=== PATIENT | male | born 1975 | race Caucasian/White ===

== ENCOUNTER 2018-05-25 17:28 | Emergency (ER) | payer OTHER ==
[~2018-05-25] VITALS: Ht 175.3 cm; Wt 77.1 kg
[~2018-05-25 17:28] MED LIST: ARIP10TA2 PO; CEPH500C PO; CLON1TAB3 PO; DESV50TA PO; GABA-486 PO; HYDR-757 PO; IBP800T PO; LURA60TA PO; NAPR-243 PO; PNT40TEC PO; PRD20T PO; PROP20TA5 PO; TRAM50TA2 PO; TRZ100T PO
--- OUTSIDE RECORDS SUMMARY | 2018-05-25 17:43 | XMS REPORT | Continuity of Care Document ---
Author Author [facility] Address Unknown Phone Unavailable Allergies Active Description Code Type Severity Reaction Onset Reported/Identified Relationship to Patient Clinical Status Yes PENICILLIN PENICILLIN Unknown N/A 12/09/2009 Yes codeine [id number] Drug Allergy Mild itches 01/03/2010 Yes Penicillins Drug Allergy N/A N/A 02/20/2013 Medications There is no data. Problems Date Dx Coded Attending Type Code Diagnosis Diagnosed By 01/03/2010 Ot 729.5 01/03/2010 Ot 844.9 01/03/2010 Ot E000.8 01/03/2010 Ot E030 01/03/2010 Ot E928.9 06/21/2012 Ot 305.90 06/21/2012 Ot 562.10 06/21/2012 Ot 789.00 06/21/2012 Ot 790.5 07/16/2012 Ot 356.9 07/16/2012 Ot 724.3 07/16/2012 Ot 724.4 07/16/2012 Ot 729.5 02/20/2013 FAVIOLA HAY DO 729.5 PAIN IN LIMB 02/20/2013 FAVIOLA HAY DO 796.2 ELEVATED BLOOD PRESSURE READING WITHOUT DIAGNOSIS OF HYPERTENSION 02/20/2013 ELBERT ALLEN DDS 729.5 PAIN IN LIMB 02/20/2013 ELBERT ALLEN DDS 796.2 ELEVATED BLOOD PRESSURE READING WITHOUT DIAGNOSIS OF HYPERTENSION 04/28/2013 MOY MACDONALD APRN Ot 300.00 04/28/2013 MOY MACDONALD APRN Ot 729.5 04/28/2013 MOY MACDONALD APRN Ot 786.50 02/07/2014 MOY MACDONALD APRN Ot 724.3 02/07/2014 MOY MACDONALD APRN Ot 729.5 Procedures Code [place] [address] ROUTINE VENIPUNCTURE 02/20/2013 94449 CMP 02/20/2013 73290 VIT B 12 02/20/2013 88971 FOLATE 02/20/2013 30592 [facility] 02/20/2013 96215 [facility] 02/20/2013 Results There is no data. Encounters ACCT No. Visit Date/Time Discharge Status Pt. Type Provider Facility Loc./Unit Complaint [id number] 08/21/2014 14:32:00 08/21/2014 23:59:59 CLS Outpatient ELBERT ALLEN DDS [id number] 02/20/2013 10:41:00 02/20/2013 23:59:59 CLS Outpatient BHARTI HELLER FAVIOLA Vita [id number] 09/15/2014 12:57:00 09/15/2014 15:12:00 DIS Emergency LEX LYNNE MD [facility] ER [id number] 02/07/2014 17:15:00 02/07/2014 17:42:00 DIS Emergency MOY MACDONALD APRN [facility] ER [id number] 04/28/2013 13:33:00 04/28/2013 14:52:00 DIS Emergency MOY MACDONALD PLASMA PROCESSING TECHNICIAN [facility] ER [id number] 02/18/2013 16:06:00 02/18/2013 23:59:59 CLS Outpatient [id number] 09/15/2014 12:57:00 Document Registration [id number] 07/16/2012 18:04:00 Document Registration [id number] 06/21/2012 12:41:00 Document Registration
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
[2018-05-25 19:46] VITALS: BP 180/118
== END 2018-05-25 19:47 | disposition home or self-care (01) ==
LOC: EDUNIT# 17:28 → ER 17:29
DX: S06.0X1A Concussion with loss of consciousness of 30 minutes or less, initial encounter (principal); E78.00 Pure hypercholesterolemia, unspecified; I10 Essential (primary) hypertension; K21.9 Gastro-esophageal reflux disease without esophagitis; F41.9 Anxiety disorder, unspecified; F32.9 Major depressive disorder, single episode, unspecified; R40.2142 Coma scale, eyes open, spontaneous, at arrival to emergency department; R40.2252 Coma scale, best verbal response, oriented, at arrival to emergency department; R40.2362 Coma scale, best motor response, obeys commands, at arrival to emergency department; Z87.19 Personal history of other diseases of the digestive system; Z88.5 Allergy status to narcotic agent; Z88.0 Allergy status to penicillin; Y04.8XXA Assault by other bodily force, initial encounter; Y92.149 Unspecified place in prison as the place of occurrence of the external cause
CPT/HCPCS: 70450; 72125

== ENCOUNTER 2018-11-12 14:56 | Emergency (ER) | payer SELFPAY ==
[~2018-11-12] VITALS: Ht 175.3 cm; Wt 68.0 kg
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
[2018-11-12] MEDS ORDERED: RT-ALBUTEROL/IPRATROPIUM 3 ML (DUONEB) VIAL INH ONE (15:15)
--- NOTE | 2018-11-12 15:16 | ED Respiratory ---
General Stated Complaint: SOA;COUGH Source: patient, other Exam Limitations: no limitations History of Present Illness Date Seen by Provider: November 12, 2018 Time Seen by Provider: 14:56 Initial Comments Patient presents to ER by private conveyance with a significant other chief complaint of last week having some progressively worsening shortness of breath productive cough subjective fevers. He did take one of his mother's breathing treatments yesterday and felt that helped some. He denies a history of COPD smokes about half a pack cigarettes per day. Does not have any known medical history. He does not follow with a doctor. 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 Stated allergy to penicillin. Allergies and Home Medications Allergies Coded Allergies: Codeine (Unverified Allergy, Mild, itches, 01/03/10) Uncoded Allergies: PENICILLIN (Allergy, 12/09/09) Home Medications Aripiprazole 10 Mg Tablet, 10 MG PO HS, (Reported) Cephalexin Monohydrate 500 Mg Capsule, 1 EACH PO TID Prescribed by: LEX LYNNE on 09/15/14 1509 Clonazepam 1 Mg Tablet, 1 EACH PO BID, (Reported) Desvenlafaxine Succinate 50 Mg Tab.sr.24h, 50 MG PO HS, (Reported) Gabapentin 100 Mg Capsule, 100 MG PO BID, (Reported) Lurasidone HCl 60 Mg Tablet, 60 MG PO HS, (Reported) Propranolol Hcl 20 Mg Tablet, 20 MG PO DAILY, (Reported) Trazodone Hcl 100 Mg Tablet, 100 MG PO HS, (Reported) Patient Home Medication List Home Medication List Reviewed: Yes Review of Systems Review of Systems Constitutional: No chills, No diaphoresis EENTM: No ear pain, No eye pain Respiratory: cough, phlegm, short of breath; No wheezing Cardiovascular: No chest pain, No palpitations Gastrointestinal: No abdominal pain, No nausea Genitourinary: No discharge, No dysuria Musculoskeletal: No back pain, No joint pain Skin: No pruritus, No rash Past Odktzmv-Orujwk-Jtawpz Hx Patient Social History Alcohol Use: Occasionally Uses Alcohol Beverage of Choice: Beer (lungs clear today) Recreational Drug Use: Yes Drug of Choice: meth Smoking Status: Current Everyday Smoker Type Used: Cigarettes (half pack per day, rolls his own) Recent Hopitalizations: No Immunizations Up To Date Tetanus Booster (TDap): Less than 5yrs Date of Influenza Vaccine: Mar 25, 2012 Seasonal Allergies Seasonal Allergies: No Past Medical History Surgeries: Yes Gallbladder Respiratory: No Cardiac: Yes High Cholesterol, Hypertension Neurological: No Reproductive Disorders: No Genitourinary: No Gastrointestinal: Yes Gastroesophageal Reflux, Pancreatitis Musculoskeletal: No Endocrine: No HEENT: No Cancer: No Psychosocial: Yes Anxiety, Bipolar Integumentary: No Blood Disorders: No Physical Exam Vital Signs - First Documented 11/12/18 11/12/18 14:59 15:20 Temp 98.0 Pulse 106 Resp 22 B/P (MAP) 171/118 (135) Pulse Ox 97 O2 Delivery Room Air FiO2 21 Capillary Refill : Height: 5'9.00" Weight: 170lbs. oz. 77.490818cc; BMI Method:Stated General Appearance: WD/WN, no apparent distress, other (anxious, twitching) Eyes: Bilateral Eye Normal Inspection, Bilateral Eye PERRL, Bilateral Eye EOMI HEENT: PERRL/EOMI, normal ENT inspection, pharynx normal Neck: full range of motion, normal inspection Respiratory: lungs clear, normal breath sounds, no respiratory distress, no accessory muscle use Cardiovascular: normal peripheral pulses, regular rate, rhythm Gastrointestinal: non tender, soft Extremities: normal inspection, normal capillary refill Neurologic/Psychiatric: alert, oriented x 3, other Skin: normal color, warm/dry Progress/Results/Core Measures Suspected Sepsis SIRS Temperature: Pulse: Respiratory Rate: Laboratory Tests 11/12/18 15:03: White Blood Count 11.0 Blood Pressure / Mean: Laboratory Tests 11/12/18 15:03: Creatinine 1.21, Platelet Count 361, Total Bilirubin 0.5 Results/Orders Lab Results Laboratory Tests Test 11/12/18 15:03 Range/Units White Blood Count 11.0 4.3-11.0 10^3/uL Red Blood Count 5.39 4.35-5.85 10^6/uL Hemoglobin 14.7 13.3-17.7 G/DL Hematocrit 44 40-54 % Mean Corpuscular Volume 81 80-99 FL Mean Corpuscular Hemoglobin 27 25-34 PG Mean Corpuscular Hemoglobin Concent 34 32-36 G/DL Red Cell Distribution Width 14.4 10.0-14.5 % Platelet Count 361 130-400 10^3/uL Mean Platelet Volume 9.6 7.4-10.4 FL Neutrophils (%) (Auto) 63 42-75 % Lymphocytes (%) (Auto) 21 12-44 % Monocytes (%) (Auto) 12 0-12 % Eosinophils (%) (Auto) 4 0-10 % Basophils (%) (Auto) 0 0-10 % Neutrophils # (Auto) 6.9 1.8-7.8 X 10^3 Lymphocytes # (Auto) 2.3 1.0-4.0 X 10^3 Monocytes # (Auto) 1.4 H 0.0-1.0 X 10^3 Eosinophils # (Auto) 0.4 H 0.0-0.3 10^3/uL Basophils # (Auto) 0.0 0.0-0.1 10^3/uL D-Dimer 0.89 H 0.00-0.49 UG/ML Sodium Level 141 135-145 MMOL/L Potassium Level 4.7 3.6-5.0 MMOL/L Chloride Level 108 H 98-107 MMOL/L Carbon Dioxide Level 20 L 21-32 MMOL/L Anion Gap 13 5-14 MMOL/L Blood Urea Nitrogen 24 H 7-18 MG/DL Creatinine 1.21 0.60-1.30 MG/DL Estimat Glomerular Filtration Rate > 60 BUN/Creatinine Ratio 20 Glucose Level 101 70-105 MG/DL Calcium Level 8.9 8.5-10.1 MG/DL Corrected Calcium 9.1 8.5-10.1 MG/DL Total Bilirubin 0.5 0.1-1.0 MG/DL Aspartate Amino Transf (AST/SGOT) 80 H 5-34 U/L Alanine Aminotransferase (ALT/SGPT) 119 H 0-55 U/L Alkaline Phosphatase 106 40-136 U/L C-Reactive Protein High Sensitivity 4.63 H 0.00-0.50 MG/DL Total Protein 6.3 L 6.4-8.2 GM/DL Albumin 3.7 3.2-4.5 GM/DL My Orders Orders - EVEREWA J Chest Pa/Lat (2 View) (11/12/18 15:04) Cbc With Automated Diff (11/12/18 15:04) Comprehensive Metabolic Panel (11/12/18 15:04) Hs C Reactive Protein (11/12/18 15:04) Fibrin Degradation Products (11/12/18 15:04) Ua Culture If Indicated (11/12/18 15:04) Albuterol/Ipra Inhalation Soln (Duoneb I (11/12/18 15:15) Svn Small Volume Nebulizer (11/12/18 15:04) Medications Given in ED Current Medications Medications Dose Ordered Sig/Andra Route Start Time Stop Time Status Last Admin Dose Admin Albuterol/ Ipratropium 3 ml ONCE ONCE INH 11/12/18 15:15 11/12/18 15:16 DC 11/12/18 15:20 3 ML Vital Signs/I&O 11/12/18 11/12/18 14:59 15:20 Temp 98.0 Pulse 106 Resp 22 B/P (MAP) 171/118 (135) Pulse Ox 97 100 O2 Delivery Room Air FiO2 21 Capillary Refill : Progress Note : Time: 15:12 Progress Note Other than his mild tachycardia at 101 the patient has no wheezing or overt evidence of acute respiratory distress. He walked in just fine. He put a cigarette out before he came in to the ER. We'll give him a breathing treatment obtain a chest x-ray since he's having subjective fevers and productive cough and some basic lab. Probably he has bronchitis with a background of COPD. If the breathing treatment helped send subjectively then we can send him home with Proair. The patient is not actually experiencing any chest pain nor has he. Well score 1.5 points for minor tachycardia puts the patient in the low risk category. His tachycardia could also be explained by recent methamphetamine use. Diagnostic Imaging Diagonstic Imaging: Xray Plain Films/CT/US/NM/MRI: chest (2v) Comments No acute cardiopulmonary processes noted on a 2 view chest x-ray. Reviewed: Reviewed by Me Departure Impression Primary Impression: Acute viral bronchitis Disposition: HOME, SELF-CARE Condition: Stable Departure-Patient Inst. Decision time for Depature: 15:56 Referrals: [facility] (PCP/Family) Primary Care Physician Patient Instructions: Acute Bronchitis, Adult (DC), LOCAL PHYSICIAN LIST Add. Discharge Instructions: Follow-up with a primary care doctor. supervisor agency appointments the pro-air and take 2 puffs 3 times a day on a schedule until you're over your bronchitis. You can take another 2 puffs every 4 hours as needed for shortness of breath or coughing fits. Take one capsule of Tessalon Perles every now 6 hours as needed for cough. Drink plenty of fluids to keep your secretions then. Use decongestants and Mucinex as necessary. Bronchitis usually last 2-3 weeks tops. Return to the nearest ER if you have difficulty breathing or significant chest pain. Scripts Benzonatate (Tessalon Perle) 100 Mg Capsule 100 MG PO Q6H PRN for COUGH, #30 CAP 0 Refills Prov: EWA CURTIS 11/12/18 Albuterol Sulfate (PROAIR HFA) 1 Puff Puff 2 PUFF IH Q4H PRN for COUGH, #1 EA 0 Refills 1 PUFF = 90 MCG Prov: EWA CURTIS 11/12/18 Inhaler, Assist Devices (E-Z Spacer) 1 Each Spacer EACH MC for Cough, #1 0 Refills Prov: EWA CURTIS 11/12/18 EWA CURTIS November 12, 2018 15:16
[2018-11-12 15:17] LABS: BASOPHILS % (AUTO) 0 % (0-10); EOSINOPHILS # (AUTO) 0.4 10^3/uL (0.0-0.3); EOSINOPHILS % (AUTO) 4 % (0-10); HEMATOCRIT 44 % (40-54); HEMOGLOBIN 14.7 G/DL (13.3-17.7); LYMPHOCYTES # (AUTO) 2.3 X 10^3 (1.0-4.0); LYMPHOCYTES % (AUTO) 21 % (12-44); MEAN CORPUSCULAR HEMOGLOBIN 27 PG (25-34); MEAN CORPUSCULAR HGB CONC 34 G/DL (32-36); MEAN CORPUSCULAR VOLUME 81 FL (80-99); MEAN PLATELET VOLUME 9.6 FL (7.4-10.4); MONOCYTES # (AUTO) 1.4 X 10^3 (0.0-1.0); MONOCYTES % (AUTO) 12 % (0-12); NEUTROPHILS # (AUTO) 6.9 X 10^3 (1.8-7.8); NEUTROPHILS % (AUTO) 63 % (42-75); PLATELET COUNT 361 10^3/uL (130-400); RED CELL DISTRIBUTION WIDTH 14.4 % (10.0-14.5)
[2018-11-12 15:28] LABS: ALANINE AMINOTRANSFERASE 119 U/L (0-55); ALBUMIN 3.7 GM/DL (3.2-4.5); ALKALINE PHOSPHATASE 106 U/L (40-136); BILIRUBIN,TOTAL 0.5 MG/DL (0.1-1.0); BUN/CREATININE RATIO 20; CALCIUM 8.9 MG/DL (8.5-10.1); CARBON DIOXIDE 20 MMOL/L (21-32); CHLORIDE 108 MMOL/L (98-107); CREATININE SERUM 1.21 MG/DL (0.60-1.30); GFR ESTIMATED > 60; GLUCOSE 101 MG/DL (70-105); POTASSIUM 4.7 MMOL/L (3.6-5.0); SODIUM 141 MMOL/L (135-145); TOTAL PROTEIN 6.3 GM/DL (6.4-8.2)
--- NOTE | 2018-11-12 15:55 | Diagnostic Imaging Report ---
INDICATION: Shortness of breath and cough. TIME OF EXAM: 03:43 p.m. Comparison is made with prior chest from 04/28/2013. Heart size normal. There is patchy airspace infiltrate in the left upper lobe consistent with pneumonia. There is some mild infiltrate in the perihilar regions bilaterally. No effusion or pneumothorax is seen. IMPRESSION: Bilateral perihilar and left upper lobe pneumonia. Dictated by: Dictated on workstation # [id number]
[2018-11-12] MEDS ORDERED: RT-ALBUINH IH (15:59)
[2018-11-12] MEDS ORDERED: INHA1INH59 MC (15:59)
[2018-11-12] MEDS ORDERED: BENZ-13 PO (15:59)
[2018-11-12 16:08] VITALS: BP 171/118
--- NOTE | 2018-11-13 14:20 | NUR ---
CM/SS, respond to consult request from patient's mother, Rajani Tamayo, for Rx assistance. Reviewed patient's visit at ED, history of multiple emergency room visits. He has history of service with [facility] but has not been seen there since 2016. He reportedly had multiple no-show appointments. Patient is unemployed, uninsured, and history of noncompliance. Patient reportedly uses meth and smokes. Approved PALS for inhaler and E-Z Spacer. Patient to private pay for [employer]. Mother was contact, explained to her PALS limits and recommended patient limit smoking and use that money for the Perles. She indicated agreement. Faxed PALS Voucher to [email or web address]. Rajani Tamayo to contact Ricardo to transmit Rx to [facility]. Recommended that patient return to [facility] for walk-in clinic and to remain established to benefit from all their supportive services.
== END 2018-11-12 16:09 | disposition home or self-care (01) ==
LOC: EDUNIT# 14:56 → ER 14:57
DX: J20.9 Acute bronchitis, unspecified (principal); E78.00 Pure hypercholesterolemia, unspecified; I10 Essential (primary) hypertension; K21.9 Gastro-esophageal reflux disease without esophagitis; F41.9 Anxiety disorder, unspecified; F31.9 Bipolar disorder, unspecified; F15.10 Other stimulant abuse, uncomplicated; F17.210 Nicotine dependence, cigarettes, uncomplicated; Z88.5 Allergy status to narcotic agent; Z87.19 Personal history of other diseases of the digestive system; Z88.0 Allergy status to penicillin
CPT/HCPCS: 36415; 71046; 80053; 85025; 85379; 86141; 94640

== ENCOUNTER 2018-11-20 11:08 | Inpatient (IN) | payer OTHER ==
[2018-11-20] VITALS (11 sets, daily range): BP systolic 105–161; BP diastolic 77–121
[~2018-11-20] VITALS: Ht 175.3 cm; Wt 65.9 kg
[~2018-11-20 11:08] MED LIST changes: +BENZ-13 PO; +INHA1INH59 MC; +RT-ALBUINH IH
[2018-11-20 11:24] LABS: BASOPHILS % (AUTO) 0 % (0-10); EOSINOPHILS # (AUTO) 0.3 10^3/uL (0.0-0.3); EOSINOPHILS % (AUTO) 4 % (0-10); HEMATOCRIT 43 % (40-54); HEMOGLOBIN 13.9 G/DL (13.3-17.7); LYMPHOCYTES # (AUTO) 1.6 X 10^3 (1.0-4.0); LYMPHOCYTES % (AUTO) 19 % (12-44); MEAN CORPUSCULAR HEMOGLOBIN 27 PG (25-34); MEAN CORPUSCULAR HGB CONC 33 G/DL (32-36); MEAN CORPUSCULAR VOLUME 81 FL (80-99); MEAN PLATELET VOLUME 9.1 FL (7.4-10.4); MONOCYTES % (AUTO) 12 % (0-12); NEUTROPHILS # (AUTO) 5.5 X 10^3 (1.8-7.8); NEUTROPHILS % (AUTO) 65 % (42-75); PLATELET COUNT 289 10^3/uL (130-400); RED CELL DISTRIBUTION WIDTH 14.8 % (10.0-14.5); WHITE BLOOD COUNT 8.4 10^3/uL (4.3-11.0)
[2018-11-20 11:40] LABS: ALANINE AMINOTRANSFERASE 989 U/L (0-55); ALBUMIN 3.5 GM/DL (3.2-4.5); ALKALINE PHOSPHATASE 142 U/L (40-136); BILIRUBIN,TOTAL 0.8 MG/DL (0.1-1.0); BUN/CREATININE RATIO 20; CALCIUM 8.8 MG/DL (8.5-10.1); CARBON DIOXIDE 25 MMOL/L (21-32); CHLORIDE 107 MMOL/L (98-107); CREATININE SERUM 0.94 MG/DL (0.60-1.30); GFR ESTIMATED > 60; GLUCOSE 93 MG/DL (70-105); POTASSIUM 3.9 MMOL/L (3.6-5.0); SODIUM 140 MMOL/L (135-145); TOTAL PROTEIN 6.3 GM/DL (6.4-8.2)
--- NOTE | 2018-11-20 11:40 | ED Respiratory ---
General Chief Complaint: Respiratory Problems Stated Complaint: SOA;LEG SWELLING Nursing Triage Note: PT CO OF SOA FOR A COUPLE WEEKS, STATES WAS SENT BY [facility] WALK IN, HAD BLOOD DRAWN,PT STATES HAS SWELLING OF LOWER EXT. RATES PAIN 02/01 Source: patient Exam Limitations: no limitations History of Present Illness Date Seen by Provider: November 20, 2018 Time Seen by Provider: 11:16 Initial Comments 43-year-old male who presents to the emergency room with increasing shortness of breath and bilateral leg swelling for the past 2 weeks. He reports that he has been seen in the ED last week and at [facility] today for similar complaints. He reports meth use last week. Timing/Duration: week (2 weeks) Associated Symptoms: shortness of breath Allergies and Home Medications Allergies Coded Allergies: codeine (Unverified Allergy, Mild, itches, 01/03/10) Penicillins (Unverified Allergy, Unknown, 11/20/18) Home Medications Albuterol Sulfate 18 Gm Hfa.aer.ad, 2 PUFF INH Q4H PRN for SHORTNESS OF BREATH, (Reported) Patient Home Medication List Home Medication List Reviewed: Yes Review of Systems Review of Systems Constitutional: see HPI; No chills, No fever Respiratory: see HPI, short of breath Musculoskeletal: see HPI, joint swelling (feet bilat) All Other Systems Reviewed Negative Unless Noted: Yes Past Nlrzfuw-Wbhytm-Fjgevs Hx Past Med/Social Hx: Reviewed Nursing Past Med/Soc Hx Patient Social History Alcohol Use: Denies Use Number of Drinks Today: AA Alcohol Beverage of Choice: Beer Recreational Drug Use: Yes (LAST WEEK) Drug of Choice: meth Smoking Status: Current Everyday Smoker Type Used: Cigarettes Recent Foreign Travel: No Contact w/Someone Who Travel: No Recent Infectious Disease Expo: No Recent Hopitalizations: No Physical Abuse: No Sexual Abuse: No Immunizations Up To Date Tetanus Booster (TDap): Less than 5yrs Date of Influenza Vaccine: Mar 25, 2012 Seasonal Allergies Seasonal Allergies: No Past Medical History Surgeries: Yes Gallbladder Respiratory: No Cardiac: Yes High Cholesterol, Hypertension Neurological: No Reproductive Disorders: No Genitourinary: No Gastrointestinal: Yes Gastroesophageal Reflux, Pancreatitis Musculoskeletal: No Endocrine: No HEENT: No Cancer: No Psychosocial: Yes Anxiety, Bipolar Integumentary: No Blood Disorders: No Family Medical History Reviewed Nursing Family Hx Physical Exam Vital Signs - First Documented 11/20/18 11:10 Temp 97.0 Pulse 100 Resp 20 B/P (MAP) 143/108 (120) Capillary Refill : Less Than 3 Seconds Height: 5'9.00" Weight: 190lbs. oz. 86.936258sn; 23.63 BMI Method:Stated General Appearance: WD/WN, no apparent distress Respiratory: chest non-tender, lungs clear, normal breath sounds, no respiratory distress, no accessory muscle use Cardiovascular: normal peripheral pulses, regular rate, rhythm, no gallop, no JVD, no murmur Gastrointestinal: normal bowel sounds, non tender, soft, no organomegaly, no pulsatile mass Extremities: normal range of motion, non-tender, normal inspection, no calf tenderness, normal capillary refill, pedal edema (pitting bilat) Neurologic/Psychiatric: alert, normal mood/affect, oriented x 3 Skin: normal color, warm/dry Progress/Results/Core Measures Suspected Sepsis Recent Fever Within 48 Hours: No Infection Criteria Present: None New/Unexplained Altered Menta: No Sepsis Screen: No Definite Risk SIRS Temperature:97.0 Pulse: 100 Respiratory Rate: 20 Laboratory Tests 11/20/18 11:15: White Blood Count 8.4 Blood Pressure 143 /108 Mean: 120 Laboratory Tests 11/20/18 11:15: Creatinine 0.94, Platelet Count 289, Total Bilirubin 0.8 Results/Orders Lab Results Laboratory Tests Test 11/20/18 11:15 Range/Units White Blood Count 8.4 4.3-11.0 10^3/uL Red Blood Count 5.23 4.35-5.85 10^6/uL Hemoglobin 13.9 13.3-17.7 G/DL Hematocrit 43 40-54 % Mean Corpuscular Volume 81 80-99 FL Mean Corpuscular Hemoglobin 27 25-34 PG Mean Corpuscular Hemoglobin Concent 33 32-36 G/DL Red Cell Distribution Width 14.8 H 10.0-14.5 % Platelet Count 289 130-400 10^3/uL Mean Platelet Volume 9.1 7.4-10.4 FL Neutrophils (%) (Auto) 65 42-75 % Lymphocytes (%) (Auto) 19 12-44 % Monocytes (%) (Auto) 12 0-12 % Eosinophils (%) (Auto) 4 0-10 % Basophils (%) (Auto) 0 0-10 % Neutrophils # (Auto) 5.5 1.8-7.8 X 10^3 Lymphocytes # (Auto) 1.6 1.0-4.0 X 10^3 Monocytes # (Auto) 1.0 0.0-1.0 X 10^3 Eosinophils # (Auto) 0.3 0.0-0.3 10^3/uL Basophils # (Auto) 0.0 0.0-0.1 10^3/uL Sodium Level 140 135-145 MMOL/L Potassium Level 3.9 3.6-5.0 MMOL/L Chloride Level 107 98-107 MMOL/L Carbon Dioxide Level 25 21-32 MMOL/L Anion Gap 8 5-14 MMOL/L Blood Urea Nitrogen 19 H 7-18 MG/DL Creatinine 0.94 0.60-1.30 MG/DL Estimat Glomerular Filtration Rate > 60 BUN/Creatinine Ratio 20 Glucose Level 93 70-105 MG/DL Calcium Level 8.8 8.5-10.1 MG/DL Corrected Calcium 9.2 8.5-10.1 MG/DL Total Bilirubin 0.8 0.1-1.0 MG/DL Aspartate Amino Transf (AST/SGOT) 285 H 5-34 U/L Alanine Aminotransferase (ALT/SGPT) 989 H 0-55 U/L Alkaline Phosphatase 142 H 40-136 U/L Troponin I 0.060 H <0.028 NG/ML B-Type Natriuretic Peptide 2122.5 H <100.0 PG/ML Total Protein 6.3 L 6.4-8.2 GM/DL Albumin 3.5 3.2-4.5 GM/DL Thyroid Stimulating Hormone (TSH) 4.87 0.35-4.94 UIU/ML Acetaminophen Level < 10 L 10-30 UG/ML Hepatitis A IgM Antibody Non-Reactive Non-Reactive Hepatitis B Surface Antigen Non-Reactive Non-Reactive Hepatitis B Core IgM Antibody Non-Reactive Non-Reactive Hepatitis C Antibody Non-Reactive Non-Reactive My Orders Orders - MEG HASTINGS Cbc With Automated Diff (11/20/18 11:15) Comprehensive Metabolic Panel (11/20/18 11:15) BNP (11/20/18 11:15) Ekg Tracing (11/20/18 11:15) O2 (11/20/18 11:15) Ed Iv/Invasive Line Start (11/20/18 11:15) Monitor-Rhythm Ecg Trace Only (11/20/18 11:15) Chest Pa/Lat (2 View) (11/20/18 11:15) Troponin I (11/20/18 11:15) Furosemide Injection (Lasix Injection) (11/20/18 12:30) Enoxaparin Injection (Lovenox Injection) (11/20/18 12:30) Aspirin Chewable Tablet (Baby Aspirin Ch (11/20/18 12:30) Medications Given in ED Current Medications Medications Dose Ordered Sig/Andra Route Start Time Stop Time Status Last Admin Dose Admin Aspirin 324 mg ONCE ONCE PO 11/20/18 12:30 11/20/18 12:31 DC 11/20/18 12:37 324 MG Enoxaparin Sodium 80 mg ONCE ONCE SC 11/20/18 12:30 11/20/18 12:31 DC 11/20/18 12:37 80 MG Furosemide 40 mg ONCE ONCE IVP 11/20/18 12:30 11/20/18 12:31 DC 11/20/18 12:36 40 MG Vital Signs/I&O 11/20/18 11:10 Temp 97.0 Pulse 100 Resp 20 B/P (MAP) 143/108 (120) Capillary Refill : Less Than 3 Seconds Blood Pressure Mean: 120 ECG Initial ECG Impression Date: November 20, 2018 Initial ECG Impression Time: 11:23 Initial ECG Rate: 97 Initial ECG Rhythm: Normal Sinus Initial ECG Intervals: Normal Initial ECG Impression: Normal Initial ECG Comparisson: Unchanged Diagnostic Imaging Diagonstic Imaging: Xray Plain Films/CT/US/NM/MRI: chest Comments NAME: MILLIE MERAZ [facility] REC#: [id number] PT STATUS: ADM IN : 1975 PHYSICIAN: MEG HASTINGS ADMIT DATE: 11/20/18/ICU Signed Date of Exam: 11/20/18 CHEST PA/LAT (2 VIEW) INDICATION: Shortness of air. Time of exam: 11:30 AM Correlation is made with prior study from 11/12/2018. Heart size is stable. Perihilar regions are unremarkable on today's study. There continues to be an abnormal density in the left upper lobe. No effusion or pneumothorax is seen. IMPRESSION: Left upper lobe density persists. While this could represent pneumonia, other etiologies cannot be excluded. Continued close followup after course of therapy is recommended to confirm clearing. If this does not resolve, CT chest would be recommended for further evaluation. Dictated by: Dictated on workstation # [id number] Dict: 11/20/18 1133 Trans: 11/20/18 1502 Interpreted by: MYRON BEACH MD Electronically signed by: MYRON BEACH MD 11/20/18 1502 Reviewed: Reviewed by Me Departure Communication (Admissions) Time/Spoke to Admitting Phy: 12:30 Dr Cope Time/Spoke to Consulting Phy: 12:35 Dr. Alvarez recommends lasix 40mg IV BID, ASA 325 Daily, Lovenox- Therapeutic dosing. Impression Primary Impression: NSTEMI (non-ST elevated myocardial infarction) Additional Impressions: CHF (congestive heart failure) Elevated liver enzymes Lung density on x-ray Disposition: 01 HOME, SELF-CARE Condition: Stable/Unchanged Admissions Decision to Admit Reason: Admit from ER (General) Decision to Admit/Date: November 20, 2018 Time/Decision to Admit Time: 12:34 Departure-Patient Inst. Referrals: [facility] (PCP/Family) Primary Care Physician MEG HASTINGS November 20, 2018 11:40
[2018-11-20] MEDS ORDERED: FUROSEMIDE 40 MG/4 ML INJ (LASIX) IVP ONE (12:30)
[2018-11-20] MEDS ORDERED: ASPIRIN 81 MG CHEW (CHILDREN'S ASA) PO ONE (12:30)
[2018-11-20] MEDS ORDERED: ENOXAPARIN 80 MG/0.8 ML (LOVENOX) SYR SC ONE (12:30)
--- NOTE | 2018-11-20 13:39 | History & Physicial (CHS) ---
HPI History of Present Illness: Shortness of breath and cough x one to two weeks worsening, swelling in legs for years, worse in last few weeks. He has had chronic problems with leg pain and takes anti-inflammatories frequently, he doesn't think he has taken acetaminophen recently but is not sure what all he has taken. He was seen in the ER about a week ago and given inhalers, but continued to get worse. After the first ER visit, he quit smoking and using methamphetamines because he was trying to make sure he quit anything that might be making him worse. He has anxiety and has taken meds in past, but quit them and has not followed up regularly. Additionally, he does admit being diagnosed with HTN and being on meds in past but has not continued them. He states he drank heavily in the past but recently drinks a glass of wine or similar amount only occasionally. Date seen by provider: November 20, 2018 Time Seen by Provider: 13:35 Attending Physician Laure Cope MD [facility] [place] [place] Consult Date of Admission November 20, 2018 at 12:44 Home Medications Home Medications Reviewed patient Home Medication Reconciliation performed by pharmacy medication reconciliations quality assurance lab technician and/or nursing. Patients Allergies have been reviewed. Allergies Coded Allergies: codeine (Unverified Allergy, Mild, itches, 01/03/10) Uncoded Allergies: PENICILLIN (Allergy, Unknown, 11/20/18) FQM-Tfkhhi-Gnbvmb Hx Patient Social History Alcohol Use: Denies Use Recreational Drug Use: Yes (LAST WEEK) Drug of Choice: meth Smoking Status: Current Everyday Smoker Type Used: Cigarettes Recent Foreign Travel: No Contact w/other who traveled: No Recent Hopitalizations: No Recent Infectious Disease Expo: No Immunizations Up To Date Tetanus Booster (TDap): Less than 5yrs Date of Influenza Vaccine: Mar 25, 2012 Past Medical History PMHx: Anxiety Leg pain PSurgHx: Tympanostomy tubes Cholecystectomy Family Medical History Significant Family History: Heart Disease, COPD Review of Systems ([facility]) Constitutional: No fever EENTM: nose congestion; No throat pain Respiratory: cough, short of breath Cardiovascular: No chest pain Gastrointestinal: abdominal pain (since cholecystectomy); No constipation, No diarrhea, No nausea, No vomiting Genitourinary: No dysuria Musculoskeletal: muscle pain Skin: rash (chronic for years on abdomen and legs) Psychiatric/Neurological: Anxiety, Depressed Reviewed Test Results Reviewed Test Results Lab Laboratory Tests Test 11/20/18 11:15 Range/Units White Blood Count 8.4 4.3-11.0 10^3/uL Red Blood Count 5.23 4.35-5.85 10^6/uL Hemoglobin 13.9 13.3-17.7 G/DL Hematocrit 43 40-54 % Mean Corpuscular Volume 81 80-99 FL Mean Corpuscular Hemoglobin 27 25-34 PG Mean Corpuscular Hemoglobin Concent 33 32-36 G/DL Red Cell Distribution Width 14.8 H 10.0-14.5 % Platelet Count 289 130-400 10^3/uL Mean Platelet Volume 9.1 7.4-10.4 FL Neutrophils (%) (Auto) 65 42-75 % Lymphocytes (%) (Auto) 19 12-44 % Monocytes (%) (Auto) 12 0-12 % Eosinophils (%) (Auto) 4 0-10 % Basophils (%) (Auto) 0 0-10 % Neutrophils # (Auto) 5.5 1.8-7.8 X 10^3 Lymphocytes # (Auto) 1.6 1.0-4.0 X 10^3 Monocytes # (Auto) 1.0 0.0-1.0 X 10^3 Eosinophils # (Auto) 0.3 0.0-0.3 10^3/uL Basophils # (Auto) 0.0 0.0-0.1 10^3/uL Sodium Level 140 135-145 MMOL/L Potassium Level 3.9 3.6-5.0 MMOL/L Chloride Level 107 98-107 MMOL/L Carbon Dioxide Level 25 21-32 MMOL/L Anion Gap 8 5-14 MMOL/L Blood Urea Nitrogen 19 H 7-18 MG/DL Creatinine 0.94 0.60-1.30 MG/DL Estimat Glomerular Filtration Rate > 60 BUN/Creatinine Ratio 20 Glucose Level 93 70-105 MG/DL Calcium Level 8.8 8.5-10.1 MG/DL Corrected Calcium 9.2 8.5-10.1 MG/DL Total Bilirubin 0.8 0.1-1.0 MG/DL Aspartate Amino Transf (AST/SGOT) 285 H 5-34 U/L Alanine Aminotransferase (ALT/SGPT) 989 H 0-55 U/L Alkaline Phosphatase 142 H 40-136 U/L Troponin I 0.060 H <0.028 NG/ML B-Type Natriuretic Peptide 2122.5 H <100.0 PG/ML Total Protein 6.3 L 6.4-8.2 GM/DL Albumin 3.5 3.2-4.5 GM/DL Acetaminophen Level < 10 L 10-30 UG/ML Radiology CXR 11/20: DRAFT IMPRESSION: Left upper lobe density persists. While this could represent pneumonia, other etiologies cannot be excluded. Continued close followup after course of therapy is recommended to confirm clearing. If this does not resolve, CT chest would be recommended for further evaluation. Physical Exam-([facility]) Physical Exam Vital Signs VS - Last 72 Hours, by Label 11/20/18 11/20/18 11:10 13:47 Temp 97.0 Pulse 100 Resp 20 B/P (MAP) 143/108 (120) O2 Delivery Room Air Capillary Refill : Less Than 3 Seconds General Appearance: WD/WN, no apparent distress Respiratory: decreased breath sounds (VANESSA), crackles (bibasilar) Cardiovascular: no murmur, tachycardia Gastrointestinal: normal bowel sounds, soft, tenderness (mild upper abdominal pain); No hepatomegaly Extremities: pedal edema (1+ pitting) Neurologic/Psychiatric: alert, normal mood/affect, other (appears anxious, pacing/standing up frequently) Skin: rash (erythematous/nearly violaceous plaques on abdomen), tattoos/piercings Assessment/Plan Assessment/Plan Admission Status: Inpatient Order (span 2 midnights) Reason for Inpatient Admission: New onset congestive heart failure with hepatitis. (1) CHF (congestive heart failure) Status: Acute Assessment & Plan: Suspect new onset CHF with elevated BNP and peripheral edema along with tachycardia and shortness of breath. Cardiology consulted, appreciate recommendations. Check TSH. Qualifiers: (2) NSTEMI (non-ST elevated myocardial infarction) Status: Acute Assessment & Plan: Elevated troponin concerning for possible NSTEMI, Cardiology consulted, appreciate recommendations. (3) Elevated liver enzymes Status: Acute Assessment & Plan: He reports having heard this in past, but has not followed up. Check hepatitis panel and liver US. (4) Substance abuse Status: Chronic Assessment & Plan: History of methamphetamine use with last use 2 weeks ago, likely contributing to his hypertension and heart failure. (5) Hypertension Status: Chronic Assessment & Plan: Will likely need to restart BP meds. Qualifiers: Qualified Codes: I10 - Essential (primary) hypertension (6) Lung density on x-ray Status: Acute Assessment & Plan: Possible pneumonia, but concerning for mass, will obtain CT chest. Afebrile, no leukocytosis or hypoxia. (7) Leg pain, bilateral Status: Chronic Assessment & Plan: Requesting pain medication- will avoid NSAID due to CHF and apap due to liver dysfunction. He reports benefit with gabapentin in past, will resume. (8) Anxiety Status: Chronic (9) DVT prophylaxis Status: Acute Assessment & Plan: Enoxaparin treatment dose. LAURE COPE MD November 20, 2018 13:39
[2018-11-20] MEDS ORDERED: CATHETER FLUSH 10 ML SYR IV PRN (13:45)
[2018-11-20] MEDS: GABAPENTIN 300 MG (NEURONTIN) CAP PO SCH ×2 (14:11→20:59)
[2018-11-20] MEDS: CATHETER FLUSH 10 ML SYR IV SCH ×2 (14:11→21:00)
[2018-11-20] MEDS ORDERED: ALBU18HF2 INH ×2 (14:46)
--- NOTE | 2018-11-20 15:12 | Diagnostic Imaging Report ---
PROCEDURE: US Hepatic (Liver). TECHNIQUE: Multiple real-time grayscale images were obtained over the right upper quadrant in various projections. INDICATION: Elevated liver function tests. FINDINGS: The liver is normal in size at 17.2 cm. No discrete liver mass is identified. Portal vein is patent and shows normal direction of flow. Gallbladder is surgically absent. No biliary ductal dilatation is identified. Pancreas is unremarkable. Right kidney is without evidence of calculi or hydronephrosis. There is trace ascites noted. There also appears to be a small right-sided effusion. IMPRESSION: 1. Small right-sided pleural effusion. 2. Minimal ascites. No other significant abnormality is detected. Dictated by: Dictated on workstation # [id number]
[2018-11-20] MEDS ORDERED: LIDOCAINE 1% INJ 20 ML 20 ML VIAL ONE (16:12)
[2018-11-20] MEDS ORDERED: HEParin (CATH LAB) 2,000 ML IV ONE (16:12)
--- NOTE | 2018-11-20 16:12 | Cardiac Procedure Note-CS/ASA ---
Pre-Procedure Note Pre-Op Procedure Note H&P Reviewed The H&P was reviewed, patient examined and no changes noted. Date H&P Reviewed: November 20, 2018 Time H&P Reviewed: 16:12 Conscious Sedation Pre-Proced Time 16:12 ASA Score 3 For ASA 3 and 4: Consider anesthesia and medical clearance. Also, for patients with a history of failed moderate sedation consider anesthesia. Airway Lungs Heart ASA score ASA 1: a normal healthy patient ASA 2: a patient with a mild systemic disease (mid diabetes, controlled hypertension, obesity x ASA 3: a patient with a severe systemic disease that limits activity (angina, COPD, prior Myocardial infarction) ASA 4: a patient with an incapacitating disease that is a constant threat to life (CHF, renal failure) ASA 5: a moribund patient not expected to survive 24 hrs. (ruptured aneurysm) ASA 6: a declared brain- patient whose organs are being harvested. For emergent operations, add the letter E after the classification Mallampati Classification Grade 3 Sedation Plan Analgesia, Amnesia, Plan communicated to team members, Discussed options with patient/fam, Discussed risks with patient/fam The patient is an appropriate candidate to undergo the planned procedure, sedation, and anesthesia. The patient immediately re-assessed prior to indication. DARRIN GANDARA MD November 20, 2018 16:12
--- NOTE | 2018-11-20 16:17 | Consultation-Cardiology ---
HPI-Cardiology Cardiology Consultation Date of Consultation 11/20/18 Date of Admission Time Seen by Provider: 16:13 Indication: chest pain and shortness of breath HPI 43 years old gentleman with no known past history, has been having increasing shortness of breath and chest pain described it as dull in nature in the retrosternal area which has been worsening, having worsening pedal edema for the past few days. Came into the emergency room and noted to be in congestive heart failure. He is currently chest pain-free, noted to have elevation troponin level and elevation BNP level. No active pain. No palpitation. No syncope or near syncopal episodes Home Medications & Allergies Allergies: Coded Allergies: codeine (Unverified Allergy, Mild, itches, 01/03/10) Uncoded Allergies: PENICILLIN (Allergy, Unknown, 11/20/18) Home Medication List Reviewed: Yes CHN-Xfdhke-Sotxsr Hx Patient Social History Marital Status: Employed/Student: unemployed Alcohol Use: Denies Use Recreational Drug Use: Yes (LAST WEEK) Drug of Choice: meth Smoking Status: Current Everyday Smoker Type Used: Cigarettes Recent Foreign Travel: No Recent Infectious Disease Expo: No Recent Hopitalizations: No Immunizations Up To Date Tetanus Booster (TDap): Less than 5yrs Date of Influenza Vaccine: Mar 25, 2012 Past Medical History no known past history Family Medical History Significant Family History: Heart Disease, COPD Family History: FH: COPD (chronic obstructive pulmonary disease) 19 FATHER 19 MOTHER FH: coronary artery bypass surgery 19 MOTHER FH: emphysema 19 FATHER FH: heart failure 19 FATHER Seizure disorder G8 SISTER Review of Systems-General Review of Systems Constitutional: no symptoms reported, see HPI; No fever; malaise, weakness EENTM: see HPI, no symptoms reported, nose congestion; No throat pain Respiratory: cough, dyspnea on exertion, short of breath Cardiovascular: No see HPI; chest pain, edema; No Hx of Intervention; palpitations; No syncope, No vascular heart diseas, No other Gastrointestinal: no symptoms reported, see HPI, abdominal pain (since cholecystectomy); No constipation, No diarrhea, No nausea, No vomiting Genitourinary: no symptoms reported, see HPI; No dysuria Musculoskeletal: see HPI, muscle pain Skin: see HPI, rash (chronic for years on abdomen and legs) Psychiatric/Neurological: Anxiety, Depressed Reviewed Test Results Reviewed Test Results Lab Laboratory Tests Test 11/20/18 11:15 Range/Units White Blood Count 8.4 4.3-11.0 10^3/uL Red Blood Count 5.23 4.35-5.85 10^6/uL Hemoglobin 13.9 13.3-17.7 G/DL Hematocrit 43 40-54 % Mean Corpuscular Volume 81 80-99 FL Mean Corpuscular Hemoglobin 27 25-34 PG Mean Corpuscular Hemoglobin Concent 33 32-36 G/DL Red Cell Distribution Width 14.8 H 10.0-14.5 % Platelet Count 289 130-400 10^3/uL Mean Platelet Volume 9.1 7.4-10.4 FL Neutrophils (%) (Auto) 65 42-75 % Lymphocytes (%) (Auto) 19 12-44 % Monocytes (%) (Auto) 12 0-12 % Eosinophils (%) (Auto) 4 0-10 % Basophils (%) (Auto) 0 0-10 % Neutrophils # (Auto) 5.5 1.8-7.8 X 10^3 Lymphocytes # (Auto) 1.6 1.0-4.0 X 10^3 Monocytes # (Auto) 1.0 0.0-1.0 X 10^3 Eosinophils # (Auto) 0.3 0.0-0.3 10^3/uL Basophils # (Auto) 0.0 0.0-0.1 10^3/uL Sodium Level 140 135-145 MMOL/L Potassium Level 3.9 3.6-5.0 MMOL/L Chloride Level 107 98-107 MMOL/L Carbon Dioxide Level 25 21-32 MMOL/L Anion Gap 8 5-14 MMOL/L Blood Urea Nitrogen 19 H 7-18 MG/DL Creatinine 0.94 0.60-1.30 MG/DL Estimat Glomerular Filtration Rate > 60 BUN/Creatinine Ratio 20 Glucose Level 93 70-105 MG/DL Calcium Level 8.8 8.5-10.1 MG/DL Corrected Calcium 9.2 8.5-10.1 MG/DL Total Bilirubin 0.8 0.1-1.0 MG/DL Aspartate Amino Transf (AST/SGOT) 285 H 5-34 U/L Alanine Aminotransferase (ALT/SGPT) 989 H 0-55 U/L Alkaline Phosphatase 142 H 40-136 U/L Troponin I 0.060 H <0.028 NG/ML B-Type Natriuretic Peptide 2122.5 H <100.0 PG/ML Total Protein 6.3 L 6.4-8.2 GM/DL Albumin 3.5 3.2-4.5 GM/DL Thyroid Stimulating Hormone (TSH) 4.87 0.35-4.94 UIU/ML Acetaminophen Level < 10 L 10-30 UG/ML Radiology CXR 11/20: DRAFT IMPRESSION: Left upper lobe density persists. While this could represent pneumonia, other etiologies cannot be excluded. Continued close followup after course of therapy is recommended to confirm clearing. If this does not resolve, CT chest would be recommended for further evaluation. Physical Exam Physical Exam Vital Signs Vital Signs - First Documented 11/20/18 11/20/18 11:10 13:47 Temp 97.0 Pulse 100 Resp 20 B/P (MAP) 143/108 (120) O2 Delivery Room Air Capillary Refill : Less Than 3 Seconds Height, Weight, BMI Height: 5'9.00" Weight: 145lbs. 5.0oz. [id number]; 21.5 BMI Method:Stated General Appearance: No Apparent Distress, WD/WN Eyes: Bilateral Eye Normal Inspection, Bilateral Eye PERRL, Bilateral Eye EOMI HEENT: PERRL/EOMI, TMs Normal, Normal ENT Inspection, Pharynx Normal, Moist Mucous Membranes Neck: Full Range of Motion, Normal Inspection, Non Tender, Supple, Carotid Bruit Respiratory: Chest Non Tender, Normal Breath Sounds, No Accessory Muscle Use, No Respiratory Distress Cardiovascular: Regular Rate, Rhythm, No Edema, No JVD, Normal Peripheral Pulses, Systolic Murmur, Gallop/S3 Gastrointestinal: Normal Bowel Sounds, No Organomegaly, No Pulsatile Mass, Non Tender, Soft Back: Normal Inspection, No CVA Tenderness, No Vertebral Tenderness Extremity: Normal Capillary Refill, Normal Inspection, Normal Range of Motion, Non Tender, No Calf Tenderness, No Pedal Edema Neurologic/Psychiatric: Alert, Oriented x3, No Motor/Sensory Deficits, Normal Mood/Affect Skin: Normal Color, Warm/Dry Lymphatic: No Adenopathy A/P-Cardiology Admission Diagnosis Chest pain Type II myocardial infarction Congestive heart failure, acute left ventricular systolic dysfunction Hypertension Tobaccoism Assessment/Plan Chest pain, type II myocardial infarction with elevation troponin level, could be secondary to heart failure, underlying coronary artery disease cannot be excluded, will need a cardiac catheterization. Cannot tolerate stress test with active elevation in troponin level. Next Congestive heart failure, acute left ventricular systolic dysfunction, I will evaluate echocardiogram, start medical therapy and monitor tolerance and response Hypertension, monitor blood pressure Questionable hyperlipidemia, monitor lipids Tobaccoism, educated on avoiding tobacco product History of methamphetamine use, educated on avoiding illicit drug use Family history of atherosclerosis Clinical Quality Measures DVT/VTE Risk/Contraindication: Risk Factor Score Per Nursin RFS Level Per Nursing on Admit: 4+=Very High DARRIN GANDARA MD November 20, 2018 16:17
[2018-11-20] MEDS ORDERED: MIDAZOLAM 5 MG/5 ML (VERSED) VIAL ONE (16:27)
[2018-11-20] MEDS ORDERED: NS IV 1000 ML 1,000 ML ONE (16:28)
[2018-11-20] MEDS ORDERED: FUROSEMIDE 40 MG/4 ML INJ (LASIX) IV SCH (17:00)
--- NOTE | 2018-11-20 17:10 | Cardiac Cath Report ---
Cardiac Cath Report Physician (s)/Head Bellhop Captain (s) Physician DARRIN GANDARA MD Pre-Procedure Diagnosis Pre-Procedure Diagnosis: congestive heart failure, type II MN Post-Procedure Note Procedure Start Date: November 20, 2018 Name of Procedure: Left heart catheterization Left ventriculogram Aortic arch angiogram Findings/Procedure Note PROCEDURE NOTE: 43 years old gentleman with no significant past medical history admitted with acute congestive heart failure and type II MN, was having chest pain and shortness of breath and peripheral edema, brought to the [facility] And Safety Technician for evaluation for underlying coronary artery disease. After explaining the procedure to the patient, all pros and cons were explained, all questions were answered. The patient signed the consent and then he was placed on the cardiac catheterization laboratory. Groin was prepped SL fashion local anesthesia was used. Sheath placed in the right femoral artery. Angela right and left catheter were used to access the coronary system. Pigtail was used to access the left ventricular cavity. Left ventriculogram was done Aortic arch angiogram was done At the end of the procedure the sheath was removed. Closure device FINDINGS: Hemodynamics LV 119/27, and diastolic pressure of 27 Aorta 123/75 mean of 97 ANATOMY: Left Main is free of obstructive disease Left Anterior Descending has mild disease nonobstructive disease Left Circumflex has mild ostial disease nonobstructive disease Right Coronory Artery has mild disease nonobstructive disease LV Gram is dilated with severe diffuse left ventricular hypokinesia estimated ejection fraction 20 percent Aorta evaluation done with aortic arch angiogram showed normal aortic arch no dissection or aneurysm, normal great vessels of the neck including the innominat e artery, left carotid and left subclavian artery CONCLUSION: 1. Severe nonischemic cardiomyopathy with ejection fraction 20 percent 2. Mild coronary artery disease nonobstructive disease 3. Normal aortic arch and great neck vessels DISCUSSION AND RECOMMENDATION: Initiate aggressive medical therapy for heart failure Anesthesia Type: Conscious Sedation Estimated blood loss (mL): 15 ml Contrast Amount: 58 ml Total Radiation Dose: 281 mGy Post-Procedure Diagnosis Post-operative diagnosis: Congestive heart failure, acute left ventricular systolic dysfunction, nonischemic cardiomyopathy Coronary artery disease Hypertension Shortness of breath DARRIN GANDARA MD November 20, 2018 5:10 pm
[2018-11-20] MEDS ORDERED: PATIENT MAY USE OWN MEDS, ALL PO SCH (17:15)
[2018-11-20] MEDS: NS IV 1000 ML 1,000 ML IV SCH (17:23)
[2018-11-20] MEDS: FUROSEMIDE 40 MG/4 ML INJ (LASIX) IVP SCH (20:59)
[2018-11-20] MEDS: CARVEDILOL 3.125 MG (COREG) TABLET PO SCH (20:59)
[2018-11-20] MEDS: SACUBITRIL/VALSARTAN 24/26 MG (ENTRESTO) TABLET PO SCH (20:59)
[2018-11-20 23:03] LABS: HEPATITIS C ANTIBODY C Non-Reactive (Non-Reactive)
[2018-11-21] VITALS (7 sets, daily range): BP systolic 101–136; BP diastolic 65–102
[2018-11-21] MEDS ORDERED: ENOXAPARIN 100 MG/1 ML (LOVENOX) SYR SC SCH
[2018-11-21] MEDS: NS IV 1000 ML 1,000 ML IV SCH (03:00)
[2018-11-21 04:00] LABS: BASOPHILS # (AUTO) 0.1 10^3/uL (0.0-0.1); BASOPHILS % (AUTO) 1 % (0-10); EOSINOPHILS # (AUTO) 0.5 10^3/uL (0.0-0.3); EOSINOPHILS % (AUTO) 7 % (0-10); HEMATOCRIT 40 % (40-54); HEMOGLOBIN 13.1 G/DL (13.3-17.7); LYMPHOCYTES # (AUTO) 1.5 X 10^3 (1.0-4.0); LYMPHOCYTES % (AUTO) 20 % (12-44); MEAN CORPUSCULAR HEMOGLOBIN 26 PG (25-34); MEAN CORPUSCULAR HGB CONC 33 G/DL (32-36); MEAN CORPUSCULAR VOLUME 81 FL (80-99); MEAN PLATELET VOLUME 9.5 FL (7.4-10.4); MONOCYTES # (AUTO) 0.9 X 10^3 (0.0-1.0); MONOCYTES % (AUTO) 12 % (0-12); NEUTROPHILS # (AUTO) 4.4 X 10^3 (1.8-7.8); NEUTROPHILS % (AUTO) 60 % (42-75); PLATELET COUNT 258 10^3/uL (130-400); RED CELL DISTRIBUTION WIDTH 14.6 % (10.0-14.5); WHITE BLOOD COUNT 7.3 10^3/uL (4.3-11.0)
[2018-11-21 04:18] LABS: ALANINE AMINOTRANSFERASE 710 U/L (0-55); ALKALINE PHOSPHATASE 138 U/L (40-136); BILIRUBIN,TOTAL 0.6 MG/DL (0.1-1.0); BUN/CREATININE RATIO 18; CALCIUM 8.2 MG/DL (8.5-10.1); CARBON DIOXIDE 25 MMOL/L (21-32); CHLORIDE 108 MMOL/L (98-107); CREATININE SERUM 0.84 MG/DL (0.60-1.30); GFR ESTIMATED > 60; GLUCOSE 95 MG/DL (70-105); POTASSIUM 3.6 MMOL/L (3.6-5.0); SODIUM 142 MMOL/L (135-145); TOTAL PROTEIN 5.4 GM/DL (6.4-8.2)
[2018-11-21] MEDS: FUROSEMIDE 40 MG/4 ML INJ (LASIX) IVP SCH (06:54)
[2018-11-21] MEDS: CATHETER FLUSH 10 ML SYR IV SCH (06:55)
--- NOTE | 2018-11-21 07:19 | Cardiology Progress Note ---
Subjective Date Seen by Provider: November 21, 2018 Time Seen by Provider: 07:16 Subjective/Events-last exam patient is laying down in bed, asking to go home, breathing better, feeling better. Review of Systems General: No Chills, No Night Sweats, No Fatigue, No Malaise, No Appetite, No Other HEENT: No Head Aches, No Visual Changes, No Eye Pain, No Ear Pain, No Dysphasia , No Sinus Congestion, No Post Nasal Drip, No Sore Throat, No Other Pulmonary: Dyspnea; No Cough, No Pleuritic Chest Pain, No Other Cardiovascular: No: Chest Pain, Palpitations, Orthopnea, Paroxysmal Noc. Dyspnea, Edema, Lt Headedness, Other Objective-Cardiology Exam Last Set of Vital Signs Vital Signs 11/21/18 04:00 Temp 98.0 Pulse 84 Resp 17 B/P (MAP) 117/89 (98) Pulse Ox 96 O2 Delivery Room Air Capillary Refill : Less Than 3 Seconds I&O Intake and Output 11/21/18 00:00 Intake Total 955 ml Output Total 2725 ml Balance -1770 ml Intake Oral 955 ml Output Urine Total 2725 ml Daily Weight Change No General: Alert, Oriented X3, Cooperative HEENT: Atraumatic, PERRLA Neck: Supple, No JVD, No Thyromegaly Lungs: Normal Air Movement, Other (bilateral rhonchi) Heart: Regular Rate, Normal S1, Normal S2, No Murmurs, Other (S3 present) Abdomen: Normal Bowel Sounds, Soft, No Tenderness, No Hepatosplenomegaly, No Masses Extremities: No Clubbing, No Cyanosis, Normal Pulses, No Tenderness/Swelling, Other (mild edema) Skin: No Rashes, No Breakdown, No Significant Lesion Neuro: Normal Gait, Normal Speech, Strength at 5/5 X4 Ext, Normal Tone, Sensation Intact Psych/Mental Status: Mental Status NL, Mood NL Results Lab Laboratory Tests 11/20/18 11:15 11/21/18 03:05 Laboratory Tests Test 11/20/18 11:15 11/20/18 17:40 11/20/18 23:25 11/21/18 03:05 Range/Units White Blood Count 8.4 7.3 4.3-11.0 10^3/uL Red Blood Count 5.23 4.99 4.35-5.85 10^6/uL Hemoglobin 13.9 13.1 L 13.3-17.7 G/DL Hematocrit 43 40 40-54 % Mean Corpuscular Volume 81 81 80-99 FL Mean Corpuscular Hemoglobin 27 26 25-34 PG Mean Corpuscular Hemoglobin Concent 33 33 32-36 G/DL Red Cell Distribution Width 14.8 H 14.6 H 10.0-14.5 % Platelet Count 289 258 130-400 10^3/uL Mean Platelet Volume 9.1 9.5 7.4-10.4 FL Neutrophils (%) (Auto) 65 60 42-75 % Lymphocytes (%) (Auto) 19 20 12-44 % Monocytes (%) (Auto) 12 12 0-12 % Eosinophils (%) (Auto) 4 7 0-10 % Basophils (%) (Auto) 0 1 0-10 % Neutrophils # (Auto) 5.5 4.4 1.8-7.8 X 10^3 Lymphocytes # (Auto) 1.6 1.5 1.0-4.0 X 10^3 Monocytes # (Auto) 1.0 0.9 0.0-1.0 X 10^3 Eosinophils # (Auto) 0.3 0.5 H 0.0-0.3 10^3/uL Basophils # (Auto) 0.0 0.1 0.0-0.1 10^3/uL Sodium Level 140 142 135-145 MMOL/L Potassium Level 3.9 3.6 3.6-5.0 MMOL/L Chloride Level 107 108 H 98-107 MMOL/L Carbon Dioxide Level 25 25 21-32 MMOL/L Anion Gap 8 9 5-14 MMOL/L Blood Urea Nitrogen 19 H 15 7-18 MG/DL Creatinine 0.94 0.84 0.60-1.30 MG/DL Estimat Glomerular Filtration Rate > 60 > 60 BUN/Creatinine Ratio 20 18 Glucose Level 93 95 70-105 MG/DL Calcium Level 8.8 8.2 L 8.5-10.1 MG/DL Corrected Calcium 9.2 9.0 8.5-10.1 MG/DL Total Bilirubin 0.8 0.6 0.1-1.0 MG/DL Aspartate Amino Transf (AST/SGOT) 285 H 207 H 5-34 U/L Alanine Aminotransferase (ALT/SGPT) 989 H 710 #H 0-55 U/L Alkaline Phosphatase 142 H 138 H 40-136 U/L Troponin I 0.060 H 0.063 H 0.064 H <0.028 NG/ML B-Type Natriuretic Peptide 2122.5 H <100.0 PG/ML Total Protein 6.3 L 5.4 L 6.4-8.2 GM/DL Albumin 3.5 3.0 L 3.2-4.5 GM/DL Thyroid Stimulating Hormone (TSH) 4.87 0.35-4.94 UIU/ML Acetaminophen Level < 10 L 10-30 UG/ML Hepatitis A IgM Antibody Non-Reactive Non-Reactive Hepatitis B Surface Antigen Non-Reactive Non-Reactive Hepatitis B Core IgM Antibody Non-Reactive Non-Reactive Hepatitis C Antibody Non-Reactive Non-Reactive A/P-Cardiology Admission Diagnosis Chest pain Type II myocardial infarction Congestive heart failure, acute left ventricular systolic dysfunction Hypertension Tobaccoism Assessment/Plan Chest pain, type II myocardial infarction with elevation troponin level, cardiac catheterization done yesterday showing mild coronary artery disease nonobstructive disease Congestive heart failure, acute left ventricular systolic dysfunction, nonischemic cardiomyopathy, will maximize medical therapy. Okay for discharge and follow-up as an outpatient. I will evaluate tick borne panel and HIV. Patient is maintained on beta blockers, Aldactone and Entresto Increased risk of sudden due to severe cardiomyopathy, ejection fraction 20 percent, offered him LifeVest. Patient elected not to have it done Acute hepatitis, elevated liver enzymes, could be passive hepatic congestion, I will evaluate hepatitis profile. Hypertension, monitor blood pressure Questionable hyperlipidemia, monitor lipids Tobaccoism, educated on avoiding tobacco product History of methamphetamine use, educated on avoiding illicit drug use Family history of atherosclerosis Okay for discharge and follow-up as an outpatient Clinical Quality Measures DVT/VTE Risk/Contraindication: Risk Factor Score Per Nursin RFS Level Per Nursing on Admit: 4+=Very High DARRIN GANDARA MD November 21, 2018 07:19
[2018-11-21] MEDS ORDERED: FURO-125 PO ×2 (07:21)
[2018-11-21] MEDS ORDERED: ASPI-983 PO ×2 (07:21)
[2018-11-21] MEDS ORDERED: SPIR25TA5 PO ×2 (07:21)
[2018-11-21] MEDS ORDERED: SACU1TAB PO ×2 (07:21)
[2018-11-21] MEDS ORDERED: CARV3.122 PO ×2 (07:21)
--- NOTE | 2018-11-21 07:23 | Discharge Inst-Post CATH ---
Discharge Inst-CATH/EP Post Cardiac Cath/EP D/C Inst Follow Up/Plan Appointment with Dr. Alvarez's office in one to 2 weeks <b>CARDIAC CATH/EP PROCEDURE DISCHARGE INSTRUCTIONS</b> Cardiac Rehab Please be expecting a follow up call from Cardiac Rehab within in one week. ACTIVITY * Go Home directly and rest. * Limit activity of the leg (or wrist if it was used) for 7 days including aerobics, swimming, jogging, bicycling, etc. * Restrict stair-climbing for 7 days if possible, if not, climb up with your non-cath leg, then bring together on the same step. * Avoid lifting, pushing, pulling or excessive movement of the affected extremity for 7 days. * Customary sexual activity may be resumed after 2 days-use caution not to use a position that strains or causes pain to the affected extremity. * No driving for 24 hours. * NO SMOKING. * Avoid straining for bowel movements for 7 days. * Gentle walking on level ground is allowed. * Returning to work will depend on the type of procedure and the results. Your doctor will discuss this with you. CALL YOUR DOCTOR FOR ANY OF THE FOLLOWING: *If bleeding from the puncture site occurs- Apply gentle pressure to site with clean cloth and call your doctor or EMS. * If a knot or lump forms under the skin, increases in size, or causes pain. * If bruising appears to be worsening or moving further down your leg instead of disappearing. * Temperature above 101 F. CARE OF YOUR GROIN INCISION; * Bruising or purple discoloration of the skin near the puncture site is common. * You may shower only, no bathtub bathing for 5 days. Be careful to avoid slipping as your leg may feel stiff. * If a closure device was used on your femoral artery, please see the attached guide regarding care of the device and your leg. * Leave dressing on FOR 24 hours. CARE OF YOUR WRIST INCISION; * Bruising or purple discoloration of the skin near the puncture site is common. * You may shower. * DO NOT submerge wrist. * Leave dressing on FOR 24 hours. DARRIN ALVAREZ MD November 21, 2018 07:22
[2018-11-21] MEDS ORDERED: POTA10TA6 PO ×2 (07:24)
[2018-11-21] MEDS ORDERED: KCL 10 MEQ TAB (MICRO K) PO SCH (07:27)
[2018-11-21] MEDS: SACUBITRIL/VALSARTAN 24/26 MG (ENTRESTO) TABLET PO SCH (07:30)
[2018-11-21] MEDS: GABAPENTIN 300 MG (NEURONTIN) CAP PO SCH (07:30)
[2018-11-21] MEDS: CARVEDILOL 3.125 MG (COREG) TABLET PO SCH (07:30)
[2018-11-21] MEDS ORDERED: ASPIRIN 325 MG (5 GR) TABLET PO SCH (09:00)
[2018-11-21] MEDS ORDERED: ASPIRIN E.C. 81 MG (ECOTRIN) TAB PO SCH (09:00)
[2018-11-21] MEDS ORDERED: SPIRONOLACTONE 25 MG (ALDACTONE) TAB PO SCH (09:00)
--- NOTE | 2018-11-21 09:30 | Discharge Summary ---
Diagnosis/Chief Complaint Date of Admission November 20, 2018 at 12:44 Date of Discharge November 21, 2018 Admission Diagnosis Admission Diagnosis Acute CHF Elevated troponin Substance abuse Hypertension Hepatitis Discharge Diagnosis See problem list Problems/Diagnosis: (1) CHF (congestive heart failure) Assessment & Plan: Suspect new onset CHF with elevated BNP and peripheral edema along with tachycardia and shortness of breath. Cardiology consulted. TSH normal. Cath done and had EF 20% with nonischemic cardiomyopathy. Plan for lifevest if he can get coverage before d/c, otherwise pt did not feel he could afford. Tick borne illness and HIV testing pending at d/c to look for secondary causes in addition to his methamphetamine use. Qualifiers: Qualified Codes: I50.21 - Acute systolic (congestive) heart failure Status: Acute (2) NSTEMI (non-ST elevated myocardial infarction) Assessment & Plan: Elevated troponin concerning for possible NSTEMI, Cardiology consulted, appreciate recommendations. Cath done which showed nonobstructive disease- see above. Status: Acute (3) Elevated liver enzymes Assessment & Plan: He reports having heard this in past, but has not followed up. Hepatitis panel negative, liver ultrasound with minimal ascites but no other abnormalities. Possibly congestive due to acute CHF, will need followed up outpatient. Status: Acute (4) Substance abuse Assessment & Plan: History of methamphetamine use with last use 2 weeks ago, likely contributing to his hypertension and heart failure. Status: Chronic (5) Hypertension Assessment & Plan: Will likely need to restart BP meds. Qualifiers: Qualified Codes: I10 - Essential (primary) hypertension Status: Chronic (6) Lung density on x-ray Assessment & Plan: Possible pneumonia, but concerning for mass. Afebrile, no leukocytosis or hypoxia, was not started on antibiotics. Will need repeat CXR outpatient at least and likely CT for follow up to rule out mass. Status: Acute (7) Leg pain, bilateral Assessment & Plan: Requesting pain medication- will avoid NSAID due to CHF and apap due to liver dysfunction. He reports benefit with gabapentin in past, given during hospital stay. Status: Chronic (8) Anxiety Status: Chronic Chief Complaint/HPI Chief Complaint/HPI Shortness of breath and cough x one to two weeks worsening, swelling in legs for years, worse in last few weeks. He has had chronic problems with leg pain and takes anti-inflammatories frequently, he doesn't think he has taken acetaminophen recently but is not sure what all he has taken. He was seen in the ER about a week ago and given inhalers, but continued to get worse. After the first ER visit, he quit smoking and using methamphetamines because he was trying to make sure he quit anything that might be making him worse. He has anxiety and has taken meds in past, but quit them and has not followed up regularly. Additionally, he does admit being diagnosed with HTN and being on meds in past but has not continued them. He states he drank heavily in the past but recently drinks a glass of wine or similar amount only occasionally. Discharge Summary-Simple/Stand Consultations Discharge Physical Examination Allergies: Coded Allergies: codeine (Unverified Allergy, Mild, itches, 01/03/10) Penicillins (Unverified Allergy, Unknown, 11/20/18) Vitals & I&Os Vital Sign - Last 12Hours Date Time Temp Pulse Resp B/P (MAP) Pulse Ox O2 Delivery O2 Flow Rate FiO2 11/21/18 08:00 132/102 (112) 11/21/18 05:39 84 11/21/18 04:00 98.0 17 96 Room Air Intake and Output 11/21/18 00:00 Intake Total 955 ml Output Total 2725 ml Balance -1770 ml General Appearance: Alert, No Acute Distress Respiratory: Normal Air Movement Cardiovascular: Regular Rate, No Murmurs Abdominal: Normal Bowel Sounds, Soft Extremities: Other (trace edema) Psych/Mental Status: Mental Status NL Hospital Course See final discharge diagnosis. Labs Laboratory Tests Test 11/20/18 11:15 11/20/18 17:40 11/20/18 23:25 11/21/18 03:05 Range/Units White Blood Count 8.4 7.3 4.3-11.0 10^3/uL Red Blood Count 5.23 4.99 4.35-5.85 10^6/uL Hemoglobin 13.9 13.1 L 13.3-17.7 G/DL Hematocrit 43 40 40-54 % Mean Corpuscular Volume 81 81 80-99 FL Mean Corpuscular Hemoglobin 27 26 25-34 PG Mean Corpuscular Hemoglobin Concent 33 33 32-36 G/DL Red Cell Distribution Width 14.8 H 14.6 H 10.0-14.5 % Platelet Count 289 258 130-400 10^3/uL Mean Platelet Volume 9.1 9.5 7.4-10.4 FL Neutrophils (%) (Auto) 65 60 42-75 % Lymphocytes (%) (Auto) 19 20 12-44 % Monocytes (%) (Auto) 12 12 0-12 % Eosinophils (%) (Auto) 4 7 0-10 % Basophils (%) (Auto) 0 1 0-10 % Neutrophils # (Auto) 5.5 4.4 1.8-7.8 X 10^3 Lymphocytes # (Auto) 1.6 1.5 1.0-4.0 X 10^3 Monocytes # (Auto) 1.0 0.9 0.0-1.0 X 10^3 Eosinophils # (Auto) 0.3 0.5 H 0.0-0.3 10^3/uL Basophils # (Auto) 0.0 0.1 0.0-0.1 10^3/uL Sodium Level 140 142 135-145 MMOL/L Potassium Level 3.9 3.6 3.6-5.0 MMOL/L Chloride Level 107 108 H 98-107 MMOL/L Carbon Dioxide Level 25 25 21-32 MMOL/L Anion Gap 8 9 5-14 MMOL/L Blood Urea Nitrogen 19 H 15 7-18 MG/DL Creatinine 0.94 0.84 0.60-1.30 MG/DL Estimat Glomerular Filtration Rate > 60 > 60 BUN/Creatinine Ratio 20 18 Glucose Level 93 95 70-105 MG/DL Calcium Level 8.8 8.2 L 8.5-10.1 MG/DL Corrected Calcium 9.2 9.0 8.5-10.1 MG/DL Total Bilirubin 0.8 0.6 0.1-1.0 MG/DL Aspartate Amino Transf (AST/SGOT) 285 H 207 H 5-34 U/L Alanine Aminotransferase (ALT/SGPT) 989 H 710 #H 0-55 U/L Alkaline Phosphatase 142 H 138 H 40-136 U/L Troponin I 0.060 H 0.063 H 0.064 H <0.028 NG/ML B-Type Natriuretic Peptide 2122.5 H <100.0 PG/ML Total Protein 6.3 L 5.4 L 6.4-8.2 GM/DL Albumin 3.5 3.0 L 3.2-4.5 GM/DL Thyroid Stimulating Hormone (TSH) 4.87 0.35-4.94 UIU/ML Acetaminophen Level < 10 L 10-30 UG/ML Hepatitis A IgM Antibody Non-Reactive Non-Reactive Hepatitis B Surface Antigen Non-Reactive Non-Reactive Hepatitis B Core IgM Antibody Non-Reactive Non-Reactive Hepatitis C Antibody Non-Reactive Non-Reactive Test 11/21/18 07:22 Range/Units Pending Labs HIV, Tick panel Radiology Reviewed CXR 11/20: DRAFT IMPRESSION: Left upper lobe density persists. While this could represent pneumonia, other etiologies cannot be excluded. Continued close followup after course of therapy is recommended to confirm clearing. If this does not resolve, CT chest would be recommended for further evaluation. Discharge Instructions to patient/family Please see electronic discharge instructions given to patient. Discharge Medications Reviewed and agree with Discharge Medication list on patient's Discharge Instruction sheet Clinical Quality Measures DVT/VTE Risk/Contraindication: Risk Factor Score Per Nursin RFS Level Per Nursing on Admit: 4+=Very High Copy Copies To 1: MELBA PADILLA MD, BETHANY N MD November 21, 2018 09:30
--- NOTE | 2018-11-21 09:33 | Discharge Instructions ---
Discharge Inst-[facility] Discharge Medications New, Converted or Re-Newed RX: Call to Patients Pharmacy (Please call meds to [facility] under Dr. Cope so patient can bulk picker there) New Medications: Furosemide (Lasix) 20 Mg Tablet 20 MG PO DAILY, #30 TAB 2 Refills Aspirin (Aspirin EC) 81 Mg Tablet.dr 81 MG PO DAILY, #30 TAB 2 Refills Carvedilol (Carvedilol) 3.125 Mg Tablet 3.125 MG PO BID, #60 TAB 2 Refills Potassium Chloride (Klor-Con 10) 10 Meq Tablet.er 10 MEQ PO DAILY@0700, #30 TAB 3 Refills Sacubitril/Valsartan (Entresto 24 mg-26 mg Tablet) 1 Each Tablet 1 TAB PO BID, #60 TAB 2 Refills Spironolactone (Spironolactone) 25 Mg Tablet 25 MG PO DAILY, #30 TAB 2 Refills Continued Medications: Albuterol Sulfate (Ventolin Hfa) 18 Gm Hfa.aer.ad 2 PUFF INH Q4H PRN for SHORTNESS OF BREATH, INHALER Patient Instructions Goal/Follow Up Appt: Follow up with Dr. Padilla tomorrow November 22 at 120 pm. Patient Instructions: Go to [facility] (pharmacy at [facility]) to bulk picker meds, if you can't afford them, ask to see Dr. Anatoliy Flowers's nurse to try to find other options. Activity & Diet Discharge Diet: Low Sodium Diet Activity as Tolerated: Yes Copy Copies To 1: MELBA PADILLA MD, BETHANY N MD November 21, 2018 09:33
--- NOTE | 2018-11-21 10:02 | NUR ---
CM/SS, respond to consult that physician has requested Life Vest, patient is uninsured, unemployed. Referral completed with [facility] Financial Services to complete [facility] assessment timely as it relates to discharge planning. [facility] will proceed to process a Medicaid Pending vest order if patient is indicated as likely meeting eligibility for [facility]. Await updated information.
[2018-11-21] MEDS ORDERED: ENOXAPARIN 40 MG/0.4 ML (LOVENOX) SYR SQ SCH (12:00)
--- NOTE | 2018-11-21 12:30 | NUR ---
pt refused life vest due to cost stating he will follow up with financial services to obtain disability and then follow through with obtaining a life vest either here or when he returns to [place] with his brother. pt leaves our facility with a stated understanding of the possibility of sudden if not wearing a life vest. states repeatedly that he understands possible outcomes.
--- NOTE | 2018-11-21 12:51 | NUR ---
CM/SS. Financial Services staff visited patient and reported the following: Patient stated that he did not want to complete a Medicaid/Disability application and that he was moving to [place] with his brothers within the next two weeks. He indicated that his brother might be able to pay the fee for the life vest. Approx 2 hours later field underwriter and RN visited with patient. He said that his brother had been on his way here but now was not able to make it, and that they had not discussed the vest or payment. Ski Technician explained that Lillian expected the minimum payment up front before the vest could be ordered and patient then asked to go ahead with his discharge. Unit RN explained that patient could resume primary care and cardiology in [place] as soon as moved and ask for records to be transferred. Additionally, arrangements were made for patient to citrus picker his Rx at [facility] pharmacy. Mother will transport.
[2018-11-22 00:02] LABS: HEPATITIS C ANTIBODY C Non-Reactive (Non-Reactive)
== END 2018-11-21 12:55 | disposition home or self-care (01) | DRG 280 ==
LOC: EDUNIT# 11:08 → ER 11:10 → ICU 12:44
PROVIDERS: ADMIT Family Medicine; ATTEND Family Medicine
PROC: 4A023N7 Measurement of Cardiac Sampling and Pressure, Left Heart, Percutaneous Approach (ICD-10-PCS; principal; 2018-11-20)
PROC: B2111ZZ Fluoroscopy of Multiple Coronary Arteries using Low Osmolar Contrast (ICD-10-PCS; 2018-11-20)
PROC: B2151ZZ Fluoroscopy of Left Heart using Low Osmolar Contrast (ICD-10-PCS; 2018-11-20)
PROC: B3101ZZ Fluoroscopy of Thoracic Aorta using Low Osmolar Contrast (ICD-10-PCS; 2018-11-20)
DX: I11.0 Hypertensive heart disease with heart failure (principal); I50.21 Acute systolic (congestive) heart failure; I21.A1 Myocardial infarction type 2; I42.9 Cardiomyopathy, unspecified; F17.210 Nicotine dependence, cigarettes, uncomplicated; E78.00 Pure hypercholesterolemia, unspecified; I25.10 Atherosclerotic heart disease of native coronary artery without angina pectoris; K21.9 Gastro-esophageal reflux disease without esophagitis; F41.9 Anxiety disorder, unspecified; F31.9 Bipolar disorder, unspecified; F15.10 Other stimulant abuse, uncomplicated; J98.4 Other disorders of lung; R74.8 Abnormal levels of other serum enzymes; Z82.49 Family history of ischemic heart disease and other diseases of the circulatory system
CPT/HCPCS: 36221; 36415; 71046; 76705; 80053; 80074; 80329; 83880; 84443; 84484; 85025; 86618; 86666; 86668; 86703; 86757; 93005; 93041; 93306; 93458; 96372; 96374

== ENCOUNTER 2018-11-21 20:27 | Emergency (ER) | payer OTHER ==
[~2018-11-21] VITALS: Ht 170.2 cm; Wt 77.6 kg
[~2018-11-21 20:27] MED LIST changes: +ALBU18HF2 INH; +ASPI-983 PO; +CARV3.122 PO; +FURO-125 PO; +POTA10TA6 PO; +SACU1TAB PO; +SPIR25TA5 PO
--- NOTE | 2018-11-21 20:32 | NUR ---
pt relates parasthesia to face continues but is less. lungs cta with decreased aeration bases bilaterally. pt had nonspefic abd tenderness with palpation with pt being beligerent. pt also c/o dyspnea with no acute sighns of dyspnea noted. pt instructed npo. tele applied shows st 108.pt has 2 plus edema lower legs bilaterally. pt also relates de does illegal drugs. pt ambulated to room from w/r w/o problems. pt relates he quit alcohol in . parasthesia started 1729 tonoc. done dominick pt at 2040.
--- NOTE | 2018-11-21 20:32 | NUR ---
ER ACUTE PT HERE WITH SEVERAL FAMILY. PT ALERT GCS 15. PT RELATES HE WAS JUST D/CD HOSPITAL HERE TODAY. C/O " STRESS OVER SON". PT BEEN C/O FACIAL PARASTHESIA. PT APPEARS ANXIOUS. PT DENIES CHEST AND ABD PAIN. PT C/O NONSPECIFIC LEG PAIN. PT HAS DRY NONPRODUCTIVE COUGH IN ER AND NO OTHSIGHNS OF DYSPNEA NOTED.
--- NOTE | 2018-11-21 20:38 | NUR ---
PT BECAME VERBALLY BELIGERENT WITH ME AND DR AND OTHER STAFF IN ROOM.
--- NOTE | 2018-11-21 20:40 | NUR ---
TECH DOING EKG.
[2018-11-21 20:53] LABS: BASOPHILS # (AUTO) 0.1 10^3/uL (0.0-0.1); BASOPHILS % (AUTO) 1 % (0-10); EOSINOPHILS # (AUTO) 0.8 10^3/uL (0.0-0.3); EOSINOPHILS % (AUTO) 7 % (0-10); HEMATOCRIT 45 % (40-54); HEMOGLOBIN 14.9 G/DL (13.3-17.7); LYMPHOCYTES # (AUTO) 2.4 X 10^3 (1.0-4.0); LYMPHOCYTES % (AUTO) 21 % (12-44); MEAN CORPUSCULAR HEMOGLOBIN 27 PG (25-34); MEAN CORPUSCULAR HGB CONC 33 G/DL (32-36); MEAN CORPUSCULAR VOLUME 81 FL (80-99); MEAN PLATELET VOLUME 9.1 FL (7.4-10.4); MONOCYTES # (AUTO) 1.6 X 10^3 (0.0-1.0); MONOCYTES % (AUTO) 14 % (0-12); NEUTROPHILS # (AUTO) 6.6 X 10^3 (1.8-7.8); NEUTROPHILS % (AUTO) 58 % (42-75); PLATELET COUNT 358 10^3/uL (130-400); RED CELL DISTRIBUTION WIDTH 14.9 % (10.0-14.5); WHITE BLOOD COUNT 11.5 10^3/uL (4.3-11.0)
--- NOTE | 2018-11-21 21:02 | Diagnostic Imaging Report ---
PROCEDURE: CT head wo r/o stroke. TECHNIQUE: Multiple contiguous axial images were obtained through the brain without the use of intravenous contrast. Auto Exposure Controls were utilized during the CT exam to meet ALARA standards for radiation dose reduction. INDICATION: Paresthesias to the face. COMPARISON: Prior examination from 05/25/2018. FINDINGS: The ventricles and sulci are within normal limits. There is no hydrocephalus or cerebral edema. There is no midline shift or mass effect. There is no intracranial mass, hemorrhage, or extra-axial fluid collection. The visualized paranasal sinuses and mastoid air cells are clear. There are no regional areas of decreased attenuation appreciated to suggest an acute CVA. IMPRESSION: No acute intracranial abnormality. Dictated by: Dictated on workstation # [id number]
--- NOTE | 2018-11-21 21:05 | ED General ---
General Chief Complaint: Neurological Problems Stated Complaint: FACE IS NUMB Nursing Triage Note: pt just d/cd hospital here today. 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 ) History of Present Illness Date Seen by Provider: November 21, 2018 Time Seen by Provider: 20:32 Initial Comments PT ARRIVES VIA POV WITH MULTIPLE FAMILY MEMBERS PT STATES "IT'S MY BLOOD PRESSURE" "I BEEN STRESSED OUT" PT STATES FACE BEGAN TO FEEL NUMB AROUND 1730. HAD JUST EATEN DINNER, AND BEGAN TO HAVE NUMBNESS IN FACE--BEGAN IN RIGHT FOREHEAD AND NOW HIS ENTIRE FACE IS NUMB. NO MOTOR DEFICITS NO NUMBNESS ANYWHERE ELSE NO VISION CHANGES NO SHORTNESS OF BREATH NO CHEST PAIN PT HAS HAD SLIGHT COUGH PT WAS ADMITTED TO HOSPITAL YESTERDAY AND DISMISSED TODAY--FOR NSTEMI, CHF. HAD ELEVATED LFT'S. SUBSTANCE ABUSE--ESPECIALLY METH, HTN, ABNORMAL CXR, CHRONIC LEG PAIN HAD CARDIAC CATH--NO INTERVENTION, MILD NON-OCCLUSIVE DISEASE, EF 20% PLAN WAS FOR PT TO HAVE A LIFE VEST, BUT PT DECLINED Allergies and Home Medications Allergies Coded Allergies: codeine (Unverified Allergy, Mild, itches, 01/03/10) Penicillins (Unverified Allergy, Unknown, 11/20/18) Home Medications Albuterol Sulfate 18 Gm Hfa.aer.ad, 2 PUFF INH Q4H PRN for SHORTNESS OF BREATH, (Reported) Aspirin 81 Mg Tablet.dr, 81 MG PO DAILY Prescribed by: DARRIN GANDARA on 11/21/18720 Carvedilol 3.125 Mg Tablet, 3.125 MG PO BID Prescribed by: DARRIN GANDARA on 11/21/18720 Furosemide 20 Mg Tablet, 20 MG PO DAILY Prescribed by: DARRIN GANDARA on 11/21/18720 Potassium Chloride 10 Meq Tablet.er, 10 MEQ PO DAILY@0700 Prescribed by: DARRIN GANDARA on 11/21/18723 Sacubitril/Valsartan 1 Each Tablet, 1 TAB PO BID Prescribed by: DARRIN GANDARA on 11/21/18720 Spironolactone 25 Mg Tablet, 25 MG PO DAILY Prescribed by: DARRIN GANDARA on 11/21/18 0721 Past Yborlgu-Efdtwj-Ttsuwv Hx Patient Social History Alcohol Use: Past History Alcohol Beverage of Choice: Beer Recreational Drug Use: Yes Drug of Choice: meth Smoking Status: Current Everyday Smoker Type Used: Cigarettes Recent Foreign Travel: No Contact w/Someone Who Travel: No Recent Infectious Disease Expo: No Recent Hopitalizations: No Physical Abuse: No Sexual Abuse: No Immunizations Up To Date Tetanus Booster (TDap): Less than 5yrs Date of Influenza Vaccine: Mar 25, 2012 Seasonal Allergies Seasonal Allergies: No Past Medical History Surgeries: Yes Gallbladder Respiratory: No Cardiac: Yes High Cholesterol, Hypertension Neurological: No Reproductive Disorders: No Genitourinary: No Gastrointestinal: Yes Gastroesophageal Reflux, Pancreatitis Musculoskeletal: No Endocrine: No HEENT: No Cancer: No Psychosocial: Yes Anxiety, Bipolar Integumentary: No Blood Disorders: No Family Medical History FH: COPD (chronic obstructive pulmonary disease) 19 FATHER 19 MOTHER FH: coronary artery bypass surgery 19 MOTHER FH: emphysema 19 FATHER FH: heart failure 19 FATHER Seizure disorder G8 SISTER Heart Disease, COPD Physical Exam Vital Signs Vital Signs - First Documented 11/21/18 20:32 Temp 99.1 Pulse 104 Resp 16 B/P (MAP) 123/95 (104) Pulse Ox 100 O2 Delivery Room Air Capillary Refill : Less Than 3 Seconds Height, Weight, BMI Height: 5'7.00" Weight: 171lbs. 5.0oz. [id number]; 21.5 BMI Method:Stated Progress/Results/Core Measures Suspected Sepsis Recent Fever Within 48 Hours: No Infection Criteria Present: None New/Unexplained Altered Menta: No Sepsis Screen: No Definite Risk SIRS Temperature:99.1 Pulse: 104 Respiratory Rate: 16 Laboratory Tests 11/21/18 20:40: White Blood Count 11.5H Blood Pressure 123 /95 Mean: 104 Laboratory Tests 11/21/18 20:40: Creatinine 1.13, INR Comment 1.1, Platelet Count 358, Total Bilirubin 0.5 Results/Orders Lab Results Laboratory Tests Test 11/21/18 20:40 11/21/18 21:11 Range/Units White Blood Count 11.5 H 4.3-11.0 10^3/uL Red Blood Count 5.61 4.35-5.85 10^6/uL Hemoglobin 14.9 13.3-17.7 G/DL Hematocrit 45 40-54 % Mean Corpuscular Volume 81 80-99 FL Mean Corpuscular Hemoglobin 27 25-34 PG Mean Corpuscular Hemoglobin Concent 33 32-36 G/DL Red Cell Distribution Width 14.9 H 10.0-14.5 % Platelet Count 358 130-400 10^3/uL Mean Platelet Volume 9.1 7.4-10.4 FL Neutrophils (%) (Auto) 58 42-75 % Lymphocytes (%) (Auto) 21 12-44 % Monocytes (%) (Auto) 14 H 0-12 % Eosinophils (%) (Auto) 7 0-10 % Basophils (%) (Auto) 1 0-10 % Neutrophils # (Auto) 6.6 1.8-7.8 X 10^3 Lymphocytes # (Auto) 2.4 1.0-4.0 X 10^3 Monocytes # (Auto) 1.6 H 0.0-1.0 X 10^3 Eosinophils # (Auto) 0.8 H 0.0-0.3 10^3/uL Basophils # (Auto) 0.1 0.0-0.1 10^3/uL Prothrombin Time 14.3 12.2-14.7 SEC INR Comment 1.1 0.8-1.4 Activated Partial Thromboplast Time 31 24-35 SEC Sodium Level 140 135-145 MMOL/L Potassium Level 4.0 3.6-5.0 MMOL/L Chloride Level 104 98-107 MMOL/L Carbon Dioxide Level 27 21-32 MMOL/L Anion Gap 9 5-14 MMOL/L Blood Urea Nitrogen 17 7-18 MG/DL Creatinine 1.13 0.60-1.30 MG/DL Estimat Glomerular Filtration Rate > 60 BUN/Creatinine Ratio 15 Glucose Level 96 70-105 MG/DL Calcium Level 8.8 8.5-10.1 MG/DL Corrected Calcium 9.3 8.5-10.1 MG/DL Magnesium Level 2.2 1.8-2.4 MG/DL Total Bilirubin 0.5 0.1-1.0 MG/DL Aspartate Amino Transf (AST/SGOT) 208 H 5-34 U/L Alanine Aminotransferase (ALT/SGPT) 707 H 0-55 U/L Alkaline Phosphatase 147 H 40-136 U/L Myoglobin 60.1 10.0-92.0 NG/ML Troponin I 0.068 H <0.028 NG/ML B-Type Natriuretic Peptide 1089.4 H <100.0 PG/ML Total Protein 6.3 L 6.4-8.2 GM/DL Albumin 3.4 3.2-4.5 GM/DL Amylase Level 198 H 25-125 U/L Lipase 462 H 8-78 U/L TSH [place] Testing 8.69 H 0.35-4.94 UIU/ML Serum Alcohol < 10 <10 MG/DL Urine Color YELLOW Urine Clarity CLEAR Urine pH 7 5-9 Urine Specific [place] 1.010 L 1.016-1.022 Urine Protein 2+ H NEGATIVE Urine Glucose (UA) NEGATIVE NEGATIVE Urine Ketones NEGATIVE NEGATIVE Urine Nitrite NEGATIVE NEGATIVE Urine Bilirubin NEGATIVE NEGATIVE Urine Urobilinogen 8 H NORMAL MG/DL Urine Leukocyte Esterase 1+ H NEGATIVE Urine RBC (Auto) NEGATIVE NEGATIVE Urine RBC NONE /HPF Urine WBC RARE /HPF Urine Squamous Epithelial Cells RARE /HPF Urine Crystals NONE /LPF Urine Bacteria NEGATIVE /HPF Urine Casts NONE /LPF Urine Mucus NEGATIVE /LPF Urine Culture Indicated NO Urine Opiates Screen NEGATIVE NEGATIVE Urine Oxycodone Screen NEGATIVE NEGATIVE Urine Methadone Screen NEGATIVE NEGATIVE Urine Propoxyphene Screen NEGATIVE NEGATIVE Urine Barbiturates Screen NEGATIVE NEGATIVE Ur Tricyclic Antidepressants Screen NEGATIVE NEGATIVE Urine Phencyclidine Screen NEGATIVE NEGATIVE Urine Amphetamines Screen NEGATIVE NEGATIVE Urine Methamphetamines Screen NEGATIVE NEGATIVE Urine Benzodiazepines Screen NEGATIVE NEGATIVE Urine Cocaine Screen NEGATIVE NEGATIVE Urine Cannabinoids Screen NEGATIVE NEGATIVE My Orders Orders - JLUIS,JOSE K DO Alcohol (11/21/18 20:40) Drug Screen Stat (Urine) (11/21/18 20:40) Thyroid Analyzer (11/21/18 20:40) Ua Culture If Indicated (11/21/18 20:40) Cbc With Automated Diff (11/21/18 20:40) Magnesium (11/21/18 20:40) Chest 1 View, Ap/Pa Only (11/21/18 20:40) Ekg Tracing (11/21/18 20:40) Cardiac Profile 1 (11/21/18 20:40) Comprehensive Metabolic Panel (11/21/18 20:40) Myoglobin Serum (11/21/18 20:40) Protime With Inr (11/21/18 20:40) Partial Thromboplastin Time (11/21/18 20:40) O2 (11/21/18 20:40) Monitor-Rhythm Ecg Trace Only (11/21/18 20:40) Ed Iv/Invasive Line Start (11/21/18 20:40) Lipase (11/21/18 20:40) Amylase (11/21/18 20:40) BNP (11/21/18 20:40) Ct Head Wo-R/O Stroke (11/21/18 20:40) Free T4 (Free Thyroxine) (11/21/18 20:40) Vital Signs/I&O 11/21/18 20:32 Temp 99.1 Pulse 104 Resp 16 B/P (MAP) 123/95 (104) Pulse Ox 100 O2 Delivery Room Air Capillary Refill : Less Than 3 Seconds Blood Pressure Mean: 104 Departure Impression Primary Impression: TRANSIENT FACIAL PARESTHESIAS Additional Impressions: Anxiety hyperventilation RECENT NSTEMI AND CARDIAC CATH Cardiomyopathy Disposition: 01 HOME, SELF-CARE Condition: Improved Departure-Patient Inst. Referrals: [facility] (PCP/Family) Primary Care Physician Patient Instructions: Anxiety, Adult (DC), Hyperventilation, Paresthesias (DC) Add. Discharge Instructions: TAKE YOUR MEDICATIONS PRESCRIBED FOLLOW UP WITH [facility] TOMORROW SCHEDULED All discharge instructions reviewed with patient and/or family. Voiced understanding. JOSE BAZZI DO November 21, 2018 21:05
[2018-11-21 21:08] LABS: INR 1.1 (0.8-1.4); PROTHROMBIN TIME PATIENT 14.3 SEC (12.2-14.7)
[2018-11-21 21:17] LABS: BILIRUBIN,URINE NEGATIVE (NEGATIVE); CLARITY,URINE CLEAR; COLOR,URINE YELLOW; GLUCOSE, URINE (UA) NEGATIVE (NEGATIVE); KETONES,URINE NEGATIVE (NEGATIVE); LEUKOCYTE ESTERASE ,URINE 1+ (NEGATIVE); NITRITE,URINE NEGATIVE (NEGATIVE); PH,URINE 7 (5-9); PROTEIN,URINE 2+ (NEGATIVE); UROBILINOGEN,URINE 8 MG/DL (NORMAL)
[2018-11-21 21:19] LABS: ALANINE AMINOTRANSFERASE 707 U/L (0-55); ALBUMIN 3.4 GM/DL (3.2-4.5); ALKALINE PHOSPHATASE 147 U/L (40-136); AMYLASE 198 U/L (25-125); BILIRUBIN,TOTAL 0.5 MG/DL (0.1-1.0); BUN/CREATININE RATIO 15; CALCIUM 8.8 MG/DL (8.5-10.1); CARBON DIOXIDE 27 MMOL/L (21-32); CHLORIDE 104 MMOL/L (98-107); CREATININE SERUM 1.13 MG/DL (0.60-1.30); GFR ESTIMATED > 60; GLUCOSE 96 MG/DL (70-105); LIPASE 462 U/L (8-78); MAGNESIUM 2.2 MG/DL (1.8-2.4); SODIUM 140 MMOL/L (135-145); TOTAL PROTEIN 6.3 GM/DL (6.4-8.2)
--- NOTE | 2018-11-21 21:22 | Diagnostic Imaging Report ---
INDICATION: Paresthesias to the face. Comparison is made with prior examination from 11/20/2018. FINDINGS: Heart size is normal. Mediastinum is unremarkable. There is a persistent soft tissue density in the left upper lobe. There is no pleural effusion or pneumothorax. IMPRESSION: Persistent soft tissue opacity in the left upper lobe. While this may reflect pneumonia, the possibility of underlying mass cannot be excluded. Recommend further evaluation with CT chest. No other acute cardiopulmonary abnormality. Dictated by: Dictated on workstation # [id number]
[2018-11-21 21:26] LABS: BACTERIA,URINE NEGATIVE /HPF; SQUAMOUS EPITHELIAL CELL,UR RARE /HPF; WBC,URINE RARE /HPF
[2018-11-21 21:29] LABS: AMPHETAMINE SCREEN, URINE NEGATIVE (NEGATIVE); BARBITURATE SCREEN URINE NEGATIVE (NEGATIVE); BENZODIAZEPINES SCREEN URINE NEGATIVE (NEGATIVE); CANNABINOID SCREEN, URINE NEGATIVE (NEGATIVE); COCAINE SCREEN URINE NEGATIVE (NEGATIVE); METHADONE STAT NEGATIVE (NEGATIVE); METHAMPHETAMINE SCREEN URINE S NEGATIVE (NEGATIVE); OPIATE SCREEN URINE NEGATIVE (NEGATIVE); OXYCODONE STAT NEGATIVE (NEGATIVE); PROPOXYPHENE STAT NEGATIVE (NEGATIVE); TRICYCLIC ANTIDEPRESSANTS SCRE NEGATIVE (NEGATIVE)
--- NOTE | 2018-11-21 21:30 | NUR ---
PT REMAINS ALERT GCS 15. FAMILY REMAINS IN THE ROOM. PT STILL APPEARS ANXIOUS AND SLIGHTLY AGITATED AT TIMES. PT DENIES CHEST AND ABD PAIN. DENIES DYPNEA AND NO ACUTE SIGHNS OF DYSPNEA NOTED. PT DENIES PARASTHESIA TO FACE BUT C/O " STINGING" TO THE FACE. BP MACHINE IS 132/105 AUSC HR 112 REG [facility] RESP 20 NORMAL RECHECK TEMP 99.7 P OX R/A IS [address].
[2018-11-21 21:40] LABS: TSH (THYROID ANALYZER) 8.69 UIU/ML (0.35-4.94)
[2018-11-21 22:18] VITALS: BP 132/105
== END 2018-11-21 22:18 | disposition home or self-care (01) ==
LOC: EDUNIT# 20:27 → ER 20:29
DX: R20.2 Paresthesia of skin (principal); F41.9 Anxiety disorder, unspecified; I42.9 Cardiomyopathy, unspecified; I25.2 Old myocardial infarction; E78.00 Pure hypercholesterolemia, unspecified; I11.0 Hypertensive heart disease with heart failure; I50.9 Heart failure, unspecified; K21.9 Gastro-esophageal reflux disease without esophagitis; F12.10 Cannabis abuse, uncomplicated; F32.9 Major depressive disorder, single episode, unspecified; F17.210 Nicotine dependence, cigarettes, uncomplicated; Z88.5 Allergy status to narcotic agent; Z95.9 Presence of cardiac and vascular implant and graft, unspecified; Z87.19 Personal history of other diseases of the digestive system; Z82.49 Family history of ischemic heart disease and other diseases of the circulatory system; Z88.0 Allergy status to penicillin; Z79.82 Long term (current) use of aspirin
CPT/HCPCS: 36415; 70450; 71045; 80053; 80306; 80320; 81000; 82150; 83690; 83735; 83874; 83880; 84439; 84443; 84484; 85025; 85610; 85730; 93005

== ENCOUNTER 2018-12-17 00:24 | Emergency (ER) | payer SELFPAY ==
--- NOTE | 2018-12-17 00:39 | NUR ---
AMBULATORY TO ED ROOM 7. NELSON (PCCT), GRACIA COREY AND THIS MANAGEMENT AIDE/RN PRESENT IN ROOM AT TIME OF TRIAGE. WHEN ASKED ABOUT CHIEF COMPLAINT PT STATES, "JUST GOT OUT OF THE HOSPITAL IN [place] WHERE THEY FOUND BLOOD CLOTS" WHEN ASKED IF PT WAS ON BLOOD THINNERS PT STATES "I DIDN'T TAKE ANY BLOOD THINNERS BECAUSE I LEFT THAT HOSPITAL AND CAME BACK TO [place]". WHEN ASKED IF HE WAS TAKING MEDICATIONS AND WHAT KIND HE STATES, "YOU SHOULD HAVE THAT IN YOUR RECORDS" PT AGAIN ASKED IF HE WAS TAKING MEDICATIONS DAILY AND HE STATES, "I'LL JUST FUCKING LEAVE!" PT EYES WIDE AND PT CHARGED OUT OF ROOM TO WAITING ROOM. PT CAN BE HEARD SHOUTING IN WAITING ROOM "FUCK THAT BITCH" FROM INSIDE ER. SPIN INSTRUCTOR NOTIFIED TO CALL GIAN COREY IF PT RETURNS.
[2018-12-21] MEDS ORDERED: ASPI-983 PO (10:28)
[2018-12-21] MEDS ORDERED: SPIR25TA5 PO (10:28)
[2018-12-21] MEDS ORDERED: FURO-125 PO (10:28)
[2018-12-21] MEDS ORDERED: POTA10TA6 PO (10:28)
[2018-12-21] MEDS ORDERED: SACU1TAB PO (10:28)
[2018-12-21] MEDS ORDERED: CARV3.122 PO (10:28)
== END 2018-12-17 00:39 | disposition left against medical advice (07) ==
LOC: EDUNIT# 00:24 → ER 00:28
DX: R06.02 Shortness of breath (principal); R10.9 Unspecified abdominal pain; R20.2 Paresthesia of skin; M79.89 Other specified soft tissue disorders

== ENCOUNTER 2018-12-20 20:24 | Inpatient (IN) | payer SELFPAY | END 2018-12-21 11:05 | disposition home or self-care (01) | LOC: ER 20:24 → 4TH 23:12 ==

== ENCOUNTER 2020-12-13 21:53 | Emergency (ER) | payer SELFPAY ==
[~2020-12-13 21:53] MED LIST changes: +ASPI-1238 PO; -ASPI-983 PO; -SACU1TAB PO; +SACU1TAB2 PO
== END 2020-12-13 22:13 | disposition left against medical advice (07) ==
LOC: ER 21:53 → EDUNIT# 21:53 → ER 22:13
DX: J44.9 Chronic obstructive pulmonary disease, unspecified (principal)

== ENCOUNTER 2020-12-24 20:25 | Inpatient (IN) | payer SELFPAY ==
[~2020-12-24] VITALS: Ht 175.3 cm; Wt 76.2 kg
--- NOTE | 2020-12-24 20:51 | ED Chest Pain ---
General Chief Complaint: Chest Pain Stated Complaint: CP,SOB Nursing Triage Note: PT TO ROOM 07 VIA W/C WITH C/O CHEST PAIN STARTING ABOUT "ABOUT 2 HOURS AGO". PT REPORTS HIS HANDS AND LEGS ARE BURNING. Source: patient, other Exam Limitations: no limitations History of Present Illness Date Seen by Provider: Dec 24, 2020 Time Seen by Provider: 20:34 Initial Comments Patient to the ER by private conveyance with his significant other chief complaint of 2 weeks of shortness of breath and 2 days of intermittent chest pain with the last episode this morning. He started having some paresthesias in his right arm and increasing pain in bilateral lower extremities which he usually uses gabapentin for. He also has a headache. Dry nonproductive cough. No fevers or chills. His significant other says he has been sequestered to his house for the past couple years avoiding people and has not had Covid vaccination. No Covid or other leung sick contacts. Cardiac catheterization by Dr. Alvarez 2018 demonstrating severe nonischemic cardiomyopathy with an EF of 20%. Mild coronary artery disease with nonobstructive disease. Normal aortic arch and great neck vessels. Allergies and Home Medications Allergies Coded Allergies: codeine (Unverified Allergy, Mild, itches, 01/03/10) Penicillins (Unverified Allergy, Unknown, 11/20/18) Home Medications Albuterol Sulfate 18 Gm Hfa.aer.ad, 2 PUFF INH Q4H PRN for SHORTNESS OF BREATH, (Reported) Aspirin 81 Mg Tablet.dr, 81 MG PO DAILY Prescribed by: DARRIN ALVAREZ on 12/21/18 1028 Carvedilol 3.125 Mg Tablet, 3.125 MG PO BID Prescribed by: DARRIN ALVAREZ on 12/21/18 1028 Furosemide 20 Mg Tablet, 20 MG PO DAILY Prescribed by: DARRIN ALVAREZ on 12/21/18 1028 Gabapentin 600 Mg Tablet, 600 MG PO TID, (Reported) Last Action: New Order Potassium Chloride 10 Meq Tablet.er, 10 MEQ PO DAILY@0700 Prescribed by: DARRIN ALVAREZ on 12/21/18 1028 Sacubitril/Valsartan 1 Each Tablet, 1 TAB PO BID Prescribed by: DARRIN ALVAREZ on 12/21/18 1028 Spironolactone 25 Mg Tablet, 25 MG PO DAILY Prescribed by: DARRIN ALVAREZ on 12/21/18 1028 Patient Home Medication List Home Medication List Reviewed: Yes Review of Systems Review of Systems Constitutional: No chills, No fever; malaise EENTM: No Blurred Vision, No Double Vision Respiratory: Cough, Shortness of Air Cardiovascular: Chest Pain; Denies Lightheadedness Gastrointestinal: Denies Constipated, Denies Diarrhea, Denies Nausea Genitourinary: Denies Burning, Denies Drainage Musculoskeletal: see HPI; No back pain; joint pain Skin: No pruritus, No rash Psychiatric/Neurological: Denies Headache, Denies Numbness All Other Systems Reviewed Negative Unless Noted: Yes Past Vqzaqye-Xnzhxv-Ultkyz Hx Patient Social History Tobacco Use?: Yes Tobacco type used: Cigarettes Smoking Status: Current Everyday Smoker Smokeless Tobacco Frequency: Current Everyday User Use of E-Cig and/or Vaping dev: No Substance use?: No Alcohol Use?: Yes Alcohol Frequency: Daily Pt feels they are or have been: No Immunizations Up To Date Tetanus Booster (TDap): Less than 5yrs Seasonal Allergies Seasonal Allergies: No Past Medical History Surgeries: Yes (BMT'S; CARDIAC CATH 11/20/18--NO INTERVENTION) Ear Surgery, Gallbladder Respiratory: No Cardiac: Yes Chronic Edema/Swelling, Heart Attack, High Cholesterol, Hypertension Neurological: No Reproductive Disorders: No Genitourinary: No Gastrointestinal: Yes Gastroesophageal Reflux, Pancreatitis Musculoskeletal: Yes (CHRONIC BILATERAL LEG PAIN ) Endocrine: No HEENT: No Cancer: No Psychosocial: Yes Anxiety, Bipolar Integumentary: No Blood Disorders: No Family Medical History FH: COPD (chronic obstructive pulmonary disease) 19 FATHER 19 MOTHER FH: coronary artery bypass surgery 19 MOTHER FH: emphysema 19 FATHER FH: heart failure 19 FATHER Seizure disorder G8 SISTER Heart Disease, COPD Physical Exam Vital Signs Vital Signs - First Documented 12/24/20 12/24/20 20:33 20:45 Temp 34.2 Pulse 91 Resp 14 B/P (MAP) 147/112 (124) O2 Delivery Room Air Capillary Refill : Less Than 3 Seconds Height, Weight, BMI Height: 5'7.00" Weight: 150lbs. 7.0oz. 68.511265tv; 22.00 BMI Method:Stated General Appearance: Anxious, Chronically ill, Moderate Distress HEENT: PERRL/EOMI, Moist Mucous Membranes Neck: Full Range of Motion, Normal Inspection Respiratory: Chest Non Tender, Lungs Clear, Normal Breath Sounds, No Accessory Muscle Use, No Respiratory Distress Cardiovascular: Regular Rate, Rhythm, No Edema, Normal Peripheral Pulses Gastrointestinal: Normal Bowel Sounds, Non Tender, Soft Extremity: Normal Capillary Refill, Normal Inspection, No Pedal Edema Neurologic/Psychiatric: Alert, Oriented x3 Skin: Normal Color, Warm/Dry Progress/Results/Core Measures Results/Orders Lab Results Laboratory Tests Test 12/24/20 20:45 Range/Units White Blood Count 13.3 H 4.3-11.0 10^3/uL Red Blood Count 5.83 H 4.30-5.52 10^6/uL Hemoglobin 14.7 13.3-17.7 g/dL Hematocrit 49 40-54 % Mean Corpuscular Volume 83 80-99 fL Mean Corpuscular Hemoglobin 25 25-34 pg Mean Corpuscular Hemoglobin Concent 30 L 32-36 g/dL Red Cell Distribution Width 13.9 10.0-14.5 % Platelet Count 267 130-400 10^3/uL Mean Platelet Volume 10.0 9.0-12.2 fL Immature Granulocyte % (Auto) 0 % Neutrophils (%) (Auto) 78 H 42-75 % Lymphocytes (%) (Auto) 14 12-44 % Monocytes (%) (Auto) 6 0-12 % Eosinophils (%) (Auto) 1 0-10 % Basophils (%) (Auto) 1 0-10 % Neutrophils # (Auto) 10.3 H 1.8-7.8 10^3/uL Lymphocytes # (Auto) 1.9 1.0-4.0 10^3/uL Monocytes # (Auto) 0.9 0.0-1.0 10^3/uL Eosinophils # (Auto) 0.2 0.0-0.3 10^3/uL Basophils # (Auto) 0.1 0.0-0.1 10^3/uL Immature Granulocyte # (Auto) 0.0 0.0-0.1 10^3/uL Prothrombin Time 15.3 H 12.2-14.7 SEC INR Comment 1.2 0.8-1.4 Activated Partial Thromboplast Time 30 24-35 SEC D-Dimer > 20.00 *H 0.00-0.49 UG/ML Sodium Level 139 135-145 MMOL/L Potassium Level 4.0 3.6-5.0 MMOL/L Chloride Level 104 98-107 MMOL/L Carbon Dioxide Level 18 L 21-32 MMOL/L Anion Gap 17 H 5-14 MMOL/L Blood Urea Nitrogen 33 H 7-18 MG/DL Creatinine 1.92 H 0.60-1.30 MG/DL Estimat Glomerular Filtration Rate 38 BUN/Creatinine Ratio 17 Glucose Level 110 H 70-105 MG/DL Calcium Level 9.4 8.5-10.1 MG/DL Corrected Calcium 9.5 8.5-10.1 MG/DL Magnesium Level 2.4 1.6-2.4 MG/DL Total Bilirubin 0.9 0.1-1.0 MG/DL Aspartate Amino Transf (AST/SGOT) 45 H 5-34 U/L Alanine Aminotransferase (ALT/SGPT) 46 0-55 U/L Alkaline Phosphatase 110 40-136 U/L Myoglobin 184.6 H 10.0-92.0 NG/ML Troponin I 0.821 *H <0.028 NG/ML B-Type Natriuretic Peptide 1842.6 H <100.0 PG/ML Total Protein 6.9 6.4-8.2 GM/DL Albumin 3.9 3.2-4.5 GM/DL Lipase 166 H 8-78 U/L Influenza Type A (RT-PCR) Not Detected Not Detecte Influenza Type B (RT-PCR) Not Detected Not Detecte SARS-CoV-2 RNA (RT-PCR) Not Detected Not Detecte My Orders Orders - EWA CURTIS Continuous Ekg Monitoring (12/24/20 20:31) Ekg Tracing (12/24/20 20:31) Cbc With Automated Diff (12/24/20 20:47) Magnesium (12/24/20 20:47) Chest 1 View, Ap/Pa Only (12/24/20 20:47) Comprehensive Metabolic Panel (12/24/20 20:47) Myoglobin Serum (12/24/20 20:47) Protime With Inr (12/24/20 20:47) Partial Thromboplastin Time (12/24/20 20:47) O2 (12/24/20 20:47) Ed Iv/Invasive Line Start (12/24/20 20:47) Lipase (12/24/20 20:47) BNP (12/24/20 20:47) Fibrin Degradation Products (12/24/20 20:47) Troponin I (12/24/20 20:47) Nitroglycerin 0.4 Mg Btl 25's (Nitrostat (12/24/20 21:00) Aspirin Chewable Tablet (Baby Aspirin Ch (12/24/20 21:00) Acetaminophen Tablet (Tylenol Tablet) (12/24/20 21:00) Covid 19 Inhouse Test (12/24/20 20:47) Influenza A And B By Pcr (12/24/20 20:47) Lactated Ringers (Lr 1000 Ml Iv Solution (12/24/20 22:30) Enoxaparin Injection (Lovenox Injection) (12/24/20 22:30) Furosemide Injection (Lasix Injection) (12/24/20 22:30) Medications Given in ED Current Medications Medications Dose Ordered Sig/Andra Route Start Time Stop Time Status Last Admin Dose Admin Acetaminophen 1,000 mg ONCE ONCE PO 12/24/20 21:00 12/24/20 21:01 DC 12/24/20 21:03 1,000 MG Aspirin 324 mg ONCE ONCE PO 12/24/20 21:00 12/24/20 21:01 DC 12/24/20 21:04 324 MG Enoxaparin Sodium 70 mg ONCE ONCE SC 12/24/20 22:30 12/24/20 22:31 DC 12/24/20 22:35 70 MG Furosemide 40 mg ONCE ONCE IVP 12/24/20 22:30 12/24/20 22:31 DC 12/24/20 22:35 40 MG Nitroglycerin 0.4 mg UD PRN SL 12/24/20 21:00 12/24/20 23:47 DC 12/24/20 22:38 0.4 MG Vital Signs/I&O 12/24/20 12/24/20 20:33 20:45 Temp 34.2 Pulse 91 Resp 14 B/P (MAP) 147/112 (124) O2 Delivery Room Air Blood Pressure Mean: 124 Progress Progress Note : Time: 22:21 Progress Note Chest pain work-up, aspirin and nitroglycerin. Covid swab was negative. 40 mg Lasix IV, Lovenox milligram per kilogram. Initial ECG Impression Date: Dec 24, 2020 Initial ECG Impression Time: 20:35 Initial ECG Rate: 91 Initial ECG Rhythm: Normal Sinus Initial ECG Intervals: QT (482) Initial ECG Impression: Normal Comment Normal sinus rhythm without clinically relevant ST elevation or depression. LVH. Minimal prolonged QTC. Diagnostic Imaging Diagonstic Imaging: Xray Plain Films/CT/US/NM/MRI: chest Comments [facility]. [place], [place] NAME: MILLIE MERAZ JR [facility] REC#: [id number] PT STATUS: REG ER : 1975 PHYSICIAN: EWA CURTIS MD ADMIT DATE: 12/24/20/ER Signed Date of Exam:12/24/20 CHEST 1 VIEW, AP/PA ONLY EXAMINATION: Chest 1 view. HISTORY: Chest pain. COMPARISON: 12/21/2018. FINDINGS: The lung volumes are normal. No focal consolidation is seen. No large pleural effusion or pneumothorax is seen. The cardiomediastinal silhouette is prominent. No acute osseous abnormality is seen. IMPRESSION: Cardiomegaly. No overt pulmonary edema. Dictated by: Dictated on workstation # [id number] Dict: 12/24/202101 Trans: 12/24/202107 [facility] [id number] Interpreted by: DELPHINE BOJORQUEZ DO Electronically signed by: DELPHINE BOJORQUEZ DO 12/24/202107 Reviewed: Reviewed by Me Departure Communication (Admissions) Time/Spoke to Admitting Phy: 22:25 Discussed the case with Dr. Minor who agrees to observe the patient with cardiac consultation. Time/Spoke to Consulting Phy: 22:23 Discussed the case with Dr. Alvarez who recommends Lasix 40 mg twice daily IV and will see him in the morning. Impression Primary Impression: Congestive heart failure (CHF) Qualified Codes: I50.9 - Heart failure, unspecified Disposition: ADMITTED INPATIENT Condition: Stable Admissions Decision to Admit Reason: Admit from ER (General) Decision to Admit/Date: Dec 24, 2020 Time/Decision to Admit Time: 22:01 Departure-Patient Inst. Referrals: [facility] [place] (PCP/Family) Primary Care Physician EWA CURTIS Dec 24, 2020 20:51
[2020-12-24 20:54] LABS: BASOPHILS # (AUTO) 0.1 10^3/uL (0.0-0.1); BASOPHILS % (AUTO) 1 % (0-10); EOSINOPHILS # (AUTO) 0.2 10^3/uL (0.0-0.3); EOSINOPHILS % (AUTO) 1 % (0-10); HEMATOCRIT 49 % (40-54); HEMOGLOBIN 14.7 g/dL (13.3-17.7); LYMPHOCYTES # (AUTO) 1.9 10^3/uL (1.0-4.0); LYMPHOCYTES % (AUTO) 14 % (12-44); MEAN CORPUSCULAR HEMOGLOBIN 25 pg (25-34); MEAN CORPUSCULAR HGB CONC 30 g/dL (32-36); MEAN CORPUSCULAR VOLUME 83 fL (80-99); MONOCYTES # (AUTO) 0.9 10^3/uL (0.0-1.0); MONOCYTES % (AUTO) 6 % (0-12); NEUTROPHILS # (AUTO) 10.3 10^3/uL (1.8-7.8); NEUTROPHILS % (AUTO) 78 % (42-75); PLATELET COUNT 267 10^3/uL (130-400); WHITE BLOOD COUNT 13.3 10^3/uL (4.3-11.0)
[2020-12-24] MEDS ORDERED: ASPIRIN 81 MG CHEW (CHILDREN'S ASA) PO ONE (21:00)
[2020-12-24] MEDS ORDERED: ACETAMINOPHEN 500 MG TAB (TYLENOL) PO ONE (21:00)
[2020-12-24] MEDS: NITROGLYCERIN 0.4 MG SL TABS BTL 25'S SL PRN ×2 (21:04→22:38)
--- NOTE | 2020-12-24 21:06 | Diagnostic Imaging Report ---
EXAMINATION: Chest 1 view. HISTORY: Chest pain. COMPARISON: 12/21/2018. FINDINGS: The lung volumes are normal. No focal consolidation is seen. No large pleural effusion or pneumothorax is seen. The cardiomediastinal silhouette is prominent. No acute osseous abnormality is seen. IMPRESSION: Cardiomegaly. No overt pulmonary edema. Dictated by: Dictated on workstation # [id number]
[2020-12-24 21:11] LABS: ALBUMIN 3.9 GM/DL (3.2-4.5); BILIRUBIN,TOTAL 0.9 MG/DL (0.1-1.0); CALCIUM 9.4 MG/DL (8.5-10.1); CREATININE SERUM 1.92 MG/DL (0.60-1.30); MAGNESIUM 2.4 MG/DL (1.6-2.4); TOTAL PROTEIN 6.9 GM/DL (6.4-8.2)
[2020-12-24 21:46] LABS: INR 1.2 (0.8-1.4); PROTHROMBIN TIME PATIENT 15.3 SEC (12.2-14.7)
[2020-12-24] MEDS ORDERED: ENOXAPARIN 80 MG/0.8 ML (LOVENOX) SYR SC ONE (22:30)
[2020-12-24] MEDS ORDERED: LACTATED RINGERS 1,000 ML IV ONE (22:30)
[2020-12-24] MEDS ORDERED: FUROSEMIDE 40 MG/4 ML INJ (LASIX) IVP ONE (22:30)
[2020-12-24 23:40] VITALS: BP 162/119
[2020-12-24] MEDS ORDERED: morphine INJ 4 MG/ML 1 ML (VIAL/SYRINGE) IV PRN (23:45)
[2020-12-24] MEDS ORDERED: LORazepam INJ 2 MG/ML (ATIVAN) VIAL IVP PRN (23:45)
[2020-12-24] MEDS ORDERED: ACETAMINOPHEN 325 MG TABLET PO PRN (23:45)
[2020-12-24] MEDS ORDERED: ONDANSETRON 4 MG/2 ML (SDV) Z0FRAN IVP PRN (23:45)
[2020-12-24] MEDS ORDERED: NITROGLYCERIN 0.4 MG SL TABS BTL 25'S SL PRN (23:45)
[2020-12-25] VITALS (13 sets, daily range): BP systolic 98–170; BP diastolic 84–118
[2020-12-25] MEDS ORDERED: GABAPENTIN 600 MG (NEURONTIN) TAB PO ONE
[2020-12-25] MEDS ORDERED: GBPN600T PO (00:26)
[2020-12-25] MEDS ORDERED: RT-ALBUTEROL SULF 2.5 MG/3 ML PRE-MIX VIAL INH PRN (01:30)
[2020-12-25 03:29] LABS: BASOPHILS # (AUTO) 0.1 10^3/uL (0.0-0.1); BASOPHILS % (AUTO) 1 % (0-10); EOSINOPHILS % (AUTO) 0 % (0-10); HEMATOCRIT 52 % (40-54); LYMPHOCYTES # (AUTO) 1.8 10^3/uL (1.0-4.0); LYMPHOCYTES % (AUTO) 16 % (12-44); MEAN CORPUSCULAR HEMOGLOBIN 25 pg (25-34); MEAN CORPUSCULAR HGB CONC 31 g/dL (32-36); MEAN CORPUSCULAR VOLUME 82 fL (80-99); MEAN PLATELET VOLUME 10.1 fL (9.0-12.2); MONOCYTES # (AUTO) 0.7 10^3/uL (0.0-1.0); MONOCYTES % (AUTO) 6 % (0-12); NEUTROPHILS # (AUTO) 8.6 10^3/uL (1.8-7.8); NEUTROPHILS % (AUTO) 77 % (42-75); PLATELET COUNT 255 10^3/uL (130-400); WHITE BLOOD COUNT 11.1 10^3/uL (4.3-11.0)
[2020-12-25 03:44] LABS: POTASSIUM 4.8 MMOL/L (3.6-5.0)
[2020-12-25 03:45] LABS: CALCIUM 9.8 MG/DL (8.5-10.1)
[2020-12-25 03:50] LABS: CREATININE SERUM 1.85 MG/DL (0.60-1.30)
[2020-12-25] MEDS: GABAPENTIN 600 MG (NEURONTIN) TAB PO SCH ×3 (08:55→20:52)
[2020-12-25] MEDS: ASPIRIN E.C. 81 MG (ECOTRIN) TAB PO SCH (08:55)
[2020-12-25] MEDS: KCL 20 MEQ TAB (K-DUR) PO SCH ×2 (08:55→20:52)
--- NOTE | 2020-12-25 10:32 | Consultation-Cardiology ---
HPI-Cardiology Cardiology Consultation Date of Consultation 12/25/20 Date of Admission Time Seen by Provider: 10:28 Indication: Chest pain and shortness of breath HPI 45 years old gentleman with history of nonischemic cardiomyopathy, history of methamphetamine use. Patient was in his usual state of health, started to have worsening shortness of breath and chest pressure, came into the emergency room, started on diuretics. Still feeling pressure in his chest and shortness of breath at this time, noted to have progressive elevation of his troponin level. Home Medications & Allergies Allergies: Coded Allergies: codeine (Unverified Allergy, Mild, itches, 01/03/10) Penicillins (Unverified Allergy, Unknown, 11/20/18) Home Medication List Reviewed: Yes IHO-Vxyxzc-Tczhad Hx Patient Social History Drug of Choice: METH USE, "DOPE", "CRACK" COCAINE, ""-DENIES IV USE Smoking Status: Current Everyday Smoker Type Used: Cigarettes 2nd Hand Smoke Exposure: Yes Recent Hopitalizations: No Have you traveled recently?: No Alcohol Use?: No Substance type: Methamphetamine Immunizations Up To Date Tetanus Booster (TDap): Less than 5yrs Date of Influenza Vaccine: Mar 25, 2012 Past Medical History Discussed below Family Medical History Significant Family History: Heart Disease, COPD Family History: FH: COPD (chronic obstructive pulmonary disease) 19 FATHER 19 MOTHER FH: coronary artery bypass surgery 19 MOTHER FH: emphysema 19 FATHER FH: heart failure 19 FATHER Seizure disorder G8 SISTER Review of Systems-General Review of Systems Constitutional: No chills, No fever; malaise EENTM: see HPI, no symptoms reported Respiratory: see HPI; No cough; dyspnea on exertion; No hemoptysis; orthopnea; No phlegm; short of breath; No stridor, No wheezing, No other Cardiovascular: see HPI, chest pain, edema; No Hx of Intervention, No palpitations, No syncope, No vascular heart diseas, No other Gastrointestinal: no symptoms reported, see HPI Genitourinary: no symptoms reported, see HPI Musculoskeletal: see HPI; No back pain; joint pain Skin: see HPI; No pruritus, No rash Psychiatric/Neurological: See HPI; Denies Headache, Denies Numbness All Other Systems Reviewed Negative Unless Noted: Yes Reviewed Test Results Reviewed Test Results Lab Laboratory Tests Test 12/24/20 20:45 12/25/20 03:05 12/25/20 09:01 Range/Units White Blood Count 13.3 H 11.1 H 4.3-11.0 10^3/uL Red Blood Count 5.83 H 6.32 H 4.30-5.52 10^6/uL Hemoglobin 14.7 16.0 13.3-17.7 g/dL Hematocrit 49 52 40-54 % Mean Corpuscular Volume 83 82 80-99 fL Mean Corpuscular Hemoglobin 25 25 25-34 pg Mean Corpuscular Hemoglobin Concent 30 L 31 L 32-36 g/dL Red Cell Distribution Width 13.9 14.2 10.0-14.5 % Platelet Count 267 255 130-400 10^3/uL Mean Platelet Volume 10.0 10.1 9.0-12.2 fL Immature Granulocyte % (Auto) 0 0 % Neutrophils (%) (Auto) 78 H 77 H 42-75 % Lymphocytes (%) (Auto) 14 16 12-44 % Monocytes (%) (Auto) 6 6 0-12 % Eosinophils (%) (Auto) 1 0 0-10 % Basophils (%) (Auto) 1 1 0-10 % Neutrophils # (Auto) 10.3 H 8.6 H 1.8-7.8 10^3/uL Lymphocytes # (Auto) 1.9 1.8 1.0-4.0 10^3/uL Monocytes # (Auto) 0.9 0.7 0.0-1.0 10^3/uL Eosinophils # (Auto) 0.2 0.0 0.0-0.3 10^3/uL Basophils # (Auto) 0.1 0.1 0.0-0.1 10^3/uL Immature Granulocyte # (Auto) 0.0 0.0 0.0-0.1 10^3/uL Prothrombin Time 15.3 H 12.2-14.7 SEC INR Comment 1.2 0.8-1.4 Activated Partial Thromboplast Time 30 24-35 SEC D-Dimer > 20.00 *H 0.00-0.49 UG/ML Sodium Level 139 138 135-145 MMOL/L Potassium Level 4.0 4.8 3.6-5.0 MMOL/L Chloride Level 104 104 98-107 MMOL/L Carbon Dioxide Level 18 L 16 L 21-32 MMOL/L Anion Gap 17 H 18 H 5-14 MMOL/L Blood Urea Nitrogen 33 H 34 H 7-18 MG/DL Creatinine 1.92 H 1.85 H 0.60-1.30 MG/DL Estimat Glomerular Filtration Rate 38 40 BUN/Creatinine Ratio 17 18 Glucose Level 110 H 86 70-105 MG/DL Calcium Level 9.4 9.8 8.5-10.1 MG/DL Corrected Calcium 9.5 8.5-10.1 MG/DL Magnesium Level 2.4 1.6-2.4 MG/DL Total Bilirubin 0.9 0.1-1.0 MG/DL Aspartate Amino Transf (AST/SGOT) 45 H 5-34 U/L Alanine Aminotransferase (ALT/SGPT) 46 0-55 U/L Alkaline Phosphatase 110 40-136 U/L Myoglobin 184.6 H 10.0-92.0 NG/ML Troponin I 0.821 *H 1.001 *H 1.224 *H <0.028 NG/ML B-Type Natriuretic Peptide 1842.6 H <100.0 PG/ML Total Protein 6.9 6.4-8.2 GM/DL Albumin 3.9 3.2-4.5 GM/DL Lipase 166 H 8-78 U/L Influenza Type A (RT-PCR) Not Detected Not Detecte Influenza Type B (RT-PCR) Not Detected Not Detecte SARS-CoV-2 RNA (RT-PCR) Not Detected Not Detecte Triglycerides Level 149 <150 MG/DL Cholesterol Level 200 < 200 MG/DL LDL Cholesterol Direct 154 H 1-129 MG/DL VLDL Cholesterol 30 5-40 MG/DL HDL Cholesterol 47 40-60 MG/DL Physical Exam Physical Exam Vital Signs Vital Signs - First Documented 12/24/20 12/24/20 12/24/20 12/25/20 20:33 20:45 23:16 01:16 Temp 34.2 Pulse 91 Resp 14 B/P (MAP) 147/112 (124) Pulse Ox 97 O2 Delivery Room Air FiO2 21 Capillary Refill : Less Than 3 Seconds Height, Weight, BMI Height: 5'7.00" Weight: 150lbs. 7.0oz. 68.045000zq; 24.79 BMI Method:Stated General Appearance: Anxious, Chronically ill, Moderate Distress Eyes: Bilateral Eye Normal Inspection, Bilateral Eye PERRL, Bilateral Eye EOMI HEENT: PERRL/EOMI, Moist Mucous Membranes Neck: Full Range of Motion, Normal Inspection Respiratory: Chest Non Tender, Lungs Clear, Normal Breath Sounds, No Accessory Muscle Use, No Respiratory Distress Cardiovascular: Regular Rate, Rhythm, Normal Peripheral Pulses, Systolic Murmur Gastrointestinal: Normal Bowel Sounds, Non Tender, Soft Back: Normal Inspection, No CVA Tenderness, No Vertebral Tenderness Extremity: Normal Capillary Refill, Normal Inspection, Other (Mild pedal edema) Neurologic/Psychiatric: Alert, Oriented x3 Skin: Normal Color, Warm/Dry Lymphatic: No Adenopathy A/P-Cardiology Admission Diagnosis Non-ST elevation myocardial infarction Congestive heart failure, acute on chronic left ventricular systolic dysfunction, nonischemic cardiomyopathy Acute renal failure Methamphetamine use Assessment/Plan Non-ST elevation myocardial infarction, probably type II myocardial infarction secondary to cardiomyopathy. Had progressive elevation in troponin and chest pain. Last cardiac catheterization was done in 2018, I am planning to proceed with coronary angiogram. Shortness of breath, acute on chronic left ventricular systolic dysfunction, history of nonischemic cardiomyopathy with history of noncompliance with medication, educated about compliance, started on diuretics. Increased risk of sudden due to severe cardiomyopathy, ejection fraction 20 percent, planning to repeat 2D echo Acute on chronic renal insufficiency, continue to monitor renal function Hypertension, currently borderline hypotensive Tobaccoism, educated on avoiding tobacco product History of methamphetamine use, educated on avoiding illicit drug use Family history of atherosclerosis Noncompliance with medication, educated about the importance of compliance Clinical Quality Measures AMI/AHF: ASA po Prior to arrival: DARRIN Benjamin MD Dec 25, 2020 10:32
--- NOTE | 2020-12-25 10:32 | Conscious Sedation/ASA ---
Conscious Sedation Pre-Proced Time 10:32 ASA Score 3 For ASA 3 and 4: Consider anesthesia and medical clearance. Also, for patients with a history of failed moderate sedation consider anesthesia. Airway Lungs Heart ASA score ASA 1: a normal healthy patient ASA 2: a patient with a mild systemic disease (mid diabetes, controlled hypertension, obesity x ASA 3: a patient with a severe systemic disease that limits activity (angina, COPD, prior Myocardial infarction) ASA 4: a patient with an incapacitating disease that is a constant threat to life (CHF, renal failure) ASA 5: a moribund patient not expected to survive 24 hrs. (ruptured aneurysm) ASA 6: a declared brain- patient whose organs are being harvested. For emergent operations, add the letter E after the classification Mallampati Classification Grade 3 Sedation Plan Analgesia, Amnesia, Plan communicated to team members, Discussed options with patient/fam, Discussed risks with patient/fam The patient is an appropriate candidate to undergo the planned procedure, sedation, and anesthesia. The patient immediately re-assessed prior to indication. DARRIN GANDARA MD Dec 25, 2020 10:32
--- NOTE | 2020-12-25 11:03 | Short Stay Summary-Hospitalist ---
History of Present Illness HPI/Chief Complaint Chief complaint: Shortness of breath History of present illness: This is a 45-year-old white male from [facility] who presents to [facility] ER with shortness of breath. Patient was found to have an exacerbation of congestive heart failure. Currently he is sleeping and his is at the bedside. His echocardiogram showed a thrombus in the apex with an ejection fraction of 15% so he will be placed on heparin and Coumadin and will be monitored closely. Source: patient, family, RN/MD, old records Exam Limitations: clinical condition Date Seen 12/25/20 Time Seen by a Provider: 10:30 Attending Physician America Minor DO [facility] [place],[facility] Referring Physician Date of Admission Dec 24, 2020 at 22:30 Home Medications & Allergies Home Medications Reviewed patient Home Medication Reconciliation performed by pharmacy medication reconciliations testing and regulating technician and/or nursing. Patients Allergies have been reviewed. Allergies Allergies Coded Allergies codeine (Unverified Allergy, Mild, itches, 01/03/10) Penicillins (Unverified Allergy, Unknown, 11/20/18) Past Emvvwai-[id number]-[id number] Hx Patient Social History Marrital Status: Employed/Student: unemployed Tobacco Use?: Yes Tobacco type used: Cigarettes Smoking Status: Current Everyday Smoker Smokeless Tobacco Frequency: Current Everyday User Use of E-Cig and/or Vaping dev: No Substance use?: No Substance type: Methamphetamine Substance frequency: Couple times a week Alcohol Use?: No Alcohol Frequency: Daily Pt feels they are or have been: No Immunizations Up To Date Date of Influenza Vaccine: Mar 25, 2012 Seasonal Allergies Seasonal Allergies: No Current Status Advance Directives: No Communicates: Verbally Primary Language: [place] Preferred Spoken Language: [place]orese Is interpretation needed?: No Implanted or Applied Medical D: None Past Medical History Surgeries: Ear Surgery, Gallbladder Chronic Edema/Swelling, Heart Attack, High Cholesterol, Hypertension Gastroesophageal Reflux, Pancreatitis Anxiety, Bipolar Blood Disorders: No PMHx: Anxiety Leg pain PSurgHx: Tympanostomy tubes Cholecystectomy Family Medical History FH: COPD (chronic obstructive pulmonary disease) 19 FATHER 19 MOTHER FH: coronary artery bypass surgery 19 MOTHER FH: emphysema 19 FATHER FH: heart failure 19 FATHER Seizure disorder G8 SISTER Heart Disease, COPD Review of Systems Constitutional: see HPI Respiratory: dyspnea on exertion, short of breath Physical Exam Physical Exam Vital Signs Vital Signs - First Documented 12/24/20 12/24/20 12/24/20 12/25/20 12/25/20 20:33 20:45 23:16 01:16 15:28 Temp 34.2 Pulse 91 Resp 14 B/P (MAP) 147/112 (124) Pulse Ox 97 O2 Delivery Room Air O2 Flow Rate 2.00 FiO2 21 Capillary Refill : Less Than 3 Seconds Height, Weight, BMI Height: 5'7.00" Weight: 150lbs. 7.0oz. [id number]; 24.79 BMI Method:Stated General Appearance: No Apparent Distress, Chronically ill, Other (Sleepy) Eyes: Bilateral Eye Normal Inspection, Bilateral Eye PERRL, Bilateral Eye EOMI HEENT: PERRL/EOMI, Moist Mucous Membranes Neck: Full Range of Motion, Normal Inspection Respiratory: Chest Non Tender, Lungs Clear, No Accessory Muscle Use, No Respiratory Distress, Decreased Breath Sounds Cardiovascular: Regular Rate, Rhythm, Normal Peripheral Pulses, Systolic Murmur Gastrointestinal: Normal Bowel Sounds, Non Tender, Soft Back: Normal Inspection, No CVA Tenderness, No Vertebral Tenderness Extremity: Normal Capillary Refill, Normal Inspection, Other (Mild pedal edema) Neurologic/Psychiatric: Alert, Oriented x3 Skin: Normal Color, Warm/Dry Lymphatic: No Adenopathy Results Results/Procedures Labs Laboratory Tests 12/24/20 20:45 12/25/20 03:05 Patient resulted labs reviewed. Short Stay Diagnosis Discharge Diagnosis-Short Stay Admission Diagnosis Assessment: Acute exacerbation of congestive heart failure Thrombus in apex placed on heparin drip and Coumadin Smoker Meth use Plan: Heparin drip Diuresis Echo Cardiology Final Discharge Diagnosis Assessment: Acute exacerbation of congestive heart failure Thrombus in apex placed on heparin drip and Coumadin Smoker Meth use Plan: Heparin drip Diuresis Echo Cardiology Conclusion Plan Assessment: Acute exacerbation of congestive heart failure Thrombus in apex placed on heparin drip and Coumadin Smoker Meth use Plan: Heparin drip Diuresis Echo Cardiology Diagnosis/Problems Diagnosis/Problems (1) Congestive heart failure (CHF) Status: Acute Qualifiers: Qualified Codes: I50.9 - Heart failure, unspecified (2) Cardiomyopathy Status: Acute (3) History of illicit drug use Status: Acute Clinical Quality Measures AMI/AHF: ASA po Prior to arrival: AMERICA Wolff DO Dec 25, 2020 11:02
[2020-12-25] MEDS ORDERED: fentaNYL INJ 100 MCG/2 ML AMP ONE (12:09)
[2020-12-25] MEDS ORDERED: LIDOCAINE 1% INJ 20 ML 20 ML VIAL ONE (12:09)
[2020-12-25] MEDS ORDERED: MIDAZOLAM 5 MG/5 ML (VERSED) VIAL ONE (12:09)
[2020-12-25] MEDS ORDERED: NS IV 1000 ML 1,000 ML ONE (12:09)
[2020-12-25] MEDS ORDERED: HEParin (CATH LAB) 2,000 ML IV ONE (12:13)
[2020-12-25] MEDS: ENOXAPARIN 80 MG/0.8 ML (LOVENOX) SYR SC SCH ×2 (12:51→22:58)
--- NOTE | 2020-12-25 13:27 | Cardiac Cath Report ---
Cardiac Cath Report Physician (s)/Primary Health Organisation Manager (s) Physician DARRIN GANDARA MD Pre-Procedure Diagnosis Pre-Procedure Diagnosis: congestive heart failure, type II IN Post-Procedure Note Procedure Start Date: Dec 25, 2020 Name of Procedure: Coronary angiogram Findings/Procedure Note PROCEDURE NOTE: 45 years old gentleman with severe cardiomyopathy admitted with decompensated heart failure, had elevated troponin which continue to increase, echocardiogram showed dilated left ventricle with severe diffuse left ventricular hypokinesia with apical thrombus. I decided to proceed with coronary angiogram. After explaining the procedure to the patient, all pros and cons were explained, all questions were answered. The patient signed the consent and then he was placed on the cardiac catheterization laboratory. Groin was prepped SL fashion local anesthesia was used. Sheath placed in the artery. Angela right and left catheter were used to access the coronary system. At the end of the procedure the sheath was removed. Closure device was deployed FINDINGS: Hemodynamics LV was not evaluated, no crossing of the aortic valve Aorta 149/111 mean of 89 ANATOMY: Left Main is free of obstructive disease Left Anterior Descending is free of obstructive disease Left Circumflex is free of obstructive disease Right Coronary Artery is free of obstructive disease CONCLUSION: 1. Normal coronary system 2. Severe nonischemic cardiomyopathy with ejection fraction 30% with apical thrombus DISCUSSION AND RECOMMENDATION: Patient was educated on compliance with medication restarted on aspirin, Entresto, Coreg and adding Coumadin, target INR 2-3 Anesthesia Type: Conscious Sedation Estimated blood loss (mL): 10 ml Contrast Amount: 14 ml Total Radiation Dose: 239 mGy Post-Procedure Diagnosis Post-operative diagnosis: Congestive heart failure, acute on chronic left ventricular systolic dysfunction Type II myocardial infarction Hypertension Hyperlipidemia DARRIN GANDARA MD Dec 25, 2020 13:27
[2020-12-25] MEDS ORDERED: PATIENT MAY USE OWN MEDS, ALL PO SCH (13:30)
[2020-12-25] MEDS: NS IV 1000 ML 1,000 ML IV SCH ×2 (15:46→22:59)
[2020-12-25] MEDS: warFARin 10 MG (COUMADIN) TAB PO SCH (17:47)
[2020-12-25] MEDS: SACUBITRIL/VALSARTAN 24/26 MG (ENTRESTO) TABLET PO SCH (20:52)
[2020-12-26] VITALS (8 sets, daily range): BP systolic 92–138; BP diastolic 54–91
[2020-12-26 04:36] LABS: INR 1.4 (0.8-1.4); PROTHROMBIN TIME PATIENT 17.7 SEC (12.2-14.7)
[2020-12-26 06:38] LABS: BASOPHILS # (AUTO) 0.1 10^3/uL (0.0-0.1); BASOPHILS % (AUTO) 1 % (0-10); EOSINOPHILS % (AUTO) 0 % (0-10); HEMATOCRIT 48 % (40-54); HEMOGLOBIN 14.7 g/dL (13.3-17.7); LYMPHOCYTES # (AUTO) 2.7 10^3/uL (1.0-4.0); LYMPHOCYTES % (AUTO) 26 % (12-44); MEAN CORPUSCULAR HEMOGLOBIN 25 pg (25-34); MEAN CORPUSCULAR HGB CONC 31 g/dL (32-36); MEAN CORPUSCULAR VOLUME 82 fL (80-99); MEAN PLATELET VOLUME 10.5 fL (9.0-12.2); MONOCYTES # (AUTO) 0.9 10^3/uL (0.0-1.0); MONOCYTES % (AUTO) 9 % (0-12); NEUTROPHILS # (AUTO) 6.6 10^3/uL (1.8-7.8); NEUTROPHILS % (AUTO) 64 % (42-75); PLATELET COUNT 260 10^3/uL (130-400); WHITE BLOOD COUNT 10.3 10^3/uL (4.3-11.0)
[2020-12-26 06:45] LABS: ALBUMIN 3.6 GM/DL (3.2-4.5); POTASSIUM 5.5 MMOL/L (3.6-5.0)
[2020-12-26 06:46] LABS: CALCIUM 8.5 MG/DL (8.5-10.1)
[2020-12-26 06:47] LABS: TOTAL PROTEIN 6.5 GM/DL (6.4-8.2)
[2020-12-26 06:49] LABS: BILIRUBIN,TOTAL 1.1 MG/DL (0.1-1.0)
[2020-12-26 06:51] LABS: CREATININE SERUM 1.63 MG/DL (0.60-1.30)
--- NOTE | 2020-12-26 06:55 | Progress Note - Hospitalist ---
Subjective HPI/CC On Admission Date Seen by Provider: Dec 26, 2020 Time Seen by Provider: 11:00 Chief complaint: Shortness of breath History of present illness: This is a 45-year-old white male from [facility] who presents to [facility] ER with shortness of breath. Patient was found to have an exacerbation of congestive heart failure. Currently he is sleeping and his is at the bedside. His echocardiogram showed a thrombus in the apex with an ejection fraction of 15% so he will be placed on heparin and Coumadin and will be monitored closely. Subjective/Events-last exam Patient doing about the same Sleeping a lot coming off of methamphetamine use Moving to fourth floor on telemetry Lovenox maintained in Coumadin with INR checks Review of Systems General: Fatigue, Malaise Neurological: Weakness (Revealed) Objective Exam Vital Signs Vital Signs Date Time Temp Pulse Resp B/P (MAP) Pulse Ox O2 Delivery O2 Flow Rate FiO2 12/26/20 13:45 35.2 74 20 125/85 (98) 98 Room Air 12/25/20 15:28 2.00 12/25/20 01:16 21 Capillary Refill : Less Than 3 Seconds General Appearance: No Apparent Distress, WD/WN, Chronically ill Respiratory: Lungs Clear Cardiovascular: Regular Rate, Rhythm Neurologic/Psychiatric: Alert, Oriented x3 Results/Procedures Lab Laboratory Tests 12/26/20 04:00 Patient resulted labs reviewed. Assessment/Plan Assessment and Plan Assess & Plan/Chief Complaint Assessment: Acute exacerbation of congestive heart failure Thrombus in apex placed on heparin drip and Coumadin Smoker Meth use Plan: Heparin drip Diuresis Echo Cardiology 12/26/2020: Monitor closely Monitor INR Supportive care Diagnosis/Problems Diagnosis/Problems (1) Congestive heart failure (CHF) Status: Acute Qualifiers: Heart failure type: unspecified Heart failure chronicity: acute on chronic Qualified Codes: I50.9 - Heart failure, unspecified (2) Cardiomyopathy Status: Acute (3) History of illicit drug use Status: Acute Clinical Quality Measures AMI/AHF: ASA po Prior to arrival: YENNI Wolff DO Dec 26, 2020 06:55
[2020-12-26] MEDS: ASPIRIN E.C. 81 MG (ECOTRIN) TAB PO SCH (07:58)
[2020-12-26] MEDS: SACUBITRIL/VALSARTAN 24/26 MG (ENTRESTO) TABLET PO SCH ×2 (07:58→20:22)
[2020-12-26] MEDS: GABAPENTIN 600 MG (NEURONTIN) TAB PO SCH ×3 (07:59→20:22)
[2020-12-26] MEDS: PANTOPRAZOLE 40 MG (PROTONIX) TAB PO SCH (07:59)
[2020-12-26] MEDS: KCL 20 MEQ TAB (K-DUR) PO SCH ×2 (08:01→20:22)
[2020-12-26] MEDS: NS IV 1000 ML 1,000 ML IV SCH (08:42)
[2020-12-26] MEDS: ENOXAPARIN 80 MG/0.8 ML (LOVENOX) SYR SC SCH ×2 (10:12→23:13)
--- NOTE | 2020-12-26 11:09 | Cardiology Progress Note ---
Subjective Date Seen by Provider: Dec 26, 2020 Time Seen by Provider: 11:07 Subjective/Events-last exam Patient was seen at bedside, laying down comfortably, tachycardic. Review of Systems General: No Chills, No Night Sweats, No Fatigue, No Malaise, No Appetite, No Other HEENT: No Head Aches, No Visual Changes, No Eye Pain, No Ear Pain, No Dysphasia, No Sinus Congestion, No Post Nasal Drip, No Sore Throat, No Other Pulmonary: No Dyspnea, No Cough, No Pleuritic Chest Pain, No Other Cardiovascular: No: Chest Pain, Palpitations, Orthopnea, Paroxysmal Noc. Dyspnea, Edema, Lt Headedness, Other Objective-Cardiology Exam Last Set of Vital Signs Vital Signs 12/25/20 12/25/20 12/26/20 12/26/20 01:16 15:28 07:56 08:51 Temp 36.4 Pulse 95 Resp 16 B/P (MAP) 138/91 (107) Pulse Ox 100 O2 Delivery Room Air O2 Flow Rate 2.00 FiO2 21 I&O Intake and Output 12/26/20 00:00 Intake Total 800 ml Output Total 550 ml Balance 250 ml Intake Oral 800 ml Output Urine Total 550 ml # Voids 3 # Bowel Movements 1 General: Alert, Oriented X3, Cooperative HEENT: Atraumatic, PERRLA Neck: Supple, No JVD, No Thyromegaly Lungs: Clear to Auscultation, Normal Air Movement Heart: Regular Rate, Normal S1, Normal S2, No Murmurs Abdomen: Normal Bowel Sounds, Soft, No Tenderness, No Hepatosplenomegaly, No Masses Extremities: No Clubbing, No Cyanosis, No Edema, Normal Pulses, No Tenderness/Swelling Skin: No Rashes, No Breakdown, No Significant Lesion Neuro: Normal Gait, Normal Speech, Strength at 5/5 X4 Ext, Normal Tone, Sensation Intact Psych/Mental Status: Mental Status NL, Mood NL Results Lab Laboratory Tests 12/26/20 04:00 A/P-Cardiology Admission Diagnosis Non-ST elevation myocardial infarction Congestive heart failure, acute on chronic left ventricular systolic dysfunct ion, nonischemic cardiomyopathy Acute renal failure Methamphetamine use Assessment/Plan Type II myocardial infarction, elevated troponin level, cardiac catheterization was carried out in 2018 and repeated on December 25, 2020 showing mild coronary artery disease nonobstructive disease Congestive heart failure, acute on chronic left ventricular systolic dysfunction, nonischemic cardiomyopathy, history of noncompliance with medication, restarted on own medication Large echogenic density in the left ventricular apex noted on echocardiogram most probably large apical thrombus. Patient was started on Coumadin, target INR is 2-3 Shortness of breath due to pulmonary edema and heart failure, better today. Increased risk of sudden due to severe cardiomyopathy, ejection fraction 20 percent, patient has been refusing LifeVest Acute on chronic renal insufficiency, continue to monitor renal function Hypertension, currently borderline hypotensive Tobaccoism, educated on avoiding tobacco product History of methamphetamine use, educated on avoiding illicit drug use Family history of atherosclerosis Noncompliance with medication, educated about the importance of compliance DARRIN GANDARA MD Dec 26, 2020 11:09
[2020-12-26] MEDS: warFARin 10 MG (COUMADIN) TAB PO SCH (17:37)
[2020-12-26] MEDS ORDERED: CALCIUM CARBONATE 500 MG (TUMS) TAB.CHEW PO PRN (18:45)
[2020-12-26] MEDS: guaiFENesin/DM (ROBITUSSIN DM) 10 ML UDC PO PRN (20:21)
[2020-12-27 03:59] VITALS: BP 107/77
[2020-12-27] MEDS: guaiFENesin/DM (ROBITUSSIN DM) 10 ML UDC PO PRN (05:23)
[2020-12-27 06:56] LABS: BASOPHILS # (AUTO) 0.1 10^3/uL (0.0-0.1); BASOPHILS % (AUTO) 1 % (0-10); EOSINOPHILS # (AUTO) 0.1 10^3/uL (0.0-0.3); EOSINOPHILS % (AUTO) 1 % (0-10); HEMATOCRIT 43 % (40-54); HEMOGLOBIN 13.4 g/dL (13.3-17.7); LYMPHOCYTES # (AUTO) 2.1 10^3/uL (1.0-4.0); LYMPHOCYTES % (AUTO) 22 % (12-44); MEAN CORPUSCULAR HEMOGLOBIN 25 pg (25-34); MEAN CORPUSCULAR HGB CONC 31 g/dL (32-36); MEAN CORPUSCULAR VOLUME 81 fL (80-99); MEAN PLATELET VOLUME 10.4 fL (9.0-12.2); MONOCYTES # (AUTO) 0.9 10^3/uL (0.0-1.0); MONOCYTES % (AUTO) 10 % (0-12); NEUTROPHILS # (AUTO) 6.1 10^3/uL (1.8-7.8); NEUTROPHILS % (AUTO) 65 % (42-75); PLATELET COUNT 262 10^3/uL (130-400); WHITE BLOOD COUNT 9.4 10^3/uL (4.3-11.0)
[2020-12-27 07:15] LABS: PROTHROMBIN TIME PATIENT 23.3 SEC (12.2-14.7)
[2020-12-27 07:30] LABS: ALBUMIN 3.2 GM/DL (3.2-4.5); BILIRUBIN,TOTAL 0.7 MG/DL (0.1-1.0); CALCIUM 8.4 MG/DL (8.5-10.1); CREATININE SERUM 1.56 MG/DL (0.60-1.30); TOTAL PROTEIN 5.9 GM/DL (6.4-8.2)
[2020-12-27] MEDS: GABAPENTIN 600 MG (NEURONTIN) TAB PO SCH ×2 (08:40→12:05)
[2020-12-27] MEDS: KCL 20 MEQ TAB (K-DUR) PO SCH (08:40)
[2020-12-27] MEDS: PANTOPRAZOLE 40 MG (PROTONIX) TAB PO SCH (08:40)
[2020-12-27] MEDS: ASPIRIN E.C. 81 MG (ECOTRIN) TAB PO SCH (08:40)
[2020-12-27] MEDS: SACUBITRIL/VALSARTAN 24/26 MG (ENTRESTO) TABLET PO SCH (08:40)
[2020-12-27 11:37] VITALS: BP 122/89
[2020-12-27] MEDS: ENOXAPARIN 80 MG/0.8 ML (LOVENOX) SYR SC SCH (11:43)
--- NOTE | 2020-12-27 12:07 | Progress Note ---
Subjective Subjective/Events-last exam 45 yo M here for acute CHF and found to have apical thrombus. States that he is feeling better this AM. Denies any blood in stool or urine. Denies any chest pain. Having some shortness of breath with activity but it is better. Review of Systems General: Malaise HEENT: No Head Aches Pulmonary: Dyspnea; No Cough Cardiovascular: No: Chest Pain, Palpitations, Edema Gastrointestinal: No: Nausea, Vomiting, Abdominal Pain, Diarrhea, Constipation Genitourinary: No Dysuria, No Frequency Neurological: Weakness; No: Numbness, Incoordination, Confusion Objective Exam Last Set of Vital Signs Vital Signs Date Time Temp Pulse Resp B/P (MAP) Pulse Ox O2 Delivery O2 Flow Rate FiO2 12/27/20 11:37 36.0 81 16 122/89 (100) 93 Room Air 12/25/20 15:28 2.00 12/25/20 01:16 21 Capillary Refill : Less Than 3 Seconds I&O Intake and Output 12/26/20 23:59 Intake Total 1240 ml Output Total 500 ml Balance 740 ml Intake Oral 740 ml IV Total 500 ml Output Urine Total 500 ml General: Alert, Oriented X3, Cooperative, No Acute Distress HEENT: Mucous Memb Moist/Peak Lungs: Clear to Auscultation, Normal Air Movement Heart: Regular Rate, No Murmurs Abdomen: Normal Bowel Sounds, Soft, No Tenderness, No Masses Extremities: No Edema, No Tenderness/Swelling Skin: No Rashes, No Breakdown Neuro: Normal Speech, Cranial Nerves 3-12 NL Results/Procedures Lab Laboratory Tests 12/26/20 13:45: Glucometer 138H 12/27/20 06:15: White Blood Count 9.4, Red Blood Count 5.33, Hemoglobin 13.4, Hematocrit 43, Mean Corpuscular Volume 81, Mean Corpuscular Hemoglobin 25, Mean Corpuscular Hemoglobin Concent 31L, Red Cell Distribution Width 14.2, Platelet Count 262, Mean Platelet Volume 10.4, Immature Granulocyte % (Auto) 0, Neutrophils (%) (Auto) 65, Lymphocytes (%) (Auto) 22, Monocytes (%) (Auto) 10, Eosinophils (%) (Auto) 1, Basophils (%) (Auto) 1, Neutrophils # (Auto) 6.1, Lymphocytes # (Auto) 2.1, Monocytes # (Auto) 0.9, Eosinophils # (Auto) 0.1, Basophils # (Auto) 0.1, I mmature Granulocyte # (Auto) 0.0, Prothrombin Time 23.3H, INR Comment 2.0H, Sodium Level 136, Potassium Level 4.0, Chloride Level 109H, Carbon Dioxide Level 17L, Anion Gap 10, Blood Urea Nitrogen 31H, Creatinine 1.56H, Estimat Glomerular Filtration Rate 48, BUN/Creatinine Ratio 20, Glucose Level 140H, Calcium Level 8.4L, Corrected Calcium 9.0, Total Bilirubin 0.7, Aspartate Amino Transf (AST/SGOT) 210H, Alanine Aminotransferase (ALT/SGPT) 279H, Alkaline Phosphatase 153H, Total Protein 5.9L, Albumin 3.2 Assessment/Plan Assessment/Plan (1) NSTEMI (non-ST elevated myocardial infarction) Status: Acute Assessment & Plan: 12/27: Dr Alvarez managing, Type II, appreciate recommendations (2) Acute systolic (congestive) heart failure Status: Chronic Assessment & Plan: 12/27: EF 15% (3) Left ventricular apical thrombus Status: Acute Assessment & Plan: 12/27: Aggressive anti coagulation, Lovenox bridge with coumadin, INR 2.0 this AM, will repeat in AM and give dose of lovenox tomorrow, likely home tomorrow (4) Acute on chronic renal failure Status: Chronic Assessment & Plan: 12/27: Cr trending down, will continue to monitor (5) Hypertension Status: Chronic Qualifiers: Qualified Codes: I10 - Essential (primary) hypertension (6) Cardiomyopathy Status: Acute (7) History of illicit drug use Status: Acute (8) DVT prophylaxis Status: Acute Assessment & Plan: - Lovenox/coumadin Clinical Quality Measures AMI/AHF: ASA po Prior to arrival: NITIN Kamara MD Dec 27, 2020 12:07
--- NOTE | 2020-12-27 14:29 | Cardiology Progress Note ---
Subjective Date Seen by Provider: Dec 27, 2020 Time Seen by Provider: 13:00 Subjective/Events-last exam Patient was seen at bedside, sitting comfortably, no new complaint, having mild right ankle and leg pain. Review of Systems General: No Chills, No Night Sweats; Fatigue, Malaise; No Appetite, No Other HEENT: No Head Aches, No Visual Changes, No Eye Pain, No Ear Pain, No Dysphasia, No Sinus Congestion, No Post Nasal Drip, No Sore Throat, No Other Pulmonary: Dyspnea; No Cough, No Pleuritic Chest Pain, No Other Cardiovascular: No: Chest Pain, Palpitations, Orthopnea, Paroxysmal Noc. Dyspnea, Edema, Lt Headedness, Other Objective-Cardiology Exam Last Set of Vital Signs Vital Signs 12/25/20 12/25/20 12/27/20 12/27/20 01:16 15:28 11:37 12:56 Temp 36.0 Pulse 83 Resp 16 B/P (MAP) 122/89 (100) Pulse Ox 93 O2 Delivery Room Air O2 Flow Rate 2.00 FiO2 21 I&O Intake and Output 12/27/20 00:00 Intake Total 1240 ml Output Total 500 ml Balance 740 ml Intake Oral 740 ml IV Total 500 ml Output Urine Total 500 ml General: Alert, Oriented X3, Cooperative, No Acute Distress HEENT: Mucous Memb Moist/[place] Neck: Supple, No JVD, No Thyromegaly Lungs: Clear to Auscultation, Normal Air Movement Heart: Regular Rate, Normal S1, Normal S2, No Murmurs Abdomen: Normal Bowel Sounds, Soft, No Tenderness, No Masses Extremities: No Edema, No Tenderness/Swelling Skin: No Rashes, No Breakdown Neuro: Normal Speech, Cranial Nerves 3-12 NL Psych/Mental Status: Mental Status NL, Mood NL Results Lab Laboratory Tests 12/27/20 06:15 A/P-Cardiology Admission Diagnosis Non-ST elevation myocardial infarction Congestive heart failure, acute on chronic left ventricular systolic dy sfunction, nonischemic cardiomyopathy Acute renal failure Methamphetamine use Assessment/Plan Type II myocardial infarction, elevated troponin level, cardiac catheterization was carried out in 2018 and repeated on December 25, 2020 showing mild coronary artery disease nonobstructive disease Congestive heart failure, acute on chronic left ventricular systolic dysfunction, nonischemic cardiomyopathy, history of noncompliance with medication, restarted on own medication Large echogenic density in the left ventricular apex noted on echocardiogram most probably large apical thrombus. Patient was started on Coumadin, target INR is 2-3 Shortness of breath due to pulmonary edema and heart failure, better today. Increased risk of sudden due to severe cardiomyopathy, ejection fraction 20 percent, patient has been refusing LifeVest Acute on chronic renal insufficiency, continue to monitor renal function Hypertension, currently borderline hypotensive Tobaccoism, educated on avoiding tobacco product History of methamphetamine use, educated on avoiding illicit drug use Family history of atherosclerosis Noncompliance with medication, educated about the importance of compliance Had a long discussion with the patient and his family and they were in agreement and avoiding drugs and compliance with medication. Later in the day I was called by the nurse that the patient has left AGAINST MEDICAL ADVICE DARRIN GANDARA MD Dec 27, 2020 14:29
[2020-12-27] MEDS ORDERED: warFARin 5 MG (COUMADIN) TAB PO SCH (18:00)
== END 2020-12-27 14:18 | disposition left against medical advice (07) | DRG 280 ==
LOC: EDUNIT# 20:25 → ER 20:26 → CSD 22:30 → UNDOADMOB 22:30 → CSD 23:42 → OBSVTOIN 12-25 13:27 → INTOOBSV 12-25 13:27 → 4TH 12-26 12:01 → CSD 12-26 12:01 → UNDODISIN 12-27 14:18
PROVIDERS: ADMIT Internal Medicine; ATTEND Family Medicine
PROC: 4A023N7 Measurement of Cardiac Sampling and Pressure, Left Heart, Percutaneous Approach (ICD-10-PCS; principal; 2020-12-25)
PROC: B2111ZZ Fluoroscopy of Multiple Coronary Arteries using Low Osmolar Contrast (ICD-10-PCS; 2020-12-25)
DX: I13.0 Hypertensive heart and chronic kidney disease with heart failure and stage 1 through stage 4 chronic kidney disease, or unspecified chronic kidney disease (principal); I50.23 Acute on chronic systolic (congestive) heart failure; I21.A1 Myocardial infarction type 2; N17.9 Acute kidney failure, unspecified; I51.3 Intracardiac thrombosis, not elsewhere classified; I42.8 Other cardiomyopathies; N18.9 Chronic kidney disease, unspecified; I25.10 Atherosclerotic heart disease of native coronary artery without angina pectoris; F15.90 Other stimulant use, unspecified, uncomplicated; K21.9 Gastro-esophageal reflux disease without esophagitis; E78.00 Pure hypercholesterolemia, unspecified; E78.5 Hyperlipidemia, unspecified; F17.210 Nicotine dependence, cigarettes, uncomplicated; F41.9 Anxiety disorder, unspecified; F31.9 Bipolar disorder, unspecified; Z91.14 Patient's other noncompliance with medication regimen; I25.2 Old myocardial infarction; Z79.82 Long term (current) use of aspirin; Z88.6 Allergy status to analgesic agent; Z88.0 Allergy status to penicillin; Z82.49 Family history of ischemic heart disease and other diseases of the circulatory system
CPT/HCPCS: 36415; 71045; 80048; 80053; 80061; 82947; 83690; 83735; 83874; 83880; 84484; 85025; 85379; 85610; 85730; 87636; 93005; 93306; 93454

== ENCOUNTER 2020-12-29 06:58 | Emergency (ER) | payer MEDICAID ==
[~2020-12-29] VITALS: Ht 175 cm; Wt 63.0 kg
[~2020-12-29 06:58] MED LIST changes: +GBPN600T PO
[2020-12-29] MEDS ORDERED: NS (IVPB) 100 ML ONE ×2 (07:43→07:45)
[2020-12-29 07:45] LABS: POTASSIUM 4.8 MMOL/L (3.6-5.0)
[2020-12-29 07:46] LABS: CALCIUM 9.7 MG/DL (8.5-10.1)
[2020-12-29 07:47] LABS: BASOPHILS # (AUTO) 0.1 10^3/uL (0.0-0.1); BASOPHILS % (AUTO) 1 % (0-10); EOSINOPHILS # (AUTO) 0.6 10^3/uL (0.0-0.3); EOSINOPHILS % (AUTO) 6 % (0-10); HEMATOCRIT 49 % (40-54); HEMOGLOBIN 14.7 g/dL (13.3-17.7); LYMPHOCYTES # (AUTO) 2.6 10^3/uL (1.0-4.0); LYMPHOCYTES % (AUTO) 27 % (12-44); MEAN CORPUSCULAR HEMOGLOBIN 25 pg (25-34); MEAN CORPUSCULAR HGB CONC 30 g/dL (32-36); MEAN CORPUSCULAR VOLUME 83 fL (80-99); MEAN PLATELET VOLUME 10.2 fL (9.0-12.2); MONOCYTES % (AUTO) 11 % (0-12); NEUTROPHILS # (AUTO) 5.4 10^3/uL (1.8-7.8); NEUTROPHILS % (AUTO) 56 % (42-75); PLATELET COUNT 311 10^3/uL (130-400); TOTAL PROTEIN 7.7 GM/DL (6.4-8.2); WHITE BLOOD COUNT 9.8 10^3/uL (4.3-11.0)
[2020-12-29 07:49] LABS: BILIRUBIN,TOTAL 0.8 MG/DL (0.1-1.0)
--- NOTE | 2020-12-29 07:49 | ED Neurological Problem ---
General Chief Complaint: Neuro-Stroke Like Symptoms Stated Complaint: POSSIBLE STROKE Nursing Triage Note: PT PRESENTS TO ED TRANSPORTED BY DAUGHTER FROM HOME WITH COMPLAINTS OF WAKING UP AT 0600 THIS AM WITH R SIDED FLACID AND SLURRED SPEACH. PT DAUGHTER REPORTS HIS LAST KNOWN WELL TIME WAS LAST NIGHT BEFORE HE WENT TO BED. Source: patient, family Exam Limitations: clinical condition History of Present Illness Date Seen by Provider: Dec 29, 2020 Time Seen by Provider: 07:00 Initial Comments Patient is a 45-year-old male who presents to the emergency room by private vehicle with his daughter this morning with a chief complaint of concern for acute stroke. Apparently the patient went to bed around 9 or 10 last night acting normally. His mother woke up this morning at around 615 and found him on the floor. He is unable to move his right arm and he seems to have right leg hemiparesis as well. He has slurred speech and a difficult time communicating. Patient was recently left the hospital AGAINST MEDICAL ADVICE on December 24 after having an NSTEMI and being found to have significant cardiomyopathy with a 20% EF reported in the medical record as well as a large ventricular clot for which she was started on Coumadin. The daughter states that he had not filled his Coumadin yet but has been taking lots of aspirin. No recent illnesses such as fevers chills, cough or congestion. Daughter states that she lives with him and he has not used any methamphetamine recently since his discharge on 24 December. The patient is having a very difficult time speaking quite dysarthric and I am having a difficult time getting HPI, review of systems past medical family and social history from the patient. All other review of systems reviewed with the daughter and negative except as stated. Timing/Duration: unknown Severity: severe Associated Symptoms: numbness in legs/feet, slurred speech, trouble walking Allergies and Home Medications Allergies Coded Allergies: codeine (Unverified Allergy, Mild, itches, 01/03/10) Penicillins (Unverified Allergy, Unknown, 11/20/18) Home Medications Albuterol Sulfate 18 Gm Hfa.aer.ad, 2 PUFF INH Q4H PRN for SHORTNESS OF BREATH, (Reported) Aspirin 81 Mg Tablet.dr, 81 MG PO DAILY Prescribed by: DARRIN GANDARA on 12/21/18 1028 Carvedilol 3.125 Mg Tablet, 3.125 MG PO BID Prescribed by: DARRIN GANDARA on 12/21/18 1028 Furosemide 20 Mg Tablet, 20 MG PO DAILY Prescribed by: DARRIN GANDARA on 12/21/18 1028 Gabapentin 600 Mg Tablet, 600 MG PO TID, (Reported) Potassium Chloride 10 Meq Tablet.er, 10 MEQ PO DAILY@0700 Prescribed by: DARRIN GANDARA on 12/21/18 1028 Sacubitril/Valsartan 1 Each Tablet, 1 TAB PO BID Prescribed by: DARRIN GANDARA on 12/21/18 1028 Spironolactone 25 Mg Tablet, 25 MG PO DAILY Prescribed by: DARRIN GANDARA on 12/21/18 1028 Patient Home Medication List Home Medication List Reviewed: Yes Review of Systems Review of Systems Constitutional: see HPI Past Ngmdnit-Nwfpuh-Brvyla Hx Patient Social History Tobacco Use?: Yes Tobacco type used: Cigarettes Smoking Status: Current Everyday Smoker Substance use?: Yes Substance type: Methamphetamine Alcohol Use?: No Pt feels they are or have been: No Immunizations Up To Date Tetanus Booster (TDap): Less than 5yrs Seasonal Allergies Seasonal Allergies: No Past Medical History Surgeries: Yes (BMT'S; CARDIAC CATH 11/20/18--NO INTERVENTION) Ear Surgery, Gallbladder Respiratory: No Cardiac: Yes Chronic Edema/Swelling, Heart Attack, High Cholesterol, Hypertension Neurological: No Reproductive Disorders: No Genitourinary: No Gastrointestinal: Yes Gastroesophageal Reflux, Pancreatitis Musculoskeletal: Yes (CHRONIC BILATERAL LEG PAIN ) Endocrine: No HEENT: No Cancer: No Psychosocial: Yes Anxiety, Bipolar Integumentary: No Blood Disorders: No Family Medical History FH: COPD (chronic obstructive pulmonary disease) 19 FATHER 19 MOTHER FH: coronary artery bypass surgery 19 MOTHER FH: emphysema 19 FATHER FH: heart failure 19 FATHER Seizure disorder G8 SISTER Heart Disease, COPD Physical Exam Vital Signs Vital Signs - First Documented 12/29/20 12/29/20 07:02 07:39 Temp 36.0 Pulse 103 Resp 28 B/P (MAP) 81/67 (72) Pulse Ox 100 O2 Delivery OxyMask O2 Flow Rate 4.00 Capillary Refill : Greater Than 3 Seconds Height, Weight, BMI Height: 5'7.00" Weight: 150lbs. 7.0oz. [id number]; 20.00 BMI Method:Stated General Appearance: WD/WN, moderate distress HEENT: PERRL/EOMI Respiratory: lungs clear, normal breath sounds, no respiratory distress Cardiovascular: regular rate, rhythm, systolic murmur Gastrointestinal: non tender, soft Extremities: normal inspection, no pedal edema, normal capillary refill Neurologic/Psychiatric: alert, EOM palsy (Seems to have a gaze preference to the left), facial droop (Right-sided), motor weakness (Right-sided), sensory deficit (Right-sided), depressed affect Crainal Nerves: normal hearing, abnormal speech, facial asymmetry, facial droop, facial weakness, tongue deviation to R Motor/Sensory: sensory deficit, weak motor strength RUE, weak motor strength RLE Skin: normal color, diaphoresis Stroke Onset of Symptoms Date of Onset of Symptoms: Dec 29, 2020 Onset of Symptoms: No Symptoms onset unknown: Yes NIH Stroke Scale Assessment Select: Initial Level of Consciousness: 0=Alert (0), Level of Consciousness- Questions: 0=Answers both month/age (0), LOC Commands: 0=Performs both tasks (0), Gaze: Forced Deviation (2), Facial Movement (Facial Paresis): 3=Complete paralysis (3), Motor Function-Arms Right: 3=No effort/gravity (3), Motor Function-Arms Left: 0=No drift (0), Motor Function-Legs Right: 3=No effort/gravity (3), Motor Function-Legs Left: 0=No drift (0), Limb Ataxia: 2=Present in two limbs (2), Sensory: 2=Severe to total loss (2), Best Language: 0=No aphasia (0), Dysarthria: 2=Severe dysarthria (2), Extinction & Inattention: 1=Visual,tactile,auditory (1), Total: 18 Stroke Thrombolytic Exclusion Age 18 or Over: Yes Acute intenal hemorrhage: Yes History of CVA: No Uncontrolled Coagulation Defec: No Intracranial Hemorrhage: No Severe Hypertension: Yes GI or Bleed: No Subarachnoid Hemorrhage: No Intracranial Neoplasm/Aneurysm: No Oral Anticoagulants: No Surgery or Trauma: No Puncture of Non-Compressible V: No Recent CPR: No Diabetic Hemorrhagic Retinopat: No Organ Biopsy: No Recent Obstetric Delivery: No Glucose: No Significant Hepatic Dysfunctio: No NIH Stoke Scale >22: No Bacterial Endocarditis: No Pericarditis: No Improving Symptoms: No TPA Contraindication: Yes Progress/Results/Core Measures Results/Orders Lab Results Laboratory Tests Test 12/29/20 07:11 12/29/20 07:40 Range/Units White Blood Count 9.8 4.3-11.0 10^3/uL Red Blood Count 5.88 H 4.30-5.52 10^6/uL Hemoglobin 14.7 13.3-17.7 g/dL Hematocrit 49 40-54 % Mean Corpuscular Volume 83 80-99 fL Mean Corpuscular Hemoglobin 25 25-34 pg Mean Corpuscular Hemoglobin Concent 30 L 32-36 g/dL Red Cell Distribution Width 14.4 10.0-14.5 % Platelet Count 311 130-400 10^3/uL Mean Platelet Volume 10.2 9.0-12.2 fL Immature Granulocyte % (Auto) 0 % Neutrophils (%) (Auto) 56 42-75 % Lymphocytes (%) (Auto) 27 12-44 % Monocytes (%) (Auto) 11 0-12 % Eosinophils (%) (Auto) 6 0-10 % Basophils (%) (Auto) 1 0-10 % Neutrophils # (Auto) 5.4 1.8-7.8 10^3/uL Lymphocytes # (Auto) 2.6 1.0-4.0 10^3/uL Monocytes # (Auto) 1.0 0.0-1.0 10^3/uL Eosinophils # (Auto) 0.6 H 0.0-0.3 10^3/uL Basophils # (Auto) 0.1 0.0-0.1 10^3/uL Immature Granulocyte # (Auto) 0.0 0.0-0.1 10^3/uL Prothrombin Time 16.8 H 12.2-14.7 SEC INR Comment 1.3 0.8-1.4 Activated Partial Thromboplast Time 38 H 24-35 SEC D-Dimer 2.27 H 0.00-0.49 UG/ML Sodium Level 141 135-145 MMOL/L Potassium Level 4.8 3.6-5.0 MMOL/L Chloride Level 107 98-107 MMOL/L Carbon Dioxide Level 24 21-32 MMOL/L Anion Gap 10 5-14 MMOL/L Blood Urea Nitrogen 22 H 7-18 MG/DL Creatinine 1.62 H 0.60-1.30 MG/DL Estimat Glomerular Filtration Rate 46 BUN/Creatinine Ratio 14 Glucose Level 100 70-105 MG/DL Calcium Level 9.7 8.5-10.1 MG/DL Corrected Calcium 9.7 8.5-10.1 MG/DL Total Bilirubin 0.8 0.1-1.0 MG/DL Aspartate Amino Transf (AST/SGOT) 175 H 5-34 U/L Alanine Aminotransferase (ALT/SGPT) 276 H 0-55 U/L Alkaline Phosphatase 189 H 40-136 U/L Troponin I 0.291 *H <0.028 NG/ML Total Protein 7.7 6.4-8.2 GM/DL Albumin 4.0 3.2-4.5 GM/DL Urine Color YELLOW Urine Clarity SL CLOUDY Urine pH 6.5 5-9 Urine Specific [place] 1.010 L 1.016-1.022 Urine Protein TRACE H NEGATIVE Urine Glucose (UA) NEGATIVE NEGATIVE Urine Ketones NEGATIVE NEGATIVE Urine Nitrite NEGATIVE NEGATIVE Urine Bilirubin NEGATIVE NEGATIVE Urine Urobilinogen 1.0 < = 1.0 MG/DL Urine Leukocyte Esterase NEGATIVE NEGATIVE Urine RBC (Auto) NEGATIVE NEGATIVE Urine RBC NONE /HPF Urine WBC NONE /HPF Urine Squamous Epithelial Cells RARE /HPF Urine Crystals NONE /LPF Urine Bacteria TRACE /HPF Urine Casts NONE /LPF Urine Mucus NEGATIVE /LPF Urine Culture Indicated NO My Orders Orders - GLADYS GUZMAN MD Ct Head Wo-R/O Stroke (12/29/20 07:20) Cbc With Automated Diff (12/29/20 07:21) Protime With Inr (12/29/20 07:21) Partial Thromboplastin Time (12/29/20 07:21) Comprehensive Metabolic Panel (12/29/20 07:21) Fibrin Degradation Products (12/29/20 07:21) Troponin I (12/29/20 07:21) Ua Culture If Indicated (12/29/20 07:21) Chest 1 View, Ap/Pa Only (12/29/20 07:21) Catheter(Urinary) Insert & Ass 03,15 (12/29/20 07:21) Ekg Tracing (12/29/20 07:21) Nothing By Mouth (12/29/20 Breakfast) Accucheck Stat ONCE (12/29/20 07:21) Ed Iv/Invasive Line Start (12/29/20 07:21) Ed Iv/Invasive Line Start (12/29/20 07:21) Vital Signs Stroke Patient Q15M (12/29/20 07:21) O2 (12/29/20 07:21) Intake & Output 06,14,22 (12/29/20 07:21) Monitor-Rhythm Ecg Trace Only (12/29/20 07:21) Dysphagia Screening Tool (12/29/20 07:21) Post Thrombolytic Adminstratio (12/29/20 07:21) Lipid Panel (12/30/20 06:00) Levetiracetam Injection (Keppra Injectio (12/29/20 07:40) Ns (Ivpb) (Sodium Chloride 0.9% Ivpb Bag (12/29/20 07:43) Ns (Ivpb) (Sodium Chloride 0.9% Ivpb Bag (12/29/20 07:45) Ct Head Perfusion W/ Contrast (12/29/20 08:12) Ct Angio Head/Neck (12/29/20 08:12) Levetiracetam Injection (Keppra Injectio (12/29/20 08:12) Iohexol Injection (Omnipaque 350 Mg/Ml 1 (12/29/20 08:30) Received Contrast (Hold Metformin- Contr (12/29/20 08:30) Sodium Chloride Flush (Catheter Flush Sy (12/29/20 08:30) Ns (Ivpb) (Sodium Chloride 0.9% Ivpb Bag (12/29/20 08:30) Medications Given in ED Current Medications Medications Dose Ordered Sig/Andra Route Start Time Stop Time Status Last Admin Dose Admin Iohexol 150 ml ONCE ONCE IV 12/29/20 08:30 12/29/20 08:31 DC 12/29/20 09:01 120 ML Levetiracetam 500 mg STK-MED ONCE IV 12/29/20 07:40 12/29/20 07:42 DC 12/29/20 07:52 1,000 MG Sodium Chloride 10 ml NEEDED PRN IV 12/29/20 08:30 12/29/20 09:01 10 ML Sodium Chloride 100 ml ONCE ONCE IV 12/29/20 08:30 12/29/20 08:31 DC 12/29/20 09:01 80 ML Sodium Chloride 100 ml @ ud STK-MED ONCE .ROUTE 12/29/20 07:45 7/7/21 07:48 DC 12/29/20 07:55 400 MLS/HR Vital Signs/I&O 12/29/20 12/29/20 07:02 07:39 Temp 36.0 Pulse 103 Resp 28 B/P (MAP) 81/67 (72) Pulse Ox 100 95 O2 Delivery OxyMask O2 Flow Rate 4.00 Blood Pressure Mean: 72 Progress Progress Note : Time: 07:46 Progress Note Notified by radiology of the patient's head CT results without contrast. Patient has chronic left frontal lobe infarcts and a subacute left parietal infarct that may be 1 to 2 weeks old. Patient is reevaluated at this time and his blood pressure is 148/112, heart rate 106. [address] Mario on for stroke neurology. He recommends CT perfusion and CTA head and neck to evaluate for large vessel obstruction. [address] and radiologist called me with reports of a clot in the M1 distribution of the left MCA with significant penumbra [address] Mario regarding potential interventional radiologic management of the patient's stroke. Potentially could salvage a portion of viable penumbra with clot retrieval. I did go and discuss this with the family, the patient's brother and daughter. They are interested in sending the patient to for this procedure. At 1015 I had another discussion with Dr. Mario regarding the family's wishes. Dr. Chavez is excepting this patient to neuro ICU, we are in the process of establishing transport. Initial ECG Impression Date: Dec 29, 2020 Initial ECG Impression Time: 07:05 Initial ECG Rate: 101 Initial ECG Rhythm: S.Tach Comment Q waves inferiorly, poor R wave progression over the precordium, no ST segment elevation or depression or ectopy is noted Diagnostic Imaging Diagonstic Imaging: CT Plain Films/CT/US/NM/MRI: head Comments [facility] [place], [place] NAME: KTMILLIE [facility] REC#: [id number] PT STATUS: REG ER : 1975 PHYSICIAN: GLADYS GUZMAN MD ADMIT DATE: 12/29/20/ER Draft Date of Exam:12/29/20 CT HEAD WO-R/O STROKE PROCEDURE: CT head wo r/o stroke. TECHNIQUE: Multiple contiguous axial images were obtained through the brain without the use of intravenous contrast. Auto Exposure Controls were utilized during the CT exam to meet ALARA standards for radiation dose reduction. INDICATION: Weakness. Correlation is made with head CT from 11/21/2018. There is an area of low density in the left parietal lobe which has the appearance of a subacute infarct. There is an area of low density in the left frontal lobe which could be encephalomalacia from more chronic left frontal lobe infarct. There is no midline shift. No acute intra-axial or extra-axial hemorrhage is detected. There is some periventricular hypoattenuation consistent with chronic microvascular ischemia. Cisterns are patent. Visualized paranasal sinuses are clear. IMPRESSION: Findings consistent with a subacute infarct involving the left parietal lobe. There is a more chronic appearing left frontal lobe infarct. No acute intracranial hemorrhage is detected. Dictated on workstation # [id number] Dict: 12/29/20805 Trans: 12/29/20 0817 RUBEN [id number] Interpreted by: MYRON BEACH MD Electronically signed by: [facility] [place], [place] NAME: MILLIE MERAZ [facility] REC#: [id number] PT STATUS: REG ER : 1975 PHYSICIAN: GLADYS GUZMAN MD ADMIT DATE: 12/29/20/ER Signed Date of Exam:12/29/20 CHEST 1 VIEW, AP/PA ONLY INDICATION: Right-sided stroke Portable chest shows cardiomegaly with no failure. The lungs are clear. There is no effusion or pneumothorax. IMPRESSION: Cardiomegaly with no failure. The chest is similar to a study from 12/24/2020. Dictated by: Dictated on workstation # [id number] Dict: 12/29/20823 Trans: 12/29/20 1029 RUBEN [id number] Interpreted by: MILLIE MCHUGH MD Electronically signed by: MILLIE MCHUGH MD 12/29/20 1029 [facility] [place], [place] NAME: MILLIE MERAZ [facility] REC#: [id number] PT STATUS: REG ER : 1975 PHYSICIAN: GLADYS GUZMAN MD ADMIT DATE: 12/29/20/ER Signed Date of Exam:12/29/20 CT HEAD PERFUSION W/ CONTRAST CLINICAL INDICATION: Patient with right-sided weakness. Stroke. EXAMS: 1: CT angiogram of the head and neck performed with 100 cc of Omnipaque 350 IV contrast. Sagittal and coronal MIP reformations were created for better visualization of vascular anatomy. Head CT with contrast. 2: CT perfusion of the brain. Multiple perfusion maps were obtained including relative CBV, relative CBF, MTT, and Tmax. CT angiogram was post-processed using RAPID LVO detection to include quantitative measurements of cerebral blood flow and automated results notification to the stroke and/or neurointerventional team. COMPARISON: Head CT without contrast dated 12/29/2020. FINDINGS: HEAD CT: Stable appearance of the head CT with partially visualized intracranial structures. Again seen is transcortical and white matter low density involving the lateral left frontal lobe and left parietal lobe regions. There are other subtle patchy areas of low-attenuation white matter changes involving both cerebral hemispheres. There is no intracranial hemorrhage. There is no abnormal IV contrast enhancement. CTA HEAD: There is a three-vessel aortic arch. The bilateral subclavian arteries, brachiocephalic artery, bilateral common carotid arteries, bilateral cervical ICA, and bilateral ECA are patent. The petrous, cavernous, and supraclinoid ICA are patent. The bilateral ACAs and distal branches are patent. The right MCA and distal branches are patent. There is complete occlusion of the mid left M1 MCA with thrombus extending into the superior and inferior left M2 MCA branches and anterior temporal branch. There is reconstitution of the more distal M2, M3, and M4 MCA branches but the degree of contrast within these vessels has decreased compared to the right side. The bilateral cervical vertebral arteries are patent. A dominant left cervical vertebral artery is seen. The bilateral PICAs and bilateral intradural vertebral arteries are patent. The right vertebral artery ends in PICA. The basilar artery, bilateral superior cerebellar arteries, and bilateral [employer]ER are patent. There are prominent bilateral posterior communicating arteries representing [employer]ER. The bilateral P1 port cdl a driver are small in caliber. The neck soft tissue structures show no significant abnormality. The visualized upper lung moreno are clear. There are vertebral body spurs involving the cervical spine and facet arthropathy. There is moderate to severe bilateral neuroforaminal narrowing involving the C4 through C7 levels, predominantly due to uncinate spurs. CT PERFUSION OF THE BRAIN: There is 4 cc of CBF less than 30% and 184 cc of Tmax greater than 6 seconds. There is a mismatch volume of 180 cc. IMPRESSION: 1: There is occlusion with intravascular thrombus involving the mid left M1 MCA extending into multiple left M2 MCA vessels. There is reconstitution of the distal left MCA vessels, as described above. 2: There is a significant left cerebral hemisphere/left MCA territory penumbra. 3: Stable CT scan of the brain with patchy areas of cortical and subcortical low density involving the lateral left frontal lobe and left parietal lobe which may represent subacute infarcts. 4. The results of this report were discussed with Dr. Gladys Guzman via the telephone on 12/29/2020 at 0927 hours. Dictated by: Dictated on workstation # [id number] Dict: 12/29/20 0912 Trans: 12/29/20 1010 [id number] Interpreted by: EDDY ALMAGUER MD Electronically signed by: EDDY ALMAGUER MD 12/29/20 1010 [facility] [place], [place] NAME: KTMILLIE [facility] REC#: [id number] PT STATUS: REG ER : 1975 PHYSICIAN: GLADYS GUZMAN MD ADMIT DATE: 12/29/20/ER Signed Date of Exam:12/29/20 CT ANGIO HEAD/NECK CLINICAL INDICATION: Patient with right-sided weakness. Stroke. EXAMS: 1: CT angiogram of the head and neck performed with 100 cc of Omnipaque 350 IV contrast. Sagittal and coronal MIP reformations were created for better visualization of vascular anatomy. Head CT with contrast. 2: CT perfusion of the brain. Multiple perfusion maps were obtained including relative CBV, relative CBF, MTT, and Tmax. CT angiogram was post-processed using RAPID LVO detection to include quantitative measurements of cerebral blood flow and automated results notification to the stroke and/or neurointerventional team. COMPARISON: Head CT without contrast dated 12/29/2020. FINDINGS: HEAD CT: Stable appearance of the head CT with partially visualized intracranial structures. Again seen is transcortical and white matter low density involving the lateral left frontal lobe and left parietal lobe regions. There are other subtle patchy areas of low-attenuation white matter changes involving both cerebral hemispheres. There is no intracranial hemorrhage. There is no abnormal IV contrast enhancement. CTA HEAD: There is a three-vessel aortic arch. The bilateral subclavian arteries, brachiocephalic artery, bilateral common carotid arteries, bilateral cervical ICA, and bilateral ECA are patent. The petrous, cavernous, and supraclinoid ICA are patent. The bilateral ACAs and distal branches are patent. The right MCA and distal branches are patent. There is complete occlusion of the mid left M1 MCA with thrombus extending into the superior and inferior left M2 MCA branches and anterior temporal branch. There is reconstitution of the more distal M2, M3, and M4 MCA branches but the degree of contrast within these vessels has decreased compared to the right side. The bilateral cervical vertebral arteries are patent. A dominant left cervical vertebral artery is seen. The bilateral PICAs and bilateral intradural vertebral arteries are patent. The right vertebral artery ends in PICA. The basilar artery, bilateral superior cerebellar arteries, and bilateral [employer]ER are patent. There are prominent bilateral posterior communicating arteries representing [employer]ER. The bilateral P1 port cdl a driver are small in caliber. The neck soft tissue structures show no significant abnormality. The visualized upper lung moreno are clear. There are vertebral body spurs involving the cervical spine and facet arthropathy. There is moderate to severe bilateral neuroforaminal narrowing involving the C4 through C7 levels, predominantly due to uncinate spurs. CT PERFUSION OF THE BRAIN: There is 4 cc of CBF less than 30% and 184 cc of Tmax greater than 6 seconds. There is a mismatch volume of 180 cc. IMPRESSION: 1: There is occlusion with intravascular thrombus involving the mid left M1 MCA extending into multiple left M2 MCA vessels. There is reconstitution of the distal left MCA vessels, as described above. 2: There is a significant left cerebral hemisphere/left MCA territory penumbra. 3: Stable CT scan of the brain with patchy areas of cortical and subcortical low density involving the lateral left frontal lobe and left parietal lobe which may represent subacute infarcts. 4. The results of this report were discussed with Dr. Gladys Guzman via the telephone on 12/29/2020 at 0927 hours. Dictated by: Dictated on workstation # [id number] Dict: 12/29/20 0911 Trans: 12/29/20 1010 [id number] Interpreted by: EDDY ALMAGUER MD Electronically signed by: EDDY ALMAGUER MD 12/29/20 1010 Critical Care Note Critical Care Start Time: 07:00 Stop Time: 10:00 Total Time (minutes) 90 minutes critical care time in the evaluation and management of this patient with acute ischemic stroke, time includes multiple discussions with stroke ne urology, review of the patient's medical record, discussion with family. Departure Impression Primary Impression: Acute ischemic cerebrovascular accident (CVA) involving left middle cerebral artery territory Disposition: XFER SHT-TRM HOSP Condition: Critical Transfer Transfer Reason: Exceeds level of care Time Spoke to Accepting Phy: 10:15 Transfer Progress Notes Discussed with Dr. Mario who accepts the patient for transfer to Neuro ICU Transfer Time: 11:00 Transfer Facility: [facility] Method of Transfer: Air Departure-Patient Inst. Referrals: [facility] (PCP/Family) Primary Care Physician GLADYS GUZMAN MD Dec 29, 2020 07:49
[2020-12-29 07:51] LABS: CREATININE SERUM 1.62 MG/DL (0.60-1.30)
[2020-12-29 08:07] LABS: FIBRIN DEGRADATION PRODUCTS 2.27 UG/ML (0.00-0.49)
[2020-12-29 08:10] LABS: BILIRUBIN,URINE NEGATIVE (NEGATIVE); CLARITY,URINE SL CLOUDY; COLOR,URINE YELLOW; GLUCOSE, URINE (UA) NEGATIVE (NEGATIVE); KETONES,URINE NEGATIVE (NEGATIVE); LEUKOCYTE ESTERASE ,URINE NEGATIVE (NEGATIVE); NITRITE,URINE NEGATIVE (NEGATIVE); PH,URINE 6.5 (5-9); PROTEIN,URINE TRACE (NEGATIVE)
--- NOTE | 2020-12-29 08:17 | Diagnostic Imaging Report ---
PROCEDURE: CT head wo r/o stroke. TECHNIQUE: Multiple contiguous axial images were obtained through the brain without the use of intravenous contrast. Auto Exposure Controls were utilized during the CT exam to meet ALARA standards for radiation dose reduction. INDICATION: Weakness. Correlation is made with head CT from 11/21/2018. There is an area of low density in the left parietal lobe which has the appearance of a subacute infarct. There is an area of low density in the left frontal lobe which could be encephalomalacia from more chronic left frontal lobe infarct. There is no midline shift. No acute intra-axial or extra-axial hemorrhage is detected. There is some periventricular hypoattenuation consistent with chronic microvascular ischemia. Cisterns are patent. Visualized paranasal sinuses are clear. IMPRESSION: Findings consistent with a subacute infarct involving the left parietal lobe. There is a more chronic appearing left frontal lobe infarct. No acute intracranial hemorrhage is detected. Dictated by: Dictated on workstation # [id number]
[2020-12-29 08:20] LABS: INR 1.3 (0.8-1.4); PROTHROMBIN TIME PATIENT 16.8 SEC (12.2-14.7)
[2020-12-29 08:28] LABS: BACTERIA,URINE TRACE /HPF; SQUAMOUS EPITHELIAL CELL,UR RARE /HPF
--- NOTE | 2020-12-29 08:28 | Diagnostic Imaging Report ---
INDICATION: Right-sided stroke Portable chest shows cardiomegaly with no failure. The lungs are clear. There is no effusion or pneumothorax. IMPRESSION: Cardiomegaly with no failure. The chest is similar to a study from 12/24/2020. Dictated by: Dictated on workstation # [id number]
[2020-12-29] MEDS ORDERED: IOHEXOL 350 MG/ML 150 ML (OMNIPAQUE 350) VIAL IV ONE (08:30)
[2020-12-29] MEDS ORDERED: NS 100 ML (IVPB) BAG IV ONE (08:30)
[2020-12-29] MEDS ORDERED: CATHETER FLUSH 10 ML SYR IV PRN (08:30)
[2020-12-29] MEDS ORDERED: HOLD METFORMIN - RECEIVED CONTRAST 20 ML VIAL IV SCH (08:30)
--- NOTE | 2020-12-29 10:08 | Diagnostic Imaging Report ---
CLINICAL INDICATION: Patient with right-sided weakness. Stroke. EXAMS: 1: CT angiogram of the head and neck performed with 100 cc of Omnipaque 350 IV contrast. Sagittal and coronal MIP reformations were created for better visualization of vascular anatomy. Head CT with contrast. 2: CT perfusion of the brain. Multiple perfusion maps were obtained including relative CBV, relative CBF, MTT, and Tmax. CT angiogram was post-processed using RAPID LVO detection to include quantitative measurements of cerebral blood flow and automated results notification to the stroke and/or neurointerventional team. COMPARISON: Head CT without contrast dated 12/29/2020. FINDINGS: HEAD CT: Stable appearance of the head CT with partially visualized intracranial structures. Again seen is transcortical and white matter low density involving the lateral left frontal lobe and left parietal lobe regions. There are other subtle patchy areas of low-attenuation white matter changes involving both cerebral hemispheres. There is no intracranial hemorrhage. There is no abnormal IV contrast enhancement. CTA HEAD: There is a three-vessel aortic arch. The bilateral subclavian arteries, brachiocephalic artery, bilateral common carotid arteries, bilateral cervical ICA, and bilateral ECA are patent. The petrous, cavernous, and supraclinoid ICA are patent. The bilateral ACAs and distal branches are patent. The right MCA and distal branches are patent. There is complete occlusion of the mid left M1 MCA with thrombus extending into the superior and inferior left M2 MCA branches and anterior temporal branch. There is reconstitution of the more distal M2, M3, and M4 MCA branches but the degree of contrast within these vessels has decreased compared to the right side. The bilateral cervical vertebral arteries are patent. A dominant left cervical vertebral artery is seen. The bilateral PICAs and bilateral intradural vertebral arteries are patent. The right vertebral artery ends in PICA. The basilar artery, bilateral superior cerebellar arteries, and bilateral GROUND OPERATIONS CREW MEMBER are patent. There are prominent bilateral posterior communicating arteries representing GROUND OPERATIONS CREW MEMBER. The bilateral P1 linen keeper are small in caliber. The neck soft tissue structures show no significant abnormality. The visualized upper lung moreno are clear. There are vertebral body spurs involving the cervical spine and facet arthropathy. There is moderate to severe bilateral neuroforaminal narrowing involving the C4 through C7 levels, predominantly due to uncinate spurs. CT PERFUSION OF THE BRAIN: There is 4 cc of CBF less than 30% and 184 cc of Tmax greater than 6 seconds. There is a mismatch volume of 180 cc. IMPRESSION: 1: There is occlusion with intravascular thrombus involving the mid left M1 MCA extending into multiple left M2 MCA vessels. There is reconstitution of the distal left MCA vessels, as described above. 2: There is a significant left cerebral hemisphere/left MCA territory penumbra. 3: Stable CT scan of the brain with patchy areas of cortical and subcortical low density involving the lateral left frontal lobe and left parietal lobe which may represent subacute infarcts. 4. The results of this report were discussed with Dr. Ruby Roman via the telephone on 12/29/2020 at 0927 hours. Dictated by: Dictated on workstation # [id number]
--- NOTE | 2020-12-29 10:12 | Diagnostic Imaging Report ---
CLINICAL INDICATION: Patient with right-sided weakness. Stroke. EXAMS: 1: CT angiogram of the head and neck performed with 100 cc of Omnipaque 350 IV contrast. Sagittal and coronal MIP reformations were created for better visualization of vascular anatomy. Head CT with contrast. 2: CT perfusion of the brain. Multiple perfusion maps were obtained including relative CBV, relative CBF, MTT, and Tmax. CT angiogram was post-processed using RAPID LVO detection to include quantitative measurements of cerebral blood flow and automated results notification to the stroke and/or neurointerventional team. COMPARISON: Head CT without contrast dated 12/29/2020. FINDINGS: HEAD CT: Stable appearance of the head CT with partially visualized intracranial structures. Again seen is transcortical and white matter low density involving the lateral left frontal lobe and left parietal lobe regions. There are other subtle patchy areas of low-attenuation white matter changes involving both cerebral hemispheres. There is no intracranial hemorrhage. There is no abnormal IV contrast enhancement. CTA HEAD: There is a three-vessel aortic arch. The bilateral subclavian arteries, brachiocephalic artery, bilateral common carotid arteries, bilateral cervical ICA, and bilateral ECA are patent. The petrous, cavernous, and supraclinoid ICA are patent. The bilateral ACAs and distal branches are patent. The right MCA and distal branches are patent. There is complete occlusion of the mid left M1 MCA with thrombus extending into the superior and inferior left M2 MCA branches and anterior temporal branch. There is reconstitution of the more distal M2, M3, and M4 MCA branches but the degree of contrast within these vessels has decreased compared to the right side. The bilateral cervical vertebral arteries are patent. A dominant left cervical vertebral artery is seen. The bilateral PICAs and bilateral intradural vertebral arteries are patent. The right vertebral artery ends in PICA. The basilar artery, bilateral superior cerebellar arteries, and bilateral B AND B GANG WORKER are patent. There are prominent bilateral posterior communicating arteries representing B AND B GANG WORKER. The bilateral P1 plant tender are small in caliber. The neck soft tissue structures show no significant abnormality. The visualized upper lung moreno are clear. There are vertebral body spurs involving the cervical spine and facet arthropathy. There is moderate to severe bilateral neuroforaminal narrowing involving the C4 through C7 levels, predominantly due to uncinate spurs. CT PERFUSION OF THE BRAIN: There is 4 cc of CBF less than 30% and 184 cc of Tmax greater than 6 seconds. There is a mismatch volume of 180 cc. IMPRESSION: 1: There is occlusion with intravascular thrombus involving the mid left M1 MCA extending into multiple left M2 MCA vessels. There is reconstitution of the distal left MCA vessels, as described above. 2: There is a significant left cerebral hemisphere/left MCA territory penumbra. 3: Stable CT scan of the brain with patchy areas of cortical and subcortical low density involving the lateral left frontal lobe and left parietal lobe which may represent subacute infarcts. 4. The results of this report were discussed with Dr. Ruby Roman via the telephone on 12/29/2020 at 0927 hours. Dictated by: Dictated on workstation # [id number]
[2020-12-29 12:21] VITALS: BP 137/95
== END 2020-12-29 12:21 | disposition short-term general hospital (02) ==
LOC: EDUNIT# 06:58 → ER 07:00
DX: I63.412 Cerebral infarction due to embolism of left middle cerebral artery (principal); I25.2 Old myocardial infarction; I10 Essential (primary) hypertension; F17.210 Nicotine dependence, cigarettes, uncomplicated; Z79.82 Long term (current) use of aspirin
CPT/HCPCS: 0042T; 51702; 70450; 70496; 70498; 71045; 80053; 81000; 82947; 84484; 85025; 85379; 85610; 85730; 93005; 93041; 96365; 99285; 36415

== ENCOUNTER → 2021-03-14 | Outpatient (CLI) | payer MEDICAID | LOC: CARD 09:05 | PROVIDERS: ATTEND Internal Medicine Cardiovascular Disease | DX: I24.8 Other forms of acute ischemic heart disease (principal); I08.3 Combined rheumatic disorders of mitral, aortic and tricuspid valves | CPT/HCPCS: 93306 ==

== ENCOUNTER 2021-03-24 14:06 | Outpatient (RCR) | payer MEDICAID, OTHER | END 2021-04-25 14:45 | disposition home or self-care (01) | PROVIDERS: ATTEND Physical Medicine & Rehabilitation | DX: I69.120 Aphasia following nontraumatic intracerebral hemorrhage (principal); I69.192 Facial weakness following nontraumatic intracerebral hemorrhage; I69.151 Hemiplegia and hemiparesis following nontraumatic intracerebral hemorrhage affecting right dominant side; I69.191 Dysphagia following nontraumatic intracerebral hemorrhage; R13.11 Dysphagia, oral phase; I11.0 Hypertensive heart disease with heart failure; I50.9 Heart failure, unspecified; F17.210 Nicotine dependence, cigarettes, uncomplicated | CPT/HCPCS: 36415; 83497 ==

== ENCOUNTER 2021-04-02 12:18 | Emergency (ER) | payer MEDICAID ==
[~2021-04-02] VITALS: Ht 175 cm; Wt 79.3 kg
--- NOTE | 2021-04-02 12:34 | ED Chest Pain ---
General Stated Complaint: ABNORMAL EKG/CP Source: patient, family Exam Limitations: no limitations History of Present Illness Date Seen by Provider: Apr 02, 2021 Time Seen by Provider: 12:20 Initial Comments Patient is a 46-year-old male who presents to the emergency department today with a chief complaint of left-sided chest pain. Patient states he has had chest pain intermittently over the course of the last week or so. Had some this morning that he states was associated with a little diaphoresis. It only lasted "a couple of minutes". He went to [facility] and had what appeared to be in "abnormal EKG". Was sent to the ED for further evaluation. Patient denies any recent fevers, chills, productive cough. He denies any GI or complaints. States that he is compliant with his daily medications. Most recently about a couple of months ago had an CO and associated hemorrhagic stroke. He is only on baby aspirin daily. Did have his aspirin today. Has residual speech deficit from his stroke. Currently chest pain-free. EKG at presentation here in the ED shows normal sinus rhythm at 86 bpm. Slightly prolonged QRS at 104, normal QTC, normal GA intervals. Has abnormal R wave progression over the precordium without ST segment elevation or depression. No signs of acute CO on this EKG while the patient is pain-free. All other review of systems reviewed and negative except as stated. 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 NTG SL AUTO BODY REPAIR TEACHER: No Associated Symptoms: diaphoresis Allergies and Home Medications Allergies Coded Allergies: codeine (Unverified Allergy, Mild, itches, 01/03/10) Penicillins (Unverified Allergy, Unknown, 11/20/18) Patient Home Medication List Home Medication List Reviewed: Yes Albuterol Sulfate (Ventolin Hfa) 18 Gm Hfa.aer.ad, 2 PUFF INH Q4H PRN for SHORTNESS OF BREATH, (Reported) Entered as Reported by: MEL LAZARO on 11/20/18 1446 Aspirin (Aspirin EC) 81 Mg Tablet.dr, 81 MG PO DAILY Prescribed by: DARRIN GANDARA on 12/21/18 1028 Carvedilol (Carvedilol) 3.125 Mg Tablet, 3.125 MG PO BID Prescribed by: DARRIN GANDARA on 12/21/18 1028 Furosemide (Lasix) 20 Mg Tablet, 20 MG PO DAILY Prescribed by: DARRIN GANDARA on 12/21/18 1028 Gabapentin (Gabapentin) 600 Mg Tablet, 600 MG PO TID, (Reported) Entered as Reported by: ROM MG on 12/25/20 0026 Potassium Chloride (Klor-Con 10) 10 Meq Tablet.er, 10 MEQ PO DAILY@0700 Prescribed by: DARRIN GANDARA on 12/21/18 1028 Sacubitril/Valsartan (Entresto 24 mg-26 mg Tablet) 1 Each Tablet, 1 TAB PO BID Prescribed by: DARRIN GANDARA on 12/21/18 1028 Spironolactone (Spironolactone) 25 Mg Tablet, 25 MG PO DAILY Prescribed by: DARRIN GANDARA on 12/21/18 1028 Review of Systems Review of Systems Constitutional: see HPI EENTM: No Symptoms Reported Respiratory: No Symptoms Reported Cardiovascular: Chest Pain Gastrointestinal: No Symptoms Reported Genitourinary: No Symptoms Reported Musculoskeletal: no symptoms reported Skin: no symptoms reported Psychiatric/Neurological: No Symptoms Reported All Other Systems Reviewed Negative Unless Noted: Yes Past Xakjvwv-Aehlxo-Tbvayr Hx Immunizations Up To Date Tetanus Booster (TDap): Less than 5yrs Seasonal Allergies Seasonal Allergies: No Past Medical History Surgeries: Yes (BMT'S; CARDIAC CATH 11/20/18--NO INTERVENTION) Ear Surgery, Gallbladder Respiratory: No Cardiac: Yes Chronic Edema/Swelling, Heart Attack, High Cholesterol, Hypertension Neurological: No Reproductive Disorders: No Genitourinary: No Gastrointestinal: Yes Gastroesophageal Reflux, Pancreatitis Musculoskeletal: Yes (CHRONIC BILATERAL LEG PAIN ) Endocrine: No HEENT: No Cancer: No Psychosocial: Yes Anxiety, Bipolar Integumentary: No Blood Disorders: No Family Medical History FH: COPD (chronic obstructive pulmonary disease) 19 FATHER 19 MOTHER FH: coronary artery bypass surgery 19 MOTHER FH: emphysema 19 FATHER FH: heart failure 19 FATHER Seizure disorder G8 SISTER Heart Disease, COPD Physical Exam Vital Signs Capillary Refill : Height, Weight, BMI Height: 5'7.00" Weight: 150lbs. 7.0oz. [id number]; 20.00 BMI Method:Stated General Appearance: No Apparent Distress, WD/WN HEENT: PERRL/EOMI Neck: Normal Inspection Respiratory: Lungs Clear, Normal Breath Sounds, No Accessory Muscle Use, No Res piratory Distress Cardiovascular: Regular Rate, Rhythm, Normal Peripheral Pulses Gastrointestinal: Non Tender, Soft Extremity: Normal Inspection, Normal Range of Motion, Non Tender, No Calf Tenderness Neurologic/Psychiatric: Alert, Oriented x3, No Motor/Sensory Deficits, Normal Mood/Affect Skin: Normal Color, Warm/Dry Progress/Results/Core Measures Results/Orders Lab Results Laboratory Tests Test 04/02/21 12:42 Range/Units White Blood Count 11.2 H 4.3-11.0 10^3/uL Red Blood Count 5.22 4.30-5.52 10^6/uL Hemoglobin 14.1 13.3-17.7 g/dL Hematocrit 44 40-54 % Mean Corpuscular Volume 84 80-99 fL Mean Corpuscular Hemoglobin 27 25-34 pg Mean Corpuscular Hemoglobin Concent 32 32-36 g/dL Red Cell Distribution Width 16.3 H 10.0-14.5 % Platelet Count 333 130-400 10^3/uL Mean Platelet Volume 9.0 9.0-12.2 fL Immature Granulocyte % (Auto) 1 % Neutrophils (%) (Auto) 59 42-75 % Lymphocytes (%) (Auto) 26 12-44 % Monocytes (%) (Auto) 10 0-12 % Eosinophils (%) (Auto) 5 0-10 % Basophils (%) (Auto) 0 0-10 % Neutrophils # (Auto) 6.6 1.8-7.8 10^3/uL Lymphocytes # (Auto) 2.9 1.0-4.0 10^3/uL Monocytes # (Auto) 1.1 H 0.0-1.0 10^3/uL Eosinophils # (Auto) 0.5 H 0.0-0.3 10^3/uL Basophils # (Auto) 0.1 0.0-0.1 10^3/uL Immature Granulocyte # (Auto) 0.1 0.0-0.1 10^3/uL Prothrombin Time 11.9 L 12.2-14.7 SEC INR Comment 0.8 0.8-1.4 Activated Partial Thromboplast Time 23 L 24-35 SEC Sodium Level 141 135-145 MMOL/L Potassium Level 4.0 3.6-5.0 MMOL/L Chloride Level 107 98-107 MMOL/L Carbon Dioxide Level 22 21-32 MMOL/L Anion Gap 12 5-14 MMOL/L Blood Urea Nitrogen 17 7-18 MG/DL Creatinine 0.96 0.60-1.30 MG/DL Estimat Glomerular Filtration Rate 84 BUN/Creatinine Ratio 18 Glucose Level 106 H 70-105 MG/DL Calcium Level 9.6 8.5-10.1 MG/DL Corrected Calcium 9.5 8.5-10.1 MG/DL Magnesium Level 2.0 1.6-2.4 MG/DL Total Bilirubin 0.3 0.1-1.0 MG/DL Aspartate Amino Transf (AST/SGOT) 33 5-34 U/L Alanine Aminotransferase (ALT/SGPT) 47 0-55 U/L Alkaline Phosphatase 82 40-136 U/L Myoglobin 34.2 10.0-92.0 NG/ML Troponin I < 0.028 <0.028 NG/ML Total Protein 7.4 6.4-8.2 GM/DL Albumin 4.1 3.2-4.5 GM/DL My Orders Orders - GLADYS GUZMAN MD Cbc With Automated Diff (04/02/21 12:29) Magnesium (04/02/21 12:29) Chest 1 View, Ap/Pa Only (04/02/21:) Ekg Tracing (04/02/21 12:29) Comprehensive Metabolic Panel (04/02/21 12:29) Myoglobin Serum (04/02/21 12:29) Protime With Inr (04/02/21:) Partial Thromboplastin Time (04/02/21:) O2 (04/02/21:) Monitor-Rhythm Ecg Trace Only (04/02/21:) Lipid Panel (04/03/21 06:00) Ed Iv/Invasive Line Start (04/02/21:) Troponin I (04/02/21:) Progress Progress Note : Time: 12:34 Progress Note Patient tells me that he has a follow-up appointment scheduled with his local president ergonomic consulting, Dr. Deng, this April [id number] Patient has had no return of chest pain while in the ED. Vital signs have been stable. Labs are reviewed and unremarkable. The patient expresses some frustration with the idea of having to wait to repeat troponin, I talked to him about this. He promises that he will come back to the ER if he has any recurrence of chest pain. He states that he is compliant with his daily medications. He has an appointment scheduled with his president ergonomic consulting in 48 hours. I also reminded him that he should quit smoking. Clinically patient looks well, I do not suspect this is "unstable angina". We will discharged home with close follow-up and return precautions as above. Initial ECG Impression Date: Apr 02, 2021 Initial ECG Impression Time: 12:28 Initial ECG Rate: 86 Initial ECG Rhythm: Normal Sinus Initial ECG Intervals: Normal Initial ECG Intervals GA 156 QRS 104 QTc 454 Initial ECG Impression: Normal Departure Impression Primary Impression: Chest pain at rest Additional Impression: History of coronary artery disease Disposition: HOME, SELF-CARE Condition: Stable Departure-Patient Inst. Decision time for Depature: 14:12 Referrals: [facility] [place] (PCP/Family) Primary Care Physician MELBA DENG JR, MD Patient Instructions: Chest Pain That Is Not Caused by the Heart (DC) Add. Discharge Instructions: Continue all your daily medications as prescribed. Please come back to the ER for any return of chest pain, especially with sweating, shortness of breath or nausea. Keep your follow up with Dr Deng this next week. GLADYS GUZMAN MD Apr 02, 2021 12:34
[2021-04-02 12:55] LABS: BASOPHILS # (AUTO) 0.1 10^3/uL (0.0-0.1); BASOPHILS % (AUTO) 0 % (0-10); EOSINOPHILS # (AUTO) 0.5 10^3/uL (0.0-0.3); EOSINOPHILS % (AUTO) 5 % (0-10); HEMATOCRIT 44 % (40-54); HEMOGLOBIN 14.1 g/dL (13.3-17.7); LYMPHOCYTES # (AUTO) 2.9 10^3/uL (1.0-4.0); LYMPHOCYTES % (AUTO) 26 % (12-44); MEAN CORPUSCULAR HEMOGLOBIN 27 pg (25-34); MEAN CORPUSCULAR HGB CONC 32 g/dL (32-36); MEAN CORPUSCULAR VOLUME 84 fL (80-99); MONOCYTES # (AUTO) 1.1 10^3/uL (0.0-1.0); MONOCYTES % (AUTO) 10 % (0-12); NEUTROPHILS # (AUTO) 6.6 10^3/uL (1.8-7.8); NEUTROPHILS % (AUTO) 59 % (42-75); PLATELET COUNT 333 10^3/uL (130-400); WHITE BLOOD COUNT 11.2 10^3/uL (4.3-11.0)
[2021-04-02 13:11] LABS: ALBUMIN 4.1 GM/DL (3.2-4.5)
[2021-04-02 13:12] LABS: INR 0.8 (0.8-1.4); PROTHROMBIN TIME PATIENT 11.9 SEC (12.2-14.7)
[2021-04-02 13:13] LABS: CALCIUM 9.6 MG/DL (8.5-10.1)
[2021-04-02 13:14] LABS: TOTAL PROTEIN 7.4 GM/DL (6.4-8.2)
[2021-04-02 13:15] LABS: BILIRUBIN,TOTAL 0.3 MG/DL (0.1-1.0)
[2021-04-02 13:17] LABS: CREATININE SERUM 0.96 MG/DL (0.60-1.30)
--- NOTE | 2021-04-02 13:58 | Diagnostic Imaging Report ---
EXAM: Portable erect AP chest at 1:21 PM INDICATION: Left-sided chest pain FINDINGS: The heart size is at the upper limits of normal but the heart does seem less prominent than noted on the prior exam of 12/29/2020. The lungs, where visualized, are generally clear. There is no sign evidence for failure, pneumonia or for a pleural effusion. The mediastinum is not widened. The osseous structures are intact. IMPRESSION: There is borderline cardiomegaly but there is no evidence for an acute cardiopulmonary abnormality. Dictated by: Dictated on workstation # [id number]
[2021-04-02 14:25] VITALS: BP 131/62
== END 2021-04-02 14:25 | disposition home or self-care (01) ==
LOC: EDUNIT# 12:18 → ER 12:19
DX: R07.9 Chest pain, unspecified (principal); I10 Essential (primary) hypertension; I25.2 Old myocardial infarction; Z79.82 Long term (current) use of aspirin
CPT/HCPCS: 36415; 71045; 80053; 83735; 83874; 84484; 85025; 85610; 85730; 93005; 93041

== ENCOUNTER → 2021-04-15 | Outpatient (CLI) | payer MEDICAID ==
[2021-04-15 11:59] LABS: CALCIUM 10.4 MG/DL (8.5-10.1); CREATININE SERUM 1.16 MG/DL (0.60-1.30); POTASSIUM 4.9 MMOL/L (3.6-5.0)
== END ==
LOC: LAB 11:26
PROVIDERS: ATTEND Internal Medicine Cardiovascular Disease
DX: I42.9 Cardiomyopathy, unspecified (principal)
CPT/HCPCS: 36415; 80048

== ENCOUNTER 2021-05-19 16:06 | Emergency (ER) | payer MEDICAID ==
[~2021-05-19] VITALS: Ht 177.8 cm; Wt 80.3 kg
[~2021-05-19 16:06] MED LIST changes: +POTA-160 PO; -POTA10TA6 PO
[2021-05-19] MEDS ORDERED: LIDOCAINE 2% VISCOUS 15 ML UDC PO ONE (16:30)
[2021-05-19] MEDS ORDERED: ANTACID SUSP 30 ML UDC (MYLANTA) PO ONE (16:30)
--- NOTE | 2021-05-19 16:30 | ED GI ---
General Chief Complaint: Cardiac/General Problems Stated Complaint: CHEST PAIN, SORE THROAT, STOMACH PAIN Nursing Triage Note: PT AMB TO RM 6 WITH COMPLAINT OF THROAT PAIN/BURNING, CP, AND SOA FOR 2 DAYS. Source of Information: Patient Exam Limitations: No Limitations History of Present Illness Date Seen by Provider: May 19, 2021 Time Seen by Provider: 16:15 Initial Comments This is a well-appearing 46-year-old male who presented to the ER via POV with complaints of burning sensation in his stomach and throat. States pain has been intermittent for past 2-3 days. Pain is present right after eating or drinking foods. Allergies and Home Medications Allergies Coded Allergies: codeine (Unverified Allergy, Mild, itches, 01/03/10) Penicillins (Unverified Allergy, Unknown, 11/20/18) diphenhydramine (Verified Allergy, Unknown, 05/19/21) Patient Home Medication List Albuterol Sulfate (Ventolin Hfa) 18 Gm Hfa.aer.ad, 2 PUFF INH Q4H PRN for SHORTNESS OF BREATH, (Reported) Entered as Reported by: MEL LAZARO on 11/20/18 1446 Aspirin (Aspirin EC) 81 Mg Tablet.dr, 81 MG PO DAILY Prescribed by: DARRIN GANDARA on 12/21/18 1028 Carvedilol (Carvedilol) 3.125 Mg Tablet, 3.125 MG PO BID Prescribed by: DARRIN GANDARA on 12/21/18 1028 Furosemide (Lasix) 20 Mg Tablet, 20 MG PO DAILY Prescribed by: DARRIN GANDARA on 12/21/18 1028 Gabapentin (Gabapentin) 600 Mg Tablet, 600 MG PO TID, (Reported) Entered as Reported by: ROM MG on 12/25/20 0026 Pantoprazole Sodium (Pantoprazole Sodium) 20 Mg Tablet.dr, 20 MG PO BID Prescribed by: NARDA PATEL on 05/19/21 1654 Potassium Chloride (Klor-Con 10) 10 Meq Tablet.er, 10 MEQ PO DAILY@0700 Prescribed by: DARRIN GANDARA on 12/21/18 1028 Sacubitril/Valsartan (Entresto 24 mg-26 mg Tablet) 1 Each Tablet, 1 TAB PO BID Prescribed by: DARRIN GANDARA on 12/21/18 1028 Spironolactone (Spironolactone) 25 Mg Tablet, 25 MG PO DAILY Prescribed by: DARRIN GANDARA on 12/21/18 1028 Sucralfate (Carafate) 1 Gm Tablet, 1 GM PO AC Prescribed by: NARDA PATEL on 05/19/21 1654 Past Aarmtrx-Hbcyje-Mteorl Hx Patient Social History Tobacco Use?: Yes Tobacco type used: Cigarettes Use of E-Cig and/or Vaping dev: No Substance use?: No Alcohol Use?: No Pt feels they are or have been: No Immunizations Up To Date Tetanus Booster (TDap): Less than 5yrs First/Initial COVID19 Vaccinat: 2020 Second COVID19 Vaccination Luis E: 2020 Third COVID19 Vaccination Date: 2020 Seasonal Allergies Seasonal Allergies: No Past Medical History Surgeries: Yes (BMT'S; CARDIAC CATH 11/20/18--NO INTERVENTION) Ear Surgery, Gallbladder Respiratory: No Cardiac: Yes Chronic Edema/Swelling, Heart Attack, High Cholesterol, Hypertension Neurological: No Reproductive Disorders: No Genitourinary: No Gastrointestinal: Yes Gastroesophageal Reflux, Pancreatitis Musculoskeletal: Yes (CHRONIC BILATERAL LEG PAIN ) Endocrine: No HEENT: No Cancer: No Psychosocial: Yes Anxiety, Bipolar Integumentary: No Blood Disorders: No Family Medical History FH: COPD (chronic obstructive pulmonary disease) 19 FATHER 19 MOTHER FH: coronary artery bypass surgery 19 MOTHER FH: emphysema 19 FATHER FH: heart failure 19 FATHER Seizure disorder G8 SISTER Heart Disease, COPD Physical Exam Vital Signs Vital Signs - First Documented 05/19/21 16:10 Temp 36.4 Pulse 90 Resp 27 B/P (MAP) 126/84 (98) Pulse Ox 96 O2 Delivery Room Air Capillary Refill : Less Than 3 Seconds Height/Weight/BMI Height: 5'7.00" Weight: 150lbs. 7.0oz. 68.309054me; 25.00 BMI Method:Stated Progress/Results/Core Measures Results/Orders My Orders Orders - NARDA PATEL [employer]HALT SPREADER Lidocaine 2% Viscous 15 Ml (Xylocaine Vi (05/19/21 16:30) Antacid Suspension (Mylanta Suspension (05/19/21 16:30) Medications Given in ED Current Medications Medications Dose Ordered Sig/Andra Route Start Time Stop Time Status Last Admin Dose Admin Al Hydrox/Mg Hydrox/Simethicone 30 ml ONCE ONCE PO 05/19/21 16:30 05/19/21 16:31 DC 05/19/21 16:40 30 ML Lidocaine HCl 15 ml ONCE ONCE PO 05/19/21 16:30 05/19/21 16:31 DC 05/19/21 16:40 15 ML Vital Signs/I&O 05/19/21 16:10 Temp 36.4 Pulse 90 Resp 27 B/P (MAP) 126/84 (98) Pulse Ox 96 O2 Delivery Room Air Blood Pressure Mean: 98 Departure Impression Primary Impression: Gastritis Additional Impression: Chronic GERD Disposition: HOME, SELF-CARE Condition: Improved Departure-Patient Inst. Decision time for Depature: 16:58 Referrals: [facility] [place] (PCP/Family) Primary Care Physician ARIEL ROBISON DO Patient Instructions: Gastritis Add. Discharge Instructions: Plan: 1. Call Dr. Robison office to schedule follow up for EGD/Colonoscopy. 2. Avoid spicy, greasy, acidic foods (especially tomatoes or tomato based foods). Avoid any other aggravating foods/drinks. 3. Take Carafate 30 minutes to one hour before meals. 4. Take Protonix 20mg by mouth twice a day on an empty stomach. Take at least 2 hours apart from your other medications. 5. Return to ER for any new, concerning, or worsening symptoms. All discharge instructions reviewed with patient and/or family. Voiced understanding. Scripts Pantoprazole Sodium (Pantoprazole Sodium) 20 Mg Tablet. 20 MG PO BID for 14 Days, #20 TAB 0 Refills Prov: NARDA PATEL [employer]HALT SPREADER 05/19/21 Sucralfate (Carafate) 1 Gm Tablet 1 GM PO AC for 10 Days, #30 TAB 0 Refills Take three times a day at least 30 minutes before your meal. Prov: NARDA PATEL [employer]HALT SPREADER 05/19/21 NARDA PATEL [employer]HALT SPREADER May 19, 2021 16:30
[2021-05-19] MEDS ORDERED: SUCR1TAB36 PO (16:54)
[2021-05-19] MEDS ORDERED: PANT20TA18 PO (16:54)
[2021-05-19 17:06] VITALS: BP 127/85
== END 2021-05-19 17:06 | disposition home or self-care (01) ==
LOC: EDUNIT# 16:06 → ER 16:09
DX: K29.70 Gastritis, unspecified, without bleeding (principal); K21.9 Gastro-esophageal reflux disease without esophagitis; I25.2 Old myocardial infarction; I10 Essential (primary) hypertension; Z72.0 Tobacco use; Z79.82 Long term (current) use of aspirin
CPT/HCPCS: 93005; 99283

== ENCOUNTER → 2021-06-07 | Outpatient (CLI) | payer MEDICAID ==
[~2021-06-07] MED LIST changes: +PANT20TA18 PO; +SUCR1TAB36 PO
[2021-06-07 10:38] LABS: CALCIUM 9.8 MG/DL (8.5-10.1); CREATININE SERUM 0.92 MG/DL (0.60-1.30); POTASSIUM 4.1 MMOL/L (3.6-5.0)
== END ==
LOC: LAB 09:47
PROVIDERS: ATTEND Internal Medicine Cardiovascular Disease
DX: I42.9 Cardiomyopathy, unspecified (principal)
CPT/HCPCS: 36415; 80048

== ENCOUNTER 2021-06-23 15:54 | Outpatient (RCR) | payer MEDICAID | END 2021-06-24 | disposition home or self-care (01) | PROVIDERS: ATTEND Internal Medicine | DX: R47.01 Aphasia (principal) ==

== ENCOUNTER → 2021-07-13 | Outpatient (CLI) | payer MEDICAID ==
[2021-07-13 16:17] LABS: CALCIUM 9.3 MG/DL (8.5-10.1)
[2021-07-13 16:21] LABS: CREATININE SERUM 0.98 MG/DL (0.60-1.30)
== END ==
LOC: LAB 15:42
PROVIDERS: ATTEND Internal Medicine Cardiovascular Disease
DX: I50.22 Chronic systolic (congestive) heart failure (principal)
CPT/HCPCS: 36415; 80048

== ENCOUNTER 2021-07-19 13:05 | Outpatient (RCR) | payer MEDICAID | END 2021-07-25 | disposition home or self-care (01) | PROVIDERS: ATTEND Internal Medicine | DX: R47.01 Aphasia (principal) ==

== ENCOUNTER → 2021-07-26 | Outpatient (CLI) | payer MEDICAID | LOC: CARD 13:00 | PROVIDERS: ATTEND Internal Medicine Cardiovascular Disease | DX: I08.3 Combined rheumatic disorders of mitral, aortic and tricuspid valves (principal); I42.9 Cardiomyopathy, unspecified | CPT/HCPCS: 93306 ==

== ENCOUNTER 2021-08-02 13:00 | Outpatient (RCR) | payer MEDICAID | END 2021-08-22 | disposition home or self-care (01) | PROVIDERS: ATTEND Internal Medicine | DX: R47.01 Aphasia (principal) ==

== ENCOUNTER 2021-08-02 13:51 | Emergency (ER) | payer MEDICAID ==
[~2021-08-02] VITALS: Ht 177.8 cm; Wt 80.3 kg
[2021-08-02 14:29] LABS: BASOPHILS # (AUTO) 0.1 10^3/uL (0.0-0.1); BASOPHILS % (AUTO) 0 % (0-10); EOSINOPHILS # (AUTO) 0.3 10^3/uL (0.0-0.3); EOSINOPHILS % (AUTO) 2 % (0-10); HEMATOCRIT 49 % (40-54); HEMOGLOBIN 15.9 g/dL (13.3-17.7); LYMPHOCYTES # (AUTO) 2.6 10^3/uL (1.0-4.0); LYMPHOCYTES % (AUTO) 18 % (12-44); MEAN CORPUSCULAR HEMOGLOBIN 28 pg (25-34); MEAN CORPUSCULAR HGB CONC 32 g/dL (32-36); MEAN CORPUSCULAR VOLUME 85 fL (80-99); MEAN PLATELET VOLUME 8.8 fL (9.0-12.2); MONOCYTES % (AUTO) 7 % (0-12); NEUTROPHILS # (AUTO) 10.7 10^3/uL (1.8-7.8); NEUTROPHILS % (AUTO) 72 % (42-75); PLATELET COUNT 353 10^3/uL (130-400); WHITE BLOOD COUNT 14.8 10^3/uL (4.3-11.0)
[2021-08-02] MEDS ORDERED: NS IV 500 ML 500 ML IV ONE (14:30)
[2021-08-02 14:36] LABS: ALANINE AMINOTRANSFERASE 242 U/L (0-55); ALBUMIN 4.4 GM/DL (3.2-4.5); ALKALINE PHOSPHATASE 158 U/L (40-136); BILIRUBIN,TOTAL 1.1 MG/DL (0.1-1.0); BUN/CREATININE RATIO 14; CALCIUM 9.9 MG/DL (8.5-10.1); CARBON DIOXIDE 26 MMOL/L (21-32); CHLORIDE 99 MMOL/L (98-107); CREATININE SERUM 1.75 MG/DL (0.60-1.30); GFR ESTIMATED 48; GLUCOSE 105 MG/DL (70-105); MAGNESIUM 2.3 MG/DL (1.6-2.4); SODIUM 140 MMOL/L (135-145); TOTAL PROTEIN 8.1 GM/DL (6.4-8.2)
[2021-08-02 14:56] LABS: BASOPHILS % (MANUAL) 1 %; LYMPHOCYTES % (MANUAL) 15 %; MONOCYTES % (MANUAL) 7 %; NEUTROPHILS % (MANUAL) 77 %; RBC MORPH NORMAL
--- NOTE | 2021-08-02 14:58 | ED Syncope ---
General Chief Complaint: Dizziness/Syncope Stated Complaint: UNRESPONSIVE Nursing Triage Note: PT BROUGHT IN BY [facility] FROM PHYSICAL THERAPY WITH COMPLAINT OF SYNCOPE. PT STATES HE GOT REALLY HOT AND SWEATY. PER THERAPIST, PT WENT UNRESPONSIVE. PT IS ALERT AND ORIENTED ON ARRIVAL TO ER. Source of Information: Patient Exam Limitations: No Limitations History of Present Illness Date Seen by Provider: Aug 02, 2021 Time Seen by Provider: 13:53 Initial Comments Here from physical therapy with report of possible Covid. Apparently he had a syncopal episode. No CPR was done. He is alert and oriented on arrival but hypotensive. Does have history of stroke several months ago. Does smoke but do es not drink or use drugs. Takes his medicines as directed. States his blood pressures typically a little low. Has had some abdominal cramping today. Denies other complaints. Timing/Prior Episodes: Single Episode Today Symptoms Prior to Episode: Lightheadedness, Other ([place] hot) Loss of Consciousness: Prolonged (Minutes) Current Symptoms: Back to Normal; No Chest Pain, No Diaphoresis, No Headache; Lightheadedness (During incident), Pale (During incident), Weakness (During incident) Allergies and Home Medications Allergies Coded Allergies: codeine (Unverified Allergy, Mild, itches, 01/03/10) Penicillins (Unverified Allergy, Unknown, 11/20/18) diphenhydramine (Verified Allergy, Unknown, 05/19/21) Patient Home Medication List Home Medication List Reviewed: Yes Albuterol Sulfate (Ventolin Hfa) 18 Gm Hfa.aer.ad, 2 PUFF INH Q4H PRN for SHORTNESS OF BREATH, (Reported) Entered as Reported by: MEL LAZARO on 11/20/18 1446 Aspirin (Aspirin EC) 81 Mg Tablet.dr, 81 MG PO DAILY Prescribed by: DARRIN GANDARA on 12/21/18 1028 Carvedilol (Carvedilol) 3.125 Mg Tablet, 3.125 MG PO BID Prescribed by: DARRIN GANDARA on 12/21/18 1028 Furosemide (Lasix) 20 Mg Tablet, 20 MG PO DAILY Prescribed by: DARRIN GANDARA on 12/21/18 1028 Gabapentin (Gabapentin) 600 Mg Tablet, 600 MG PO TID, (Reported) Entered as Reported by: ROM MG on 12/25/20 0026 Pantoprazole Sodium (Pantoprazole Sodium) 20 Mg Tablet.dr, 20 MG PO BID Prescribed by: NARDA PATEL on 05/19/211653 Potassium Chloride (Klor-Con 10) 10 Meq Tablet.er, 10 MEQ PO DAILY@0700 Prescribed by: DARRIN GANDARA on 12/21/18 102 Sacubitril/Valsartan (Entresto 24 mg-26 mg Tablet) 1 Each Tablet, 1 TAB PO BID Prescribed by: DARRIN GANDARA on 12/21/18 102 Spironolactone (Spironolactone) 25 Mg Tablet, 25 MG PO DAILY Prescribed by: DARRIN GANDARA on 12/21/18 102 Sucralfate (Carafate) 1 Gm Tablet, 1 GM PO AC Prescribed by: NARDA PATEL on 05/19/211653 Review of Systems Constitutional: see HPI; No chills, No fever EENTM: no symptoms reported Respiratory: No cough, No short of breath Cardiovascular: No chest pain; syncope Gastrointestinal: abdominal pain (Generalized abdominal cramping); No nausea, No vomiting Genitourinary: no symptoms reported Musculoskeletal: no symptoms reported Psychiatric/Neurological: Pre-Existing Deficit, Weakness All Other Systems Reviewed Negative Unless Noted: Yes Past Msddnyu-Ptxnsg-Kedyep Hx Patient Social History Tobacco Use?: Yes Tobacco type used: Cigarettes Smoking Status: Current Everyday Smoker Use of E-Cig and/or Vaping dev: No Substance use?: No Alcohol Use?: No Pt feels they are or have been: No Immunizations Up To Date Tetanus Booster (TDap): Less than 5yrs First/Initial COVID19 Vaccinat: 2020 Second COVID19 Vaccination Luis E: 2020 Third COVID19 Vaccination Date: 2020 Seasonal Allergies Seasonal Allergies: No Past Medical History Surgeries: Yes (BMT'S; CARDIAC CATH 11/20/18--NO INTERVENTION) Ear Surgery, Gallbladder Respiratory: No Cardiac: Yes Chronic Edema/Swelling, Heart Attack, High Cholesterol, Hypertension Neurological: No Reproductive Disorders: No Genitourinary: No Gastrointestinal: Yes Gastroesophageal Reflux, Pancreatitis Musculoskeletal: Yes (CHRONIC BILATERAL LEG PAIN ) Endocrine: No HEENT: No Cancer: No Psychosocial: Yes Anxiety, Bipolar Integumentary: No Blood Disorders: No Family Medical History Reviewed Nursing Family Hx FH: COPD (chronic obstructive pulmonary disease) 19 FATHER 19 MOTHER FH: coronary artery bypass surgery 19 MOTHER FH: emphysema 19 FATHER FH: heart failure 19 FATHER Seizure disorder G8 SISTER Heart Disease, COPD Physical Exam Vital Signs Vital Signs - First Documented 08/02/21 13:53 Pulse 72 Resp 29 B/P (MAP) 98/49 (65) Pulse Ox 97 O2 Delivery Room Air Capillary Refill : Less Than 3 Seconds Height, Weight, BMI Height: 5'7.00" Weight: 150lbs. 7.0oz. 68.334586hd; 25.00 BMI Method:Stated General Appearance: No Apparent Distress, WD/WN HEENT: PERRL/EOMI, Pharynx Normal Neck: Non Tender, Supple Cardiovascular: Regular Rate, Rhythm, No Murmur Gastrointestinal: Non Tender, Soft Back: Normal Inspection, No CVA Tenderness, No Vertebral Tenderness Extremities: Normal Range of Motion, Non Tender, No Calf Tenderness, Other (Weakness all 4 extremities from pre-existing deficit) Neurologic/Psychiatric: Alert, Oriented x3 Cranial Nerves: Abnormal Speech (Slightly thick secondary to previous stroke) Skin: Normal Color, Warm/Dry Progress/Results/Core Measures Results/Orders Lab Results Laboratory Tests Test 08/02/21 13:56 Range/Units White Blood Count 14.8 H 4.3-11.0 10^3/uL Red Blood Count 5.79 H 4.30-5.52 10^6/uL Hemoglobin 15.9 13.3-17.7 g/dL Hematocrit 49 40-54 % Mean Corpuscular Volume 85 80-99 fL Mean Corpuscular Hemoglobin 28 25-34 pg Mean Corpuscular Hemoglobin Concent 32 32-36 g/dL Red Cell Distribution Width 13.1 10.0-14.5 % Platelet Count 353 130-400 10^3/uL Mean Platelet Volume 8.8 L 9.0-12.2 fL Immature Granulocyte % (Auto) 1 % Neutrophils (%) (Auto) 72 42-75 % Lymphocytes (%) (Auto) 18 12-44 % Monocytes (%) (Auto) 7 0-12 % Eosinophils (%) (Auto) 2 0-10 % Basophils (%) (Auto) 0 0-10 % Neutrophils # (Auto) 10.7 H 1.8-7.8 10^3/uL Lymphocytes # (Auto) 2.6 1.0-4.0 10^3/uL Monocytes # (Auto) 1.0 0.0-1.0 10^3/uL Eosinophils # (Auto) 0.3 0.0-0.3 10^3/uL Basophils # (Auto) 0.1 0.0-0.1 10^3/uL Immature Granulocyte # (Auto) 0.1 0.0-0.1 10^3/uL Neutrophils % (Manual) 77 % Lymphocytes % (Manual) 15 % Monocytes % (Manual) 7 % Basophils % (Manual) 1 % Blood Morphology Comment NORMAL Sodium Level 140 135-145 MMOL/L Potassium Level 4.0 3.6-5.0 MMOL/L Chloride Level 99 98-107 MMOL/L Carbon Dioxide Level 26 21-32 MMOL/L Anion Gap 15 H 5-14 MMOL/L Blood Urea Nitrogen 25 H 7-18 MG/DL Creatinine 1.75 H 0.60-1.30 MG/DL Estimat Glomerular Filtration Rate 48 BUN/Creatinine Ratio 14 Glucose Level 105 70-105 MG/DL Calcium Level 9.9 8.5-10.1 MG/DL Corrected Calcium 9.6 8.5-10.1 MG/DL Magnesium Level 2.3 1.6-2.4 MG/DL Total Bilirubin 1.1 H 0.1-1.0 MG/DL Aspartate Amino Transf (AST/SGOT) 309 H 5-34 U/L Alanine Aminotransferase (ALT/SGPT) 242 H 0-55 U/L Alkaline Phosphatase 158 H 40-136 U/L Troponin I < 0.028 <0.028 NG/ML Total Protein 8.1 6.4-8.2 GM/DL Albumin 4.4 3.2-4.5 GM/DL My Orders Orders - LEX LYNNE MD Cbc With Automated Diff (08/02/21 14:16) Comprehensive Metabolic Panel (08/02/21 14:16) Magnesium (08/02/21 14:16) Troponin I Nye (08/02/21 14:16) Ekg Tracing (08/02/21 14:16) Chest 1 View, Ap/Pa Only (08/02/21 14:16) Ns Iv 500 Ml (Sodium Chloride 0.9%) (08/02/21 14:30) Manual Differential (08/02/21 13:56) Ct Abdomen/Pelvis Wo (08/02/21 15:00) Ed Iv/Invasive Line Start (08/02/21 15:00) Lactated Ringers (Lr 1000 Ml Iv Solution (08/02/21 15:30) Medications Given in ED Current Medications Medications Dose Ordered Sig/Andra Route Start Time Stop Time Status Last Admin Dose Admin Lactated Ringer's 1,000 ml @ 0 mls/hr Q0M ONCE IV 08/02/21 15:30 08/02/21 15:31 DC 08/02/21 15:51 0 MLS/HR Sodium Chloride 500 ml @ 0 mls/hr Q0M ONCE IV 08/02/21 14:30 08/02/21 14:31 DC 08/02/21 14:42 0 MLS/HR Vital Signs/I&O 08/02/21 13:53 Pulse 72 Resp 29 B/P (MAP) 98/49 (65) Pulse Ox 97 O2 Delivery Room Air Blood Pressure Mean: 65 Progress Progress Note : Progress Note Seen and evaluated. IV, labs and EKG ordered. Normal saline 1 L bolus. Repeated fluid boluses due to hypotension that patient was not feeling. Also ordered CT abdomen pelvis due to upper abdominal pain. Monitor patient. 1710: Patient receiving LR 1 L bolus now. Blood pressure is improved to the 90s systolic and is up to 101 systolic now. Patient does not want to stay and would like to go home. He did stay for fluids. Family at bedside. I did discuss with him the importance of monitoring this and returning if any worsening. Kin dennison states that he would. Discharged home with return precautions. Patient verbalized understanding instructions and agreement with plan. Diagnostic Imaging Diagonstic Imaging: Xray Plain Films/CT/US/NM/MRI: chest [facility] [place], [place] NAME: KTMILLIE Nico [facility] REC#: [id number] PT STATUS: REG ER : 1975 PHYSICIAN: LEX LYNNE MD ADMIT DATE: 08/02/21/ER Draft Date of Exam:08/02/21 CHEST 1 VIEW, AP/PA ONLY INDICATION: Syncope. COMPARISON: 04/02/2021. FINDINGS: Single frontal view of the chest demonstrates normal heart size and pulmonary vascularity. The lungs are well aerated and clear. No large pleural effusion or pneumothorax is seen. The visualized osseous structures show no acute abnormalities. IMPRESSION: 1. No acute cardiopulmonary process. Dictated on workstation # [id number] Dict: 08/02/21 1456 Trans: 08/02/21 1458 [id number] Interpreted by: TOMASZ MUNOZ MD Electronically signed by: Romina Imaging: CT Plain Films/CT/US/NM/MRI: abdomen, pelvis Comments [facility] [place], [place] NAME: MILLIE MERAZ [facility] REC#: [id number] PT STATUS: REG ER : 1975 PHYSICIAN: LEX LYNNE MD ADMIT DATE: 08/02/21/ER Signed Date of Exam:08/02/21 CT ABDOMEN/PELVIS WO EXAMINATION: CT abdomen and pelvis without contrast. TECHNIQUE: Multiple contiguous axial images were obtained through the abdomen and pelvis without the use of intravenous contrast. All CT scans use one or more of the following dose optimizing techniques: automated exposure control, MA and/or KvP adjustment based on patient size and exam type or iterative reconstruction. HISTORY: abdominal pain COMPARISON: 06/21/2012. FINDINGS: Lung bases: Bibasilar dependent atelectasis. Solid organs: The liver is normal. The gallbladder is surgically absent. There is no biliary ductal dilation. Pancreas is normal. Spleen is normal. Adrenal glands are normal. The kidneys are normal without visualized calculus or hydronephrosis. Bowel: The stomach and small bowel are normal without obstruction. The colon and appendix are normal. Peritoneum: There is no intraperitoneal free fluid or free air. No suspicious lymphadenopathy. Vasculature: Calcification of the aorta without aneurysm. Musculoskeletal: No suspicious osseous lesion or compression fracture. Pelvis: The prostate gland is normal. The urinary bladder is normal. IMPRESSION: 1. No acute abnormality within the abdomen or pelvis. Dictated by: Dictated on workstation # [id number] Dict: 08/02/21 1550 Trans: 08/02/21 1620 [id number] Interpreted by: MILLIE NELSON DO Electronically signed by: MILLIE NELSON DO 08/02/21 1620 Departure Impression Primary Impression: Syncope Qualified Codes: R55 - Syncope and collapse Additional Impressions: Dehydration Acute renal insufficiency Disposition: HOME, SELF-CARE Condition: Stable Departure-Patient Inst. Decision time for Depature: 17:26 Referrals: [facility] [place]) Primary Care Physician MELBA PADILLA MD (PCP) Primary Care Physician Patient Instructions: Dehydration, Adult ED, Dehydration, Adult (DC), Kidney Failure (DC) Add. Discharge Instructions: All discharge instructions reviewed with patient and/or family. Voiced understanding. Drink plenty of fluids and eat a normal diet. Follow-up with your doctor in a few days for recheck. Return for worse pain, fever, vomiting, weakness, breathing problems or other concerns as needed. You do need to have recheck of your kidneys and ensure that you are improving overall. LEX LYNNE MD Aug 02, 2021 14:58
[2021-08-02] MEDS ORDERED: LACTATED RINGERS 1,000 ML IV ONE (15:30)
--- NOTE | 2021-08-02 16:02 | Diagnostic Imaging Report ---
EXAMINATION: CT abdomen and pelvis without contrast. TECHNIQUE: Multiple contiguous axial images were obtained through the abdomen and pelvis without the use of intravenous contrast. All CT scans use one or more of the following dose optimizing techniques: automated exposure control, MA and/or KvP adjustment based on patient size and exam type or iterative reconstruction. HISTORY: abdominal pain COMPARISON: 06/21/2012. FINDINGS: Lung bases: Bibasilar dependent atelectasis. Solid organs: The liver is normal. The gallbladder is surgically absent. There is no biliary ductal dilation. Pancreas is normal. Spleen is normal. Adrenal glands are normal. The kidneys are normal without visualized calculus or hydronephrosis. Bowel: The stomach and small bowel are normal without obstruction. The colon and appendix are normal. Peritoneum: There is no intraperitoneal free fluid or free air. No suspicious lymphadenopathy. Vasculature: Calcification of the aorta without aneurysm. Musculoskeletal: No suspicious osseous lesion or compression fracture. Pelvis: The prostate gland is normal. The urinary bladder is normal. IMPRESSION: 1. No acute abnormality within the abdomen or pelvis. Dictated by: Dictated on workstation # [id number]
[2021-08-02 17:37] VITALS: BP 104/70
== END 2021-08-02 17:37 | disposition home or self-care (01) ==
LOC: EDUNIT# 13:51 → ER 13:52
DX: R55 Syncope and collapse (principal); E86.0 Dehydration; N28.9 Disorder of kidney and ureter, unspecified; I25.2 Old myocardial infarction; I10 Essential (primary) hypertension; K21.9 Gastro-esophageal reflux disease without esophagitis; F17.210 Nicotine dependence, cigarettes, uncomplicated; Z79.82 Long term (current) use of aspirin; Z79.899 Other long term (current) drug therapy
CPT/HCPCS: 36415; 71045; 74176; 80053; 83735; 84484; 85007; 85027; 93005

== ENCOUNTER → 2021-08-22 | Outpatient (RCR) | payer MEDICAID | END | disposition home or self-care (01) | LOC: CARD 12:17 | PROVIDERS: ATTEND Internal Medicine Cardiovascular Disease | DX: R55 Syncope and collapse (principal); Z53.9 Procedure and treatment not carried out, unspecified reason ==

== ENCOUNTER → 2021-10-12 | Outpatient (CLI) | payer MEDICAID ==
[2021-10-12 12:50] LABS: BASOPHILS # (AUTO) 0.1 10^3/uL (0.0-0.1); BASOPHILS % (AUTO) 1 % (0-10); EOSINOPHILS # (AUTO) 0.3 10^3/uL (0.0-0.3); EOSINOPHILS % (AUTO) 3 % (0-10); HEMATOCRIT 46 % (40-54); HEMOGLOBIN 15.2 g/dL (13.3-17.7); LYMPHOCYTES # (AUTO) 2.8 10^3/uL (1.0-4.0); LYMPHOCYTES % (AUTO) 27 % (12-44); MEAN CORPUSCULAR HEMOGLOBIN 28 pg (25-34); MEAN CORPUSCULAR HGB CONC 33 g/dL (32-36); MEAN CORPUSCULAR VOLUME 86 fL (80-99); MEAN PLATELET VOLUME 8.7 fL (9.0-12.2); MONOCYTES # (AUTO) 0.9 10^3/uL (0.0-1.0); MONOCYTES % (AUTO) 9 % (0-12); NEUTROPHILS # (AUTO) 6.4 10^3/uL (1.8-7.8); NEUTROPHILS % (AUTO) 60 % (42-75); PLATELET COUNT 318 10^3/uL (130-400); WHITE BLOOD COUNT 10.5 10^3/uL (4.3-11.0)
[2021-10-12 13:11] LABS: ALANINE AMINOTRANSFERASE 56 U/L (0-55); ALBUMIN 4.8 GM/DL (3.2-4.5); ALKALINE PHOSPHATASE 111 U/L (40-136); BILIRUBIN,TOTAL 0.6 MG/DL (0.1-1.0); BUN/CREATININE RATIO 25; CALCIUM 10.2 MG/DL (8.5-10.1); CARBON DIOXIDE 24 MMOL/L (21-32); CHLORIDE 99 MMOL/L (98-107); CHOLESTEROL 282 MG/DL (< 200); CREATININE SERUM 1.14 MG/DL (0.60-1.30); GFR ESTIMATED 80; GLUCOSE 99 MG/DL (70-105); HDL CHOLESTEROL 42 MG/DL (40-60); POTASSIUM 4.5 MMOL/L (3.6-5.0); SODIUM 138 MMOL/L (135-145); TOTAL PROTEIN 8.4 GM/DL (6.4-8.2); TRIGLYCERIDES 294 MG/DL (<150); VLDL CHOLESTEROL 59 MG/DL (5-40)
== END ==
LOC: LAB 12:27
PROVIDERS: ATTEND Internal Medicine Cardiovascular Disease
DX: R55 Syncope and collapse (principal); I42.9 Cardiomyopathy, unspecified; I11.0 Hypertensive heart disease with heart failure; I50.22 Chronic systolic (congestive) heart failure; I24.8 Other forms of acute ischemic heart disease; I63.9 Cerebral infarction, unspecified; I27.20 Pulmonary hypertension, unspecified; I08.0 Rheumatic disorders of both mitral and aortic valves; E78.2 Mixed hyperlipidemia; J44.9 Chronic obstructive pulmonary disease, unspecified; E66.9 Obesity, unspecified; F17.210 Nicotine dependence, cigarettes, uncomplicated
CPT/HCPCS: 36415; 80053; 80061; 85025

== ENCOUNTER 2021-10-26 20:29 | Emergency (ER) | payer MEDICAID ==
--- NOTE | 2021-10-26 20:55 | ED General ---
General Chief Complaint: General Problems/Pain Stated Complaint: OUT MEDICATION Nursing Triage Note: PT AMB TO [facility] WITH C/O NEEDING MEDICATIONS REFILLED AFTER LOSING THEM ON A BUS TRIP. PT OR FAMILY CANNOT TELL US WHICH MEDS HE NEEDS BUT POSSIBLY A BLOOD THINNER Source of Information: Patient, Family Exam Limitations: No Limitations History of Present Illness Date Seen by Provider: October 26, 2021 Time Seen by Provider: 20:53 Initial Comments Patient is a 46-year-old male who presents to ED with family requesting medication refills. According to family patient lost his medication on a bus. They attempted to call their insurance company but they were only able to refill so many medication at [facility]. Patient does not know what medication he does take. They believe he is on a blood thinner but they are not sure. 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 Patient has no other current complaints. Allergies and Home Medications Allergies Coded Allergies: codeine (Unverified Allergy, Mild, itches, 01/03/10) Penicillins (Unverified Allergy, Unknown, 11/20/18) diphenhydramine (Verified Allergy, Unknown, 05/19/21) Patient Home Medication List Home Medication List Reviewed: Yes Albuterol Sulfate (Ventolin Hfa) 18 Gm Hfa.aer.ad, 2 PUFF INH Q4H PRN for SHORTNESS OF BREATH, (Reported) Entered as Reported by: MEL LAZARO on 11/20/18 1446 Aspirin (Aspirin EC) 81 Mg Tablet.dr, 81 MG PO DAILY Prescribed by: DARRIN GANDARA on 12/21/18 1028 Baclofen (Baclofen) 10 Mg Tablet, 10 MG PO TID Prescribed by: KYLE CORDERO on 10/26/212124 Carvedilol (Carvedilol) 3.125 Mg Tablet, 3.125 MG PO BID Prescribed by: DARRIN GANDARA on 12/21/18 1028 Carvedilol (Carvedilol) 6.25 Mg Tablet, 6.25 MG PO BID Prescribed by: KYLE CORDERO on 10/26/212124 Diclofenac Sodium (Diclofenac Sodium) 1 % Gel..gram., 100 GM TP QID Prescribed by: KYLE CORDERO on 10/26/212124 Furosemide (Lasix) 20 Mg Tablet, 20 MG PO DAILY Prescribed by: DARRIN GANDARA on 12/21/18 102 Furosemide (Lasix) 40 Mg Tablet, 40 MG PO DAILY Prescribed by: KYLE CORDERO on 10/26/212124 Gabapentin (Gabapentin) 600 Mg Tablet, 600 MG PO TID, (Reported) Entered as Reported by: ROM MG on 12/25/20 0026 Pantoprazole Sodium (Pantoprazole Sodium) 20 Mg Tablet.dr, 20 MG PO BID Prescribed by: NARDA PATEL on 05/19/21 165 Potassium Chloride (Klor-Con 10) 10 Meq Tablet.er, 10 MEQ PO DAILY@0700 Prescribed by: DARRIN GANDARA on 12/21/18 1028 Sacubitril/Valsartan (Entresto 24 mg-26 mg Tablet) 1 Each Tablet, 1 TAB PO BID Prescribed by: DARRIN GANDARA on 12/21/18 1028 Spironolactone (Spironolactone) 25 Mg Tablet, 25 MG PO DAILY Prescribed by: DARRIN GANDARA on 12/21/18 1028 Sucralfate (Carafate) 1 Gm Tablet, 1 GM PO AC Prescribed by: NARDA PATEL on 05/19/21 165 Discontinued Medications Baclofen (Baclofen) 10 Mg Tablet, 10 MG PO TID Prescribed by: KYLE CORDERO on 10/26/212106 Carvedilol (Carvedilol) 6.25 Mg Tablet, 6.25 MG PO BID Prescribed by: KYLE CORDERO on 10/26/212106 Diclofenac Sodium (Diclofenac Sodium) 1 % Gel..gram., 100 GM TP QID PRN for PAIN-SEE DOSE INSTRUCTIONS Prescribed by: KYLE CORDERO on 10/26/212106 Furosemide (Lasix) 40 Mg Tablet, 40 MG PO DAILY Prescribed by: KYLE CORDERO on 10/26/212106 Review of Systems Review of Systems Constitutional: No chills, No diaphoresis EENTM: No blurred vision, No double vision, No mouth pain, No mouth swelling Respiratory: No cough Cardiovascular: No chest pain, No edema Gastrointestinal: No abdominal pain Genitourinary: No decreased output, No dysuria, No frequency Musculoskeletal: No back pain, No joint pain Skin: No change in color, No change in hair/nails Past Ozjzsgq-Mlnbzl-Cclpce Hx Patient Social History Tobacco Use?: Yes Tobacco type used: Cigarettes Smoking Status: Current Everyday Smoker Substance use?: No Alcohol Use?: No Pt feels they are or have been: No Immunizations Up To Date Tetanus Booster (TDap): Less than 5yrs First/Initial COVID19 Vaccinat: 2020 Second COVID19 Vaccination Luis E: 2020 Third COVID19 Vaccination Date: 2020 Seasonal Allergies Seasonal Allergies: No Past Medical History Surgery/Hospitalization HX: STROKE, CAD Surgeries: Yes (BMT'S; CARDIAC CATH 11/20/18--NO INTERVENTION) Ear Surgery, Gallbladder Respiratory: No Cardiac: Yes Chronic Edema/Swelling, Heart Attack, High Cholesterol, Hypertension Neurological: No Reproductive Disorders: No Genitourinary: No Gastrointestinal: Yes Gastroesophageal Reflux, Pancreatitis Musculoskeletal: Yes (CHRONIC BILATERAL LEG PAIN ) Endocrine: No HEENT: No Cancer: No Psychosocial: Yes Anxiety, Bipolar Integumentary: No Blood Disorders: No Family Medical History FH: COPD (chronic obstructive pulmonary disease) 19 FATHER 19 MOTHER FH: coronary artery bypass surgery 19 MOTHER FH: emphysema 19 FATHER FH: heart failure 19 FATHER Seizure disorder G8 SISTER Heart Disease, COPD Physical Exam Vital Signs Vital Signs - First Documented 10/26/21 20:37 Temp 37.5 Pulse 81 Resp 18 B/P (MAP) 148/91 (110) Capillary Refill : Height, Weight, BMI Height: 5'7.00" Weight: 150lbs. 7.0oz. 68.228914ri; 25.00 BMI Method:Stated General Appearance: No Apparent Distress, WD/WN Eyes: Bilateral Eye Normal Inspection, Bilateral Eye PERRL, Bilateral Eye EOMI HEENT: PERRL/EOMI, TMs Normal, Normal ENT Inspection, Pharynx Normal Neck: Full Range of Motion, Normal Inspection, Non Tender, Supple Respiratory: Chest Non Tender, Lungs Clear, Normal Breath Sounds, No Accessory Muscle Use Cardiovascular: Regular Rate, Rhythm, No Edema, No JVD Gastrointestinal: Normal Bowel Sounds, No Organomegaly Back: Normal Inspection, No CVA Tenderness, No Vertebral Tenderness Neurologic/Psychiatric: Alert, Oriented x3 Skin: Normal Color, Warm/Dry Progress/Results/Core Measures Suspected Sepsis SIRS Temperature: Pulse: 81 Respiratory Rate: 18 Blood Pressure 148 /91 Mean: 110 Results/Orders My Orders Orders - KEYLA AVENDAÑO Furosemide Tablet (Lasix Tablet) (10/27/21 09:00) Carvedilol Tablet (Coreg Tablet) (10/26/21 21:15) Baclofen Tablet (Lioresal Tablet) (10/26/21 21:01) Furosemide Tablet (Lasix Tablet) (10/26/21 21:12) Medications Given in ED Current Medications Medications Dose Ordered Sig/Andra Route Start Time Stop Time Status Last Admin Dose Admin Carvedilol 3.125 mg ONCE ONCE PO 10/26/21 21:15 10/26/21 21:16 DC 10/26/21 21:16 3.125 MG Vital Signs/I&O 10/26/21 10/26/21 20:37 21:20 Temp 37.5 37.5 Pulse 81 82 Resp 18 18 B/P (MAP) 148/91 (110) 146/92 Capillary Refill : Blood Pressure Mean: 110 Departure Communication (PCP) Patient received 6 of his medications at the pharmacy. He was requesting the rest. Difficulty finding the exact medication and dose of what patient takes. I felt like patient could contact his primary care physician or even grain shipper and get the exact dose and medications. Was able to locate carvedilol, diclofenac and baclofen. The list did not mention Lasix but and patient states he is on 40 mg Lasix. Recommend verifying this before he picks up the medication. Did prescribe a few days worth of medication. Once again I recommend verifying this. patient was given his dose of carvedilol and baclofen and Lasix this evening. Did not take Lasix today. Follow-up outpatient. He has no current complaints. Impression Primary Impression: Medication refill Disposition: HOME, SELF-CARE Condition: Stable Departure-Patient Inst. Decision time for Depature: 21:03 Referrals: MELBA PADILLA MD (PCP) Primary Care Physician [facility] (Family) Primary Care Physician Patient Instructions: Where to Get Help Paying for Your Prescriptions Scripts Diclofenac Sodium (Diclofenac Sodium) 1 % Gel..gram. 100 GM TP QID, #1 TUBE Prov: KEYLA AVENDAÑO 10/26/21 Furosemide (Lasix) 40 Mg Tablet 40 MG PO DAILY, #20 TAB Prov: KEYLA AVENDAÑO 10/26/21 Baclofen (Baclofen) 10 Mg Tablet 10 MG PO TID, #20 TAB Prov: KEYLA AVENDAÑO 10/26/21 Carvedilol (Carvedilol) 6.25 Mg Tablet 6.25 MG PO BID for 7 Days, #14 TAB Prov: KEYLA AVENDAÑO 10/26/21 KEYLA AVENDAÑO October 26, 2021 20:55
[2021-10-26] MEDS ORDERED: BACLOFEN 10 MG (LIORESAL) TAB PO STA (21:01)
[2021-10-26] MEDS ORDERED: BACL10TA PO ×2 (21:07→21:25)
[2021-10-26] MEDS ORDERED: FURO-124 PO ×2 (21:07→21:25)
[2021-10-26] MEDS ORDERED: DICL100G13 TP ×2 (21:07→21:25)
[2021-10-26] MEDS ORDERED: CARV6.252 PO ×2 (21:07→21:25)
[2021-10-26] MEDS ORDERED: FUROSEMIDE 20 MG (LASIX) TAB ONE (21:12)
[2021-10-26 21:20] VITALS: BP 146/92
[2021-10-27] MEDS ORDERED: FUROSEMIDE 40 MG (LASIX) TAB PO SCH (09:00)
== END 2021-10-26 21:23 | disposition home or self-care (01) ==
LOC: EDUNIT# 20:29 → ER 20:32
DX: Z76.0 Encounter for issue of repeat prescription (principal); F17.210 Nicotine dependence, cigarettes, uncomplicated
CPT/HCPCS: 99283

== ENCOUNTER → 2021-11-07 | Outpatient (CLI) | payer MEDICAID ==
[~2021-11-07] MED LIST changes: +BACL10TA PO; +CARV6.252 PO; +DICL100G13 TP; +FURO-124 PO
== END ==
LOC: CARD 13:00
PROVIDERS: ATTEND Internal Medicine Cardiovascular Disease
DX: I08.0 Rheumatic disorders of both mitral and aortic valves (principal); I42.9 Cardiomyopathy, unspecified
CPT/HCPCS: 93306

== ENCOUNTER 2021-11-08 19:43 | Emergency (ER) | payer MEDICAID ==
[~2021-11-08] VITALS: Ht 167 cm; Wt 90.7 kg
[2021-11-08 19:43] VITALS: BP 79/54
--- NOTE | 2021-11-08 19:58 | ED Fall/Injury ---
General Chief Complaint: General Problems/Pain Stated Complaint: WEAKNESS Nursing Triage Note: brought in by [facility] for weakness, hypotension after near fall/syncopal episoode. Source: patient Exam Limitations: no limitations History of Present Illness Date Seen by Provider: November 08, 2021 Time Seen by Provider: 19:41 Initial Comments This is a 46-year-old male who presented to the ER via [facility] with concerns for low blood pressure after he fell this evening. Reports that patient was at graduation when he stood up and started to fall, however family c aught him and he did not injure himself. He initially declined EMS transport but when EMS evaluated his blood pressure he was noted to be very hypotensive with a systolic blood pressure in the 60s. Allergies and Home Medications Allergies Coded Allergies: codeine (Unverified Allergy, Mild, itches, 01/03/10) Penicillins (Unverified Allergy, Unknown, 11/20/18) diphenhydramine (Verified Allergy, Unknown, 05/19/21) Patient Home Medication List Albuterol Sulfate (Ventolin Hfa) 18 Gm Hfa.aer.ad, 2 PUFF INH Q4H PRN for SHORTNESS OF BREATH, (Reported) Entered as Reported by: MEL LAZARO on 11/20/18 1446 Aspirin (Aspirin EC) 81 Mg Tablet.dr, 81 MG PO DAILY Prescribed by: DARRIN GANDARA on 12/21/18 1028 Baclofen (Baclofen) 10 Mg Tablet, 10 MG PO TID Prescribed by: KYLE CORDERO on 10/26/212124 Carvedilol (Carvedilol) 3.125 Mg Tablet, 3.125 MG PO BID Prescribed by: DARRIN GANDARA on 12/21/18 102 Carvedilol (Carvedilol) 6.25 Mg Tablet, 6.25 MG PO BID Prescribed by: KYLE CORDERO on 10/26/212124 Diclofenac Sodium (Diclofenac Sodium) 1 % Gel..gram., 100 GM TP QID Prescribed by: KYLE CORDERO on 10/26/212124 Furosemide (Lasix) 20 Mg Tablet, 20 MG PO DAILY Prescribed by: DARRIN GANDARA on 12/21/18 1028 Furosemide (Lasix) 40 Mg Tablet, 40 MG PO DAILY Prescribed by: KYLE CORDERO on 10/26/212124 Gabapentin (Gabapentin) 600 Mg Tablet, 600 MG PO TID, (Reported) Entered as Reported by: ROM MG on 12/25/20 0026 Pantoprazole Sodium (Pantoprazole Sodium) 20 Mg Tablet.dr, 20 MG PO BID Prescribed by: NARDA PATEL on 05/19/21 165 Potassium Chloride (Klor-Con 10) 10 Meq Tablet.er, 10 MEQ PO DAILY@0700 Prescribed by: DARRIN GANDARA on 12/21/18 1028 Sacubitril/Valsartan (Entresto 24 mg-26 mg Tablet) 1 Each Tablet, 1 TAB PO BID Prescribed by: DARRIN GANDARA on 12/21/18 1028 Spironolactone (Spironolactone) 25 Mg Tablet, 25 MG PO DAILY Prescribed by: DARRIN GANDARA on 12/21/18 1028 Sucralfate (Carafate) 1 Gm Tablet, 1 GM PO AC Prescribed by: NARDA PATEL on 05/19/21 165 Past Bnvpcvo-Chefnx-Aqmdse Hx Patient Social History Tobacco Use?: Yes Substance use?: No Alcohol Use?: No Pt feels they are or have been: No Immunizations Up To Date Tetanus Booster (TDap): Less than 5yrs First/Initial COVID19 Vaccinat: 2020 Second COVID19 Vaccination Luis E: 2020 Third COVID19 Vaccination Date: 2020 Seasonal Allergies Seasonal Allergies: No Past Medical History Surgery/Hospitalization HX: STROKE, CAD, cardiac arrest, ch. edema, mi, high cholesterol, htn, gerd, pancreatitis, bmt, heart cath, cholecystectomy. Surgeries: Yes (BMT'S; CARDIAC CATH 11/20/18--NO INTERVENTION) Ear Surgery, Gallbladder Respiratory: No Cardiac: Yes Chronic Edema/Swelling, Heart Attack, High Cholesterol, Hypertension Neurological: No Reproductive Disorders: No Genitourinary: No Gastrointestinal: Yes Gastroesophageal Reflux, Pancreatitis Musculoskeletal: Yes (CHRONIC BILATERAL LEG PAIN ) Endocrine: No HEENT: No Cancer: No Psychosocial: Yes Anxiety, Bipolar Integumentary: No Blood Disorders: No Family Medical History FH: COPD (chronic obstructive pulmonary disease) 19 FATHER 19 MOTHER FH: coronary artery bypass surgery 19 MOTHER FH: emphysema 19 FATHER FH: heart failure 19 FATHER Seizure disorder G8 SISTER Heart Disease, COPD Physical Exam Vital Signs Vital Signs - First Documented 11/08/21 19:43 Temp 36.3 Pulse 81 Resp 20 B/P (MAP) 79/54 (62) Pulse Ox 97 O2 Delivery Room Air Capillary Refill : Less Than 3 Seconds Height, Weight, BMI Height: 5'7.00" Weight: 150lbs. 7.0oz. 68.558051ph; 32.00 BMI Method:Stated Progress/Results/Core Measures Results/Orders My Orders Orders - NARDA PATEL JAVA PROGRAMMER ANALYST Cbc With Automated Diff (11/08/21 19:55) Magnesium (11/08/21 19:55) Chest 1 View, Ap/Pa Only (11/08/21 19:55) Ekg Tracing (11/08/21 19:55) Comprehensive Metabolic Panel (11/08/21 19:55) Myoglobin Serum (11/08/21 19:55) Protime With Inr (11/08/21 19:55) Partial Thromboplastin Time (11/08/21 19:55) O2 (11/08/21 19:55) Monitor-Rhythm Ecg Trace Only (11/08/21 19:55) Ed Iv/Invasive Line Start (11/08/21 19:55) Creatine Kinase Mb (11/08/21 19:55) Bnp [place] (11/08/21 19:55) Troponin I Rajendra (11/08/21 19:55) Ua Culture If Indicated (11/08/21 19:55) Accucheck Stat ONCE (11/08/21 19:55) Vital Signs Stroke Patient Q15M (11/08/21 19:55) Ct Head Wo-R/O Stroke (11/08/21 19:55) Dysphagia Screening Tool Q10MX1 (11/08/21 19:55) Vital Signs/I&O 11/08/21 19:43 Temp 36.3 Pulse 81 Resp 20 B/P (MAP) 79/54 (62) Pulse Ox 97 O2 Delivery Room Air Blood Pressure Mean: 62 Departure Departure-Patient Inst. Referrals: MELBA PADILLA MD (PCP) Primary Care Physician [facility] (Family) Primary Care Physician NARDA PATEL JAVA PROGRAMMER ANALYST November 08, 2021 19:58
[2021-11-08 20:03] LABS: BASOPHILS % (AUTO) 0 % (0-10); EOSINOPHILS # (AUTO) 0.2 10^3/uL (0.0-0.3); EOSINOPHILS % (AUTO) 2 % (0-10); HEMATOCRIT 38 % (40-54); HEMOGLOBIN 12.9 g/dL (13.3-17.7); LYMPHOCYTES # (AUTO) 1.1 10^3/uL (1.0-4.0); LYMPHOCYTES % (AUTO) 10 % (12-44); MEAN CORPUSCULAR HEMOGLOBIN 29 pg (25-34); MEAN CORPUSCULAR HGB CONC 34 g/dL (32-36); MEAN CORPUSCULAR VOLUME 87 fL (80-99); MEAN PLATELET VOLUME 9.2 fL (9.0-12.2); MONOCYTES # (AUTO) 1.2 10^3/uL (0.0-1.0); MONOCYTES % (AUTO) 11 % (0-12); NEUTROPHILS # (AUTO) 7.9 10^3/uL (1.8-7.8); NEUTROPHILS % (AUTO) 76 % (42-75); PLATELET COUNT 251 10^3/uL (130-400); WHITE BLOOD COUNT 10.4 10^3/uL (4.3-11.0)
[2021-11-08 20:09] LABS: PROTHROMBIN TIME PATIENT 13.1 SEC (12.2-14.7)
[2021-11-08 20:17] LABS: ALBUMIN 3.9 GM/DL (3.2-4.5); BILIRUBIN,TOTAL 1.4 MG/DL (0.1-1.0); CALCIUM 8.8 MG/DL (8.5-10.1); CREATININE SERUM 2.45 MG/DL (0.60-1.30); MAGNESIUM 2.6 MG/DL (1.6-2.4); POTASSIUM 3.9 MMOL/L (3.6-5.0); TOTAL PROTEIN 6.8 GM/DL (6.4-8.2)
[2021-11-08 20:24] LABS: CREATINE KINASE MB 1.2 NG/ML (<6.6)
--- NOTE | 2021-11-08 20:24 | Diagnostic Imaging Report ---
EXAMINATION: CT head without contrast. TECHNIQUE: Multiple contiguous axial images were obtained through the brain without the use of intravenous contrast. All CT scans use one or more of the following dose optimizing techniques: automated exposure control, MA and/or KvP adjustment based on patient size and exam type or iterative reconstruction. HISTORY: Hypotension. Syncopal episode. Concern for acute ischemia. COMPARISON: 12/29/2020. FINDINGS: Chronic infarct is seen involving the left frontal lobe. There is associated ex vacuo dilation of the left lateral ventricle. No evidence of large acute territorial ischemia. No acute hemorrhage or mass. No acute hydrocephalus. The orbits are normal. Paranasal sinuses are normal. Mastoid air cells are clear. No soft tissue abnormality is seen. No osseus lesions or fractures are seen. IMPRESSION: 1. No large acute territorial ischemia. No acute hemorrhage or mass. 2. Large chronic infarct involving the left frontal lobe with associated ex vacuo dilation of the left lateral ventricle. Dictated by: Dictated on workstation # [id number]
--- NOTE | 2021-11-08 20:34 | Diagnostic Imaging Report ---
EXAMINATION: Chest 1 view HISTORY: Altered mental status. Chest pain. Possible stroke. COMPARISON: 08/02/2021. FINDINGS: The lung volumes are normal. No focal consolidation is seen. No large pleural effusion or pneumothorax is seen. The cardiomediastinal silhouette is normal in size and contour. No acute osseous abnormality is seen. IMPRESSION: 1. No acute pleuroparenchymal process. Dictated by: Dictated on workstation # [id number]
[2021-11-08 21:03] LABS: BILIRUBIN,URINE 2+ (NEGATIVE); CLARITY,URINE CLOUDY; COLOR,URINE AMBER; GLUCOSE, URINE (UA) NEGATIVE (NEGATIVE); KETONES,URINE NEGATIVE (NEGATIVE); LEUKOCYTE ESTERASE ,URINE NEGATIVE (NEGATIVE); NITRITE,URINE NEGATIVE (NEGATIVE); PROTEIN,URINE TRACE (NEGATIVE)
[2021-11-08] MEDS ORDERED: NS IV 1000 ML 1,000 ML IV ONE (21:30)
[2021-11-08 21:32] LABS: BACTERIA,URINE FEW /HPF; HYALINE CASTS, URINE 25-50 /LPF; RBC,URINE RARE /HPF
== END 2021-11-08 21:37 | disposition left against medical advice (07) ==
LOC: EDUNIT# 19:45 → ER 19:46
DX: R53.1 Weakness (principal); I95.9 Hypotension, unspecified
CPT/HCPCS: 36415; 70450; 71045; 80053; 81000; 82553; 83735; 83874; 83880; 84145; 84484; 85025; 85610; 85730; 87088; 93005; 93041

== ENCOUNTER 2021-11-10 10:55 | Observation (INO) | payer MEDICAID ==
[~2021-11-10] VITALS: Ht 173 cm; Wt 95.0 kg
[2021-11-10] MEDS ORDERED: NS IV 1000 ML 1,000 ML IV SCH (11:15)
[2021-11-10] MEDS ORDERED: LORazepam INJ 2 MG/ML (ATIVAN) VIAL IVP ONE (11:15)
[2021-11-10] MEDS ORDERED: ONDANSETRON 4 MG/2 ML (SDV) Z0FRAN IVP ONE (11:15)
[2021-11-10] MEDS ORDERED: fentaNYL INJ 100 MCG/2 ML AMP IVP ONE (11:15)
--- NOTE | 2021-11-10 11:23 | Diagnostic Imaging Report ---
INDICATION: Sepsis and pain. FINDINGS: The lungs are clear. No failure, effusion, or pneumothorax. There is limited inspiratory volume crowding the lung markings. IMPRESSION: No focal infiltrate with limited inspiratory volume, otherwise negative. Dictated by: Dictated on workstation # [id number]
[2021-11-10 11:33] LABS: BASOPHILS % (AUTO) 0 % (0-10); EOSINOPHILS # (AUTO) 0.3 10^3/uL (0.0-0.3); EOSINOPHILS % (AUTO) 3 % (0-10); HEMATOCRIT 43 % (40-54); HEMOGLOBIN 14.3 g/dL (13.3-17.7); LYMPHOCYTES # (AUTO) 0.9 10^3/uL (1.0-4.0); LYMPHOCYTES % (AUTO) 10 % (12-44); MEAN CORPUSCULAR HEMOGLOBIN 29 pg (25-34); MEAN CORPUSCULAR HGB CONC 33 g/dL (32-36); MEAN CORPUSCULAR VOLUME 87 fL (80-99); MEAN PLATELET VOLUME 9.2 fL (9.0-12.2); MONOCYTES # (AUTO) 0.4 10^3/uL (0.0-1.0); MONOCYTES % (AUTO) 5 % (0-12); NEUTROPHILS # (AUTO) 7.5 10^3/uL (1.8-7.8); NEUTROPHILS % (AUTO) 82 % (42-75); PLATELET COUNT 266 10^3/uL (130-400); WHITE BLOOD COUNT 9.2 10^3/uL (4.3-11.0)
[2021-11-10 11:41] LABS: ALBUMIN 4.2 GM/DL (3.2-4.5); POTASSIUM 4.2 MMOL/L (3.6-5.0)
[2021-11-10 11:42] LABS: CALCIUM 9.7 MG/DL (8.5-10.1)
[2021-11-10 11:43] LABS: TOTAL PROTEIN 7.4 GM/DL (6.4-8.2)
[2021-11-10 11:44] LABS: INR 0.9 (0.8-1.4); PROTHROMBIN TIME PATIENT 12.4 SEC (12.2-14.7)
[2021-11-10 11:45] LABS: BILIRUBIN,TOTAL 1.2 MG/DL (0.1-1.0)
[2021-11-10 11:47] LABS: CREATININE SERUM 1.07 MG/DL (0.60-1.30)
--- NOTE | 2021-11-10 11:51 | Diagnostic Imaging Report ---
EXAMINATION: CT chest, abdomen and pelvis without intravenous contrast. TECHNIQUE: Multiple contiguous axial images were obtained through the chest, abdomen and pelvis without intravenous contrast. All CT scans use one or more of the following dose optimizing techniques: automated exposure control, MA and/or KvP adjustment based on patient size and exam type or iterative reconstruction. HISTORY: Fall, abdominal pain COMPARISON: 08/02/2021 FINDINGS: Thyroid: The thyroid is normal. Mediastinum: Heart size is normal without significant pericardial effusion. The aorta is normal in caliber. No suspicious lymphadenopathy. Lungs and airways: The lungs are clear without consolidation, pleural effusion, or pneumothorax. No suspicious pulmonary lesion. The airways are normal. Solid organs: The liver is normal. The gallbladder is surgically absent. There is no biliary ductal dilation. Pancreas is normal. Spleen is normal. Adrenal glands are normal. The kidneys are normal without hydronephrosis. Bowel: There is a small hiatal hernia. No bowel obstruction. The colon and appendix are normal. Peritoneum: There is no intraperitoneal free fluid or free air. No suspicious lymphadenopathy. Vasculature: Normal without aneurysm. Musculoskeletal: Degenerative changes of the spine without suspicious osseous lesion or compression fracture. Pelvis: The prostate gland is normal. The urinary bladder is normal. IMPRESSION: 1. No acute abnormality in the chest, abdomen, or pelvis. Dictated by: Dictated on workstation # [id number]
--- NOTE | 2021-11-10 12:22 | ED Abdominal Pain ---
General Chief Complaint: Abdominal/GI Problems Stated Complaint: UPPER ABD / CHEST PAIN Nursing Triage Note: ARRIVED VIA AMB TO ROOM 04 WITH COMPLAINTS OF SEVERE ABD PAIN. PT YELLING AND CUSSING. PT HAS HAD A PREVIOUS STROKE THAT HAS AFFECTED HIS SPEACH. Source of Information: Patient, Family, Old Records (Aphasia from prior stroke) Exam Limitations: No Limitations, Other History of Present Illness Date Seen by Provider: November 10, 2021 Time Seen by Provider: 10:57 Initial Comments This 46-year-old man presents to the emergency room with several days of upper abdominal pain. A couple days ago he also had vomiting and diarrhea. He had presented to the emergency room on November 08. He had some abnormal labs including elevated transaminases and markedly elevated procalcitonin. Unfortunately, he left AGAINST MEDICAL ADVICE. He is afebrile. Review of prior labs demonstrates prior history of elevated transaminases without known cause. His hepatitis screening was previously negative. He is surgically absent gallbladder. He has mild to moderate aphasia due to prior stroke which is unchanged today. Patient is agitated presumably due to pain. Patient had a notably elevated creatinine during his ER visit 2 days ago. Allergies and Home Medications Allergies Coded Allergies: codeine (Unverified Allergy, Mild, itches, 01/03/10) Penicillins (Unverified Allergy, Unknown, 11/20/18) diphenhydramine (Verified Allergy, Unknown, 05/19/21) Patient Home Medication List Home Medication List Reviewed: Yes Albuterol Sulfate (Ventolin Hfa) 18 Gm Hfa.aer.ad, 2 PUFF INH Q4H PRN for SHORTNESS OF BREATH, (Reported) Entered as Reported by: MEL LAZARO on 11/20/18 1446 Aspirin (Aspirin EC) 81 Mg Tablet.dr, 81 MG PO DAILY Prescribed by: DARRIN GANDARA on 12/21/18 1028 Baclofen (Baclofen) 10 Mg Tablet, 10 MG PO TID Prescribed by: KYLE CORDERO on 10/26/212124 Carvedilol (Carvedilol) 3.125 Mg Tablet, 3.125 MG PO BID Prescribed by: DARRIN GANDARA on 12/21/18 1028 Carvedilol (Carvedilol) 6.25 Mg Tablet, 6.25 MG PO BID Prescribed by: KYLE CORDERO on 10/26/212124 Diclofenac Sodium (Diclofenac Sodium) 1 % Gel..gram., 100 GM TP QID Prescribed by: KYLE CORDERO on 10/26/212124 Furosemide (Lasix) 20 Mg Tablet, 20 MG PO DAILY Prescribed by: DARRIN GANDARA on 12/21/18 102 Furosemide (Lasix) 40 Mg Tablet, 40 MG PO DAILY Prescribed by: KYLE CORDERO on 10/26/212124 Gabapentin (Gabapentin) 600 Mg Tablet, 600 MG PO TID, (Reported) Entered as Reported by: ROM MG on 12/25/20 0026 Pantoprazole Sodium (Pantoprazole Sodium) 20 Mg Tablet.dr, 20 MG PO BID Prescribed by: NARDA PATEL on 05/19/211653 Potassium Chloride (Klor-Con 10) 10 Meq Tablet.er, 10 MEQ PO DAILY@0700 Prescribed by: DARRIN GANDARA on 12/21/18 1028 Sacubitril/Valsartan (Entresto 24 mg-26 mg Tablet) 1 Each Tablet, 1 TAB PO BID Prescribed by: DARRIN GANDARA on 12/21/18 102 Spironolactone (Spironolactone) 25 Mg Tablet, 25 MG PO DAILY Prescribed by: DARRIN GANDARA on 12/21/18 1028 Sucralfate (Carafate) 1 Gm Tablet, 1 GM PO AC Prescribed by: NARDA PATEL on 05/19/21 165 Review of Systems Review of Systems Constitutional: no symptoms reported EENTM: No Symptoms Reported Respiratory: No Symptoms Reported Cardiovascular: No Symptoms Reported Gastrointestinal: See HPI Genitourinary: No Symptoms Reported Musculoskeletal: no symptoms reported Skin: no symptoms reported Psychiatric/Neurological: See HPI Endocrine: No Symptoms Reported Hematologic/Lymphatic: No Symptoms Reported Past Vixhucy-Wcvzxc-Sqcgld Hx Patient Social History Tobacco Use?: No Use of E-Cig and/or Vaping dev: No Substance use?: No Alcohol Use?: No Immunizations Up To Date Tetanus Booster (TDap): Less than 5yrs First/Initial COVID19 Vaccinat: 2020 Second COVID19 Vaccination Luis E: 2020 Third COVID19 Vaccination Date: 2020 Seasonal Allergies Seasonal Allergies: No Past Medical History Surgery/Hospitalization HX: STROKE, CAD, cardiac arrest, ch. edema, mi, high cholesterol, htn, gerd, pancreatitis, bmt, heart cath, cholecystectomy. Surgeries: Yes (BMT'S; CARDIAC CATH 11/20/18--NO INTERVENTION) Ear Surgery, Gallbladder Respiratory: No Cardiac: Yes Chronic Edema/Swelling, Heart Attack, High Cholesterol, Hypertension Neurological: No Reproductive Disorders: No Genitourinary: No Gastrointestinal: Yes Gastroesophageal Reflux, Pancreatitis Musculoskeletal: Yes (CHRONIC BILATERAL LEG PAIN ) Endocrine: No HEENT: No Cancer: No Psychosocial: Yes Anxiety, Bipolar Integumentary: No Blood Disorders: No Family Medical History FH: COPD (chronic obstructive pulmonary disease) 19 FATHER 19 MOTHER FH: coronary artery bypass surgery 19 MOTHER FH: emphysema 19 FATHER FH: heart failure 19 FATHER Seizure disorder G8 SISTER Heart Disease, COPD Physical Exam Vital Signs Vital Signs - First Documented 11/10/21 10:55 Temp 35.7 Pulse 61 Resp 16 B/P (MAP) 207/191 (196) Pulse Ox 96 O2 Delivery Room Air Capillary Refill : Height/Weight/BMI Height: 5'7.00" Weight: 150lbs. 7.0oz. 68.142461bk; 26.00 BMI Method:Stated General Appearance: WD/WN, moderate distress HEENT: normal ENT inspection, other (Oropharynx dry) Neck: normal inspection Respiratory: lungs clear, normal breath sounds, no respiratory distress Cardiovascular: regular rate, rhythm, no edema, no murmur Gastrointestinal: normal bowel sounds, soft, tenderness (Moderate tenderness across the upper abdomen and mild tenderness across the lower abdomen. Tenderness to percussion.); No mass Extremities: normal inspection, no pedal edema Neurologic/Psychiatric: no motor/sensory deficits, alert, other (Agitated. Mild to moderate aphasia from prior stroke, unchanged) Skin: normal color, warm/dry Focused Exam Lactate Level 11/10/21 11:25: Lactic Acid Level 1.51 Lactic Acid Level Laboratory Tests Test 11/10/21 11:25 Lactic Acid Level 1.51 MMOL/L (0.50-2.00) Progress/Results/Core Measures Results/Orders Lab Results Laboratory Tests Test 11/10/21 11:25 11/10/21 12:25 Range/Units White Blood Count 9.2 4.3-11.0 10^3/uL Red Blood Count 4.92 4.30-5.52 10^6/uL Hemoglobin 14.3 13.3-17.7 g/dL Hematocrit 43 40-54 % Mean Corpuscular Volume 87 80-99 fL Mean Corpuscular Hemoglobin 29 25-34 pg Mean Corpuscular Hemoglobin Concent 33 32-36 g/dL Red Cell Distribution Width 13.4 10.0-14.5 % Platelet Count 266 130-400 10^3/uL Mean Platelet Volume 9.2 9.0-12.2 fL Immature Granulocyte % (Auto) 1 % Neutrophils (%) (Auto) 82 H 42-75 % Lymphocytes (%) (Auto) 10 L 12-44 % Monocytes (%) (Auto) 5 0-12 % Eosinophils (%) (Auto) 3 0-10 % Basophils (%) (Auto) 0 0-10 % Neutrophils # (Auto) 7.5 1.8-7.8 10^3/uL Lymphocytes # (Auto) 0.9 L 1.0-4.0 10^3/uL Monocytes # (Auto) 0.4 0.0-1.0 10^3/uL Eosinophils # (Auto) 0.3 0.0-0.3 10^3/uL Basophils # (Auto) 0.0 0.0-0.1 10^3/uL Immature Granulocyte # (Auto) 0.1 0.0-0.1 10^3/uL Prothrombin Time 12.4 12.2-14.7 SEC INR Comment 0.9 0.8-1.4 Activated Partial Thromboplast Time 27 24-35 SEC Sodium Level 139 135-145 MMOL/L Potassium Level 4.2 3.6-5.0 MMOL/L Chloride Level 103 98-107 MMOL/L Carbon Dioxide Level 24 21-32 MMOL/L Anion Gap 12 5-14 MMOL/L Blood Urea Nitrogen 24 H 7-18 MG/DL Creatinine 1.07 0.60-1.30 MG/DL Estimat Glomerular Filtration Rate 86 BUN/Creatinine Ratio 22 Glucose Level 129 H 70-105 MG/DL Lactic Acid Level 1.51 0.50-2.00 MMOL/L Calcium Level 9.7 8.5-10.1 MG/DL Corrected Calcium 9.5 8.5-10.1 MG/DL Total Bilirubin 1.2 H 0.1-1.0 MG/DL Aspartate Amino Transf (AST/SGOT) 218 H 5-34 U/L Alanine Aminotransferase (ALT/SGPT) 401 H 0-55 U/L Alkaline Phosphatase 187 H 40-136 U/L C-Reactive Protein High Sensitivity 3.98 H 0.00-0.50 MG/DL Total Protein 7.4 6.4-8.2 GM/DL Albumin 4.2 3.2-4.5 GM/DL Lipase 193 H 8-78 U/L Procalcitonin 7.45 H <0.10 NG/ML Urine Color YELLOW Urine Clarity CLEAR Urine pH 6.0 5-9 Urine Specific [place] 1.025 H 1.016-1.022 Urine Protein NEGATIVE NEGATIVE Urine Glucose (UA) TRACE H NEGATIVE Urine Ketones NEGATIVE NEGATIVE Urine Nitrite NEGATIVE NEGATIVE Urine Bilirubin NEGATIVE NEGATIVE Urine Urobilinogen >=8.0 < = 1.0 MG/DL Urine Leukocyte Esterase NEGATIVE NEGATIVE Urine RBC (Auto) NEGATIVE NEGATIVE Urine RBC NONE /HPF Urine WBC 0-2 /HPF Urine Squamous Epithelial Cells NONE /HPF Urine Renal Epithelial Cells NONE /HPF Urine Crystals NONE /LPF Urine Bacteria NEGATIVE /HPF Urine Casts NONE /LPF Urine Mucus SMALL H /LPF Urine Culture Indicated NO My Orders Orders - JADYN ASHLEY MD Ekg Tracing (11/10/21 10:56) Lorazepam Injection (Ativan Injection) (11/10/21 11:15) Ondansetron Injection (Zofran Injectio (11/10/21 11:15) Fentanyl Inj (Sublimaze Injection) (11/10/21 11:15) Cbc With Automated Diff (11/10/21 11:04) Comprehensive Metabolic Panel (11/10/21 11:04) Hs C Reactive Protein (11/10/21 11:04) Lipase (11/10/21 11:04) Ua Culture If Indicated (11/10/21 11:04) Blood Culture (11/10/21 11:07) Sputum Culture (11/10/21 11:07) Protime With Inr (11/10/21 11:07) Partial Thromboplastin Time (11/10/21 11:07) Chest 1 View, Ap/Pa Only (11/10/21 11:07) Vital Signs Adult Sepsis Patie Q15M (11/10/21 11:07) O2 (11/10/21 11:07) Remove Rings In Anticipation O (11/10/21 11:07) Lactic Acid Analyzer (11/10/21 11:07) Procalcitonin (Pct) (11/10/21 11:07) Ns Iv 1000 Ml (Sodium Chloride 0.9%) (11/10/21 11:15) Ct Chest/Abdomen/Pelvis Wo (11/10/21 11:11) Nicotine Patch (Nicoderm Patch) (11/10/21 15:00) Ed Admission (Communication) (11/10/21 15:18) Medications Given in ED Current Medications Medications Dose Ordered Sig/Andra Route Start Time Stop Time Status Last Admin Dose Admin Fentanyl Citrate 75 mcg ONCE ONCE IVP 11/10/21 11:15 11/10/21 11:16 DC 11/10/21 11:09 75 MCG Lorazepam 0.5 mg ONCE ONCE IVP 11/10/21 11:15 11/10/21 11:16 DC 11/10/21 11:06 0.5 MG Nicotine 21 mg ONCE ONCE TD 11/10/21 15:00 11/10/21 15:01 DC 11/10/21 15:26 21 MG Ondansetron HCl 8 mg ONCE ONCE IVP 11/10/21 11:15 11/10/21 11:16 DC 11/10/21 11:08 8 MG Vital Signs/I&O 11/10/21 10:55 Temp 35.7 Pulse 61 Resp 16 B/P (MAP) 207/191 (196) Pulse Ox 96 O2 Delivery Room Air Blood Pressure Mean: 196 Progress Progress Note : Time: 15:03 Progress Note Patient was seen and examined promptly after arrival. He was treated with fentanyl, Zofran, and Ativan. Work-up revealed persistent elevation in transaminases with some modest improvement from prior. Lipase was obtained during this visit and was modestly elevated. His procalcitonin on prior visit was markedly elevated at 48. It is significantly improved at 7 today. No source of infection has been identified on prior visit or current visit yet procalcitonin seems to be improving. Creatinine has also improved. I am concerned about discharging this patient home without an understanding of why he is hurting and experiencing abnormal labs without demonstrating a significant positive trend in symptoms or labs. I discussed the case with Dr. Jaramillo. He is suspicious that there is a medication effect contributing to his symptoms. Initial ECG Impression Date: November 10, 2021 Initial ECG Impression Time: 11:06 Initial ECG Rate: 57 Initial ECG Intervals: Normal Comment Sinus bradycardia (mild) with no ST elevation or depression. No abnormal intervals or axis deviation. Diagnostic Imaging Diagonstic Imaging: Xray Plain Films/CT/US/NM/MRI: chest Comments NAME: MILLIE MERAZ JR [facility] REC#: [id number] PT STATUS: REG ER : 1975 PHYSICIAN: JADYN ASHLEY MD ADMIT DATE: 11/10/21/ER Draft Date of Exam:11/10/21 CHEST 1 VIEW, AP/PA ONLY INDICATION: Sepsis and pain. FINDINGS: The lungs are clear. No failure, effusion, or pneumothorax. There is limited inspiratory volume crowding the lung markings. IMPRESSION: No focal infiltrate with limited inspiratory volume, otherwise negative. Dictated on workstation # [id number] Dict: 11/10/21 1119 Trans: 11/10/21 1123 [id number] Interpreted by: AYAH WILHELM Reviewed: Reviewed by Me Diagonstic Imaging: CT Plain Films/CT/US/NM/MRI: chest, abdomen, pelvis Comments Noncontrast CT of the chest, abdomen and pelvis viewed by me and report reviewed. See report below: NAME: MILLIE MERAZ [facility] REC#: [id number] PT STATUS: REG ER : 1975 PHYSICIAN: JADYN ASHLEY MD ADMIT DATE: 11/10/21/ER Signed Date of Exam:11/10/21 CT CHEST/ABDOMEN/PELVIS WO EXAMINATION: CT chest, abdomen and pelvis without intravenous contrast. TECHNIQUE: Multiple contiguous axial images were obtained through the chest, abdomen and pelvis without intravenous contrast. All CT scans use one or more of the following dose optimizing techniques: automated exposure control, MA and/or KvP adjustment based on patient size and exam type or iterative reconstruction. HISTORY: Fall, abdominal pain COMPARISON: 08/02/2021 FINDINGS: Thyroid: The thyroid is normal. Mediastinum: Heart size is normal without significant pericardial effusion. The aorta is normal in caliber. No suspicious lymphadenopathy. Lungs and airways: The lungs are clear without consolidation, pleural effusion, or pneumothorax. No suspicious pulmonary lesion. The airways are normal. Solid organs: The liver is normal. The gallbladder is surgically absent. There is no biliary ductal dilation. Pancreas is normal. Spleen is normal. Adrenal glands are normal. The kidneys are normal without hydronephrosis. Bowel: There is a small hiatal hernia. No bowel obstruction. The colon and appendix are normal. Peritoneum: There is no intraperitoneal free fluid or free air. No suspicious lymphadenopathy. Vasculature: Normal without aneurysm. Musculoskeletal: Degenerative changes of the spine without suspicious osseous lesion or compression fracture. Pelvis: The prostate gland is normal. The urinary bladder is normal. IMPRESSION: 1. No acute abnormality in the chest, abdomen, or pelvis. Dictated by: Dictated on workstation # [id number] Dict: 11/10/21 1146 Trans: 11/10/21 1157 [id number] Interpreted by: MILLIE NELSON DO Electronically signed by: MILLIE NELSON DO 11/10/21 1157 Departure Communication (Admissions) Time/Spoke to Admitting Phy: 15:05 Dr. Minor Time/Spoke to Consulting Phy: 15:00 Dr. Jaramillo Impression Primary Impression: Acute pancreatitis Qualified Codes: K85.90 - Acute pancreatitis without necrosis or infection, unspecified Additional Impressions: Elevated liver transaminase level Agitation Upper abdominal pain Disposition: ADMITTED INPATIENT Condition: Improved Admissions Decision to Admit Reason: Admit from ER (General) Decision to Admit/Date: November 10, 2021 Time/Decision to Admit Time: 15:00 Departure-Patient Inst. Referrals: MELBA PADILLA MD (PCP) Primary Care Physician [facility] ([facility]) Primary Care Physician JADYN ASHLEY MD November 10, 2021 12:22
[2021-11-10 13:02] LABS: BILIRUBIN,URINE NEGATIVE (NEGATIVE); CLARITY,URINE CLEAR; COLOR,URINE YELLOW; GLUCOSE, URINE (UA) TRACE (NEGATIVE); KETONES,URINE NEGATIVE (NEGATIVE); LEUKOCYTE ESTERASE ,URINE NEGATIVE (NEGATIVE); NITRITE,URINE NEGATIVE (NEGATIVE); PROTEIN,URINE NEGATIVE (NEGATIVE)
[2021-11-10 13:23] LABS: BACTERIA,URINE NEGATIVE /HPF; WBC,URINE 0-2 /HPF
[2021-11-10] MEDS ORDERED: NICOTINE 21 MG (NICODERM) PATCH TD ONE (15:00)
[2021-11-10 16:00] VITALS: BP 162/92
[2021-11-10] MEDS ORDERED: NALOXONE 0.4 MG/ML 1 ML (NARCAN) VIAL IV PRN (16:00)
[2021-11-10] MEDS ORDERED: LORazepam INJ 2 MG/ML (ATIVAN) VIAL IVP PRN (16:00)
[2021-11-10] MEDS ORDERED: CALCIUM CARBONATE 500 MG (TUMS) TAB.CHEW PO PRN (16:00)
[2021-11-10] MEDS ORDERED: ANTACID SUSP 30 ML UDC (MYLANTA) PO PRN (16:00)
[2021-11-10] MEDS ORDERED: LACTULOSE SYRUP 10GM/15ML (ENULOSE) 30ML UDC PO PRN (16:00)
[2021-11-10] MEDS ORDERED: HYDROmorphone 2 MG/ML VIAL (DILAUDID) IVP PRN (16:00)
[2021-11-10] MEDS ORDERED: polyethylene glycoL POWDER 17 GM (MIRALAX) PACK PO PRN (16:00)
[2021-11-10] MEDS ORDERED: MELATONIN 3 MG TABLET PO PRN (16:00)
[2021-11-10] MEDS ORDERED: BISACODYL 10 MG SUPP (DULCOLAX) PR PRN (16:00)
[2021-11-10] MEDS ORDERED: MILK OF MAGNESIA 400 MG/5 ML 30 ML UDC PO PRN (16:00)
[2021-11-10] MEDS: NS IV 1000 ML 1,000 ML IV SCH (16:08)
[2021-11-10] MEDS: ENOXAPARIN 40 MG/0.4 ML (LOVENOX) SYR SC SCH (16:09)
[2021-11-10 16:27] VITALS: BP 146/95
[2021-11-10] MEDS ORDERED: RT-ALBUTEROL/IPRATROPIUM 3 ML (DUONEB) VIAL INH PRN (16:30)
[2021-11-10 16:48] LABS: INR 0.9 (0.8-1.4)
--- NOTE | 2021-11-10 16:51 | Consultation - Surgery ---
History of Present Illness History of Present Illness Patient Consulted On(dee/time) 11/10/21 16:46 Time Seen by Provider: 16:36 History of Present Illness Surgery asked to consult regarding Pancreatitis. HPI per ED: ARRIVED VIA AMB TO ROOM 04 WITH COMPLAINTS OF SEVERE ABD PAIN. PT YELLING AND CUSSING. PT HAS HAD A PREVIOUS STROKE THAT HAS AFFECTED HIS SPEACH. Source of Information: Patient, Family, Old Records (Aphasia from prior stroke) Exam Limitations: No Limitations, Other This 46-year-old man presents to the emergency room with several days of upper abdominal pain. A couple days ago he also had vomiting and diarrhea. He had presented to the emergency room on November 08. He had some abnormal labs including elevated transaminases and markedly elevated procalcitonin. Unfortunately, he left AGAINST MEDICAL ADVICE. He is afebrile. Review of prior labs demonstrates prior history of elevated transaminases without known cause. His hepatitis screening was previously negative. He is surgically absent gallbladder. He has mild to moderate aphasia due to prior stroke which is unchanged today. Patient is agitated presumably due to pain. Patient had a notably elevated creatinine during his ER visit 2 days ago. I spoke to his up in the room, she stated she thought it was because he ate more than half a roast last night for dinner "and no vegetables". Pt really wouldn't talk to me and grunted when I asked if I could feel his belly. Information obtained from chart and ; she was unsure whether he had ever had pancreatitis before. She stated she wasn't sure they had been told that. I also asked if he had ever had an EGD or colonscopy and she didn't think so. Allergies and Home Medications Allergies Coded Allergies: codeine (Unverified Allergy, Mild, itches, 01/03/10) Penicillins (Unverified Allergy, Unknown, 11/20/18) diphenhydramine (Verified Allergy, Unknown, 05/19/21) Patient Home Medication List Home Medication List Reviewed: Yes Albuterol Sulfate (Ventolin Hfa) 18 Gm Hfa.aer.ad, 2 PUFF INH Q4H PRN for SH ORTNESS OF BREATH, (Reported) Entered as Reported by: MEL LAZARO on 11/20/18 7016 Aspirin (Aspirin EC) 81 Mg Tablet., 81 MG PO DAILY Prescribed by: DARRIN GANDARA on 12/21/18 1028 Baclofen (Baclofen) 10 Mg Tablet, 10 MG PO TID Prescribed by: KYLE CORDERO on 10/26/212124 Carvedilol (Carvedilol) 3.125 Mg Tablet, 3.125 MG PO BID Prescribed by: DARRIN GANDARA on 12/21/18 1028 Carvedilol (Carvedilol) 6.25 Mg Tablet, 6.25 MG PO BID Prescribed by: KYLE CORDERO on 10/26/212124 Diclofenac Sodium (Diclofenac Sodium) 1 % Gel..gram., 100 GM TP QID Prescribed by: KYLE CORDERO on 10/26/212124 Furosemide (Lasix) 20 Mg Tablet, 20 MG PO DAILY Prescribed by: DARRIN GANDARA on 12/21/18 102 Furosemide (Lasix) 40 Mg Tablet, 40 MG PO DAILY Prescribed by: KYLE CORDERO on 10/26/212124 Gabapentin (Gabapentin) 600 Mg Tablet, 600 MG PO TID, (Reported) Entered as Reported by: ROM MG on 12/25/20 0026 Pantoprazole Sodium (Pantoprazole Sodium) 20 Mg Tablet.dr, 20 MG PO BID Prescribed by: NARDA PATEL on 05/19/21 165 Potassium Chloride (Klor-Con 10) 10 Meq Tablet.er, 10 MEQ PO DAILY@0700 Prescribed by: DARRIN GANDARA on 12/21/18 1028 Sacubitril/Valsartan (Entresto 24 mg-26 mg Tablet) 1 Each Tablet, 1 TAB PO BID Prescribed by: DARRIN GANDARA on 12/21/18 1028 Spironolactone (Spironolactone) 25 Mg Tablet, 25 MG PO DAILY Prescribed by: DARRIN GANDARA on 12/21/18 1028 Sucralfate (Carafate) 1 Gm Tablet, 1 GM PO AC Prescribed by: NARDA PATEL on 05/19/21 165 Past Urveypq-Lziulf-Zcbbtp Hx Patient Social History Drug of Choice: METH USE, "DOPE", "CRACK" COCAINE, "EGYPTIAN"-DENIES IV USE Smoking Status: Current Everyday Smoker Type Used: Cigarettes 2nd Hand Smoke Exposure: Yes Recent Hopitalizations: No Alcohol Use?: No Have you traveled recently?: No Immunizations Up To Date Tetanus Booster (TDap): Less than 5yrs Date of Influenza Vaccine: Mar 25, 2012 Seasonal Allergies Seasonal Allergies: No Surgeries History of Surgeries: Yes (BMT'S; CARDIAC CATH 11/20/18--NO INTERVENTION) Surgeries: Ear Surgery, Gallbladder Respiratory History of Respiratory Disorde: No Cardiovascular History of Cardiac Disorders: Yes Cardiac Disorders: Chronic Edema/Swelling, Heart Attack, High Cholesterol, Hypertension Neurological History of Neurological Disord: Yes Neurological Disorders: Stroke Reproductive System Hx Reproductive Disorders: No Genitourinary History of Genitourinary Disor: No Gastrointestinal History of Gastrointestinal Di: Yes Gastrointestinal Disorders: Gastroesophageal Reflux, Pancreatitis Musculoskeletal History of Musculoskeletal Dis: Yes (CHRONIC BILATERAL LEG PAIN ) Endocrine History of Endocrine Disorders: No HEENT History of HEENT Disorders: No Cancer History of Cancer: No Psychosocial History of Psychiatric Problem: Yes Behavioral Health Disorders: Anxiety, Bipolar Integumentary History of Skin or Integumenta: No Blood Transfusions History of Blood Disorders: No Family Medical History Significant Family History: Heart Disease, COPD, Seizures Family Medial History: FH: COPD (chronic obstructive pulmonary disease) 19 FATHER 19 MOTHER FH: coronary artery bypass surgery 19 MOTHER FH: emphysema 19 FATHER FH: heart failure 19 FATHER Seizure disorder G8 SISTER Review of Systems-General ROS-Unable to Obtain: obtained from Constitutional: No chills, No diaphoresis EENTM: dental problems; No epistaxis Respiratory: No cough, No hemoptysis Cardiovascular: No chest pain; Hx of Intervention Gastrointestinal: abdominal pain; No jaundice; nausea, vomiting Genitourinary: No dysuria, No frequency, No hematuria Musculoskeletal: joint pain, joint swelling, muscle pain, muscle stiffness Skin: No change in color, No change in hair/nails Psychiatric/Neurological: Anxiety, Depressed, Pre-Existing Deficit Physical Exam-General Problems Physical Exam Vital Signs Vital Signs - First Documented 11/10/21 10:55 Temp 35.7 Pulse 61 Resp 16 B/P (MAP) 207/191 (196) Pulse Ox 96 O2 Delivery Room Air Capillary Refill : General Appearance: no apparent distress, obese Eyes: Bilateral Eye PERRL, Bilateral Eye EOMI HEENT: pharynx normal; No scleral icterus (R), No scleral icterus (L) Neck: non-tender, supple Respiratory: lungs clear, normal breath sounds, no respiratory distress, no accessory muscle use Cardiovascular: regular rate, rhythm, no murmur Gastrointestinal: soft, tenderness (with palpation mostly RUQ), hernia (small umbilical) Extremities: no pedal edema, no calf tenderness Neurologic/Psychiatric: alert, aphasia Skin: normal color, warm/dry Lymphatic: no adenopathy (neck, axilla or groin) Data Review Labs Laboratory Tests 11/10/21 11:25: White Blood Count 9.2, Red Blood Count 4.92, Hemoglobin 14.3, Hematocrit 43, Mean Corpuscular Volume 87, Mean Corpuscular Hemoglobin 29, Mean Corpuscular Hemoglobin Concent 33, Red Cell Distribution Width 13.4, Platelet Count 266, Mean Platelet Volume 9.2, Immature Granulocyte % (Auto) 1, Neutrophils (%) (Auto) 82H, Lymphocytes (%) (Auto) 10L, Monocytes (%) (Auto) 5, Eosinophils (%) (Auto) 3, Basophils (%) (Auto) 0, Neutrophils # (Auto) 7.5, Lymphocytes # (Auto) 0.9L, Monocytes # (Auto) 0.4, Eosinophils # (Auto) 0.3, Basophils # (Auto) 0.0, Immature Granulocyte # (Auto) 0.1, Prothrombin Time 12.4, INR Comment 0.9, Activated Partial Thromboplast Time 27, Sodium Level 139, Potassium Level 4.2, Chloride Level 103, Carbon Dioxide Level 24, Anion Gap 12, Blood Urea Nitrogen 24H, Creatinine 1.07, Estimat Glomerular Filtration Rate 86, BUN/Creatinine Ratio 22, Glucose Level 129H, Lactic Acid Level 1.51, Calcium Level 9.7, Corrected Calcium 9.5, Total Bilirubin 1.2H, Aspartate Amino Transf (AST/SGOT) 218H, Alanine Aminotransferase (ALT/SGPT) 401H, Alkaline Phosphatase 187H, C- Reactive Protein High Sensitivity 3.98H, Total Protein 7.4, Albumin 4.2, Lipase 193H, Procalcitonin 7.45H 11/10/21 12:25: Urine Color YELLOW, Urine Clarity CLEAR, Urine pH 6.0, Urine Specific [place] 1.025H, Urine Protein NEGATIVE, Urine Glucose (UA) TRACEH, Urine Ketones NEGATIVE, Urine Nitrite NEGATIVE, Urine Bilirubin NEGATIVE, Urine Urobilinogen >=8.0, Urine Leukocyte Esterase NEGATIVE, Urine RBC (Auto) NEGATIVE, Urine RBC NONE, Urine WBC 0-2, Urine Squamous Epithelial Cells NONE, Urine Renal Epithelial Cells NONE, Urine Crystals NONE, Urine Bacteria NEGATIVE, Urine Casts NONE, Urine Mucus SMALLH, Urine Culture Indicated NO 11/10/21 16:30: Radiology Date of Exam:11/10/21 CT CHEST/ABDOMEN/PELVIS WO EXAMINATION: CT chest, abdomen and pelvis without intravenous contrast. TECHNIQUE: Multiple contiguous axial images were obtained through the chest, abdomen and pelvis without intravenous contrast. All CT scans use one or more of the following dose optimizing techniques: automated exposure control, MA and/or KvP adjustment based on patient size and exam type or iterative reconstruction. HISTORY: Fall, abdominal pain COMPARISON: 08/02/2021 FINDINGS: Thyroid: The thyroid is normal. Mediastinum: Heart size is normal without significant pericardial effusion. The aorta is normal in caliber. No suspicious lymphadenopathy. Lungs and airways: The lungs are clear without consolidation, pleural effusion, or pneumothorax. No suspicious pulmonary lesion. The airways are normal. Solid organs: The liver is normal. The gallbladder is surgically absent. There is no biliary ductal dilation. Pancreas is normal. Spleen is normal. Adrenal glands are normal. The kidneys are normal without hydronephrosis. Bowel: There is a small hiatal hernia. No bowel obstruction. The colon and appendix are normal. Peritoneum: There is no intraperitoneal free fluid or free air. No suspicious lymphadenopathy. Vasculature: Normal without aneurysm. Musculoskeletal: Degenerative changes of the spine without suspicious osseous lesion or compression fracture. Pelvis: The prostate gland is normal. The urinary bladder is normal. IMPRESSION: 1. No acute abnormality in the chest, abdomen, or pelvis. Dictated by: Dictated on workstation # [id number] Dict: 11/10/21 1146 Trans: 11/10/21 1157 [id number] Interpreted by: MILLIE NELSON DO Electronically signed by: MILLIE NELSON DO 11/10/21 1157 Assessment/Plan Assessment/Plan Assessment/Plan Pancreatitis and Abdominal pain GERD HTN Hx of CHF Hx of Stroke with aphasia Pt ok to have clears. I looked at the CT myself and there is no inflammatory changes around the pancreas, so I doubt acute Pancreatitis. He does have some mildly elevated Lipase; which is actually down compared to 11/08. Pain control, IV fluids and max medical management. I don't think pt will need any surgical intervention while he is here, but would recommend outpt EGD and Colonoscopy. TRACY SANTIAGO DO November 10, 2021 16:51
[2021-11-10] MEDS: ONDANSETRON 4 MG (ZOFRAN) ORAL DISSOLVE TAB PO PRN (20:22)
[2021-11-10] MEDS: SENNOSIDES 8.6 MG (SENOKOT) TAB PO SCH (20:23)
[2021-11-10] MEDS: DOCUSATE SODIUM 100 MG (COLACE) CAP PO SCH (20:23)
[2021-11-10 20:25] VITALS: BP 168/104
[2021-11-11 00:06] VITALS: BP 151/90
[2021-11-11 03:59] VITALS: BP 125/75
[2021-11-11] MEDS: NS IV 1000 ML 1,000 ML IV SCH ×2 (04:28→16:23)
[2021-11-11 05:42] LABS: BASOPHILS % (AUTO) 0 % (0-10); EOSINOPHILS % (AUTO) 0 % (0-10); HEMATOCRIT 41 % (40-54); HEMOGLOBIN 13.4 g/dL (13.3-17.7); LYMPHOCYTES % (AUTO) 8 % (12-44); MEAN CORPUSCULAR HEMOGLOBIN 28 pg (25-34); MEAN CORPUSCULAR HGB CONC 33 g/dL (32-36); MEAN CORPUSCULAR VOLUME 85 fL (80-99); MEAN PLATELET VOLUME 9.2 fL (9.0-12.2); MONOCYTES % (AUTO) 8 % (0-12); NEUTROPHILS # (AUTO) 10.1 10^3/uL (1.8-7.8); NEUTROPHILS % (AUTO) 83 % (42-75); PLATELET COUNT 248 10^3/uL (130-400); WHITE BLOOD COUNT 12.3 10^3/uL (4.3-11.0)
[2021-11-11 05:51] LABS: ALBUMIN 3.8 GM/DL (3.2-4.5)
[2021-11-11 05:52] LABS: POTASSIUM 3.9 MMOL/L (3.6-5.0)
[2021-11-11 05:53] LABS: CALCIUM 9.3 MG/DL (8.5-10.1)
[2021-11-11 05:56] LABS: BILIRUBIN,TOTAL 3.7 MG/DL (0.1-1.0)
--- NOTE | 2021-11-11 05:56 | History & Physical-Hospitalist ---
History of Present Illness HPI/Chief Complaint CC: Abdominal pain HPI: This is a 46 yr old clinic pt of [facility]. He presented with abdominal pain and elevated liver enzymes. Concerns for sepsis but no source considering procalcitonin went from 21 to 7.25 this morning. The procalcitonin is much better this morning at 6. Blood cultures were found to be positive for gram negative jose carlos. Cefepime was empirically intiaited. Will await Dr. Jaramillo for recommendation. Liver enzymes are slightly improved. Source: patient Date Seen 11/11/21 Time Seen by a Provider: 10:[address] Ocampo MD PCP Admitting Physician: America Minor DO Attending Physician: America Minor DO Referring Physician Date of Admission November 10, 2021 at 15:19 Home Medications & Allergies Home Medications Reviewed patient Home Medication Reconciliation performed by pharmacy medication reconciliations roving technician and/or nursing. Patients Allergies have been reviewed. Allergies Allergies Coded Allergies codeine (Unverified Allergy, Mild, itches, 01/03/10) Penicillins (Unverified Allergy, Unknown, 11/20/18) diphenhydramine (Verified Allergy, Unknown, 05/19/21) Past Swjmzzg-Pqlgvi-Taxohv Hx Patient Social History Marrital Status: Employed/Student: unemployed Tobacco Use?: Yes Tobacco type used: Cigarettes Smoking Status: Current Everyday Smoker Use of E-Cig and/or Vaping dev: No Substance use?: No Alcohol Use?: No Immunizations Up To Date Date of Influenza Vaccine: Mar 25, 2012 First/Initial COVID19 Vaccinat: 2020 Second COVID19 Vaccination Luis E: 2020 Tetanus Booster (TDap): Less Than 5 Years Seasonal Allergies Seasonal Allergies: No Current Status Communicates: Verbally Primary Language: Greek Preferred Spoken Language: Greek Is interpretation needed?: No Past Medical History Surgeries: Ear Surgery, Gallbladder Chronic Edema/Swelling, Heart Attack, High Cholesterol, Hypertension Stroke Gastroesophageal Reflux, Pancreatitis Anxiety, Bipolar Blood Disorders: No PMHx: Anxiety Leg pain PSurgHx: Tympanostomy tubes Cholecystectomy Family Medical History FH: COPD (chronic obstructive pulmonary disease) 19 FATHER 19 MOTHER FH: coronary artery bypass surgery 19 MOTHER FH: emphysema 19 FATHER FH: heart failure 19 FATHER Seizure disorder G8 SISTER Heart Disease, COPD, Seizures Review of Systems Constitutional: see HPI, malaise, weakness EENTM: no symptoms reported Respiratory: no symptoms reported Cardiovascular: no symptoms reported Gastrointestinal: abdominal pain Genitourinary: no symptoms reported Musculoskeletal: no symptoms reported Skin: no symptoms reported Psychiatric/Neurological: No Symptoms Reported All Other Systems Reviewed Negative Unless Noted: Yes Physical Exam Physical Exam Vital Signs Vital Signs - First Documented 11/10/21 10:55 Temp 35.7 Pulse 61 Resp 16 B/P (MAP) 207/191 (196) Pulse Ox 96 O2 Delivery Room Air Capillary Refill : Height, Weight, BMI Height: 5'7.00" Weight: 150lbs. 7.0oz. [id number]; 31.74 BMI Method:Stated General Appearance: No Apparent Distress, Chronically ill, Obese Eyes: Right Eye Normal Inspection, Right Eye PERRL HEENT: PERRL/EOMI, Normal ENT Inspection, Pharynx Normal, Moist Mucous Membr anes Neck: Full Range of Motion, Normal Inspection, Non Tender Respiratory: Chest Non Tender, Lungs Clear, Normal Breath Sounds, No Accessory Muscle Use, No Respiratory Distress Cardiovascular: Regular Rate, Rhythm, No Edema, No Gallop, No JVD, No Murmur, Normal Peripheral Pulses Gastrointestinal: Normal Bowel Sounds, No Organomegaly, No Pulsatile Mass, Non Tender, Soft, Distended, Tenderness Back: Normal Inspection, No CVA Tenderness, No Vertebral Tenderness Extremity: Normal Capillary Refill, Normal Inspection, Normal Range of Motion, Non Tender, No Calf Tenderness, No Pedal Edema Neurologic/Psychiatric: Alert, Oriented x3, No Motor/Sensory Deficits, Normal Mood/Affect Skin: Normal Color, Warm/Dry Lymphatic: No Adenopathy Results Results/Procedures Labs Laboratory Tests 11/10/21 11:25 11/11/21 05:35 Patient resulted labs reviewed. Assessment/Plan Admission Diagnosis Assessment: Abdominal pain Acute pancreatitis Gram negative bacteremia placed on Cefepime empirically HTN CAD HTN HLP Plan: Abx IVF Dr Jaramillo consult Lovenox PPI CLD Admission Status: Inpatient Order (span 2 midnights) Reason for Inpatient Admission: abd pain with pancratitis and gram negative bacteremia Diagnosis/Problems Diagnosis/Problems (1) Acute pancreatitis Status: Acute Qualifiers: Pancreatitis type: unspecified pancreatitis type Acute pancreatitis complication: no infection or necrosis Qualified Codes: K85.90 - Acute pancreatitis without necrosis or infection, unspecified (2) Hypertension Status: Chronic AMERICA MINOR DO November 11, 2021 05:56
[2021-11-11 05:58] LABS: CREATININE SERUM 1.03 MG/DL (0.60-1.30)
[2021-11-11] MEDS: ONDANSETRON 4 MG (ZOFRAN) ORAL DISSOLVE TAB PO PRN (06:27)
[2021-11-11 08:23] VITALS: BP 149/93
--- NOTE | 2021-11-11 09:16 | Occupational Therapy Eval ---
OT Evaluation-General/PLF Medical Diagnosis Admission Date November 10, 2021 at 15:19 Medical Diagnosis: acute pancreatitis Onset Date: November 10, 2021 Therapy Diagnosis Therapy Diagnosis: n/a Height/Weight Height (Feet): 5 Height (Inches): 7.00 Weight (Pounds): 150 Weight (Ounces): 7.0 Precautions Precautions/Isolations: Fall Prevention, Standard Precautions Referral Physician: Mily Referral Reason: Evaluation/Treatment Medical History Additional Medical History CVA, HTN, heart attack, GERD, anxiety/bipolar Current History ED 11/10 c/o severe abdominal pain, n/v. ED 11/08 and left AMA Social History Home: Single Level Current Living Status: Other Family Entry Into Home: Ramp ADL-Prior Level of Function SCALE: Activities may be completed with or without assistive devices. 7-Xenbovayou-vadcovy completes the activity by him/herself with no assistance from a helper. 5-Set-up or Clean-up Assistance-helper sets up or cleans up; patient completes activity. [place] assists only prior to or following the activity. 4-Supervision or Touching Assistance-helper provides verbal cues and/or touching/steadying and/or contact guard assistance as patient completes activity. Assistance may be provided throughout the activity or intermittently. 3-Partial/Moderate Assistance-helper does LESS THAN HALF the effort. [place] lifts, holds or supports trunk or limbs, but provides less than half the effort. 2-Substantial/Maximal Assistance-helper does MORE THAN HALF the effort. [place] lifts or holds trunk or limbs and provides more than half the effort. 7-Decxlcldb-sjobqp does ALL the effort. Patient does none of the effort to complete the activity. Or, the assistance of 2 or more helpers is required for the patient to complete the activity. If activity was not attempted, code reason: 7-Patient Refused. 9-Not Applicable-not attempted and the patient did not perform the activity before the current illness, exacerbation or injury. 10-Not Attempted due to Environmental Limitations-(lack of equipment, weather restraints, etc.). 88-Not Attempted due to Medical Conditions or Safety Concerns. ADL PLOF Comments Pt reports IND with ADLs and functional mobility without AD, having HH PT. He has had increased difficulty with tasks since his CVA, but able to manage. Self Care: Independent Functional Cognition: Independent DME/Equipment: Bath Bench, Tub/Shower OT Current Status Subjective Pt up EOB upon OT arrival, family member present. Mental Status/Objective Patient Orientation: Normal For Age Attachments: Telemetry ADL-Treatment Eating (QC): 5 On/Off Footwear (QC): 6 Toileting Hygiene (QC): 6 Other Treatments Pt up EOB, agreeable to OT evaluation. Pt and family member report pt is at PLOF with ADLs and mobility, and they have no concerns managing at home. Pt reports he is toileting with out issues, able to manage clothing and fasteners. He declined attempting ADLs at this time. OT encouraged pt to doff/don gripper socks in order to assess current level of function, pt started to complete task, able to reach the sock on back of heel and push off the heel, then place back on. He refused to completely doff/don sock. Pt declines further OT services at this time. OT instructed pt to inform nurse if further concerns arose and new OT orders can be sent. Post tx, pt up EOB, all needs met, call light in reach. Nurse notified of ekg monitor tech being on counter instead of hooked up to pt's leads. Education OT Patient Education: Correct positioning, Energy conservation, Modified ADL techniques, Progress toward Goal/Update tx plan, Purpose of tx/functional activities, Rehab process Teaching Recipient: Patient Response to Teaching: Verbalize Understanding OT Group Home Goals Electrician Constructor Supervisor Goals 1=Demonstrate adherence to instructed precautions during ADL tasks. 2=Patient will verbalize/demonstrate understanding of assistive devices/modifications for ADL. 3=Patient will improve strength/tolerance for activity to enable patient to perform ADL's. OT Education/Plan Problem List/Assessment Assessment: No Skilled OT Needs ID'd No skilled OT services indicated at this time, due to pt reports of being at PLOF and due to pt declining further OT services. D/C from OT Discharge Recommendations Plan/Recommendations: Discharge/Goals Met Treatment Plan/Plan of Care Patient would benefit from OT for education, treatment and training to promote independence in ADL's, mobility, safety and/or upper extremity function for ADL's. Plan of Care: ADL Retraining, Functional Mobility Treatment Duration: November 11, 2021 Frequency: 1 time per week (eval only) Estimated Hrs Per Day: .25 hour per day Agreement: Yes Rehab Potential: Fair Time/GCodes Start Time: 08:06 Stop Time: 08:16 Total Time Billed (hr/min): 10 Billed Treatment Time 1, CEDRIC MOORE OT November 11, 2021 09:16
[2021-11-11] MEDS: DOCUSATE SODIUM 100 MG (COLACE) CAP PO SCH ×2 (09:28→19:33)
[2021-11-11] MEDS: PANTOPRAZOLE 40 MG (PROTONIX) VIAL IV SCH (09:28)
[2021-11-11] MEDS: SENNOSIDES 8.6 MG (SENOKOT) TAB PO SCH ×2 (09:28→19:34)
--- NOTE | 2021-11-11 10:00 | Physical Therapy Evaluation ---
PT Evaluation-General Medical Diagnosis Admission Date November 10, 2021 at 15:19 Medical Diagnosis: acute pancreatitis Onset Date: November 10, 2021 Therapy Diagnosis Therapy Diagnosis: debility Height/Weight Height (Feet): 5 Height (Inches): 7.00 Weight (Pounds): 150 Weight (Ounces): 7.0 Precautions Precautions/Isolations: Fall Prevention, Standard Precautions Referral Physician: Mily Reason for Referral: Evaluation/Treatment Medical History Pertinent Medical History: CAD, CVA, GERD, HTN, [place], Smoking Current History ER yelling and cussing due to abdominal pain Reviewed History: Yes Social History Home: Single Level Current Living Status: Significant Other Entry Into Home: Ramp Prior Prior Level of Function SCALE: Activities may be completed with or without assistive devices. 6-Fyvrltgsvp-mwfaevq completes the activity by him/herself with no assistance from a helper. 5-Set-up or Clean-up Assistance-helper sets up or cleans up; patient completes activity. Union assists only prior to or following the activity. 4-Supervision or Touching Assistance-helper provides verbal cues and/or touching/steadying and/or contact guard assistance as patient completes activity. Assistance may be provided throughout the activity or intermittently. 3-Partial/Moderate Assistance-helper does LESS THAN HALF the effort. Union lifts, holds or supports trunk or limbs, but provides less than half the effort. 2-Substantial/Maximal Assistance-helper does MORE THAN HALF the effort. Union lifts or holds trunk or limbs and provides more than half the effort. 1-Ieskordgu-xygwcy does ALL the effort. Patient does none of the effort to complete the activity. Or, the assistance of 2 or more helpers is required for the patient to complete the activity. If activity was not attempted, code reason: 7-Patient Refused. 9-Not Applicable-not attempted and the patient did not perform the activity before the current illness, exacerbation or injury. 10-Not Attempted due to Environmental Limitations-(lack of equipment, weather restraints, etc.). 88-Not Attempted due to Medical Conditions or Safety Concerns. Bed Mobility: 6 Transfers (B,C,W/C): 6 Gait: 6 Indoor Mobility (Ambulation): Independent Prior Devices Use: None PT Evaluation-Current Subjective Patient agrees to PT. Objective Patient Orientation: Normal For Age Attachments: IV ROM/Strength ROM Lower Extremities bilateral LE WFL Strength Lower Extremities left LE 4/5 grossly/right LE increased tone grossly 4/5 Integumentary/Posture Bowel Incontinence: No Bladder Incontinence: No Neuromuscular (Tone, Coordination, Reflexes) right LE tone from old CVA Sensory Vision: Functional Hearing: Functional Transfers Sit to Lying (QC): 6 Lying to Sitting/Side of Bed(Q: 6 Sit to Stand (QC): 6 Gait Does the Patient Walk?: Yes Mode of Locomotion: Walk Anticipated Mode of Locomotion: Walk Walk 10 feet (QC): 6 Walk 50 ft with 2 Turns(QC): 6 Walk 150 ft (QC): 6 Distance: 500' Gait Assistive Device: None Comments/Gait Description safe and functional with no deviation Balance Sitting Static: Normal Sitting Dynamic: Normal Standing Static: Normal Standing Dynamic: Normal Assessment/Needs Patient is currently at independent [facility] with all gross motor skills safely and does not require skilled PT at this time. Rehab Potential: Fair PT Plan Treatment/Plan Treatment Plan: Discontinue PT Treatment Duration: November 11, 2021 Frequency: 1 time per week Estimated Hrs Per Day: .25 hour per day Patient and/or Family Agrees t: Yes Time/GCodes Time In: 855 Time Out: 905 Total Billed Treatment Time: 10 Total Billed Treatment 1 visit EVModC 10 min CHRISTINE VILLASENOR PT November 11, 2021 10:00
[2021-11-11] MEDS ORDERED: CEFEPIME INJECTION 2,000 MG in NS (IVPB) 50 ML IV SCH (10:15)
[2021-11-11] MEDS: CEFEPIME 1,000 MG/NS 50 ML IVPB IV SCH ×6 (10:40→22:05)
[2021-11-11] MEDS: ONDANSETRON 4 MG/2 ML (SDV) Z0FRAN IV PRN ×2 (10:40→16:28)
[2021-11-11 11:38] VITALS: BP 156/79
[2021-11-11] MEDS ORDERED: DICL100G13 TP (11:45)
[2021-11-11] MEDS ORDERED: ATOR40TA70 PO (11:45)
[2021-11-11] MEDS ORDERED: SPIR25TA5 PO (11:45)
[2021-11-11] MEDS ORDERED: EZET10TA49 PO (11:45)
[2021-11-11] MEDS ORDERED: BACL10TA PO (11:45)
[2021-11-11] MEDS ORDERED: GBPN600T PO (11:45)
[2021-11-11] MEDS ORDERED: CARV25TA PO (11:45)
[2021-11-11] MEDS ORDERED: LOSA50TA63 PO (11:45)
[2021-11-11] MEDS ORDERED: SERT-413 PO (11:45)
[2021-11-11] MEDS ORDERED: PANT40TA52 PO (11:45)
[2021-11-11] MEDS ORDERED: FURO40TA4 PO (11:45)
--- NOTE | 2021-11-11 15:09 | Progress Note - Surgery ---
Subjective Time Seen by a Provider: 15:01 Subjective/Events-last exam Pt seen and examined, he denies abdominal pain and stated he is tolerating diet. His only question was when he gets to leave. Review of Systems General: No Chills Pulmonary: No Dyspnea, No Cough Cardiovascular: No: Chest Pain, Palpitations Gastrointestinal: No: Nausea, Vomiting, Abdominal Pain Focused Exam Lactate Level 11/10/21 11:25: Lactic Acid Level 1.51 Objective Exam Vital Signs Date Time Temp Pulse Resp B/P (MAP) Pulse Ox O2 Delivery O2 Flow Rate FiO2 11/11/21 13:00 103 11/11/21 11:38 36.4 85 18 156/79 (104) 99 Room Air 11/11/21 08:40 90 11/11/21 08:23 36.9 90 18 149/93 (111) 97 Room Air 11/11/21 08:07 97 Room Air 11/11/21 03:59 36.3 90 18 125/75 (92) 96 Room Air 11/11/21 01:29 36.5 11/11/21 01:00 92 11/11/21 00:59 36.5 11/11/21 00:06 36.5 102 18 151/90 (110) 94 Room Air 11/10/21 21:42 97 Room Air 11/10/21 20:25 37.4 86 18 168/104 (125) 97 Room Air 11/10/21 20:09 37.4 11/10/21 19:39 35.7 11/10/21 19:00 94 11/10/21 16:30 96 11/10/21 16:27 35.7 84 96 11/10/21 16:00 37.2 72 18 162/92 (115) 97 Room Air 11/10/21 16:00 Room Air 11/10/21 15:50 84 16 146/95 96 Room Air I & O 11/11/21 07:00 Intake Total 1280 ml Balance 1280 ml Capillary Refill : General Appearance: No Apparent Distress, Chronically ill, Obese HEENT: PERRL/EOMI, Other (mucous membranes slightly dry) Respiratory: Chest Non Tender, Lungs Clear, Normal Breath Sounds, No Accessory Muscle Use, No Respiratory Distress Cardiovascular: Regular Rate, Rhythm, No Murmur Gastrointestinal: normal bowel sounds, non tender, soft Extremity: Other (right hand contracted) Neurologic/Psychiatric: Alert, Oriented x3 Results Lab Laboratory Tests 11/10/21 16:30: Prothrombin Time 13.0, INR Comment 0.9, Ammonia 30 11/11/21 05:35: White Blood Count 12.3H, Red Blood Count 4.74, Hemoglobin 13.4, Hematocrit 41, Mean Corpuscular Volume 85, Mean Corpuscular Hemoglobin 28, Mean Corpuscular Hemoglobin Concent 33, Red Cell Distribution Width 13.2, Platelet Count 248, Mean Platelet Volume 9.2, Immature Granulocyte % (Auto) 0, Neutrophils (%) (Auto) 83H, Lymphocytes (%) (Auto) 8L, Monocytes (%) (Auto) 8, Eosinophils (%) (Auto) 0, Basophils (%) (Auto) 0, Neutrophils # (Auto) 10.1H, Lymphocytes # (Auto) 1.0, Monocytes # (Auto) 1.0, Eosinophils # (Auto) 0.0, Basophils # (Auto) 0.0, Immature Granulocyte # (Auto) 0.1, Sodium Level 139, Potassium Level 3.9, Chloride Level 106, Carbon Dioxide Level 20L, Anion Gap 13, Blood Urea Nitrogen 18, Creatinine 1.03, Estimat Glomerular Filtration Rate 90, BUN/Creatinine Ratio 17, Glucose Level 116H, Calcium Level 9.3, Corrected Calcium 9.5, Total Bilirubin 3.7#H, Aspartate Amino Transf (AST/SGOT) 202H, Alanine Aminotransferase (ALT/SGPT) 391H, Alkaline Phosphatase 215H, Total Protein 7.0, Albumin 3.8, Lipase 359H, Procalcitonin 6.45H Microbiology 11/10/21 Blood Culture - Preliminary, Resulted Gram Negative Bacillus 1 Assessment/Plan Assessment/Plan Assessment/Plan Bacteremia Pancreatitis and Abdominal pain GERD HTN Hx of CHF Hx of Stroke with aphasia Ok to have increaesed diet and IV fluids; max medical management. IV ABX. I still recommend outpt EGD and Colonoscopy. Will sign off TRACY SANTIAGO DO November 11, 2021 15:09
[2021-11-11 16:12] VITALS: BP 124/79
[2021-11-11] MEDS: ENOXAPARIN 40 MG/0.4 ML (LOVENOX) SYR SC SCH (16:22)
[2021-11-11] MEDS ORDERED: DICLOFENAC 1% GEL 100 GM (VOLTAREN) TUBE TP PRN (19:45)
[2021-11-11 20:02] VITALS: BP 134/87
[2021-11-12 00:18] VITALS: BP 134/83
[2021-11-12 04:27] VITALS: BP 152/92
[2021-11-12] MEDS: CEFEPIME 1,000 MG/NS 50 ML IVPB IV SCH ×8 (05:21→22:29)
[2021-11-12] MEDS: NS IV 1000 ML 1,000 ML IV SCH ×2 (05:24→17:27)
[2021-11-12 05:47] LABS: BASOPHILS # (AUTO) 0.1 10^3/uL (0.0-0.1); BASOPHILS % (AUTO) 1 % (0-10); EOSINOPHILS # (AUTO) 0.3 10^3/uL (0.0-0.3); EOSINOPHILS % (AUTO) 3 % (0-10); HEMATOCRIT 38 % (40-54); HEMOGLOBIN 12.6 g/dL (13.3-17.7); LYMPHOCYTES # (AUTO) 1.5 10^3/uL (1.0-4.0); LYMPHOCYTES % (AUTO) 15 % (12-44); MEAN CORPUSCULAR HEMOGLOBIN 29 pg (25-34); MEAN CORPUSCULAR HGB CONC 34 g/dL (32-36); MEAN CORPUSCULAR VOLUME 87 fL (80-99); MEAN PLATELET VOLUME 9.8 fL (9.0-12.2); MONOCYTES # (AUTO) 1.4 10^3/uL (0.0-1.0); MONOCYTES % (AUTO) 14 % (0-12); NEUTROPHILS % (AUTO) 68 % (42-75); PLATELET COUNT 205 10^3/uL (130-400); WHITE BLOOD COUNT 10.3 10^3/uL (4.3-11.0)
[2021-11-12 06:03] LABS: ALBUMIN 3.5 GM/DL (3.2-4.5)
[2021-11-12 06:05] LABS: CALCIUM 9.2 MG/DL (8.5-10.1)
[2021-11-12 06:06] LABS: TOTAL PROTEIN 6.6 GM/DL (6.4-8.2)
[2021-11-12 06:08] LABS: BILIRUBIN,TOTAL 2.2 MG/DL (0.1-1.0)
[2021-11-12 06:10] LABS: CREATININE SERUM 1.05 MG/DL (0.60-1.30)
[2021-11-12] MEDS: DOCUSATE SODIUM 100 MG (COLACE) CAP PO SCH ×2 (08:30→19:07)
[2021-11-12] MEDS: PANTOPRAZOLE 40 MG (PROTONIX) VIAL IV SCH (08:30)
[2021-11-12] MEDS: SENNOSIDES 8.6 MG (SENOKOT) TAB PO SCH ×2 (08:30→19:07)
[2021-11-12 08:40] VITALS: BP 159/89
--- NOTE | 2021-11-12 10:19 | Progress Note - Hospitalist ---
Subjective HPI/CC On Admission Date Seen by Provider: November 12, 2021 Time Seen by Provider: 10:14 CC: Abdominal pain HPI: This is a 46 yr old clinic pt of [facility]. He presented with abdominal pain and elevated liver enzymes. Concerns for sepsis but no source considering procalcitonin went from 21 to 7.25 this morning. The procalcitonin is much better this morning at 6. Blood cultures were found to be positive for gram neg ative jose carlos. Cefepime was empirically intiaited. Will await Dr. Jaramillo for recommendation. Liver enzymes are slightly improved. Subjective/Events-last exam Patient denies significant abdominal pain. His bowels have not moved in several days so he was given a stool softener this morning several hours later he had urgency with some fecal incontinence. There is no evidence for melena or bright red blood per rectum and no associated pain. He has had no further bowel movements. He is asking about discharge. He has had no night sweats chills or fever. Focused Exam Lactate Level 11/10/21 11:25: Lactic Acid Level 1.51 Objective Exam Vital Signs Vital Signs Date Time Temp Pulse Resp B/P (MAP) Pulse Ox O2 Delivery O2 Flow Rate FiO2 11/12/21 08:40 35.7 89 17 159/89 (112) 94 Room Air Capillary Refill : General Appearance: No Apparent Distress Respiratory: Chest Non Tender, Lungs Clear, Normal Breath Sounds, No Accessory Muscle Use, No Respiratory Distress Cardiovascular: Regular Rate, Rhythm, No Edema, No Gallop, No JVD, No Murmur, Normal Peripheral Pulses Gastrointestinal: Normal Bowel Sounds, No Organomegaly, Other (Mild right upper quadrant pain to palpation no mass or organomegaly appreciated.) Results/Procedures Lab Laboratory Tests 11/12/21 05:12 Patient resulted labs reviewed. Assessment/Plan Assessment and Plan Assess & Plan/Chief Complaint Assessment: Acute pancreatitisWith Enterobacter sepsis and elevated liver function tests highly suggest underlying a sending cholangitis continue IV antibiotics sensitivities pending. Encourage several more days of IV antibiotics preferably total of 5 considering sepsis. Consideration for endoscopic ultrasound with possible ERCP to follow as an outpatient. HTN CAD HTN HLP Plan: Abx IVF Dr Jaramillo consult Lovenox PPI CLD PAVAN BRANTLEY MD November 12, 2021 10:19
[2021-11-12 12:00] VITALS: BP 152/71
[2021-11-12 15:14] VITALS: BP 152/92
[2021-11-12] MEDS: ACETAMINOPHEN 325 MG TABLET PO PRN ×2 (15:20→20:59)
[2021-11-12] MEDS: ENOXAPARIN 40 MG/0.4 ML (LOVENOX) SYR SC SCH (15:20)
[2021-11-12 19:08] VITALS: BP 131/83
[2021-11-13] VITALS (8 sets, daily range): BP systolic 133–170; BP diastolic 73–96
[2021-11-13] MEDS: CEFEPIME 1,000 MG/NS 50 ML IVPB IV SCH ×2 (05:15)
[2021-11-13 05:42] LABS: BASOPHILS # (AUTO) 0.1 10^3/uL (0.0-0.1); BASOPHILS % (AUTO) 1 % (0-10); EOSINOPHILS # (AUTO) 0.3 10^3/uL (0.0-0.3); EOSINOPHILS % (AUTO) 4 % (0-10); HEMATOCRIT 38 % (40-54); HEMOGLOBIN 12.7 g/dL (13.3-17.7); LYMPHOCYTES # (AUTO) 1.6 10^3/uL (1.0-4.0); LYMPHOCYTES % (AUTO) 20 % (12-44); MEAN CORPUSCULAR HEMOGLOBIN 29 pg (25-34); MEAN CORPUSCULAR HGB CONC 34 g/dL (32-36); MEAN CORPUSCULAR VOLUME 86 fL (80-99); MEAN PLATELET VOLUME 9.5 fL (9.0-12.2); MONOCYTES # (AUTO) 0.9 10^3/uL (0.0-1.0); MONOCYTES % (AUTO) 11 % (0-12); NEUTROPHILS # (AUTO) 4.9 10^3/uL (1.8-7.8); NEUTROPHILS % (AUTO) 62 % (42-75); PLATELET COUNT 219 10^3/uL (130-400); WHITE BLOOD COUNT 7.8 10^3/uL (4.3-11.0)
[2021-11-13 05:58] LABS: ALBUMIN 3.6 GM/DL (3.2-4.5); POTASSIUM 3.6 MMOL/L (3.6-5.0)
[2021-11-13 06:00] LABS: CALCIUM 9.2 MG/DL (8.5-10.1)
[2021-11-13 06:01] LABS: TOTAL PROTEIN 6.7 GM/DL (6.4-8.2)
[2021-11-13 06:04] LABS: CREATININE SERUM 0.95 MG/DL (0.60-1.30)
[2021-11-13] MEDS: NS IV 1000 ML 1,000 ML IV SCH ×2 (06:31→07:51)
[2021-11-13] MEDS: PANTOPRAZOLE 40 MG (PROTONIX) VIAL IV SCH (07:53)
[2021-11-13] MEDS: SENNOSIDES 8.6 MG (SENOKOT) TAB PO SCH ×2 (07:53→19:49)
[2021-11-13] MEDS: DOCUSATE SODIUM 100 MG (COLACE) CAP PO SCH ×2 (07:53→19:49)
--- NOTE | 2021-11-13 10:36 | Progress Note - Hospitalist ---
Subjective HPI/CC On Admission Date Seen by Provider: November 13, 2021 Time Seen by Provider: 09:30 CC: Abdominal pain HPI: This is a 46 yr old clinic pt of [facility]. He presented with abdominal pain and elevated liver enzymes. Concerns for sepsis but no source considering procalcitonin went from 21 to 7.25 this morning. The procalcitonin is much better this morning at 6. Blood cultures were found to be positive for gram neg ative jose carlos. Cefepime was empirically intiaited. Will await Dr. Jaramillo for recommendation. Liver enzymes are slightly improved. Subjective/Events-last exam Patient denies night sweats chills fever and also denies abdominal pain. He is tolerating solids without difficulty. P.o. intake is been good. Focused Exam Lactate Level 11/10/21 11:25: Lactic Acid Level 1.51 Objective Exam Vital Signs Vital Signs Date Time Temp Pulse Resp B/P (MAP) Pulse Ox O2 Delivery O2 Flow Rate FiO2 11/13/21 08:00 97 Room Air 11/13/21 07:34 36.3 76 17 158/96 (116) Capillary Refill : General Appearance: No Apparent Distress Respiratory: Chest Non Tender, Lungs Clear, Normal Breath Sounds, No Accessory Muscle Use, No Respiratory Distress Cardiovascular: Regular Rate, Rhythm, No Edema, No Gallop, No JVD, No Murmur, Normal Peripheral Pulses Gastrointestinal: Normal Bowel Sounds, No Organomegaly, Non Tender, Other (Mild epigastric discomfort to palpation without rebound or guarding.) Results/Procedures Lab Laboratory Tests 11/13/21 05:10 Patient resulted labs reviewed. Assessment/Plan Assessment and Plan Assess & Plan/Chief Complaint Assessment: Acute pancreatitisWith Enterobacter sepsis and elevated liver function tests highly suggest underlying a sending cholangitis continue IV antibiotics sensitivities pending. Considering rapid progress with improvement in liver function studies consider switch to oral antibiotics tomorrow possible discharge Sunday with gastroenterology follow-up as an outpatient for consideration for endoscopic ultrasound and/or ERCP. HTN CAD HTN HLP Plan: Abx IVF Dr Jaramillo consult Lovenox PPI CLD PAVAN BRANTLEY MD November 13, 2021 10:35
[2021-11-13] MEDS: ENOXAPARIN 40 MG/0.4 ML (LOVENOX) SYR SC SCH (16:53)
[2021-11-14 03:07] VITALS: BP 125/61
[2021-11-14 05:58] LABS: BASOPHILS # (AUTO) 0.1 10^3/uL (0.0-0.1); BASOPHILS % (AUTO) 1 % (0-10); EOSINOPHILS # (AUTO) 0.2 10^3/uL (0.0-0.3); EOSINOPHILS % (AUTO) 2 % (0-10); HEMATOCRIT 40 % (40-54); HEMOGLOBIN 13.4 g/dL (13.3-17.7); LYMPHOCYTES % (AUTO) 20 % (12-44); MEAN CORPUSCULAR HEMOGLOBIN 29 pg (25-34); MEAN CORPUSCULAR HGB CONC 34 g/dL (32-36); MEAN CORPUSCULAR VOLUME 85 fL (80-99); MEAN PLATELET VOLUME 9.1 fL (9.0-12.2); MONOCYTES # (AUTO) 0.9 10^3/uL (0.0-1.0); MONOCYTES % (AUTO) 9 % (0-12); NEUTROPHILS # (AUTO) 6.5 10^3/uL (1.8-7.8); NEUTROPHILS % (AUTO) 66 % (42-75); PLATELET COUNT 248 10^3/uL (130-400); WHITE BLOOD COUNT 9.8 10^3/uL (4.3-11.0)
[2021-11-14 06:16] LABS: ALBUMIN 3.7 GM/DL (3.2-4.5); BILIRUBIN,TOTAL 0.8 MG/DL (0.1-1.0); CALCIUM 9.3 MG/DL (8.5-10.1); CREATININE SERUM 0.96 MG/DL (0.60-1.30); POTASSIUM 3.9 MMOL/L (3.6-5.0); TOTAL PROTEIN 6.8 GM/DL (6.4-8.2)
[2021-11-14 07:34] VITALS: BP 141/78
[2021-11-14] MEDS: DOCUSATE SODIUM 100 MG (COLACE) CAP PO SCH (08:07)
[2021-11-14] MEDS: SENNOSIDES 8.6 MG (SENOKOT) TAB PO SCH (08:07)
[2021-11-14] MEDS: PANTOPRAZOLE 40 MG (PROTONIX) VIAL IV SCH (10:00)
[2021-11-14 11:36] VITALS: BP 152/78
[2021-11-14] MEDS ORDERED: LEVO500T81 PO (12:05)
--- NOTE | 2021-11-14 12:07 | Discharge Summary ---
Discharge [facility] Discharge Medications New, Converted or Re-Newed RX: Transmitted to Pharmacy New Medications: Levofloxacin (Levofloxacin) 500 Mg Tablet 500 MG PO DAILY@11 for 5 Days, #5 TAB 0 Refills Continued Medications: Atorvastatin Calcium (Atorvastatin Calcium) 40 Mg Tablet 40 MG PO HS, TAB Baclofen (Baclofen) 10 Mg Tablet 10 MG PO TID, TAB Carvedilol (Carvedilol) 25 Mg Tablet 25 MG PO BID, TAB Diclofenac Sodium (Diclofenac Sodium) 1 % Gel..gram. 1 APPLIC TP QID PRN for PAIN-BREAKTHROUGH, TUBE APPLY TO RIGHT ARM Ezetimibe (Ezetimibe) 10 Mg Tablet 10 MG PO DAILY, TAB Furosemide (Furosemide) 40 Mg Tablet 40 MG PO DAILY, TAB Gabapentin (Gabapentin) 600 Mg Tablet 600 MG PO DAILY, TAB Gabapentin (Gabapentin) 600 Mg Tablet 600 MG PO 1300,2200 PRN for PAIN-BREAKTHROUGH, TAB Losartan Potassium (Losartan Potassium) 50 Mg Tablet 50 MG PO BID, TAB Pantoprazole Sodium (Pantoprazole Sodium) 40 Mg Tablet.dr 40 MG PO DAILY, TAB Sertraline HCl (Sertraline HCl) 50 Mg Tablet 50 MG PO DAILY, TAB Spironolactone (Spironolactone) 25 Mg Tablet 25 MG PO DAILY, TAB Patient Instructions Goal/Follow Up Appt: Follow up with Dr. Ocampo within a week of discharge. You will need a referral to GI for further evaluation of pancreas/liver. Return to The Hospital For: Fever, inability to keep down medications, abdominal pain Activity & Diet Discharge Diet: No Restrictions Activity as Tolerated: Yes LAURE HOANG MD November 14, 2021 12:07
--- NOTE | 2021-11-14 12:08 | Discharge Summary ---
Discharge Summary Hospital Course Hospital Course Date of Admission: November 10, 2021 at 15:19 Admission Diagnosis : Acute pancreatitis HTN CAD HTN HLP [facility] Date of [facility]charge: 11/14/21 Discharge Diagnosis: Acute pancreatitis Enterobacter sepsis with suspected ascending cholangitis HTN CAD HTN HLP Hospital Course: 46 yo male admitted with pancreatitis and elevated liver enzymes, found to have enterobacter sepsis, sensitive to levofloxacin. He had rapid improvement and tolerated oral and had no pain on day of d/c. Discussed plan to refer to GI outpatient for ERCP/further follow up. Labs and Pending Lab Test: Laboratory Tests 11/14/21 05:41: White Blood Count 9.8, Red Blood Count 4.64, Hemoglobin 13.4, Hematocrit 40, Mean Corpuscular Volume 85, Mean Corpuscular Hemoglobin 29, Mean Corpuscular Hemoglobin Concent 34, Red Cell Distribution Width 13.2, Platelet Count 248, Mean Platelet Volume 9.1, Immature Granulocyte % (Auto) 2, Neutrophils (%) (Auto) 66, Lymphocytes (%) (Auto) 20, Monocytes (%) (Auto) 9, Eosinophils (%) ( Auto) 2, Basophils (%) (Auto) 1, Neutrophils # (Auto) 6.5, Lymphocytes # (Auto) 2.0, Monocytes # (Auto) 0.9, Eosinophils # (Auto) 0.2, Basophils # (Auto) 0.1, Immature Granulocyte # (Auto) 0.2H, Sodium Level 140, Potassium Level 3.9, C hloride Level 106, Carbon Dioxide Level 22, Anion Gap 12, Blood Urea Nitrogen 11, Creatinine 0.96, Estimat Glomerular Filtration Rate 98, BUN/Creatinine Ratio 11, Glucose Level 107H, Calcium Level 9.3, Corrected Calcium 9.5, Total Bili munoz 0.8, Aspartate Amino Transf (AST/SGOT) 30, Alanine Aminotransferase (ALT/SGPT) 129H, Alkaline Phosphatase 169H, Total Protein 6.8, Albumin 3.7 Microbiology 11/10/21 Blood Culture - Final, Complete Enterobacter sakazakii Home Meds Active Levofloxacin 500 Mg Tablet 500 Mg PO DAILY@11 5 Days Reported Gabapentin 600 Mg Tablet 600 Mg PO 1300,2200 PRN Atorvastatin Calcium 40 Mg Tablet 40 Mg PO HS Pantoprazole Sodium 40 Mg Tablet.dr 40 Mg PO DAILY Losartan Potassium 50 Mg Tablet 50 Mg PO BID Spironolactone 25 Mg Tablet 25 Mg PO DAILY Ezetimibe 10 Mg Tablet 10 Mg PO DAILY Diclofenac Sodium 1 % Gel..gram. 1 Applic TP QID PRN APPLY TO RIGHT ARM Furosemide 40 Mg Tablet 40 Mg PO DAILY Baclofen 10 Mg Tablet 10 Mg PO TID Sertraline HCl 50 Mg Tablet 50 Mg PO DAILY Carvedilol 25 Mg Tablet 25 Mg PO BID Gabapentin 600 Mg Tablet 600 Mg PO DAILY Assessment/Pt DC Instructions Follow up with primary doctor within 5 days of discharge. Referral will need to be placed for GI. Discharge Diet: No Restrictions Activity as Tolerated: Yes Discharge Physical Examination Allergies: Coded Allergies: codeine (Unverified Allergy, Mild, itches, 01/03/10) Penicillins (Unverified Allergy, Unknown, 11/20/18) diphenhydramine (Verified Allergy, Unknown, 05/19/21) General Appearance: No Apparent Distress, WD/WN Respiratory: Lungs Clear, Normal Breath Sounds Cardiovascular: Regular Rate, Rhythm, No Murmur Gastrointestinal: Normal Bowel Sounds, Non Tender, Soft Skin: Normal Color, Warm/Dry Neurologic/Psychiatric: Alert, Normal Mood/Affect, Other (right arm weakness, dysarthria, mild right mouth droop- chronic per pt and ) LAURE HOANG MD November 14, 2021 12:08
[2021-11-14 12:22] VITALS: BP 152/78
== END 2021-11-14 12:36 | disposition home or self-care (01) ==
LOC: EDUNIT# 10:55 → ER 10:56 → 4TH 15:19
PROVIDERS: ADMIT Internal Medicine; ATTEND Family Medicine
DX: K85.90 Acute pancreatitis without necrosis or infection, unspecified (principal); I25.10 Atherosclerotic heart disease of native coronary artery without angina pectoris; I11.0 Hypertensive heart disease with heart failure; I50.9 Heart failure, unspecified; E78.5 Hyperlipidemia, unspecified; A41.89 Other specified sepsis; R47.01 Aphasia; F17.210 Nicotine dependence, cigarettes, uncomplicated; Z86.73 Personal history of transient ischemic attack (TIA), and cerebral infarction without residual deficits
CPT/HCPCS: 36415; 71045; 71250; 74176; 80053; 81000; 82140; 83605; 83690; 84145; 85025; 85610; 85730; 86141; 87040; 87077; 87186; 93005; 96361; 96365; 96366; 96372; 96374; 96375; 96376

== ENCOUNTER 2022-01-23 21:05 | Emergency (ER) | payer MEDICAID ==
[~2022-01-23] VITALS: Ht 167.7 cm; Wt 90.7 kg
[~2022-01-23 21:05] MED LIST changes: +ATOR40TA70 PO; +CARV25TA PO; +EZET10TA49 PO; +FURO40TA4 PO; +LEVO500T81 PO; +LOSA50TA63 PO; +PANT40TA52 PO; +SERT-413 PO
[2022-01-23 21:35] VITALS: BP 135/86
--- NOTE | 2022-01-23 21:46 | ED Respiratory ---
General Stated Complaint: SORE THROAT/HEADACHE/FEVER Source: patient Exam Limitations: no limitations History of Present Illness Date Seen by Provider: Jan 23, 2022 Time Seen by Provider: 21:44 Initial Comments Patient is a 46-year-old male with a history of cardiomyopathy, stroke who presents ED with sore throat, fevers headache and cough. Symptoms started over the past 3 days. States he has been exposed to COVID and requesting a COVID swab. Reports some mild malaise and weakness. Denies of any vomiting, diarrhea, current chest pain, visual changes, ear pain. Reports some burning pain in his throat and his neck. Denies of any worsening pain with eating. States he feels like he has a fever. Concern for COVID. Allergies and Home Medications Allergies Coded Allergies: codeine (Unverified Allergy, Mild, itches, 01/03/10) Penicillins (Unverified Allergy, Unknown, 11/20/18) diphenhydramine (Verified Allergy, Unknown, 05/19/21) Patient Home Medication List Home Medication List Reviewed: Yes Atorvastatin Calcium (Atorvastatin Calcium) 40 Mg Tablet, 40 MG PO HS, (Reported) Entered as Reported by: PARVIZ RODARTE on 11/11/21 1145 Baclofen (Baclofen) 10 Mg Tablet, 10 MG PO TID, (Reported) Entered as Reported by: PARVIZ RODARTE on 11/11/21 1145 Carvedilol (Carvedilol) 25 Mg Tablet, 25 MG PO BID, (Reported) Entered as Reported by: PARVIZ RODARTE on 11/11/21 1145 Diclofenac Sodium (Diclofenac Sodium) 1 % Gel..gram., 1 APPLIC TP QID PRN for PAIN-BREAKTHROUGH, (Reported) Entered as Reported by: PARVIZ RODARTE on 11/11/21 1145 Diclofenac Sodium (Diclofenac Sodium) 1 % Gel..gram., 2 GM TP QID Prescribed by: KYLE CORDERO on 01/23/22 2246 Ezetimibe (Ezetimibe) 10 Mg Tablet, 10 MG PO DAILY, (Reported) Entered as Reported by: PARVIZ RODARTE on 11/11/21 1145 Furosemide (Furosemide) 40 Mg Tablet, 40 MG PO DAILY, (Reported) Entered as Reported by: PARVIZ RODARTE on 11/11/21 1145 Gabapentin (Gabapentin) 600 Mg Tablet, 600 MG PO DAILY, (Reported) Entered as Reported by: ROM MG on 12/25/20 0026 Gabapentin (Gabapentin) 600 Mg Tablet, 600 MG PO 1300,2200 PRN for PAIN- BREAKTHROUGH, (Reported) Entered as Reported by: PARVIZ RODARTE on 11/11/21 1145 Levofloxacin (Levofloxacin) 500 Mg Tablet, 500 MG PO DAILY@11 Prescribed by: LAURE HOANG on 11/14/21 1205 Losartan Potassium (Losartan Potassium) 50 Mg Tablet, 50 MG PO BID, (Reported) Entered as Reported by: PARVIZ RODARTE on 11/11/21 1145 Pantoprazole Sodium (Pantoprazole Sodium) 40 Mg Tablet.dr, 40 MG PO DAILY, (Reported) Entered as Reported by: PARVIZ RODARTE on 11/11/21 1145 Sertraline HCl (Sertraline HCl) 50 Mg Tablet, 50 MG PO DAILY, (Reported) Entered as Reported by: PARVIZ RODARTE on 11/11/21 1145 Spironolactone (Spironolactone) 25 Mg Tablet, 25 MG PO DAILY, (Reported) Entered as Reported by: PARVIZ RODARTE on 11/11/21 1145 Review of Systems Review of Systems Constitutional: chills; No diaphoresis; malaise, weakness EENTM: throat pain; No ear pain, No blurred vision, No double vision, No mouth pain, No mouth swelling Respiratory: cough; No phlegm, No short of breath Gastrointestinal: No abdominal pain, No diarrhea, No nausea, No vomiting Genitourinary: No decreased output, No discharge Musculoskeletal: No back pain, No joint pain Skin: No change in color, No change in hair/nails All Other Systems Reviewed Negative Unless Noted: Yes Past Yujdbeh-Uhjsbt-Hhsnqd Hx Immunizations Up To Date Tetanus Booster (TDap): Less than 5yrs First/Initial COVID19 Vaccinat: 2020 Second COVID19 Vaccination Luis E: 2020 Third COVID19 Vaccination Date: 2020 Seasonal Allergies Seasonal Allergies: No Past Medical History Surgery/Hospitalization HX: STROKE, CAD, cardiac arrest, ch. edema, mi, high cholesterol, htn, gerd, pancreatitis, bmt, heart cath, cholecystectomy. Surgeries: Yes (BMT'S; CARDIAC CATH 05/29/19--NO INTERVENTION) Ear Surgery, Gallbladder Respiratory: No Cardiac: Yes Chronic Edema/Swelling, Heart Attack, High Cholesterol, Hypertension Neurological: Yes Stroke Reproductive Disorders: No Genitourinary: No Gastrointestinal: Yes Gastroesophageal Reflux, Pancreatitis Musculoskeletal: Yes (CHRONIC BILATERAL LEG PAIN ) Endocrine: No HEENT: No Cancer: No Psychosocial: Yes Anxiety, Bipolar Integumentary: No Blood Disorders: No Family Medical History FH: COPD (chronic obstructive pulmonary disease) 19 FATHER 19 MOTHER FH: coronary artery bypass surgery 19 MOTHER FH: emphysema 19 FATHER FH: heart failure 19 FATHER Seizure disorder G8 SISTER Heart Disease, COPD, Seizures Physical Exam Vital Signs - First Documented 01/23/22 21:35 Temp 36.9 Pulse 88 Resp 24 B/P (MAP) 135/86 (102) Pulse Ox 99 Capillary Refill : Height: 5'7.00" Weight: 150lbs. 7.0oz. [id number]; 31.74 BMI Method:Stated General Appearance: WD/WN, no apparent distress Eyes: Bilateral Eye Normal Inspection, Bilateral Eye PERRL, Bilateral Eye EOMI HEENT: PERRL/EOMI, normal ENT inspection, TMs normal, pharynx normal Neck: non-tender, full range of motion, supple Respiratory: chest non-tender, lungs clear, normal breath sounds, no respiratory distress, no accessory muscle use Cardiovascular: regular rate, rhythm, no edema, no gallop, no JVD Gastrointestinal: normal bowel sounds, non tender, soft, no organomegaly Extremities: normal range of motion, non-tender, normal inspection 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 tested, no motor/sensory deficits, alert, normal mood/affect, oriented x 3 Skin: normal color, warm/dry Progress/Results/Core Measures Suspected Sepsis SIRS Temperature: Pulse: Respiratory Rate: Blood Pressure / Mean: Results/Orders Lab Results Laboratory Tests Test 01/23/22 21:48 Range/Units Influenza Type A (RT-PCR) Not Detected Not Detecte Influenza Type B (RT-PCR) Not Detected Not Detecte SARS-CoV-2 RNA (RT-PCR) Detected H Not Detecte Group A Streptococcus Screen NEGATIVE NEGATIVE My Orders Orders - KEYLA AVENDAÑO Rapid Strep A Screen (01/23/22 21:19) Covid 19 Inhouse Test (01/23/22 21:19) Influenza A And B By Pcr (01/23/22 21:19) Rx-Nirmatrelvir/Ritonavir(Eua) (Rx-Paxlo (01/23/22 22:28) Vital Signs/I&O 01/23/22 21:35 Temp 36.9 Pulse 88 Resp 24 B/P (MAP) 135/86 (102) Pulse Ox 99 Capillary Refill : Departure Communication (PCP) Patient tested positive for COVID. Vital signs stable. Recommend paxlovid. We discussed the medication potential side effects patient agrees to move forward. Patient has contradiction with atorvastatin which I recommend stopping for at least 7 days. His other medication that he is taking does not appear to be any severe contradiction. Not currently on a blood thinner. Does take Protonix, gabapentin, baclofen, carvedilol,ezimebe. Recommend quarantine for the next 10 days. Discussed monitoring oxygen level at home by getting pulse ox monitor. If any worsening symptoms return back to ED for further evaluation. Patient was requesting a refill of his baclofen topical Impression Primary Impression: COVID-19 Disposition: 01 HOME, SELF-CARE Condition: Stable Departure-Patient Inst. Decision time for Depature: 22:25 Referrals: MELBA PADILLA MD (PCP) Primary Care Physician [facility] (Family) Primary Care Physician Patient Instructions: COVID-19 (DC) Add. Discharge Instructions: Do not take the atorvastatin with the medication. If any worsening symptoms return back to ED such as chest pain or shortness of breath. Quarantine at home for the next 10 days Scripts Diclofenac Sodium (Diclofenac Sodium) 1 % Gel..gram. 2 GM TP QID, #2 TUBE Prov: KEYLA AVENDAÑO 01/23/22 KEYLA AVENDAÑO Jan 23, 2022 21:46
[2022-01-23] MEDS ORDERED: RX-NIRMATRELVIR/RITONAVIR (PAXLOVID) #30 TABS PO ONE (22:28)
[2022-01-23] MEDS ORDERED: DICL100G13 TP (22:46)
== END 2022-01-23 22:45 | disposition home or self-care (01) ==
LOC: EDUNIT# 21:05 → ER 21:08
DX: U07.1 COVID-19 (principal)
CPT/HCPCS: 87430; 87636; 99283

== ENCOUNTER 2022-05-23 08:14 | Outpatient (RCR) | payer MEDICAID ==
[~2022-05-23 08:14] MED LIST changes: +ALBU8.5H6 IH; +LEVO-55 PO; -LEVO500T81 PO; -RT-ALBUINH IH
== END 2022-05-24 | disposition home or self-care (01) ==
PROVIDERS: ATTEND Internal Medicine
DX: I69.319 Unspecified symptoms and signs involving cognitive functions following cerebral infarction (principal)

== ENCOUNTER 2022-06-20 09:59 | Outpatient (RCR) | payer MEDICAID | END 2022-06-24 | disposition home or self-care (01) | PROVIDERS: ATTEND Internal Medicine | DX: I69.319 Unspecified symptoms and signs involving cognitive functions following cerebral infarction (principal) ==

== ENCOUNTER 2022-06-29 14:40 | Outpatient (RCR) | payer MEDICAID | END 2022-07-25 | disposition home or self-care (01) | PROVIDERS: ATTEND Internal Medicine | DX: I69.319 Unspecified symptoms and signs involving cognitive functions following cerebral infarction (principal); M62.81 Muscle weakness (generalized) ==

== ENCOUNTER → 2023-04-24 | Outpatient (CLI) | payer MEDICAID ==
[~2023-04-24] MED LIST changes: +ACHD5005 PO; +CLIN-144 PO; -DICL100G13 TP; +DICL100G60 TP
== END ==
LOC: CARD 11:27
PROVIDERS: ATTEND Internal Medicine Cardiovascular Disease
DX: I10 Essential (primary) hypertension (principal); I25.10 Atherosclerotic heart disease of native coronary artery without angina pectoris; I35.1 Nonrheumatic aortic (valve) insufficiency
CPT/HCPCS: 93306

== ENCOUNTER 2023-04-25 20:46 | Emergency (ER) | payer MEDICAID ==
[~2023-04-25] VITALS: Ht 175 cm; Wt 92.9 kg
[~2023-04-25 20:46] MED LIST changes: -ACHD5005 PO; -CLIN-144 PO
[2023-04-25] MEDS ORDERED: CLINDAMYCIN 150 MG CAPSULE PO STA (21:01)
[2023-04-25] MEDS ORDERED: CLIN-144 PO (21:08)
--- NOTE | 2023-04-25 21:08 | ED EENT ---
History of Present Illness General Chief Complaint: Dental Problems/Pain Stated Complaint: DENTAL PAIN Source: patient Exam Limitations: no limitations History of Present Illness Date Seen by Provider: Apr 25, 2023 Time Seen by Provider: 21:03 Initial Comments Patient is a 48-year-old male who presents to ED for right lower dental pain. This pain started today. Pain is worse with eating and/or touching his teeth. States he does have several teeth that need to be pulled. Does report headache secondary to the pain. History of previous stroke with right-sided deficits. Denies taking thing for pain. Patient states he was seen by his primary care physician yesterday for elevated blood pressure and was started a second medication but has not gotten the medication to start taking. Denies vomiting, fever, visual changes, chest pain, shortness of breath. Patient denies any bleeding in the mouth. Denies of any significant swelling. Denies any facial swelling or redness. Allergies and Home Medications Allergies Coded Allergies: codeine (Unverified Allergy, Mild, itches, 01/03/10) Penicillins (Unverified Allergy, Unknown, 11/20/18) diphenhydramine (Verified Allergy, Unknown, 05/19/21) Patient Home Medication List Home Medication List Reviewed: Yes Atorvastatin Calcium (Atorvastatin Calcium) 40 Mg Tablet, 40 MG PO HS, (Reported) Entered as Reported by: PARVIZ RODARTE on 11/11/21 1145 Baclofen (Baclofen) 10 Mg Tablet, 10 MG PO TID, (Reported) Entered as Reported by: PARVIZ RODARTE on 11/11/21 1145 Carvedilol (Carvedilol) 25 Mg Tablet, 25 MG PO BID, (Reported) Entered as Reported by: PARVIZ RODARTE on 11/11/21 1145 Clindamycin HCl (Clindamycin HCl) 300 Mg Capsule, 300 MG PO QID Prescribed by: KYLE CORDERO on 04/25/232107 Diclofenac Sodium (Diclofenac Sodium) 1 % Gel..gram., 1 APPLIC TP QID PRN for PAIN-BREAKTHROUGH, (Reported) Entered as Reported by: PARVIZ RODARTE on 11/11/21 1145 Diclofenac Sodium (Diclofenac Sodium) 1 % Gel..gram., 2 GM TP QID Prescribed by: KYLE CORDERO on 01/23/22 2246 Ezetimibe (Ezetimibe) 10 Mg Tablet, 10 MG PO DAILY, (Reported) Entered as Reported by: PARVIZ RODARTE on 11/11/21 1145 Furosemide (Furosemide) 40 Mg Tablet, 40 MG PO DAILY, (Reported) Entered as Reported by: PARVIZ RODARTE on 11/11/21 1145 Gabapentin (Gabapentin) 600 Mg Tablet, 600 MG PO DAILY, (Reported) Entered as Reported by: ROM MG on 12/25/20 0026 Gabapentin (Gabapentin) 600 Mg Tablet, 600 MG PO 1300,2200 PRN for PAIN- BREAKTHROUGH, (Reported) Entered as Reported by: PARVIZ RODARTE on 11/11/21 1145 Hydrocodone/Acetaminophen (Hydrocodone-Acetamin 5-325 mg) 5 Mg-325 Mg Tablet, 1 TAB PO Q4H PRN for PAIN-MODERATE (5-7) Prescribed by: KYLE CORDERO on 04/25/23 210 Levofloxacin (Levofloxacin) 500 Mg Tablet, 500 MG PO DAILY@11 Prescribed by: LAURE HOANG on 11/14/21 1205 Losartan Potassium (Losartan Potassium) 50 Mg Tablet, 50 MG PO BID, (Reported) Entered as Reported by: PARVIZ RODARTE on 11/11/21 1145 Pantoprazole Sodium (Pantoprazole Sodium) 40 Mg Tablet.dr, 40 MG PO DAILY, (Reported) Entered as Reported by: PARVIZ RODARTE on 11/11/21 1145 Sertraline HCl (Sertraline HCl) 50 Mg Tablet, 50 MG PO DAILY, (Reported) Entered as Reported by: PARVIZ RODARTE on 11/11/21 1145 Spironolactone (Spironolactone) 25 Mg Tablet, 25 MG PO DAILY, (Reported) Entered as Reported by: PARVIZ RODARTE on 11/11/21 1145 Review of Systems Review of Systems Constitutional: No chills, No diaphoresis, No malaise, No weakness Eyes: Denies Drainage, Denies Decreased Acuity Ears: Denies Dizziness, Denies Pain Nose: denies clots, denies congestion Mouth: denies loose teeth; pain Throat: denies pain, denies swelling, denies discharge Respiratory: No cough, No dyspnea on exertion Cardiovascular: No chest pain Gastrointestinal: No abdominal pain, No diarrhea, No nausea, No vomiting Musculoskeletal: No back pain Skin: No change in color, No change in hair/nails All Other Systems Reviewed Negative Unless Noted: Yes Past Uvisilz-Wqvzzx-Okpozp Hx Patient Social History Tobacco Use?: Yes Tobacco type used: Cigarettes Smoking Status: Current Everyday Smoker Substance use?: No Alcohol Use?: No Immunizations Up To Date Tetanus Booster (TDap): Less than 5yrs First/Initial COVID19 Vaccinat: 2020 Second COVID19 Vaccination Luis E: 2020 Third COVID19 Vaccination Date: 2020 Seasonal Allergies Seasonal Allergies: No Past Medical History Surgery/Hospitalization HX: STROKE, CAD, cardiac arrest, ch. edema, mi, high cholesterol, htn, gerd, pancreatitis, bmt, heart cath, cholecystectomy. Surgeries: Yes (BMT'S; CARDIAC CATH 11/20/18--NO INTERVENTION) Ear Surgery, Gallbladder Respiratory: No Cardiac: Yes Chronic Edema/Swelling, Heart Attack, High Cholesterol, Hypertension Neurological: Yes Stroke Reproductive Disorders: No Genitourinary: No Gastrointestinal: Yes Gastroesophageal Reflux, Pancreatitis Musculoskeletal: Yes (CHRONIC BILATERAL LEG PAIN ) Endocrine: No HEENT: No Cancer: No Psychosocial: Yes Anxiety, Bipolar Integumentary: No Blood Disorders: No Family Medical History FH: COPD (chronic obstructive pulmonary disease) 19 FATHER 19 MOTHER FH: coronary artery bypass surgery 19 MOTHER FH: emphysema 19 FATHER FH: heart failure 19 FATHER Seizure disorder G8 SISTER Heart Disease, COPD, Seizures Physical Exam Vital Signs Vital Signs - First Documented 04/25/23 20:53 Pulse 66 Resp 18 B/P (MAP) 201/98 (132) Pulse Ox 98 O2 Delivery Room Air Height, Weight, BMI Height: 5'7.00" Weight: 150lbs. 7.0oz. 68.041570as; 32.00 BMI Method:Stated General Appearance: WD/WN, no apparent distress Eyes: bilateral eye normal inspection, bilateral eye PERRL, bilateral eye EOMI Ears: bilateral ear auricle normal, bilateral ear canal normal, bilateral ear TM normal Nose: normal inspection Mouth/Throat: other (Poor dentition throughout. Extensive decay. Right lower molar tenderness, right lateral incisors and premolars tenderness. Several teeth with decay. No all significant gum swelling but does have some mild francoise thema around the teeth. No fluctuant mass. 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 Tenderness to palpate right lower molar right lateral lower premolar. No significant gum swelling mild surrounding gum erythema suggesting gingivitis. No obvious facial swelling or redness. No obvious abscess. May have a developing periapical abscess. States the pain in his teeth is resulting in a headache. He is hypertensive. Was prescribed a adjunct blood pressure medication yesterday but has not picked up the medication yet. Improve to 180/102. Did receive a dose of hydrocodone with improvement of pain. Since patient is allergic to penicillins will discharge with clindamycin. Recommend probiotics. Suggest following up with a dentist as he several teeth that need to be pulled. Continue monitoring of blood pressure. If increasing pain, fever, facial swelling or redness to return back to ED Impression Primary Impression: Pain, dental Disposition: 01 HOME, SELF-CARE Condition: Stable Departure-Patient Inst. Decision time for Depature: 21:06 Referrals: [facility] (PCP/Family) Primary Care Physician Patient Instructions: Dental Pain Add. Discharge Instructions: Needed take antibiotics as prescribed. Recommend taking with probiotics. Take pain medication as prescribed. Follow-up outpatient Jair with a dentist. Continue monitor your blood pressure. All discharge instructions reviewed with patient and/or family. Voiced understanding. Scripts Hydrocodone/Acetaminophen (Hydrocodone-Acetamin 5-325 mg) 5 Mg-325 Mg Tablet 1 TAB PO Q4H PRN for PAIN-MODERATE (5-7), #6 TAB Prov: KEYLA AVENDAÑO 04/25/23 Clindamycin HCl (Clindamycin HCl) 300 Mg Capsule 300 MG PO QID for 7 Days, #28 CAP Prov: KEYLA AVENDAÑO 04/25/23 KEYLA AVENDAÑO Apr 25, 2023 21:08
[2023-04-25] MEDS ORDERED: ACHD5005 PO (21:09)
[2023-04-25] MEDS ORDERED: HYDROcodone/ACETAMINOPHEN 5 MG/325 MG TABLET PO ONE (21:15)
[2023-04-25 21:28] VITALS: BP 180/102
== END 2023-04-25 21:28 | disposition home or self-care (01) ==
LOC: EDUNIT# 20:46 → ER 20:48
DX: K08.89 Other specified disorders of teeth and supporting structures (principal); I10 Essential (primary) hypertension; F17.210 Nicotine dependence, cigarettes, uncomplicated; Z88.0 Allergy status to penicillin; Z79.899 Other long term (current) drug therapy
CPT/HCPCS: 99283

== ENCOUNTER 2023-05-14 11:09 | Emergency (ER) | payer MEDICAID ==
[~2023-05-14] VITALS: Ht 175 cm; Wt 127.0 kg
[~2023-05-14 11:09] MED LIST changes: +ACHD5005 PO; +CLIN-144 PO
[2023-05-14] MEDS ORDERED: fentaNYL INJECTION 100 MCG/2 ML VIAL IVP STA (11:24)
[2023-05-14 11:30] LABS: BASOPHILS # (AUTO) 0.1 10^3/uL (0.0-0.1); BASOPHILS % (AUTO) 0 % (0-10); EOSINOPHILS # (AUTO) 0.2 10^3/uL (0.0-0.3); EOSINOPHILS % (AUTO) 2 % (0-10); HEMATOCRIT 47 % (40-54); HEMOGLOBIN 15.1 g/dL (13.3-17.7); LYMPHOCYTES # (AUTO) 2.7 10^3/uL (1.0-4.0); LYMPHOCYTES % (AUTO) 17 % (12-44); MEAN CORPUSCULAR HEMOGLOBIN 29 pg (25-34); MEAN CORPUSCULAR HGB CONC 32 g/dL (32-36); MEAN CORPUSCULAR VOLUME 90 fL (80-99); MEAN PLATELET VOLUME 8.9 fL (9.0-12.2); MONOCYTES # (AUTO) 0.7 10^3/uL (0.0-1.0); MONOCYTES % (AUTO) 5 % (0-12); NEUTROPHILS % (AUTO) 76 % (42-75); PLATELET COUNT 371 10^3/uL (130-400); WHITE BLOOD COUNT 15.8 10^3/uL (4.3-11.0)
[2023-05-14] MEDS ORDERED: HOLD METFORMIN - RECEIVED CONTRAST 20 ML VIAL IV SCH (11:30)
[2023-05-14] MEDS ORDERED: NS 100 ML (IVPB) BAG IV ONE (11:30)
[2023-05-14] MEDS ORDERED: IOHEXOL 350 MG/ML 100 ML (OMNIPAQUE 350) VIAL IV ONE (11:30)
--- NOTE | 2023-05-14 11:30 | ED Abdominal Pain ---
General Stated Complaint: ABD PAIN Source of Information: Patient Exam Limitations: No Limitations History of Present Illness Date Seen by Provider: May 14, 2023 Time Seen by Provider: 11:25 Initial Comments Patient is a 48-year-old male with a history of CVA, CHF who presents ED with upper abdominal pain. Upper abdominal pain started 3 days ago. Patient states pain has been constant described as pressure without radiation. States he feels bloated. Denies any nausea vomiting or diarrhea or worsening pain with eating. Denies taking pain medication at home. History of similar type pain in the past. History of pancreatitis. Pain is not exacerbated with eating or drinking. Denies any alcohol use. Denies of any specific chest pain short of breath, leg swelling, fever, chills, dysuria, hematuria. He does have right- sided deficits from previous CVA. Does follow Dr. Alvarez of his [employer]. Patient denies fever, chills, body aches, headache, dizziness, lower leg swe lling. History of cholecystectomy Allergies and Home Medications Allergies Coded Allergies: codeine (Unverified Allergy, Mild, itches, 01/03/10) Penicillins (Unverified Allergy, Unknown, 11/20/18) diphenhydramine (Verified Allergy, Unknown, 05/19/21) Patient Home Medication List Home Medication List Reviewed: Yes Atorvastatin Calcium (Atorvastatin Calcium) 40 Mg Tablet, 40 MG PO HS, (Reported) Entered as Reported by: PARVIZ RODARTE on 11/11/21 1145 Baclofen (Baclofen) 10 Mg Tablet, 10 MG PO TID, (Reported) Entered as Reported by: PARVIZ RODARTE on 11/11/21 1145 Carvedilol (Carvedilol) 25 Mg Tablet, 25 MG PO BID, (Reported) Entered as Reported by: PARVIZ RODARTE on 11/11/21 1145 Clindamycin HCl (Clindamycin HCl) 300 Mg Capsule, 300 MG PO QID Prescribed by: KYLE CORDERO on 04/25/232107 Diclofenac Sodium (Diclofenac Sodium) 1 % Gel..gram., 1 APPLIC TP QID PRN for PAIN-BREAKTHROUGH, (Reported) Entered as Reported by: PARVIZ RODARTE on 11/11/21 1145 Diclofenac Sodium (Diclofenac Sodium) 1 % Gel..gram., 2 GM TP QID Prescribed by: KYLE CORDERO on 01/23/22 2246 Ezetimibe (Ezetimibe) 10 Mg Tablet, 10 MG PO DAILY, (Reported) Entered as Reported by: PARVIZ RODARTE on 11/11/21 1145 Furosemide (Furosemide) 40 Mg Tablet, 40 MG PO DAILY, (Reported) Entered as Reported by: PARVIZ RODARTE on 11/11/21 1145 Gabapentin (Gabapentin) 600 Mg Tablet, 600 MG PO DAILY, (Reported) Entered as Reported by: ROM MG on 12/25/20 0026 Gabapentin (Gabapentin) 600 Mg Tablet, 600 MG PO 1300,2200 PRN for PAIN- BREAKTHROUGH, (Reported) Entered as Reported by: PARVIZ RODARTE on 11/11/21 1145 Hydrocodone/Acetaminophen (Hydrocodone-Acetamin 5-325 mg) 5 Mg-325 Mg Tablet, 1 TAB PO Q4H PRN for PAIN-MODERATE (5-7) Prescribed by: KYLE CORDERO on 04/25/23 2109 Levofloxacin (Levofloxacin) 500 Mg Tablet, 500 MG PO DAILY@11 Prescribed by: LAURE HOANG on 11/14/21 1205 Losartan Potassium (Losartan Potassium) 50 Mg Tablet, 50 MG PO BID, (Reported) Entered as Reported by: PARVIZ RODARTE on 11/11/21 1145 Pantoprazole Sodium (Pantoprazole Sodium) 40 Mg Tablet.dr, 40 MG PO DAILY, (Reported) Entered as Reported by: PARVIZ RODARTE on 11/11/21 1145 Pantoprazole Sodium (Protonix) 40 Mg Tablet.dr, 40 MG PO DAILY Prescribed by: KYLE CORDERO on 05/14/23 1241 Sertraline HCl (Sertraline HCl) 50 Mg Tablet, 50 MG PO DAILY, (Reported) Entered as Reported by: PARVIZ RODARTE on 11/11/21 1145 Spironolactone (Spironolactone) 25 Mg Tablet, 25 MG PO DAILY, (Reported) Entered as Reported by: PARVIZ RODARTE on 11/11/21 1145 Review of Systems Review of Systems Constitutional: No chills, No diaphoresis, No fever, No malaise, No weakness EENTM: No Double Vision, No Eye Pain Respiratory: Denies Cough, Denies Orthopnea Cardiovascular: Denies Chest Pain Gastrointestinal: Abdomen Distended, Abdominal Pain; Denies Diarrhea, Denies Nausea, Denies Vomiting Genitourinary: Denies Burning, Denies Discharge, Denies Drainage, Denies Frequency Musculoskeletal: No back pain, No joint pain Skin: No change in color, No change in hair/nails Psychiatric/Neurological: Denies Anxiety, Denies Depressed All Other Systems Reviewed Negative Unless Noted: Yes Past Iwluezm-Qdzgyl-Dkzdmg Hx Immunizations Up To Date Tetanus Booster (TDap): Less than 5yrs First/Initial COVID19 Vaccinat: 2020 Second COVID19 Vaccination Luis E: 2020 Third COVID19 Vaccination Date: 2020 Seasonal Allergies Seasonal Allergies: No Past Medical History Surgery/Hospitalization HX: STROKE, CAD, cardiac arrest, ch. edema, mi, high cholesterol, htn, gerd, pancreatitis, bmt, heart cath, cholecystectomy. Surgeries: Yes (BMT'S; CARDIAC CATH 11/20/18--NO INTERVENTION) Ear Surgery, Gallbladder Respiratory: No Cardiac: Yes Chronic Edema/Swelling, Heart Attack, High Cholesterol, Hypertension Neurological: Yes Stroke Reproductive Disorders: No Genitourinary: No Gastrointestinal: Yes Gastroesophageal Reflux, Pancreatitis Musculoskeletal: Yes (CHRONIC BILATERAL LEG PAIN ) Endocrine: No HEENT: No Cancer: No Psychosocial: Yes Anxiety, Bipolar Integumentary: No Blood Disorders: No Family Medical History FH: COPD (chronic obstructive pulmonary disease) 19 FATHER 19 MOTHER FH: coronary artery bypass surgery 19 MOTHER FH: emphysema 19 FATHER FH: heart failure 19 FATHER Seizure disorder G8 SISTER Heart Disease, COPD, Seizures Physical Exam Vital Signs Vital Signs - First Documented 05/14/23 11:27 Temp 36.0 Pulse 72 Resp 16 B/P (MAP) 156/107 (123) Pulse Ox 96 Capillary Refill : Height/Weight/BMI Height: 5'7.00" Weight: 150lbs. 7.0oz. 68.067332yl; 30.00 BMI Method:Stated General Appearance: WD/WN, no apparent distress HEENT: PERRL/EOMI, normal ENT inspection, TMs normal, pharynx normal Neck: non-tender, full range of motion, supple Respiratory: chest non-tender, lungs clear, normal breath sounds, no respiratory distress, no accessory muscle use Cardiovascular: regular rate, rhythm, no edema, no gallop, no JVD Gastrointestinal: soft, no organomegaly, tenderness (Right upper quadrant tenderness, epigastric, left upper quadrant tenderness. 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, no motor/sensory deficits, alert, normal mood/affect, oriented x 3 Skin: normal color, warm/dry Progress/Results/Core Measures Results/Orders Lab Results Laboratory Tests Test 05/14/23 11:24 05/14/23 12:02 Range/Units White Blood Count 15.8 H 4.3-11.0 10^3/uL Red Blood Count 5.24 4.30-5.52 10^6/uL Hemoglobin 15.1 13.3-17.7 g/dL Hematocrit 47 40-54 % Mean Corpuscular Volume 90 80-99 fL Mean Corpuscular Hemoglobin 29 25-34 pg Mean Corpuscular Hemoglobin Concent 32 32-36 g/dL Red Cell Distribution Width 13.2 10.0-14.5 % Platelet Count 371 130-400 10^3/uL Mean Platelet Volume 8.9 L 9.0-12.2 fL Immature Granulocyte % (Auto) 0 % Neutrophils (%) (Auto) 76 H 42-75 % Lymphocytes (%) (Auto) 17 12-44 % Monocytes (%) (Auto) 5 0-12 % Eosinophils (%) (Auto) 2 0-10 % Basophils (%) (Auto) 0 0-10 % Neutrophils # (Auto) 12.0 H 1.8-7.8 10^3/uL Lymphocytes # (Auto) 2.7 1.0-4.0 10^3/uL Monocytes # (Auto) 0.7 0.0-1.0 10^3/uL Eosinophils # (Auto) 0.2 0.0-0.3 10^3/uL Basophils # (Auto) 0.1 0.0-0.1 10^3/uL Immature Granulocyte # (Auto) 0.1 0.0-0.1 10^3/uL Neutrophils % (Manual) 77 % Lymphocytes % (Manual) 11 % Monocytes % (Manual) 6 % Eosinophils % (Manual) 2 % Band Neutrophils 4 % Nucleated Red Blood Cells 1 Blood Morphology Comment NORMAL Sodium Level 138 135-145 MMOL/L Potassium Level 4.1 3.6-5.0 MMOL/L Chloride Level 104 98-107 MMOL/L Carbon Dioxide Level 25 21-32 MMOL/L Anion Gap 9 5-14 MMOL/L Blood Urea Nitrogen 14 7-18 MG/DL Creatinine 1.17 0.60-1.30 MG/DL Estimat Glomerular Filtration Rate 76 BUN/Creatinine Ratio 12 Glucose Level 139 H 70-105 MG/DL Calcium Level 9.6 8.5-10.1 MG/DL Corrected Calcium 9.2 8.5-10.1 MG/DL Total Bilirubin 0.4 0.1-1.0 MG/DL Aspartate Amino Transf (AST/SGOT) 22 5-34 U/L Alanine Aminotransferase (ALT/SGPT) 31 0-55 U/L Alkaline Phosphatase 97 40-136 U/L Total Protein 7.8 6.4-8.2 GM/DL Albumin 4.5 3.2-4.5 GM/DL Lipase 204 H 8-78 U/L Urine Color YELLOW Urine Clarity CLEAR Urine pH 5.5 5-9 Urine Specific [place] 1.025 H 1.016-1.022 Urine Protein TRACE H NEGATIVE Urine Glucose (UA) NEGATIVE NEGATIVE Urine Ketones NEGATIVE NEGATIVE Urine Nitrite NEGATIVE NEGATIVE Urine Bilirubin NEGATIVE NEGATIVE Urine Urobilinogen 1.0 < = 1.0 MG/DL Urine Leukocyte Esterase NEGATIVE NEGATIVE Urine RBC (Auto) NEGATIVE NEGATIVE Urine RBC RARE /HPF Urine WBC 0-2 /HPF Urine Squamous Epithelial Cells 0-2 /HPF Urine Crystals PRESENT H /LPF Urine Amorphous Sediment RARE JOSH URATES H /LPF Urine Bacteria TRACE /HPF Urine Casts NONE /LPF Urine Mucus SMALL H /LPF Urine Culture Indicated NO My Orders Orders - KEYLA AVENDAÑO Ua Culture If Indicated (05/14/23 11:14) Cbc And Automated Diff (05/14/23 11:23) Comprehensive Metabolic Panel (05/14/23 11:23) Lipase (05/14/23 11:23) Ct Abdomen/Pelvis W (05/14/23 11:23) Fentanyl Injection (Fentanyl Injection (05/14/23 11:24) Iohexol Injection (Omnipaque 350 Mg/Ml 1 (05/14/23 11:30) Received Contrast (Hold Metformin- Contr (05/14/23 11:30) Ns (Ivpb) 100 Ml (Sodium Chloride 0.9% 1 (05/14/23 11:30) Manual Differential (05/14/23 11:24) Medications Given in ED Current Medications Medications Dose Ordered Sig/Andra Route Start Time Stop Time Status Last Admin Dose Admin Iohexol 100 ml ONCE ONCE IV 05/14/23 11:30 05/14/23 11:34 DC 05/14/23 11:51 100 ML Sodium Chloride 100 ml ONCE ONCE IV 05/14/23 11:30 05/14/23 11:34 DC 05/14/23 11:51 80 ML Vital Signs/I&O 05/14/23 05/14/23 11:27 12:49 Temp 36.0 36.0 Pulse 72 70 Resp 16 16 B/P (MAP) 156/107 (123) 152/99 Pulse Ox 96 97 Departure Communication (PCP) Reviewed previous ER visits, H&P, lab testing. Differential diagnosis, gastritis, pancreatitis, colitis. After reviewing previous history patient has had similar type pain in the past. He is scheduled follow-up with a GI in [place]. Denies history of GERD, indigestion, gastritis. Admitted in October concern for acute pancreatitis and was recommended outpatient EGD and colonoscopy. patient denies nausea vomiting diarrhea. No exacerbating pain with eating. Denies chest pain or shortness of breath. States he feels bloated. Bowel movement normal. No urinary symptoms. CBC, CMP, lipase was ordered as well as urinalysis. Urinalysis was negative for infection. CBC showed slight elevated white blood count of 15. Electrolytes, kidney function liver function normal. Did have an elevated lipase 204 which has been chronically elevated. Near his normal baseline. CT abdomen pelvis was ordered due to the leukocytosis which d id not show any acute abnormality besides hepatic steatosis. No evidence of peripancreatic inflammation, pseudocyst or necrosis. History of cholecystectomy. Patient received a dose of fentanyl with improvement of pain. Attempted to try a GI cocktail but patient refused. Does have a history of previous stroke and CHF. No appreciation of lower leg swelling. He is not tachycardic hypoxic or febrile. Systemically does not appear toxic. At this time recommend clear liquids over the next 3 to 4 days. Suggest starting Protonix. I do feel this is likely more gastritis which could be more inflammation versus infection. I do think outpatient follow-up with general surgeon for upper EGD it recommended. Provided referral. Avoiding fatty foods or spicy foods once increasing your diet. Elevate your head at night. If any worsening pain, fever to return back to ED. follow-up with PCP in 2 to 3 days for reevaluation and recheck of lab work (lipase). Impression Primary Impression: Elevated lipase Additional Impression: Abdominal pain Disposition: HOME, SELF-CARE Condition: Stable Departure-Patient Inst. Decision time for Depature: 12:41 Referrals: [facility] [place] (PCP/Family) Primary Care Physician TRACY SANTIAGO DO Patient Instructions: Abdominal Pain, Adult ED Add. Discharge Instructions: Take Protonix as prescribed. Avoid eating any fatty food or spicy foods. Avoid eating late at night. Elevate your head at night. Recommend clear liquids for the next 2 or 3 days. Outpatient follow-up with GI. If any worsening pain to return back to ED. Scripts Pantoprazole Sodium (Protonix) 40 Mg Tablet. 40 MG PO DAILY, #20 TAB Prov: KEYLA AVENDAÑO 05/14/23 KEYLA AVENDAÑO May 14, 2023 11:30
[2023-05-14 11:38] LABS: ALBUMIN 4.5 GM/DL (3.2-4.5); POTASSIUM 4.1 MMOL/L (3.6-5.0)
[2023-05-14 11:39] LABS: CALCIUM 9.6 MG/DL (8.5-10.1)
[2023-05-14 11:40] LABS: TOTAL PROTEIN 7.8 GM/DL (6.4-8.2)
[2023-05-14 11:42] LABS: BILIRUBIN,TOTAL 0.4 MG/DL (0.1-1.0)
[2023-05-14 11:44] LABS: CREATININE SERUM 1.17 MG/DL (0.60-1.30)
[2023-05-14 12:02] LABS: BAND NEUTROPHILS 4 %; EOSINOPHILS % (MANUAL) 2 %; LYMPHOCYTES % (MANUAL) 11 %; MONOCYTES % (MANUAL) 6 %; NEUTROPHILS % (MANUAL) 77 %
--- NOTE | 2023-05-14 12:02 | Diagnostic Imaging Report ---
PROCEDURE: CT abdomen and pelvis with contrast. TECHNIQUE: Multiple contiguous axial images were obtained through the abdomen and pelvis after administration of intravenous contrast. Auto Exposure Controls were utilized during the CT exam to meet ALARA standards for radiation dose reduction. All CT scans use one or more of the following dose optimizing techniques: automated exposure control, MA and/or KvP adjustment based on patient size and exam type or iterative reconstruction. INDICATION: Upper abdominal pain for 3 days. Correlation is made with prior CT 11/10/2021. The lung bases are clear. Liver demonstrates diffuse low attenuation consistent with hepatic steatosis. Gallbladder surgically absent. There is no biliary ductal dilatation. Pancreas and spleen are unremarkable. No adrenal mass is identified. Kidneys are unremarkable apart from a cyst in lower pole left kidney measuring 2.8 cm. Aorta is nonaneurysmal. Bowel loops are nonobstructed. No inflammatory changes are identified. There is no free fluid or fluid collection identified in abdomen or pelvis. Bladder is decompressed. Prostate is unremarkable. IMPRESSION: 1. Hepatic steatosis. 2. Otherwise unremarkable CT abdomen and pelvis. No acute feature is detected. Dictated by: Dictated on workstation # [id number]
[2023-05-14 12:03] LABS: NUCLEATED RED BLOOD CELLS 1; RBC MORPH NORMAL
[2023-05-14 12:23] LABS: BILIRUBIN,URINE NEGATIVE (NEGATIVE); CLARITY,URINE CLEAR; COLOR,URINE YELLOW; GLUCOSE, URINE (UA) NEGATIVE (NEGATIVE); KETONES,URINE NEGATIVE (NEGATIVE); LEUKOCYTE ESTERASE ,URINE NEGATIVE (NEGATIVE); NITRITE,URINE NEGATIVE (NEGATIVE); PH,URINE 5.5 (5-9); PROTEIN,URINE TRACE (NEGATIVE)
[2023-05-14 12:24] LABS: AMORPHOUS SEDIMENT,UR RARE AMOR URATES /LPF; BACTERIA,URINE TRACE /HPF; RBC,URINE RARE /HPF; SQUAMOUS EPITHELIAL CELL,UR 0-2 /HPF; WBC,URINE 0-2 /HPF
[2023-05-14] MEDS ORDERED: PANT40TA2 PO ×2 (12:41→16:57)
[2023-05-14 12:49] VITALS: BP 152/99
== END 2023-05-14 12:48 | disposition home or self-care (01) ==
LOC: EDUNIT# 11:09 → ER 11:10
DX: R10.13 Epigastric pain (principal); R10.11 Right upper quadrant pain; R10.12 Left upper quadrant pain; R74.8 Abnormal levels of other serum enzymes; Z90.49 Acquired absence of other specified parts of digestive tract
CPT/HCPCS: 36415; 74177; 80053; 81000; 83690; 85007; 85027

== ENCOUNTER 2023-06-01 16:20 | Emergency (ER) | payer MEDICAID ==
[~2023-06-01 16:20] MED LIST changes: +PANT40TA2 PO
[2023-06-01] MEDS ORDERED: ACHD5005 PO (16:45)
[2023-06-01] MEDS ORDERED: CLIN150C20 PO (16:45)
[2023-06-01] MEDS ORDERED: HYDROcodone/ACETAMINOPHEN 5 MG/325 MG TABLET PO ONE (16:45)
--- NOTE | 2023-06-01 16:45 | ED EENT ---
History of Present Illness General Chief Complaint: Dental Problems/Pain Stated Complaint: TOOTHACHE Source: patient Exam Limitations: no limitations (JOSSELIN GARCIA APRN) History of Present Illness Date Seen by Provider: Jun 01, 2023 Time Seen by Provider: 16:25 Initial Comments 48-year-old male presents to the ER with complaint of right upper and lower dental pain. He reports he has had this pain for a while, states it became worse last night. Is scheduled to see a dentist in August of next year. He last took Tylenol this morning. Denies any fevers or facial swelling. (JOSSELIN GARCIA APRN) Allergies and Home Medications Allergies Coded Allergies: codeine (Unverified Allergy, Mild, itches, 01/03/10) Penicillins (Unverified Allergy, Unknown, 11/20/18) diphenhydramine (Verified Allergy, Unknown, 05/19/21) Patient Home Medication List Home Medication List Reviewed: Yes (JOSSELIN GARCIA APRN) Atorvastatin Calcium (Atorvastatin Calcium) 40 Mg Tablet, 40 MG PO HS, (Reported) Entered as Reported by: PARVIZ RODARTE on 11/11/21 1145 Baclofen (Baclofen) 10 Mg Tablet, 10 MG PO TID, (Reported) Entered as Reported by: PARVIZ RODARTE on 11/11/21 1145 Carvedilol (Carvedilol) 25 Mg Tablet, 25 MG PO BID, (Reported) Entered as Reported by: PARVIZ RODARTE on 11/11/21 1145 Clindamycin HCl (Clindamycin HCl) 300 Mg Capsule, 300 MG PO QID Prescribed by: KYLE CORDERO on 04/25/23 2108 Clindamycin HCl (Clindamycin HCl) 150 Mg Capsule, 450 MG PO TID Prescribed by: Josselin Aldrich on 06/01/23 1645 Diclofenac Sodium (Diclofenac Sodium) 1 % Gel..gram., 1 APPLIC TP QID PRN for PAIN-BREAKTHROUGH, (Reported) Entered as Reported by: PARVIZ RODARTE on 11/11/21 1145 Diclofenac Sodium (Diclofenac Sodium) 1 % Gel..gram., 2 GM TP QID Prescribed by: KYLE CORDERO on 01/23/22 2246 Ezetimibe (Ezetimibe) 10 Mg Tablet, 10 MG PO DAILY, (Reported) Entered as Reported by: PARVIZ RODARTE on 11/11/21 1145 Furosemide (Furosemide) 40 Mg Tablet, 40 MG PO DAILY, (Reported) Entered as Reported by: PARVIZ RODARTE on 11/11/21 1145 Gabapentin (Gabapentin) 600 Mg Tablet, 600 MG PO DAILY, (Reported) Entered as Reported by: ROM MG on 12/25/20 0026 Gabapentin (Gabapentin) 600 Mg Tablet, 600 MG PO 1300,2200 PRN for PAIN- BREAKTHROUGH, (Reported) Entered as Reported by: PARVIZ RODARTE on 11/11/21 1145 Hydrocodone/Acetaminophen (Hydrocodone-Acetamin 5-325 mg) 5 Mg-325 Mg Tablet, 1 TAB PO Q4H PRN for PAIN-MODERATE (5-7) Prescribed by: KYLE CORDERO on 04/25/23 2109 Hydrocodone/Acetaminophen (Hydrocodone-Acetamin 5-325 mg) 5 Mg-325 Mg Tablet, 1 TAB PO Q4H PRN for PAIN-MODERATE (5-7) Prescribed by: Josselin Aldrich on 06/01/23 1646 Levofloxacin (Levofloxacin) 500 Mg Tablet, 500 MG PO DAILY@11 Prescribed by: LAURE HOANG on 11/14/21 1205 Losartan Potassium (Losartan Potassium) 50 Mg Tablet, 50 MG PO BID, (Reported) Entered as Reported by: PARVIZ RODARTE on 11/11/21 1145 Pantoprazole Sodium (Pantoprazole Sodium) 40 Mg Tablet.dr, 40 MG PO DAILY, (Reported) Entered as Reported by: PARVIZ RODARTE on 11/11/21 1145 Pantoprazole Sodium (Protonix) 40 Mg Tablet.dr, 40 MG PO DAILY Prescribed by: KYLE CORDERO on 05/14/23 1241 Pantoprazole Sodium (Protonix) 40 Mg Tablet.dr, 40 MG PO DAILY Prescribed by: KYLE CORDERO on 05/14/23 1657 Sertraline HCl (Sertraline HCl) 50 Mg Tablet, 50 MG PO DAILY, (Reported) Entered as Reported by: PARVIZ RODARTE on 11/11/21 1145 Spironolactone (Spironolactone) 25 Mg Tablet, 25 MG PO DAILY, (Reported) Entered as Reported by: PARVIZ RODARTE on 11/11/21 1145 Review of Systems Review of Systems Constitutional: see HPI (JOSSELIN GARCIA APRN) Past Egvvrvg-Lsxvax-Szrtnw Hx Immunizations Up To Date Tetanus Booster (TDap): Less than 5yrs First/Initial COVID19 Vaccinat: 2020 Second COVID19 Vaccination Luis E: 2020 Third COVID19 Vaccination Date: 2020 (JOSSELIN GARCIA APRN) Seasonal Allergies Seasonal Allergies: No (JOSSELIN GARCIA APRN) Past Medical History Surgery/Hospitalization HX: STROKE, CAD, cardiac arrest, ch. edema, mi, high cholesterol, htn, gerd, pancreatitis, bmt, heart cath, cholecystectomy. Surgeries: Yes (BMT'S; CARDIAC CATH 11/20/18--NO INTERVENTION) Ear Surgery, Gallbladder Respiratory: No Cardiac: Yes Chronic Edema/Swelling, Heart Attack, High Cholesterol, Hypertension Neurological: Yes Stroke Reproductive Disorders: No Genitourinary: No Gastrointestinal: Yes Gastroesophageal Reflux, Pancreatitis Musculoskeletal: Yes (CHRONIC BILATERAL LEG PAIN ) Endocrine: No HEENT: No Cancer: No Psychosocial: Yes Anxiety, Bipolar Integumentary: No Blood Disorders: No (JOSSELIN GARCIA APRN) Family Medical History FH: COPD (chronic obstructive pulmonary disease) 19 FATHER 19 MOTHER FH: coronary artery bypass surgery 19 MOTHER FH: emphysema 19 FATHER FH: heart failure 19 FATHER Seizure disorder G8 SISTER Heart Disease, COPD, Seizures (JOSSELIN GARCIA APRN) Physical Exam Vital Signs Vital Signs - First Documented 06/01/23 16:29 Temp 36.7 Pulse 96 Resp 18 B/P (MAP) 165/91 (115) Pulse Ox 98 O2 Delivery Room Air (JADYN ASHLEY MD) Height, Weight, BMI Height: 5'7.00" Weight: 150lbs. 7.0oz. 68.114861uc; 41.00 BMI Method:Stated General Appearance: WD/WN, no apparent distress Mouth/Throat: dental tenderness, other (Poor dentition, multiple missing teeth) Neck: supple, normal inspection Cardiovascular: regular rate, rhythm Respiratory: lungs clear, normal breath sounds, no respiratory distress, no accessory muscle use Neurologic/Psychiatric: alert, normal mood/affect Skin: normal color, warm/dry (JOSSELIN GARCIA APRN) Progress/Results/Core Measures Progress Progress Note : Progress Note Patient seen and evaluated, resting comfortably in recliner, no acute distress. Based on exam and symptoms, will go ahead and treat for possible developing dental abscess. No obvious abscess noted at this time. Patient has significant dental and gum tenderness. Patient is allergic to penicillins, will start him on clindamycin. Dose of [place] given in the ER. Will discharge with short prescription for [place] as well. Patient is stable for discharge. Discharge instructions and return precautions provided. (JOSSELIN GARCIA APRN) Departure Impression Primary Impression: Pain, dental Disposition: HOME, SELF-CARE Condition: Stable Departure-Patient Inst. Decision time for Depature: 16:43 (JOSSELIN GARCIA APRN) Referrals: [facility] [place] (PCP/Family) Primary Care Physician Patient Instructions: Dental Pain ED Add. Discharge Instructions: Follow-up with your dentist. Complete full course of antibiotic as prescribed. Take [place] as needed for pain. May make you sleepy. It may cause constipation. Do not take Tylenol while you are taking [place]. You may also take ibuprofen as needed for pain. Return for any new, concerning, or worsening symptoms. All discharge instructions reviewed with patient and/or family. Voiced understanding. Scripts Hydrocodone/Acetaminophen (Hydrocodone-Acetamin 5-325 mg) 5 Mg-325 Mg Tablet 1 TAB PO Q4H PRN for PAIN-MODERATE (5-7), #8 TAB 0 Refills Prov: JOSSELIN GARCIA APRN 06/01/23 Clindamycin HCl (Clindamycin HCl) 150 Mg Capsule 450 MG PO TID for 7 Days, #63 CAP 0 Refills Prov: JOSSELIN GARCIA APRN 06/01/23 ATTENDING PHYSICIAN NOTE: I was physically present as attending physician in the emergency department during the care of this patient, but I was not directly involved in the decision making or delivery of care for this patient. (JADYN ASHLEY MD) JOSSELIN GARCIA APRN Jun 01, 2023 16:45 JADYN ASHLEY MD Jun 02, 2023 07:00
[2023-06-01 16:56] VITALS: BP 165/91
== END 2023-06-01 16:57 | disposition home or self-care (01) ==
LOC: EDUNIT# 16:20 → ER 16:22
DX: K08.89 Other specified disorders of teeth and supporting structures (principal); Z88.0 Allergy status to penicillin; Z88.6 Allergy status to analgesic agent
CPT/HCPCS: 99283